=== PATIENT | male | born 1985 | race Caucasian/White ===

== ENCOUNTER 2025-06-28 11:25 | Emergency (ER) | payer MEDICAID, SELFPAY ==
[2025-06-28 11:26] VITALS: BP 119/91; PULSE 124; RESP 18; TEMP 36.1; O2SAT 98; BMI 27.2
--- NOTE | 2025-06-28 11:42 | EDS_ITS ---
HPI HPI - GI History of Present Illness Chief Complaint: Abd Pain Detail of Chief Complaint: Vomiting and abdominal pain Informant: patient and spouse/S.O. Narrative Narrative: Patient presents to the emergency department with complaint of vomiting and abdominal pain. Patient states that he started vomiting around 5:30 AM today. He is thrown up more than 12 times. He then vomited small amount of blood and had a second episode with some dark-colored vomit. He complains of some abdominal discomfort. He has also had 2 bouts of diarrhea. His significant other states that she had a illness a week ago with vomiting. Patient's cousin recently diagnosed with norovirus. Patient denies fever at home. Denies prior abdominal surgeries. Denies urinary symptoms. [facility] Medical History (Updated 06/28/25 @ 13:[address] James Wilburn DO) Schizo affective schizophrenia Home Medications ?Medication ?Instructions ?Recorded ?Last Taken ?Type ondansetron 4 mg disintegrating 4 mg PO Q8H PRN PRN Na usea #10 tabs 06/28/25 Unknown Rx tablet Allergy/AdvReac Type Severity Reaction Status Date / Time Penicillins (PCN) Allergy Anaphylaxis Verified 06/28/25 11:27 Social History Smoking Status: Current every day smoker tobacco type: cigarettes ROS ROS ED Review of Systems ROS Unobtainable: other Constitutional Constitutional ED: Reports lethargy; Denies chills, fever(s), sweats or weight loss Eyes Eyes: Denies blurry vision, change in vision or diplopia ENT ENT ED: Denies rhinorrhea or sore throat Cardiovascular Cardiovascular: Denies chest pain, orthopnea or racing heartbeat Respiratory/Chest Respiratory/Chest: Denies cough, dyspnea, dyspnea on exertion, orthopnea or sputum Gastrointestinal Gastrointestinal: Reports abdominal pain, diarrhea, nausea, vomiting and other Details: Hematemesis Genitourinary Genitourinary ED: Denies dysuria, hematuria or urinary frequency Musculoskeletal Musculoskeletal: Denies arthralgias, back pain, myalgias or neck pain Integumentary Denies abscess, Abrasions or rash Neurologic Neurologic: Denies headache(s) or weakness Psychiatric Psychiatric: Denies anxiety, depression or suicidal thoughts Endocrine Endocrinology: Denies polydipsia, polyphagia or polyuria Hematologic/Lymphatic Hematologic/Lymphatic: Denies easy bleeding, easy bruising or lymphadenopathy Allergic/Immunologic Allergic/Immunologic ED: Denies mouth swelling, tongue swelling or urticaria EXAM Physical Exam Const Vital Signs: 06/28/25 11:26 Temperature 97 F L Temperature Source Temporal Pulse Rate 124 H Respiratory Rate 18 Blood Pressure 119/91 H Blood Pressure Mean 100 Pulse Ox 98 Oxygen Delivery Method Room Air Positive well nourished and well developed General Appearance ED: well developed and NAD HEENT Reports TM's clear and moist mucous membranes normocephalic and atraumatic; Negative for trauma or tenderness Tympanic Membrane ED: Yes TM's clear Eyes PERRL and EOMs intact bilaterally General Eye ED: Negative for pale conjunctiva or scleral icterus Neck no lymphadenopathy, supple and no JVD General: Negative for tenderness Chest Wall inspection of chest normal and palpation of chest normal Chest: Negative for tenderness Resp normal respiratory effort and clear to auscultation bilaterally Effort and Inspection: Negative for respiratory distress or pain with movement Auscultation: Negative for rhonchi, wheezes or diminished lung sounds Cardio regular rate, regular rhythm, S1 normal heart sound, S2 normal heart sound and no murmurs Peripheral Pulses: pulses 2+ throughout GI normal to inspection, nondistended, normoactive bowel sounds, soft to palpation, non-distended and no masses GI Narrative: Minimal diffuse tenderness. There is no rebound, rigidity, or peritoneal signs. No significant guarding. Back/Spine no CVA tenderness and no thoracic nor lumbar tenderness Extremity normal to inspection General Extremety ED: Negative for edema General Extremity: Negative for edema Neuro oriented x3, CN's II-XII intact bilaterally, no sensory deficits noted and gait normal Sensorium / Orientation: awake, alert, oriented to person, oriented to place and oriented to time Motor Exam: strength 5/5 throughout and strength abnormal Psych mental status grossly normal Skin no rashes or lesions noted and no wounds MDM MDM MDM Narrative Medical decision making narrative: Patient presents with vomiting and diarrhea with recent sick contacts diagnosed with norovirus. Did have episode of hematemesis. Clinically he looks well. Suspect likely a viral gastroenteritis with possibly a Brianna-Agee tear. Patient states that he has had history of stomach ulcer in the past. He said no black tarry stool. Will start an IV and give patient liter fluid bolus as well as Protonix and Zofran. Will obtain basic labs. CBC with differential obtained showed an elevated white count of 18.1 with hemoglobin of 17.4 and platelet count of 257. Chemistries unremarkable. LFTs unremarkable. Patient was given a liter normal saline fluid bolus. He was given Zofran. He felt markedly improved after treatment. He also did receive pantoprazole IV bolus. He was ab le to tolerate a p.o. challenge. This point I do not think he needs any imaging as his abdominal exam is benign. I suspect likely a viral gastroenteritis such as possibly norovirus. Recommended symptomatic care and will write him a prescription for Zofran. Advised on pushing fluids and BRAT diet. Advised to return if persistent vomiting, worsening abdominal pain, persistent hematemesis, or condition worsening way. Regarding the hematemesis I suspect likely Brianna- Agee tear. Lab Data Attestation: I reviewed the patient's lab results. Labs: Laboratory Results - last 24 hr 06/28/25 12:00 WBC 18.1 H RBC 5.37 Hgb 17.4 H Hct 48.9 MCV 91.1 MCH 32.4 H MCHC 35.6 RDW Std Deviation 40.9 RDW Coeff of Saman 12.2 Plt Count 257 MPV 8.8 Immature Gran % (Auto) 0.500 Neut % (Auto) 93.8 H Lymph % (Auto) 2.8 L [place] % (Auto) 2.4 Eos % (Auto) 0.3 Baso % (Auto) 0.2 Absolute Neuts (auto) 16.9 H Absolute Lymphs (auto) 0.50 L Nucleated RBC % 0 Sodium 137 Potassium 4.5 Chloride 102 Carbon Dioxide 23.9 Anion Gap 11 BUN 15 Creatinine 0.93 Estim Creat Clear Calc 97.01 Est GFR (MDRD) Non-Af 108 BUN/Creatinine Ratio 16.4 Glucose 168 H Calcium 9.7 Total Bilirubin 0.58 AST 16 ALT 26 Alkaline Phosphatase 135 H Total Protein 7.6 Albumin 4.7 Globulin 2.9 Albumin/Globulin Ratio 1.6 Discharge Plan Triage Chief Complaint: Abd Pain ED Provider: James Wilburn Dx/Rx/DC Orders Clinical Impression: Viral gastroenteritis, Brianna-Agee tear Instructions: Brianna-Agee Tear, ED Gastroenteritis, Viral (Adult) Prescriptions: New ondansetron 4 mg tablet,disintegrating 4 mg PO Q8H PRN PRN (Reason: Nausea) Qty: 10 0RF Primary Care Provider: Care Physician,No Primary Referrals: Vikas Mederos MD [Med Staff - Active Staff, Family Practice] - 3-5 Days Care Physician,No Primary [Primary Care Provider, Medical] Print Language: [place] African Disposition Disposition: Home, Self Care
[2025-06-28] MEDS: 0.9% Normal Saline (1000mL) 1,000 ML 999 ML IV (11:58)
[2025-06-28] MEDS: Pantoprazole Sodium 80 MG in 0.9% Normal Saline (50mL Bag) 15 ML 420 MG IV BOLUS (11:58)
[2025-06-28 12:12] LABS: Hematocrit 48.9 % (40-54); Hemoglobin 17.4 g/dL (13.0-16.5); Immature Granulocytes Count 0.090 X10^3/uL (0.0-0.0); Mean Corp Hgb Conc 35.6 g/dL (32-36); Mean Corpuscular Volume 91.1 fL (80-94); Mean Platelet Vol. 8.8 fl (6.2-12.0); NRBC Flagged by Analyzer 0 % (0-5); POSITIVE DIFFERENTIAL YES; Platelet Count 257 K/mm3 (150-450); RBC Distribution Width CV 12.2 % (11.6-14.6); RBC Distribution Width SD 40.9 fl (35.1-43.9); Red Blood Count 5.37 M/mm3 (4.6-6.2); White Blood Count 18.1 K/mm3 (4.4-11.0)
[2025-06-28 12:30] LABS: AST(SGOT) 16 U/L (<=37); Alanine Aminotransfer ALT/SGPT 26 U/L (<=46); Albumin, Serum 4.7 g/dL (3.5-5.0); Alkaline Phosphatase 135 U/L (40-129); Anion Gap 11 (5-15); BUN 15 mg/dL (4-19); BUN/Creat Ratio 16.4 RATIO (10-20); Calcium,Total 9.7 mg/dL (7.6-11.0); Carbon Dioxide 23.9 mmol/L (21.0-32.0); Chloride 102 mmol/L (98-108); Estimated Creatinine Clearance 97.01 ml/min (50-250); Globulin 2.9 g/dL (2.2-4.2); Glucose 168 mg/dL (70-99); Potassium 4.5 mmol/L (3.3-5.1)
--- NOTE | 2025-06-28 12:37 | CM.ED ---
Social work Reason for referral: no PCP Referral source: case find SW identified patient's lack of PCP and need for resources. SW entered patient's room, introducing self and role at [facility]. Patient's significant other, [place], at bedside; permission given to speak in front of [place]. Patient confirmed lacking a PCP and was grateful for resources of [facility] Provider Directory and [place] information. Patient asked for blanket; blanket provided with RN approval. Kylah Quinn, [employer], [employer]
[2025-06-28 13:27] VITALS: BP 124/81; PULSE 107; RESP 18; TEMP 37.2; O2SAT 97
== END 2025-06-28 13:30 | disposition home or self-care (01) ==
PROVIDERS: Emergency Provider Emergency Medicine; Visit Provider Emergency Medicine
DX: A08.4 Viral intestinal infection, unspecified (principal); K22.6 Gastro-esophageal laceration-hemorrhage syndrome; F17.210 Nicotine dependence, cigarettes, uncomplicated
CPT/HCPCS: 80053; 85025; 96365; 96375; 99283; J2405

== ENCOUNTER 2025-09-05 05:07 | Emergency (ER) | payer MEDICAID, SELFPAY ==
[2025-09-05 05:07] VITALS: PULSE 60; RESP 18; TEMP 36.6; O2SAT 97; BMI 27.3
--- NOTE | 2025-09-05 05:13 | CT_ITS ---
PROCEDURE: ABDOMEN/PELVIS W IV CONT ONLY 09/05/2025 REASON FOR EXAM: ABDOMINAL PAIN TECHNIQUE: Procedure Code: [id number] Modality: CT Procedure: ABDOMEN/PELVIS W IV CONT ONLY Coronal and Sagittal reconstruction series were provided. CONTRAST: 100 cc of Isovue 370 One or more dose reduction techniques were used (e.g., Automated exposure control, adjustment of the mA and/or kV according to patient size, use of iterative reconstruction technique. FINDINGS: Lung bases: Mild dependent atelectasis Liver: Normal size. No mass. Gallbladder: Unremarkable. No biliary ductal dilatation. Spleen: Normal size. Pancreas: Normal size without evidence of mass surrounding inflammation or ductal dilation. Adrenals: No adrenal masses. Kidneys: Normal renal sizes. No hydronephrosis. Bladder: Unremarkable. Reproductive Organs: Prostate not enlarged. No pelvic masses. Bowel: No bowel obstruction. No inflammatory changes. Appendix: Normal. Lymph nodes: Unremarkable. Vasculature: Mild diffuse atherosclerotic calcifications are noted. No aneurysm. Peritoneum / Retroperitoneum: No free fluid or air. Bones: No acute fractures. CT/Abdomen/Pelvis W IV Cont ONLY IMPRESSION: NO ACUTE FINDINGS AT THE ABDOMEN OR PELVIS ON CONTRAST-ENHANCED CT. [facility]
--- NOTE | 2025-09-05 05:14 | EDS_ITS ---
HPI HPI - GI History of Present Illness Chief Complaint: Abd Pain Informant: patient Abdominal Pain/Flank Pain Onset: Today Context: Gradual Onset Timing: Continuous Quality: Aching Location: Epigastric Current Severity: Mild Maximum Severity: Mild Nausea/Vomiting/Emesis GI Symptom: Negative for Nausea or Vomiting Diarrhea/Melena/Hematochezia GI Symptom: Negative for Diarrhea, Melena or Hematochezia Associated Symptoms Associated Symptoms: Negative for Dysuria, Frequency, Hematuria or Urgency Narrative Narrative: 40-year-old male history of schizophrenia and history of gastroesophageal reflux. States he developed abdominal pain about 7 PM last night. All over but more in the upper abdomen. Denies any nausea, vomiting or diarrhea. No constipation. No fever. No dysuria. No prior history of pain like this. States he has not recently been ill. He denies any weight change. States he is urinating fine and moving his bowels. No melena. He has never had any abdominal surgery denies any trauma. Lying supine makes the pain worse. Prior similar symptoms: No Recent Illness/Hospitalization: No PFSH PFSH Medical History Schizo affective schizophrenia Home Medications ?Medication ?Instructions ?Recorded ?Last Taken ?Type carbamazepine 400 mg PO 09/05/25 Unknown History tablet,extended release,12 hr clonidine HCl 0.1 mg tablet 0.1 mg PO BID 09/05/25 Unk nown History fluoxetine 60 mg tablet 60 mg PO DAILY 09/05/25 Unkn own History lithium carbonate 300 mg capsule 300 mg PO TID 5 Unknown History melatonin 5 mg capsule 5 mg PO QHS 09/05/25 Unknown History mirtazapine 15 mg tablet 15 mg PO QHS 09/05/25 Unknow n History olanzapine 20 mg tablet 20 mg PO QHS 09/05/25 Unknow n History olanzapine 5 mg tablet 5 mg PO QHS 09/05/25 Unknown History Allergy/AdvReac Type Severity Reaction Status Date / Time Penicillins (PCN) Allergy Anaphylaxis Verified 09/05/25 05:08 Social History Smoking Status: Current every day smoker tobacco type: cigarettes ROS ROS ED ROS Narrative Abdominal pain. Denies nausea, vomiting, diarrhea or fever. Denies constipation or weight change. Denies dysuria or melena. Constitutional Constitutional ED: Denies chills or fever(s) ENT ENT ED: Denies ear pain Cardiovascular Cardiovascular: Denies chest pain Respiratory/Chest Respiratory/Chest: Denies cough or dyspnea Gastrointestinal Gastrointestinal: Reports abdominal pain; Denies constipation, diarrhea, melena, nausea or vomiting Genitourinary Genitourinary ED: Denies dysuria or hematuria Musculoskeletal Musculoskeletal: Denies arthralgias Integumentary Denies abscess Neurologic Neurologic: Denies headache(s) Psychiatric Psychiatric: Denies anxiety Endocrine Endocrinology: Denies polydipsia Hematologic/Lymphatic Hematologic/Lymphatic: Denies easy bleeding, easy bruising or lymphadenopathy Allergic/Immunologic Allergic/Immunologic ED: Denies mouth swelling, tongue swelling or urticaria EXAM Physical Exam Narrative Exam Narrative: 40-year-old male sitting upright in bed vital signs are stable afebrile. No acute distress. Patient appears comfortable complaining abdominal pain. H EENT exam pupils round react light. Moist mucous membranes. Neck nontender no JVD. No lymphadenopathy. Lungs clear to auscultation bilaterally. Heart regular rhythm no murmur rate about 60. Chest wall ribs nontender. Abdomen soft nondistended normal bowel sounds without peritoneal signs. Mild epigastric tenderness. No rebound guarding rigidity. No hernia or mass. No obstruction. Right upper and right lower quadrants are unremarkable. No pulsatile mass. No obvious obstruction. No signs of trauma. Back nontender. Moving all 4 extremities. Normal strength. No edema nontender. He is awake and alert. He is answering questions following commands. Const Vital Signs: 09/05/25 05:07 Temperature 97.9 F Temperature Source Oral Pulse Rate 60 Respiratory Rate 18 Pulse Ox 97 Oxygen Delivery Method Room Air MDM MDM MDM Narrative Medical decision making narrative: 40-year-old male complaining of abdominal pain but has pretty benign exam. Differential would include gastritis, reflux, ulcer, gallbladder disease, pancreatitis, appendicitis or bowel obstruction. CAT scan and labs to be ob tained. He did request something for pain and will be be given IV morphine and 4 Zofran. Repeat exam around 6:25 AM patient doing well. Abdomen benign. Went over his test results. He is comfortable being discharged home with outpatient follow-up as needed. Abdominal pain uncertain etiology. History & Record Review Discussion w/independent historian: Patient Additional record(s) reviewed:: Prior labs Lab Data Attestation: I reviewed the patient's lab results. Lab results narrative: CBC shows white count of 15.5. H&H 15 and 43. Platelets 245. Chemistry is unremarkable gap 9. Normal BUN of 11 creatinine 0.9. Glucose 149. Liver enzymes unremarkable. Alk phos 133. Lipase normal at 13. Labs: Laboratory Results - last 24 hr 09/05/25 05:11 WBC 15.5 H RBC 4.68 Hgb 15.0 Hct 43.9 MCV 93.8 MCH 32.1 H MCHC 34.2 RDW Std Deviation 41.1 RDW Coeff of Saman 11.9 Plt Count 245 MPV 9.2 Immature Gran % (Auto) 0.400 Neut % (Auto) 81.6 H Lymph % (Auto) 11.6 L [place] % (Auto) 5.7 Eos % (Auto) 0.4 Baso % (Auto) 0.3 Absolute Neuts (auto) 12.7 H Absolute Lymphs (auto) 1.80 Nucleated RBC % 0 Sodium 138 Potassium 4.5 Chloride 103 Carbon Dioxide 26.1 Anion Gap 9 BUN 11 Creatinine 0.95 Estim Creat Clear Calc 100.82 Est GFR (MDRD) Non-Af 104 BUN/Creatinine Ratio 12.0 Glucose 149 H Calcium 9.5 Total Bilirubin 0.16 AST 18 ALT 27 Alkaline Phosphatase 133 H Total Protein 6.7 Albumin 4.2 Globulin 2.5 Albumin/Globulin Ratio 1.7 Lipase 13 Discharge Plan Triage Chief Complaint: Abd Pain ED Provider: Rian Garcia Dx/Rx/DC Orders Clinical Impression: Abdominal pain Instructions: Abdominal Pain Prescriptions: No Action clonidine HCl 0.1 mg tablet 0.1 mg PO BID olanzapine 5 mg tablet 5 mg PO QHS carbamazepine 400 mg tablet extended release 12 hr PO lithium carbonate 300 mg capsule 300 mg PO TID mirtazapine 15 mg tablet 15 mg PO QHS olanzapine 20 mg tablet 20 mg PO QHS melatonin 5 mg capsule 5 mg PO QHS fluoxetine 60 mg tablet 60 mg PO DAILY Primary Care Provider: Care Physician,No Primary Referrals: Roshan Lewis MD [Non-Staff, Medical] - 3-5 Days if not improving Care Physician,No Primary [Primary Care Provider, Medical] Activity Restrictions/Additional Instructions: Plenty of fluids and rest. [id number] Protonix or Pepcid for possible reflux. Your blood work looked good today. Your CAT scan did not show any significant cause your pain. Follow-up with local primary care physician not improving. Return if severe pain, intractable vomiting or fever. Or overall feeling worse. Print Language: Persian Disposition Disposition: Home, Self Care
--- OUTSIDE RECORDS SUMMARY | 2025-09-05 05:19 | XMS RPT_ITS | CCD ---
Author Organization [facility] Care Team Providers Care Manager Intensive Care Unit Name Role Phone CATA ELLIS Attending Unavailable MONTY SAUCEDO Attending Unavaila ble MUKUND FAROOQ Admitting Unavailable MUKUND FAROOQ Attending Unavailable AA UNKNOWN PCP, UNKNOWN Primary Care Unavaila ERA Gonsalez Admitting Unavailable ERA GARCIA Attending Unavailable AA NO PCP, NO PCP Primary Care Unavailable Unavailable Primary Care Provider Unavailabl e Unavailable Primary Care Provider Unavailabl e Unavailable Primary Care Provider Unavailabl e Unavailable Primary Care Provider Unavailabl e Unavailable Primary Care Provider Unavailabl e Unavailable Primary Care Provider Unavailabl e RAJIV DINH Attending Unavailabl e VAMSHI POWERS Attending Unavailable Unavailable Primary Care Provider Unavailabl e PJ SMITH Attending Unavailable SELMA FISHER Attending Unavailable PHYLLIS BELTRE Attending Unavailable Dr. James Wilburn DO Attending Physician [phone] Dr. James Wilburn DO Emergency Department Physici an Care Physician, No Primary Primary Care Physicia n Unavailable James Wilburn Attending Unavailable Care Physician, No Primary Primary Care Unava ilable Allergies Allergy Classification Reported Allergen(s) Allergy Type Date of Onset Reaction(s) Facility (20 sources) Penicillins; Translations: [PENICILLINS] Propensity to adverse reactions (disorder) 6 Rash, Unknown, Swelling [facility] Repository (1 source) Penicillin Drug Allergy [facility] Repository Medications Current Medications Medication Drug Class(es) Dates Sig (Normalized) Sig (Original) ARIPiprazole 5 mg oral tablet (4 sources) Atypical Antipsychotic Start: 05-08-2019 End: 05-22-2019 take 1 tablet by mouth once daily ARIPiprazole (ABILIFY) 5 MG tablet Take 1 tablet by mouth daily for 14 days 14 tablet 0 05/08/2019 Active cephalexin 500 mg oral capsule (1 source) Cephalosporin Antibacterial Start: 05-15-2019 End: 05-20-2019 take 1 capsule by mouth four times daily cephALEXin (KEFLEX) 500 MG capsule Take 1 capsule by mouth 4 times daily for 5 days 20 capsule 0 05/15/2019 05/20/2019 Active cyclobenzaprine hydrochloride 10 mg oral tablet (6 sources) Muscle Relaxant Start: 08-17-2024 End: 08-27-2024 take 1 tablet by mouth twice daily as needed for muscle spasms cyclobenzaprine (Flexeril) 10 MG tablet Take 1 tablet (10 mg) by mouth 2 times daily as needed for muscle spasms for up to 10 days. 20 tablet 08/17/2024 Active hydrOXYzine pamoate 25 mg oral capsule (1 source) Antihistamine Start: 05-08-2019 End: 05-15-2019 take 1 capsule by mouth three times daily as needed hydrOXYzine (VISTARIL) 25 MG capsule Take 1 capsule by mouth 3 times daily as needed for Itching 21 capsule 0 05/08/2019 05/15/2019 Active meloxicam 7.5 mg oral tablet (4 sources) Nonsteroidal Anti-inflammatory Drug Start: 12-24-2018 End: 03-25-2022 meloxicam (MOBIC) 7.5 MG tablet Take 1 tablet by mouth daily One pill QD with full meals for 10-14 days, then PRN pain 30 tablet 0 12/24/2018 03/25/2022 Discontinued (Stop Taking at Discharge) methocarbamol 500 mg oral tablet (1 source) Muscle Relaxant Start: 03-05-2020 End: 03-15-2020 take 1 tablet by mouth four times daily methocarbamol (ROBAXIN) 500 MG tablet Take 1 tablet by mouth 4 times daily for 10 days 40 tablet 0 03/05/2020 03/15/2020 Active naproxen 500 mg oral tablet (8 sources) Nonsteroidal Anti-inflammatory Drug Start: 02-01-2024 End: 02-16-2024 take 1 tablet by mouth in the morning naproxen (Naprosyn) 500 MG tablet Take 1 tablet (500 mg) by mouth in the morning and 1 tablet (500 mg) in the evening. Take with meals. Do all this for 15 days. 30 tablet 0 02/01/2024 02/16/2024 Active Start: 12-14-2018 End: 06-20-2022 take 1 tablet by mouth twice daily naproxen (NAPROSYN) 500 MG tablet Take 1 tablet by mouth 2 times daily 20 tablet 0 12/14/2018 03/25/2022 Discontinued (Stop Taking at Discharge) nystatin [id number] unt/ml oral suspension (3 sources) Polyene Antifungal Start: 03-25-2022 End: 03-30-2022 take 5 mL by mouth four times daily nystatin (MYCOSTATIN) 113245 UNIT/ML suspension Take 5 mLs by mouth 4 times daily 60 mL 0 03/25/2022 03/25/2022 Discontinued Start: 03-25-2022 nystatin (MYCO STATIN) 199470 UNIT/ML suspension 500,000 Units omeprazole 20 mg delayed release oral capsule (3 sources) Proton Pump Inhibitor Start: 10-01-2019 End: 03-25-2022 take 1 capsule by mouth once daily omeprazole (PRILOSEC) 20 MG delayed release capsule Take 1 capsule by mouth daily 20 capsule 0 10/01/2019 03/25/2022 Discontinued (Stop Taking at Discharge) ondansetron 4 mg disintegrating oral tablet (8 sources) Serotonin-3 Receptor Antagonist Start: 06-28-2025 take 1 tablet by mouth every eight hours as needed for nausea Start: 03-25-2022 End: 03-25-2022 ondansetron (ZOFRAN) injecti on 4 mg Start: 10-01-2019 End: 10-01-2019 ondansetron (ZOFRAN) injecti on 4 mg Start: 10-07-2018 End: 03-25-2022 take 1 tablet by mouth three times daily as needed for nausea ondansetron (ZOFRAN-ODT) 4 MG disintegrating tablet Take 1 tablet by mouth 3 times daily as needed for Nausea or Vomiting 21 tablet 0 10/07/2018 03/25/2022 Discontinued (Stop Taking at Discharge) pantoprazole 20 mg delayed release oral tablet (12 sources) Proton Pump Inhibitor Start: 12-29-2023 End: 01-28-2024 take 1 tablet by mouth once daily pantoprazole (ProtoNix) 20 MG EC tablet Take 1 tablet (20 mg) by mouth daily. Do not crush, chew, or split. 30 tablet 12/29/2023 Active Start: 03-26-2022 take 1 tablet by [place] th once daily before breakfast pantoprazole (PROTONIX) 40 MG tablet Take 1 tablet by mouth every morning (before breakfast) 30 tablet 3 03/26/2022 Active Start: 03-25-2022 pantoprazole ( PROTONIX) tablet 40 mg potassium chloride 20 meq powder for oral solution (4 sources) Start: 03-25-2022 End: 03-30-2022 take 40 mEq by mouth once daily potassium chloride (KLOR-CON) 20 MEQ packet Take 40 mEq by mouth daily for 5 days 10 packet 0 03/25/2022 03/30/2022 Active Start: 03-25-2022 End: 03-25-2022 potassium chloride 10 mEq/10 0 mL IVPB (Peripheral Line) Start: 03-25-2022 potassium chlo ride (KLOR-CON) packet 40 mEq sodium chloride flush 0.9 % injection 3 mL (1 source) Start: 03-25-2022 sodium chlorid e flush 0.9 % injection 3 mL Completed/Discontinued Medications Medication Drug Class(es) Dates Sig (Normalized) Sig (Original) acetaminophen 500 mg oral tablet (4 sources) Start: 11-09-2024 End: 11-09-2024 1,000 mg, Oral, Once, On Fri11/09/24 at 1655, For 1 dose, Maximum dose of acetaminophen is 4000 mg from all sources in 24 hours. Start: 10-04-2022 take 2 tablets by [facility] every eight hours acetaminophen (TYLENOL EXTRA STRENGTH) 500 mg tablet Take 2 tablets by mouth every 8 hours. 50 tablet 0 10/04/2022 Active Comment on above: Take 2 tablets by [facility] every 8 hours. acetaminophen 325 mg / oxyCODONE hydrochloride 5 mg oral tablet (1 source) Opioid Agonist Start: 0 End: 0 oxyCODONE-acetamin ophen (PERCOCET) 5-325 MG per tablet 1 tablet [id number] 200 actuat albuterol 0.09 mg/actuat metered dose inhaler (6 sources) beta2-Adrenergic Agonist Start: 8 take 2 puff(s) by inhalation four times daily as needed for wheezing albuterol sulfate HFA 108 (90 Base) MCG/ACT inhaler Inhale 2 puffs into the lungs 4 times daily as needed for Wheezing 1 Inhaler 0 08/26/2018 Active Start: 08-26-2018 take 2 puff(s) by in halation every four hours as needed for wheezing albuterol HFA (PROVENTIL HFA, VENTOLIN HFA) 90 mcg/actuation inhaler Inhale 2 Puffs as instructed every 4 hours as needed for Wheezing/Shortness of Breath. 0 08/26/2018 Active Start: 08-26-2018 End: 03-25-2022 take 2 puff(s) by inhalation four times daily as needed for wheezing albuterol sulfate HFA 108 (90 Base) MCG/ACT inhaler Inhale 2 puffs into the lungs 4 times daily as needed for Wheezing 1 Inhaler 0 08/26/2018 03/25/2022 Discontinued (Stop Taking at Discharge) Comment on above: Inhale 2 Puffs as in structed every 4 hours as needed for Wheezing/Shortness of Breath. aluminum hydroxide 40 mg/ml / magnesium hydroxide 40 mg/ml / simethicone 4 mg/ml oral suspension (2 sources) Start: 12-29-2023 End: 12-29-2023 aluminum & magnesium hydroxide-simethicone (Mylanta) 200-200-20 MG/5ML oral suspension 20 mL bacitracin zinc 0.5 unt/mg topical ointment (1 source) Start: 05-15-2019 End: 05-15-2019 bacitracin ointment Start: 05-15-2019 End: 05-15-2019 bacitracin ointment calcium chloride 0.0014 meq/ml / potassium chloride 0.004 meq/ml / sodium chloride 0.103 meq/ml / sodium lactate 0.028 meq/ml injectable solution (1 source) Start: 10-01-2019 End: 10-01-2019 lactated ringers bolus 1 ml dexamethasone phosphate 4 mg/ml injection (2 sources) Corticosteroid Start: 11-04-2022 End: 11-04-2022 dexAMETHasone (Decadron) injection 8 mg glucagon (rdna) 1 mg injection (1 source) Antihypoglycemic Agent Start: 03-25-2022 End: 03-25-2022 glucagon (rDNA) injection 1 mg ibuprofen 800 mg oral tablet (16 sources) Nonsteroidal Anti-inflammatory Drug Start: 02-14-2023 take 1 tablet by mouth every eight hours ibuprofen (MOTRIN) 800 mg tablet Take 1 tablet by mouth every 8 hours. 20 tablet 0 02/14/2023 Active Start: 11-04-2022 End: 11-04-2022 ibuprofen tablet 600 mg Start: 03-05-2020 End: 03-25-2022 take 1 tablet by mouth twice daily as needed for pain ibuprofen (ADVIL;MOTRIN) 800 MG tablet Take 1 tablet by mouth 2 times daily as needed for Pain 60 tablet 0 03/05/2020 03/25/2022 Discontinued (Stop Taking at Discharge) Start: 09-02-2018 End: 03-25-2022 take 1 tablet by mouth every six hours as needed for pain ibuprofen (ADVIL;MOTRIN) 600 MG tablet Take 1 tablet by mouth every 6 hours as needed for Pain 28 tablet 0 02/21/2019 03/25/2022 Discontinued (Stop Taking at Discharge) take 3 tablets by mo [facility] every six hours as needed ibuprofen (MOTRIN) 200 mg tablet Take 600 mg by mouth every 6 hours as needed for Pain. 0 Active Comment on above: Take 600 mg by mouth every 6 hours as needed for Pain. Take 1 tablet by [facility] every 8 hours. 1 ml ketorolac tromethamine 30 mg/ml cartridge (6 sources) Nonsteroidal Anti-inflammatory Drug, Cyclooxygenase Inhibitor Start: 09-14-2024 End: 09-14-2024 9.9 mg (rounded from 10 mg), IntraVENous, Once, On Fri09/14/24 at 1625, For 1 dose Start: 08-17-2024 End: 08-17-2024 inject 30 mg by intramuscular injection once 30 mg, IntraMUSCular, Once, On Fri08/17/24 at 2030, For 1 dose Start: 02-01-2024 End: 02-01-2024 ketorolac (Toradol) injectio n 15 mg lidocaine 0.04 mg/mg medicated patch (9 sources) Antiarrhythmic, Amide Local Anesthetic Start: 08-17-2024 End: 08-17-2024 1 patch, TransDERmal, Administer over 12 Hours, Once, On Fri08/17/24 at 2030, For 1 dose, Apply patch to back. Patch may remain in place for up to 12 hours in any 24 hour period. Start: 08-17-2024 apply 1 dose transde rmal route once daily, then apply 1 dose transdermal route every twelve hours lidocaine (Lidoderm) 5 % patch Apply 1 patch topically daily. Remove & discard patch within 12 hours or as directed by . 15 patch 08/17/2024 Active Start: 05-15-2019 End: 05-15-2019 lidocaine PF 1 % injection 5 mL 2 ml metoclopramide 5 mg/ml prefilled syringe (2 sources) Dopamine-2 Receptor Antagonist Start: 11-09-2024 End: 11-09-2024 10 mg, IntraVENous, Once, On Fri11/09/24 at 1655, For 1 dose 2 ml orphenadrine citrate 30 mg/ml injection (2 sources) Muscle Relaxant Start: 08-17-2024 End: 08-17-2024 inject 60 mg by intramuscular injection once 60 mg, IntraMUSCular, Once, On Fri08/17/24 at 2030, For 1 dose predniSONE 20 mg oral tablet (5 sources) Start: 08-17-2024 End: 08-17-2024 take 50 mg by mouth once 50 mg, Oral, Once, On Fri08/17/24 at 2030, For 1 dose Start: 08-17-2024 End: 08-29-2024 take 4 tablets by mouth once daily, then take 3 tablets by mouth once daily, then take 2 tablets by mouth once daily, then take 1 tablet by mouth once daily predniSONE (Deltasone) 10 MG tablet Take 4 tablets (40 mg) by mouth daily for 3 days, THEN 3 tablets (30 mg) daily for 3 days, THEN 2 tablets (20 mg) daily for 3 days, THEN 1 tablet (10 mg) daily for 3 days. 30 tablet 08/17/2024 08/29/2024 Active Start: 03-05-2020 End: 03-10-2020 take 2 tablets by mouth once daily predniSONE (DELTASONE) 20 MG tablet Take 2 tablets by mouth daily for 5 days 10 tablet 0 03/05/2020 03/10/2020 Active prochlorperazine 5 mg/ml injectable solution (2 sources) Phenothiazine Start: 09-14-2024 End: 09-14-2024 10 mg, IntraVENous, Once, On Fri09/14/24 at 1625, For 1 dose 50 ml sodium chloride 9 mg/ml injection (13 sources) Start: 11-09-2024 End: 11-09-2024 1,000 mL, IntraVENous, at 1,000 mL/hr, Administer over 1 Hours, Once, On Fri11/09/24 at 1655, For 1 dose Start: 09-14-2024 End: 09-14-2024 250 mL, IntraVENous, at 250 mL/hr, Administer over 1 Hours, Once, On Fri09/14/24 at 1335, For 1 dose Start: 09-14-2024 End: 09-14-2024 take 50 mL intravenously every hour 50 mL/hr, IntraVENous, Continuous, Starting on Fri09/14/24 at 1335 Start: 09-14-2024 End: 09-14-2024 take 5-40 mL intravenously every twelve hours 5-40 mL, IntraVENous, Every 12 hours, First dose on Fri09/14/24 at 1335, For Line Patency: Peripheral IV = 5 mL; Midline or Central Line = 10 mL/lumen. If following IV push medication, administer flush at same rate as the IV push. Flush volume is determined by type of infusion therapy being given. For non-viscous solutions use: Peripheral IV = 5 mL Midline or Central Line = 10 mL/lumen For viscous solutions (i.e. blood components, parenteral nutrition, contrast media, or after obtaining blood sample) use: Peripheral IV = 10 mL Midline or Central Line = 20 mL/lumen Start: 09-14-2024 End: 09-14-2024 take 100 mL intravenously every hour as needed, then take 20 mL intravenously every hour as needed 5-250 mL/hr, IntraVENous, PRN, if patient receiving piggyback infusions and maintenance fluids are not ordered OR KVO fluids to protect IV site / prevent frequent line interruptions / long duration, Starting on Fri09/14/24 at 1331, For piggyback infusion, administer at same rate as piggyback for a total of 25 mL. Enter 25 mL into dose field and piggyback rate into rate field of order. If piggyback is infusing at a rate less than 100 mL/hr, enter 25 mL into dose field and 100 mL/hr into rate field of order. For KVO fluids, enter rate of 20 mL/hr or less into rate field of order. Start: 09-14-2024 End: 09-14-2024 5-40 mL, IntraVENous, PRN, l ine care, After every IV line use, Starting on Fri09/14/24 at 1331, For Line Patency: Peripheral IV = 5 mL; Midline or Central Line = 10 mL/lumen. If following IV push medication, administer flush at same rate as the IV push. Flush volume is determined by type of infusion therapy being given. For non-viscous solutions use: Peripheral IV = 5 mL Midline or Central Line = 10 mL/lumen For viscous solutions (i.e. 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, in remission] Onset: 2 03-25-2022 Chronic Allergic reactions (1 source) Allergy status to penicillin; Translations: [ALLERGY STATUS TO PENICILLIN] Onset: 9 Episodic Anxiety disorders (20 sources) Generalized anxiety disorder; Translations: [Generalized anxiety disorder] Onset: 8 02-14-2018 Chronic Diseases of white blood cells (1 source) Leukocytosis; Translations: [Elevated white blood cell count, unspecified] Onset: 3 05-31-2023 Chronic Disorders of teeth and jaw (1 source) Chronic gingivitis, plaque induced; Translations: [CHRONIC GINGIVITIS PLAQUE INDUCED] Onset: 9 Chronic Disorders of teeth and jaw (2 sources) Partial loss of teeth, unspecified cause, unspecified class; Translations: [Dental caries, unspecified] Onset: 9 Episodic Disorders of teeth and jaw (1 source) Other specified disorders of teeth and supporting structures; Translations: [OTH SPEC DISORDERS TEETH SUPP STRCT] Onset: 9 Esophageal disorders (18 sources) Gastroesophageal reflux disease; Translations: [Gastro-esophageal reflux disease without esophagitis] Onset: 8 02-14-2018 Chronic Esophageal disorders (1 source) Brianna-Agee tear; Translations: [Gastro-esophageal laceration-hemorrhage syndrome] 07-06-2025 Episodic Headache; including migraine (20 sources) Headache; Translations: [Headache] Onset: 8 12-01-2017 Episodic Headache; including migraine (2 sources) Headache; including migraine; Translations: [Headache, unspecified] Onset: 2 Intestinal infection (1 source) Viral gastroenteritis; Translations: [Viral intestinal infection, unspecified] 07-06-2025 Episodic Mood disorders (18 sources) Recurrent major depressive episodes, moderate ; Translations: [Major depressive disorder, recurrent, moderate] Onset: 8 02-14-2018 Chronic Nausea and vomiting (19 sources) Nausea and vomiting; Translations: [Nausea with vomiting, unspecified] Onset: 9 10-07-2018 Episodic Other gastrointestinal disorders (2 sources) Dysphagia; Translations: [Dysphagia, unspecified] 12-29-2023 Episodic Other injuries and conditions due to external causes (1 source) Food lodged in esophagus; Translations: [Food in esophagus causing other injury, initial encounter] Episodic Other nervous system disorders (2 sources) Other chronic pain; Translations: [Other chronic pain] Onset: 4 Chronic Other nervous system disorders (1 source) Other acute postprocedural pain; Translations: [OTHER ACUTE POSTPROCEDURAL PAIN] Onset: 9 Episodic Other skin disorders (1 source) Localized swelling, mass and lump, head; Translations: [LOCALIZED SWELLING MASS AND LUMP HEAD] Onset: 9 Episodic Residual codes; unclassified (2 sources) Tobacco user; Translations: [Tobacco abuse] Onset: 8 02-14-2018 Chronic Schizophrenia and other psychotic disorders (17 sources) Paranoid schizophrenia; Translations: [Paranoid schizophrenia] Onset: 2 03-25-2022 Chronic Screening and history of mental health and substance abuse codes (3 sources) Tobacco smoking behavior - finding; Translations: [Smoking addiction] Onset: 9 10-07-2018 Chronic Spondylosis; intervertebral disc disorders; other back problems (6 sources) Chronic low back pain; Translations: [Acute exacerbation of chronic low back pain] Onset: 4 08-17-2024 Episodic Sprains and strains (1 source) Low back strain; Translations: [Strain of lumbar region, initial encounter] Episodic Substance-related disorders (20 sources) History of drug abuse; Translations: [Tobacco smoking behavior - finding] Onset: 8 02-14-2018 Chronic Unclassified (1 source) NEW ONSET SEIZURES Onset: 3 Unclassified (1 source) Low back pain, unspecified; Translations: [Low back pain, unspecified] Onset: 4 Past or Other Problems Problem Classification Problem Date Documented Da te Episodic/Chronic Abdominal pain (1 source) Epigastric pain Episodic Anxiety disorders (1 source) Irritability and anger; Translations: [Outbursts of anger] Onset: 10-05-2022 Episodic Conditions associated with dizziness or vertigo (16 sources) Dizziness and giddiness; Translations: [Dizziness and giddiness] Onset: 03-17-2019 03-25-2022 Episodic Diabetes mellitus without complication (1 source) Hyperglycemia; Translations: [Hyperglycemia, unspecified] Onset: 05-31-2023 05-31-2023 Episodic Epilepsy; convulsions (1 source) Seizure; Translations: [Unspecified convulsions] Onset: 05-31-2023 05-31-2023 Episodic Fluid and electrolyte disorders (1 source) Metabolic acidosis, increased anion gap (IAG); Translations: [High anion gap metabolic acidosis] Onset: 05-31-2023 05-31-2023 Episodic Fracture of upper limb (3 sources) Closed fracture of base of fifth metacarpal; Translations: [Displaced fracture of base of fifth metacarpal bone, right hand, sequela] Onset: 03-19-2023 Episodic Immunizations and screening for infectious disease (1 source) Encounter for immunization; Translations: [Need for Tdap vaccination] Onset: 10-05-2022 Episodic Nonspecific chest pain (20 sources) Other chest pain; Translations: [Chest pain] Onset: 02-14-2018 02-14-2018 Episodic Open wounds of extremities (1 source) Laceration of finger; Translations: [Laceration of left little finger without foreign body with damage to nail, initial encounter] Episodic Open wounds of head; neck; and trunk (1 source) Laceration without foreign body of scalp, initial encounter; Translations: [Laceration of scalp without foreign body, initial encounter] Onset: 10-05-2022 Episodic Other connective tissue disease (1 source) Hand pain Onset: 02-14-2023 Episodic Other gastrointestinal disorders (2 sources) Dysphagia, unspecified; Translations: [Dysphagia, unspecified] Onset: 12-29-2023 Episodic Other injuries and conditions due to external causes (1 source) Unspecified injury of head, initial encounter; Translations: [Head injury without fracture of skull, initial encounter] Onset: 10-05-2022 Episodic Other non-traumatic joint disorders (4 sources) Pain in right knee; Translations: [Pain in joint, lower leg] Onset: 02-01-2024 02-01-2024 Episodic Other screening for suspected conditions (not mental disorders or infectious disease) (1 source) Lactic acidemia; Translations: [Other specified abnormal findings of blood chemistry] Onset: 05-31-2023 05-31-2023 Episodic Other upper respiratory infections (2 sources) Pharyngitis; Translations: [Acute pharyngitis, unspecified] Episodic Residual codes; unclassified (16 sources) Tobacco user; Translations: [Tobacco use] Onset: 02-14-2018 02-14-2018 Episodic Residual codes; unclassified (1 source) History of drug abuse; Translations: [Personal history of other specified conditions] Onset: 02-14-2018 02-14-2018 Episodic Unclassified (1 source) Low back pain, unspecified; Translations: [Low back pain, unspecified] Onset: 08-17-2024 Results Test Name Value Interpretation Reference Range Facility Absolute lymphocyte countOrd ered By: James Wilburn on 06-28-2025 Lymphocytes Auto (Unsp spec) [#/Vol] 0.50 10*3/uL Low 0.83-4.51 [facility] Absolute neutrophil countOrd ered By: James Wilburn on 06-28-2025 Neutrophils (Bld) [#/Vol] 16.9 10*3/uL High 2.0-7.7 [facility] Anion gap in Serum or Plasma Ordered By: James Wilburn on 06-28-2025 Anion gap [Moles/Vol] 11 mmol/L 5-15 [facility] Automated blood erythrocyte countOrdered By: James Wilburn on 06-28-2025 RBC (Bld) [#/Vol] 5.37 10*6/uL Normal 4.6-6.2 [facility] Comment on above: Performed By: #### L 100.0100, L500.4050 #### [facility] [address] [place], [address] Automated blood hematocrit ( percentage)Ordered By: James Burtizzy on 06-28-2025 Hematocrit (Bld) [Volume fraction] 48.9 % Normal 40-54 [facility] Comment on above: Performed By: #### L 100.0100, L500.4050 #### [facility] [address] [place], [address] Automated lymphocyte count a s percentage of total leukocytesOrdered By: James Burtizzy on 06-28-2025 Lymphocytes/100 WBC Auto (Unsp spec) 2.8 % Low 19-41 [facility] BUN/creatinine ratioOrdered By: James Burtizzy on 06-28-2025 Urea nitrogen/Creatinine [Mass ratio] 16.4 mg/mg 10-20 [facility] Basophil percentageOrdered B y: James Burtizzy on 06-28-2025 Basophils/100 WBC (Bld) 0.2 % Normal 0-1 [facility] Comment on above: Performed By: #### L 100.0100, L500.4050 #### [facility] [address] [place], [address] Bilirubin, totalOrdered By: James Burtizzy on 06-28-2025 Bilirubin [Mass/Vol] 0.58 mg/dL Normal 0.00-1.30 [facility] Comment on above: Performed By: #### L 100.0100, [id number] #### [facility] [address] [place], [address] CBC W/Diff, Automatedon 06-07 Absolute Lymph 0.50 X10 3/uL Low 0.83-4.51 [facility] Comment on above: Performed By: #### L 100.0100, [id number] #### [facility] [facility] [address] [place], [address] Absolute Neut 16.9 X10 3/uL High 2.0-7.7 [facility] Comment on above: Performed By: #### L 100.0100, L500.4050 #### [facility] [address] [place], [address] IG% 0.500 Normal 0.0-0.9 [facility] Comment on above: Result Comment: IG% - Immature Granulocytes (promyelocytes, myelocytes and metamyelocytes) > 1% indicates that a LEFT SHIFT is Present. Performed By: #### L 100.0100, L500.4050 #### [facility] [address] [place], [address] Lymphocytes/100 WBC (Bld) 2.8 % Low 19-41 [facility] Comment on above: Performed By: #### L 100.0100, L500.4050 #### [facility] [address] [place], [address] Nucleated RBC (Bld) [#/Vol] 0 10*3/uL Normal 0-5 [facility] Comment on above: Performed By: #### L 100.0100, L500.4050 #### [facility] [address] [place], [address] RDW SD 40.9 fl Normal 35.1-43.9 [facility] Comment on above: Performed By: #### L 100.0100, L500.4050 #### [facility] [address] [place], [address] Carbon dioxide, total [Moles /volume] in Central venous bloodOrdered By: James Wilburn on 06-28-2025 CO2 [Moles/Vol] 23.9 mmol/L Normal 21.0-32.0 [facility] Comment on above: Performed By: #### L 100.0100, L500.4050 #### [facility] [address] [place], [address] Chloride assayOrdered By: Heydi fontanez Javedizzy on 06-28-2025 Chloride [Moles/Vol] 102 mmol/L Normal 98-108 [facility] Comment on above: Performed By: #### L 100.0100, L500.4050 #### [facility] [address] [place], [address] Comprehensive Metabolic Prof ilon 06-28-2025 ALK PHOS 135 U/L High 40-129 [facility] Comment on above: Performed By: #### L 100.0100, L500.4050 #### [facility] [address] [place], [address] BUN/CRE 16.4 RATIO Normal 10-20 [facility] Comment on above: Performed By: #### L 100.0100, L500.4050 #### [facility] [address] [place], [address] ECRCL 97.01 ml/min Normal 50-250 [facility] Comment on above: Performed By: #### L 100.0100, L500.4050 #### [facility] [address] [place], [address] GAP 11 Normal 5-15 [facility] Comment on above: Performed By: #### L 100.0100, L500.4050 #### [facility] [address] [place], [address] Potassium [Moles/Vol] 4.5 mmol/L Normal 3.3-5.1 [facility] Comment on above: Performed By: #### L 100.0100, L500.4050 #### [facility] [address] [place], [address] T PROT 7.6 g/dL Normal 5.9-8.4 [facility] Comment on above: Performed By: #### L 100.0100, L500.4050 #### [facility] [address] [place], [address] Comprehensive Metabolic Prof ilOrdered By: James Wilburn on 06-28-2025 AST [Catalytic activity/Vol] 16 U/L Normal <=37 [facility] Comment on above: Performed By: #### L 100.0100, L500.4050 #### [facility] [address] [place], [address] Emergency Department Summary on 06-28-2025 Emergency Department Summary [facility] Medical Records Department [address] [place] [address] Emergency Department Summary 06/28/25 MR#: [id number] Acct: [id number] Name: ABDIEL ALSTON Rep #: [id number] : 1985 39 From: James Wilburn DO PCP: Care Physician,No Primary Status:DEP ER Location: ED HPI HPI - GI History of Present Illness Chief Complaint: Abd Pain Detail of Chief Complaint: Vomiting and abdominal pain Informant: patient and spouse/S.O. Narrative Narrative: Patient presents to the emergency department with complaint of vomiting and abdominal pain. Patient states that he started vomiting around 5:30 AM today. He is thrown up more than 12 times. He then vomited small amount of blood and had a second episode with some dark-colored vomit. He complains of some abdominal discomfort. He has also had 2 bouts of diarrhea. His significant other states that she had a illness a week ago with vomiting. Patient's cousin recently diagnosed with norovirus. Patient denies fever at home. Denies prior abdominal surgeries. Denies urinary symptoms. [facility] Medical History (Updated 06/28/25 @ 13:[address] James Wilburn, DO) Schizo affective schizophrenia Home Medications ???Medication ???Instructions ???Recorded ???Last Taken ???Type ondansetron 4 mg disintegrating 4 mg PO Q8H PRN PRN Nausea #10 tab s 06/28/25 Unknown Rx tablet Allergy/AdvReac Type Severity Reaction Status Date / Time Penicillins (PCN) Allergy Anaphylaxis Verified 06/28/25 11:27 Social History Smoking Status: Current every day smoker tobacco type: cigarettes ROS ROS ED Review of Systems ROS Unobtainable: other Constitutional Constitutional ED: Reports lethargy; Denies chills, fever(s), sweats or weight loss Eyes Eyes: Denies blurry vision, change in vision or diplopia ENT ENT ED: Denies rhinorrhea or sore throat Cardiovascular Cardiovascular: Denies chest pain, orthopnea or racing heartbeat Respiratory/Chest Respiratory/Chest: Denies cough, dyspnea, dyspnea on exertion, orthopnea or sputum Gastrointestinal Gastrointestinal: Reports abdominal pain, diarrhea, nausea, vomiting and other Details: Hematemesis Genitourinary Genitourinary ED: Denies dysuria, hematuria or urinary frequency Musculoskeletal Musculoskeletal: Denies arthralgias, back pain, myalgias or neck pain Integumentary Denies abscess, Abrasions or rash Neurologic Neurologic: Denies headache(s) or weakness Psychiatric Psychiatric: Denies anxiety, depression or suicidal thoughts Endocrine Endocrinology: Denies polydipsia, polyphagia or polyuria Hematologic/Lymphatic Hematologic/Lymphatic : Denies easy bleeding, easy bruising or lymphadenopathy Allergic/Immunologic Allergic/Immunologic ED: Denies mouth swelling, tongue swelling or urticaria EXAM Physical Exam Const Vital Signs: 06/28/25 11:26 Temperature 97 F L Temperature Source Temporal Pulse Rate 124 H Respiratory Rate 18 Blood Pressure 119/91 H Blood Pressure Mean 100 Pulse Ox 98 Oxygen Delivery Method Room Air Positive well nourished and well developed General Appearance ED: well developed and NAD HEENT Reports TM's clear and moist mucous membranes normocephalic and atraumatic; Negative for trauma or tenderness Tympanic Membrane ED: Yes TM's clear Eyes PERRL and EOMs intact bilaterally General Eye ED: Negative for pale conjunctiva or scleral icterus Neck no lymphadenopathy, supple and no JVD General: Negative for tenderness Chest Wall inspection of chest normal and palpation of chest normal Chest: Negative for tenderness Resp normal respiratory effort and clear to auscultation bilaterally Effort and Inspection: Negative for respiratory distress or pain with movement Auscultation: Negative for rhonchi, wheezes or diminished lung sounds Cardio regular rate, regular rhythm, S1 normal heart sound, S2 normal heart sound and no murmurs Peripheral Pulses: pulses 2+ throughout GI normal to inspection, nondistended, normoactive bowel sounds, soft to palpation, non-distended and no masses GI Narrative: Minimal diffuse tenderness. There is no rebound, rigidity, or peritoneal signs. No significant guarding. Back/Spine no CVA tenderness and no thoracic nor lumbar tenderness Extremity normal to inspection General Extremety ED: Negative for edema General Extremity: Negative for edema Neuro oriented x3, CN's II-XII intact bilaterally, no sensory deficits noted and gait normal Sensorium / Orientation: awake, alert, oriented to person, oriented to place and oriented to time Motor Exam: strength 5/5 throughout and strength abnormal Psych mental status grossly normal Skin no rashes or lesions noted and no wounds MDM MDM MDM Narrative Medical decision making narrative: Patient presents with (more content not included)... Normal [facility] Eosinophil percentageOrdered By: James Wilburn on 06-28-2025 Eosinophils/100 WBC (Bld) 0.3 % Normal 0-5 [facility] Comment on above: Performed By: #### L 100.0100, L500.4050 #### [facility] [address] [place], [address] Erythrocyte distribution wid th ratioOrdered By: James Wilburn on 06-28-2025 Erythrocyte distribution width (RBC) [Ratio] 12.2 % Normal 11.6-14.6 [facility] Comment on above: Performed By: #### L 100.0100, L500.4050 #### [facility] [address] [place], [address] Erythrocyte distribution wid th standard deviationOrdered By: James Wilburn on 06-28-2025 Erythrocyte distribution width (RBC) [Ratio] 40.9 fl 35.1-43.9 [facility] Glomerular filtration rate ( GFR) estimation/1.73 sq m using serum, plasma, or whole bOrdered By: James Wilburn on 06-28-2025 GFR/1.73 sq M.predicted among non-blacks MDRD (S/P/Bld) [Vol rate/Area] 108 mL/min/{1.73_m2} Normal >60 [facility] Comment on above: mL/min/1.73m2 CKD-EP I Creatinine Equation (2020) Result Comment: mL/m in/1.73m2 CKD-EPI Creatinine Equation (2021) Performed By: #### L 100.0100, L500.4050 #### [facility] [address] [place], [address] Hemoglobin measurementOrdere d By: James Wilburn on 06-28-2025 Hemoglobin (Bld) [Mass/Vol] 17.4 g/dL High 13.0-16.5 [facility] Comment on above: Performed By: #### L 100.0100, L500.4050 #### [facility] [address] [place], [address] Immature granulocytes/100 WB C Auto (Bld)Ordered By: James Wilburn on 06-28-2025 Immature granulocytes/100 WBC (Bld) 0.500 % 0.0-0.9 [facility] Comment on above: IG% - Immature Granu locytes (promyelocytes, myelocytes and metamyelocytes) > 1% indicates that a LEFT SHIFT is Present. MCV (mean corpuscular volume ) determinationOrdered By: James Wilburn on 06-28-2025 MCV (RBC) [Entitic vol] 91.1 fL Normal 80-94 [facility] Comment on above: Performed By: #### L 100.0100, L500.4050 #### [facility] [address] [place], [address] Mean corpuscular hemoglobin (MCH) determinationOrdered By: James Wilburn on 06-28-2025 MCH (RBC) [Entitic mass] 32.4 pg High 27.0-32.0 [facility] Comment on above: Performed By: #### L 100.0100, L500.4050 #### [facility] [address] [place], [address] Mean corpuscular hemoglobin concentration (MCHC) determinationOrdered By: James Wilburn on 06-28-2025 MCHC (RBC) [Mass/Vol] 35.6 g/dL Normal 32-36 [facility] Comment on above: Performed By: #### L 100.0100, L500.4050 #### [facility] [address] [place], [address] Mean platelet volume determi nationOrdered By: James Wilburn on 06-28-2025 Platelet mean volume (Bld) [Entitic vol] 8.8 fL Normal 6.2-12.0 [facility] Comment on above: Performed By: #### L 100.0100, L500.4050 #### [facility] [address] [place], [address] Monocyte percentageOrdered B y: Remus Wilburn on 06-28-2025 Monocytes/100 WBC (Bld) 2.4 % Normal 0-10 [facility] Comment on above: Performed By: #### L 100.0100, L500.4050 #### [facility] [address] [place], [address] Neutrophil percentageOrdered By: Remus Wilburn on 06-28-2025 Neutrophils/100 WBC (Bld) 93.8 % High 47-70 [facility] Comment on above: Performed By: #### L 100.0100, L500.4050 #### [facility] [address] [place], [address] Nucleated red blood cell per centageOrdered By: Remus Wilburn on 06-28-2025 Nucleated RBC/100 WBC (Bld) [Ratio] 0 % 0-5 [facility] Platelet countOrdered By: Re mus Cosmo on 06-28-2025 Platelets (Bld) [#/Vol] 257 10*3/uL Normal 150-450 [facility] Comment on above: Performed By: #### L 100.0100, L500.4050 #### [facility] [address] [place], [address] Potassium measurement (mass/ volume)Ordered By: James Wilburn on 06-28-2025 Potassium (Unsp spec) [Mass/Vol] 4.5 mmol/L 3.3-5.1 [facility] Serum creatinine measurement (mass/volume)Ordered By: James Wilburn on 06-28-2025 Creatinine [Mass/Vol] 0.93 mg/dL Normal 0.70-1.20 [facility] Comment on above: Performed By: #### L 100.0100, L500.4050 #### [facility] [address] [place], [address] Serum globulin measurementOr dered By: James Wilburn on 06-28-2025 Globulin (S) [Mass/Vol] 2.9 g/dL Normal 2.2-4.2 [facility] Comment on above: Performed By: #### L 100.0100, L500.4050 #### [facility] [address] [place], [address] Serum glucose measurement (m ass/volume)Ordered By: James Wilburn on 06-28-2025 Glucose [Mass/Vol] 168 mg/dL High 70-99 [facility] Comment on above: Performed By: #### L 100.0100, L500.4050 #### [facility] [address] [place], [address] Serum or plasma alanine guzmán otransferase (ALT) measurementOrdered By: James Wilburn on 06-28-2025 ALT [Catalytic activity/Vol] 26 U/L Normal <=46 [facility] Comment on above: Performed By: #### L 100.0100, L500.4050 #### [facility] [address] [place], [address] Serum or plasma albumin johnny urement (mass/volume)Ordered By: James Wilburn on 06-28-2025 Albumin [Mass/Vol] 4.7 g/dL Normal 3.5-5.0 [facility] Comment on above: Performed By: #### L 100.0100, L500.4050 #### [facility] [address] [place], [address] Serum or plasma albumin/glob ulin mass ratioOrdered By: Remus Ungur on 06-28-2025 Albumin/Globulin [Mass ratio] 1.6 {ratio} Normal 0.9-2.4 [facility] Comment on above: Performed By: #### L 100.0100, L500.4050 #### [facility] [address] [place], [address] Serum or plasma alkaline doroteo sphatase measurementOrdered By: Remus Ungur on 06-28-2025 ALP [Catalytic activity/Vol] 135 U/L High 40-129 [facility] Serum or plasma calcium johnny urement (mass/volume)Ordered By: Remus Ungur on 06-28-2025 Calcium [Mass/Vol] 9.7 mg/dL Normal 7.6-11.0 [facility] Comment on above: Performed By: #### L 100.0100, L500.4050 #### [facility] [address] [place], [address] Serum or plasma urea nitroge n measurement (mass/volume)Ordered By: Remus Ungur on 06-28-2025 Urea nitrogen [Mass/Vol] 15 mg/dL Normal 4-19 [facility] Comment on above: Performed By: #### L 100.0100, L500.4050 #### [facility] [address] [place], [address] Sodium levelOrdered By: Remu s Ungur on 06-28-2025 Sodium [Moles/Vol] 137 mmol/L Normal 133-145 [facility] Comment on above: Performed By: #### L 100.0100, L500.4050 #### [facility] [address] [place], [address] Total proteinOrdered By: Rem us Ungur on 06-28-2025 Protein [Mass/Vol] 7.6 g/dL 5.9-8.4 [facility] White blood cell (WBC) count Ordered By: Remus Ungur on 06-28-2025 WBC (Bld) [#/Vol] 18.1 10*3/uL High 4.4-11.0 [facility] Comment on above: Performed By: #### L 100.0100, L500.4050 #### [facility] [address] [place], [address] CBC W Auto Differential pane l (Bld)on 11-09-2024 Basophils (Bld) [#/Vol] 0.1 10*3/uL 0.0 - 0.2 10*3/uL [facility] Basophils/100 WBC (Bld) 0.6 % 0.0 - 2.0 % [facility] Eosinophils (Bld) [#/Vol] 0.3 10*3/uL 0.0 - 0.5 10*3/uL [facility] Eosinophils/100 WBC (Bld) 2.4 % 0.0 - 6.0 % [facility] Erythrocyte distribution width (RBC) [Ratio] 12.4 % 11.5 - 15.0 % [facility] Hematocrit (Bld) [Volume fraction] 47.4 % 40.0 - 52.0 % [facility] Hemoglobin (Bld) [Mass/Vol] 16.3 g/dL 13.0 - 18.0 g/dL [facility] Immature granulocytes (Bld) [#/Vol] 0.1 10*3/uL High NINF - 0.1 10*3/uL [facility] Immature granulocytes/100 WBC (Bld) 0.5 % 0.0 - 2.0 % [facility] Interpretation and review of laboratory results Abnormal [facility] Lymphocytes (Bld) [#/Vol] 2.9 10*3/uL 1.0 - 4.3 10*3/uL [facility] Lymphocytes/100 WBC (Bld) 28.2 % 15.0 - 45.0 % [facility] MCH (RBC) [Entitic mass] 31.4 pg 26. 0 - 34.0 pg [facility] MCHC (RBC) [Mass/Vol] 34.4 % 30.5 - 36.0 % [facility] MCV (RBC) [Entitic vol] 91.3 fL 77.0 - 99.0 fL [facility] Monocytes (Bld) [#/Vol] 0.7 10*3/uL 0.0 - 0.9 10*3/uL [facility] Monocytes/100 WBC (Bld) 7.1 % 5.0 - 13.0 % [facility] Neutrophils (Bld) [#/Vol] 6.4 10*3/uL 1.8 - 7.5 10*3/uL [facility] Neutrophils/100 WBC (Bld) 61.2 % 38.0 - 82.0 % [facility] Nucleated RBC/100 WBC (Bld) [Ratio] 0 % [facility] Platelet mean volume (Bld) [Entitic vol] 8.8 fL Low 9.0 - 12.7 fL [facility] Platelets (Bld) [#/Vol] 341 10*3/uL 140 - 440 10*3/uL [facility] RBC (Bld) [#/Vol] 5.19 10*6/uL 4.40 - 5.9 0 10*6/uL [facility] WBC (Bld) [#/Vol] 10.4 10*3/uL 3.6 - 10.7 10*3/uL [facility] CBC WITH AUTO DIFFERENTIALon 11-09-2024 Basophils (Bld) [#/Vol] 0.1 10*3/uL Normal 0.0-0.2 [facility] Comment on above: Performed By: #### L [id number] ####Choir Singer: LOKI VAZQUEZ ([phone])[facility])[address] [place] [address] Basophils/100 WBC (Bld) 0.6 % Normal 0.0-2.0 [facility] Comment on above: Performed By: #### L [id number] ####Choir Singer: LOKI VAZQUEZ ([phone])[facility])[address] [place] [address] Eosinophils (Bld) [#/Vol] 0.3 10*3/uL Normal 0.0-0.5 [facility] Comment on above: Performed By: #### L [id number] ####Choir Singer: LOKI [phone])[facility] ([facility] Eosinophils/100 WBC (Bld) 2.4 % Normal 0.0-6.0 [facility] Comment on above: Performed By: #### L [id number] ####Choir Singer: LOKI VAZQUEZ ([phone])[facility])[address] [place] [address] Erythrocyte distribution width (RBC) [Ratio] 12.4 % Normal 11.5-15.0 [facility] Comment on above: Performed By: #### L [id number] ####Choir Singer: LOKI VAZQUEZ ([phone])[address] Hematocrit (Bld) [Volume fraction] 47.4 % Normal 40.0-52.0 [facility] Comment on above: Performed By: #### L [id number] ####Choir Singer: LOKI VAZQUEZ ([phone])[facility])[address] [place] [address] Hemoglobin (Bld) [Mass/Vol] 16.3 g/dL Normal 13.0-18.0 [facility] Comment on above: Performed By: #### L [id number] ####Choir Singer: LOKI VAZQUEZ ([phone])[facility])[address] [place] [address] IMMATURE GRANS % 0.5 % Normal 0.0-2.0 [facility] Comment on above: Performed By: #### L [id number] ####Choir Singer: LOKI VAZQUEZ ([phone])[facility])[address] [place] [address] IMMATURE GRANS ABSOLUTE 0.1 10*3/uL High <0.1 [facility] Comment on above: Performed By: #### L [id number] ####Choir Singer: LOKI VAZQUEZ ([phone])[facility])[address] [place] [address] Lymphocytes (Bld) [#/Vol] 2.9 10*3/uL Normal 1.0-4.3 [facility] Comment on above: Performed By: #### L [id number] ####Choir Singer: LOKI VAZQUEZ ([phone])[facility])[address] [place] [address] Lymphocytes/100 WBC (Bld) 28.2 % Normal 15.0-45.0 [facility] Comment on above: Performed By: #### L [id number] ####Choir Singer: LOKI VAZQUEZ ([phone])[facility])[address] [place] [address] MCH (RBC) [Entitic mass] 31.4 pg Normal 26.0-34.0 [facility] Comment on above: Performed By: #### L [id number] ####Choir Singer: LOKI VAZQUEZ ([phone])[facility])[address] [place] [address] MCHC 34.4 % Normal 30.5-36.0 [facility] Comment on above: Performed By: #### L [id number] ####Choir Singer: LOKI VAZQUEZ ([phone])[facility])[address] [place] [address] MCV (RBC) [Entitic vol] 91.3 fL Normal 77.0-99.0 [facility] Comment on above: Performed By: #### L [id number] ####Choir Singer: LOKI VAZQUEZ ([phone])[facility])[address] [place] [address] Monocytes (Bld) [#/Vol] 0.7 10*3/uL Normal 0.0-0.9 [facility] Comment on above: Performed By: #### L [id number] ####Choir Singer: LOKI VAZQUEZ ([phone])[facility])[address] [place] [address] Monocytes/100 WBC (Bld) 7.1 % Normal 5.0-13.0 [facility] Comment on above: Performed By: #### L [id number] ####Choir Singer: LOKI [phone])[facility] ([facility])[address] [place] [address] NEUTROPHILS ABSOLUTE 6.4 10*3/uL Normal 1.8-7.5 [facility] Comment on above: Performed By: #### L [id number] ####Choir Singer: LOKI VAZQUEZ ([phone])[facility] ([facility])[address] [place] [address] Neutrophils/100 WBC (Bld) 61.2 % Normal 38.0-82.0 [facility] Comment on above: Performed By: #### L [id number] ####Choir Singer: LOKI VAZQUEZ ([phone])[facility])[address] [place] [address] NRBC 0.0 /100 WBCs Normal 0.0-2.0 [facility] Comment on above: Performed By: #### L [id number] ####Choir Singer: LOKI VAZQUEZ ([phone])[facility] ([facility])[address] [place] [address] Platelet mean volume (Bld) [Entitic vol] 8.8 fL Low 9.0-12.7 [facility] Comment on above: Performed By: #### L [id number] ####Choir Singer: LOKI VAZQUEZ ([phone])[facility] ([facility])[address] [place] [address] [place] Platelets (Bld) [#/Vol] 341 10*3/uL Normal 140-440 [facility] Comment on above: Performed By: #### L [id number] ####Choir Singer: LOKI VAZQUEZ ([phone])[facility] ([facility])[address] [place] [address] RBC (Bld) [#/Vol] 5.19 10*6/uL Normal 4.40-5.90 [facility] Comment on above: Performed By: #### L [id number] ####Choir Singer: LOKI VAZQUEZ ([phone])[facility] ([facility])[address] [place] [address] WBC (Bld) [#/Vol] 10.4 10*3/uL Normal 3.6-10.7 [facility] Comment on above: Performed By: #### L [id number] ####Choir Singer: LOKI VAZQUEZ ([phone])[facility] ([facility])[address] [place] [address] COMPLETE URINALYSISon 2024 BACTERIA (#/HPF) IN URINE Negative Normal Negative [facility] Comment on above: Performed By: #### L [id number] ####Choir Singer: LOKI VAZQUEZ ([phone])[facility])[address] [place] [address] BILIRUBIN, TOTAL PRESENCE IN URINE Negative Normal Negative [facility] Comment on above: Performed By: #### L [id number] ####Choir Singer: LOKI VAZQUEZ ([phone])[facility])[address] [place] [address] Clarity (U) Clear Normal Clear [facility] Comment on above: Performed By: #### L [id number] ####Choir Singer: LOKI VAZQUEZ ([phone])[facility])[address] [place] [address] Color (U) Colorless Normal Lt. Yellow [facility] Comment on above: Performed By: #### L [id number] ####Choir Singer: LOKI VAZQUEZ ([phone])[facility] ([facility])[address] [place] [address] GLUCOSE (MG/DL) IN URINE Normal Normal Normal (<70 ) [facility] Comment on above: Performed By: #### L AB347 ####Choir Singer: LOKI VAZQUEZ ([phone])[facility])[address] [place] [address] HEMOGLOBIN PRESENCE IN URINE Negative Normal Negative [facility] Comment on above: Performed By: #### L AB347 ####Choir Singer: LOKI VAZQUEZ ([phone])[facility])[address] [place] [address] HYALINE CASTS (#/LPF) IN URINE SEDIMENT BY MICROSCOPY Negative Normal Negative [facility] Comment on above: Performed By: #### L AB347 ####Choir Singer: LOKI VAZQUEZ ([phone])[facility] ([facility])[address] [place] [address] Ketones Ql (U) Negative Normal Negative [facility] Comment on above: Performed By: #### L AB347 ####Choir Singer: LOKI VAZQUEZ ([phone])[facility] ([facility])[address] [place] [address] LEUKOCYTE ESTERASE PRESENCE IN URINE BY TEST STRIP 25 Enrico/uL Abnormal Negative [facility] Comment on above: Performed By: #### L AB347 ####Choir Singer: LOKI VAZQUEZ ([phone])[facility] ([facility])[address] [place] [address] NITRITE PRESENCE IN URINE Negative Normal Negative [facility] Comment on above: Performed By: #### L AB347 ####Choir Singer: LOKI VAZQUEZ ([phone])[facility] ([facility])[address] [place] [address] pH (U) 7.0 [pH] Normal 5.0-8.0 [facility] Comment on above: Performed By: #### L AB347 ####Choir Singer: LOKI VAZQUEZ ([phone])[facility] ([facility])[address] [place] [address] Protein (U) [Mass/Vol] Negative Normal Negative [facility] Comment on above: Performed By: #### L AB347 ####Choir Singer: LOKI VAZQUEZ ([phone])[facility] ([facility])[address] [place] [address] [place] RBC (#/HPF) IN URINE SEDIMENT 0-2 Normal 0-2 [facility] Comment on above: Performed By: #### L AB347 ####Choir Singer: LOKI VAZQUEZ ([phone])[facility] Specific gravity (U) [Rel density] 1.003 Low 1.005-1.030 [facility] Comment on above: Performed By: #### L AB347 ####Choir Singer: LOKI VAZQUEZ ([phone])[facility])[address] [place] [address] SQUAMOUS EPITHELIAL CELLS (#/HPF) IN URINE SEDIMENT 0-2 Normal 3-5 [facility] Comment on above: Performed By: #### L AB347 ####Choir Singer: LOKI VAZQUEZ ([phone])[facility] ([facility])[address] [place] [address] UROBILINOGEN (MG/DL) IN URINE Normal Normal Normal (0-1) [facility] Comment on above: Performed By: #### L AB347 ####Choir Singer: LOKI VAZQUEZ ([phone])[facility] ([facility])[address] [place] [address] WBC (LEUKOCYTE) (#/HPF) IN URINE SEDIMENT 0-2 Normal 0-5 [facility] Comment on above: Performed By: #### L AB347 ####Choir Singer: LOKI VAZQUEZ ([phone])[facility])[address] [place] [address] COMPREHENSIVE METABOLIC PANE David 11-09-2024 Albumin [Mass/Vol] 4.0 g/dL Normal 3.5-5.0 [facility] Comment on above: Performed By: #### L AB17, LAB99 ####Choir Singer: LOKI VAZQUEZ ([phone])[facility] ([facility])[address] [place] [address] ALP [Catalytic activity/Vol] 107 U/L Normal 40-150 [facility] Comment on above: Performed By: #### L AB17, LAB99 ####Choir Singer: LOKI VAZQUEZ ([phone])[facility])[address] [place] [address] ALT [Catalytic activity/Vol] 62 U/L High <40 [facility] Comment on above: Performed By: #### L AB17, LAB99 ####Choir Singer: LOKI VAZQUEZ ([phone])[facility] ([facility])[address] [place] [address] Anion gap [Moles/Vol] 8 mmol/L Normal 3-13 [facility] Comment on above: Performed By: #### L AB17, LAB99 ####Choir Singer: LOKI VAZQUEZ ([phone])[facility] ([facility])[address] [place] [address] AST [Catalytic activity/Vol] 43 U/L High <34 [facility] Comment on above: Performed By: #### L AB17, LAB99 ####Choir Singer: LOKI VAZQUEZ ([phone])[facility] ([facility])[address] [place] [address] Bilirubin [Mass/Vol] 0.3 mg/dL Normal <1.2 [facility] Comment on above: Performed By: #### L AB17, LAB99 ####Choir Singer: LOKI VAZQUEZ ([phone])[facility] ([facility])[address] [place] [address] Calcium [Mass/Vol] 9.7 mg/dL Normal 8.4-10.2 [facility] Comment on above: Performed By: #### L AB17, LAB99 ####Choir Singer: LOKI VAZQUEZ ([phone])[facility] ([facility])[address] [place] [address] [place] Chloride [Moles/Vol] 104 mmol/L Normal 98-107 [facility] Comment on above: Performed By: #### L AB17, LAB99 ####Choir Singer: LOKI VAZQUEZ ([phone])[facility] ([facility])[address] [place] [address] [place] CO2 [Moles/Vol] 26 mmol/L Normal 22-29 [facility] Comment on above: Performed By: #### L AB17, LAB99 ####Choir Singer: LOKI VAZQUEZ ([phone])[facility] ([facility])[address] [place] [id number] [place] [address] Creatinine [Mass/Vol] 0.80 mg/dL Normal 0.72-1.25 [facility] Comment on above: Performed By: #### My AB17, LAB99 ####Choir Singer: LOKI VAZQUEZ ([phone])[facility] ([facility])[address] [place] [address] [place] GLOMERULAR FILTRATION RATE ML/MIN/1.73 SQ M.PREDICTED >90.0 Normal >60.0 [facility] Comment on above: Result Comment: Calc ulation based on the Chronic Kidney Disease Epidemiology Collaboration (CKD-EPI) equation refit without adjustment for race Performed By: #### My HALL, LAB99 ####Choir Singer: LOKI VAZQUEZ ([phone])[facility] ([facility])[address] [place] [address] Glucose [Mass/Vol] 97 mg/dL Normal 74-100 [facility] Comment on above: Performed By: #### My MOSQUERA17, LAB99 ####Choir Singer: LOKI VAZQUEZ ([phone])[facility])[address] [place] [address] [place] Potassium [Moles/Vol] 3.7 mmol/L Normal 3.5-5.1 [facility] Comment on above: Result Comment: [facility] potassium values may be up to 0.5 mmol/L lower than serum values. Performed By: #### My MOSQUERA17, LAB99 ####Choir Singer: LOKI VAZQUEZ ([phone])[facility] ([facility])[address] [place] [address] [place] Protein [Mass/Vol] 7.1 g/dL Normal 6.4-8.3 [facility] Comment on above: Performed By: #### L AB17, LAB99 ####Choir Singer: LOKI VAZQUEZ ([phone])[facility])[address] [place] [address] [place] Sodium [Moles/Vol] 138 mmol/L Normal 136-145 [facility] Comment on above: Performed By: #### L AB17, LAB99 ####Choir Singer: LOKI VAZQUEZ ([phone])[facility] ([facility])[address] [place] [address] Urea nitrogen [Mass/Vol] 4 mg/dL Low 8- [facility] Comment on above: Performed By: #### L AB17, LAB99 ####Choir Singer: LOKI KATHERINEDWIGHT ([phone])[facility] ([facility])[address] [place] [address] CT HEAD WO IV CONTRASTon CT HEAD WO IV CONTRAST Patient Name: ABDIEL SQUIRES : 1985 Exam Date/Time: 11/09/2024 17:03 Procedure: CT HEAD WO IV CONTRAST Ordering Provider: FISHER JONATHAN Reason For Exam: Head trauma, moderate-severe CT BRAIN WITHOUT CONTRAST CLINICAL INDICATION: Head trauma, moderate-severe TECHNIQUE: Noncontrast CT scan of the brain. Multiplanar reformations. Dose reduction was employed with automated exposure control. COMPARISON: 09/14/2024 FINDINGS: Brain volume is normal for age. No hemorrhage, mass effect, or midline shift. No hydrocephalus. No pathologic extra-axial fluid collection. Normal basal cisterns. No evidence of acute cortical infarct. IMPRESSION: 1. No acute intracranial finding. Report Dictated on Electronically Signed By: Eugene Parsons MD Electronically Signed Date/Time: 11/09/2024 5:08 PM EST Normal [facility] CT Head WO contraston 2024 1. No acute intracranial finding. Report Dictated on Electronically Signed By: Eugene Parsons MD Electronically Signed Date/Time: 11/09/2024 5:08 PM [facility] Patient Name: ABDIEL ALSTON : 1985 Exam Date/Time: 11/09/2024 17:03 Procedure: CT HEAD WO IV CONTRAST Ordering Provider: FISHER JONATHAN Reason For Exam: Head trauma, moderate-severe CT BRAIN WITHOUT CONTRAST CLINICAL INDICATION: Head trauma, moderate-severe TECHNIQUE: Noncontrast CT scan of the brain. Multiplanar reformations. Dose reduction was employed with automated exposure control. COMPARISON: 09/14/2024 FINDINGS: Brain volume is normal for age. No hemorrhage, mass effect, or midline shift. No hydrocephalus. No pathologic extra-axial fluid collection. Normal basal cisterns. No evidence of acute cortical infarct. [facility] Eugene Parsons MD - 11/09/2024 [facility] Name[facility]ST[facility] 1985 [id number] Exam Date/Time: 11/09/2024 17:03 Procedure: CT HEAD WO IV CONTRAST Ordering Provider: FISHER JONATHAN Reason For Exam: Head trauma, moderate-severe CT BRAIN WITHOUT CONTRAST CLINICAL INDICATION: Head trauma, moderate-severe TECHNIQUE: Noncontrast CT scan of the brain. Multiplanar reformations. Dose reduction was employed with automated exposure control. COMPARISON: 09/14/2024 FINDINGS: Brain volume is normal for age. No hemorrhage, mass effect, or midline shift. No hydrocephalus. No pathologic extra-axial fluid collection. Normal basal cisterns. No evidence of acute cortical infarct. IMPRESSION: 1. No acute intracranial finding. Report Dictated on Electronically Signed By: Eugene Parsons MD Electronically Signed Date/Time: 11/09/2024 5:08 PM EST [facility] Radiology Study observation (narrative) [facility] alth CT Head WO contrastOrdered B y: Eugene Parsons on 11-09-2024 [facility] [employer] Work Phone: Comprehensive metabolic 1998 panelon 11-09-2024 Albumin [Mass/Vol] 4 g/dL 3.5 - 5.0 g/dL [facility] ALP [Catalytic activity/Vol] 107 U/L 40 - 150 U/L [facility] ALT [Catalytic activity/Vol] 62 U/L High NINF - 40 U/L [facility] Anion gap [Moles/Vol] 8 mmol/L 3 - 13 mmol/L [facility] AST [Catalytic activity/Vol] 43 U/L High NINF - 34 U/L [facility] Bilirubin [Mass/Vol] 0.3 mg/dL NINF - 1.2 mg/dL [facility] Calcium [Mass/Vol] 9.7 mg/dL 8.4 - 10. 2 mg/dL [facility] Chloride [Moles/Vol] 104 mmol/L 98 - 10 7 mmol/L [facility] CO2 [Moles/Vol] 26 mmol/L 22 - 29 mmol/L [facility] Creatinine [Mass/Vol] 0.8 mg/dL 0.72 - 1.25 mg/dL [facility] GFR/1.73 sq M.predicted (S/P/Bld) [Vol rate/Area] - PINF [facility] Comment on above: Calculation based on the Chronic Kidney Disease Epidemiology Collaboration (CKD-EPI) equation refit without adjustment for race Glucose [Mass/Vol] 97 mg/dL 74 - 100 mg/dL [facility] Interpretation and review of laboratory results Abnormal [facility] Potassium [Moles/Vol] 3.7 mmol/L 3.5 - 5.1 mmol/L [facility] Comment on above: Plasma potassium ishaan ues may be up to 0.5 mmol/L lower than serum values. Protein [Mass/Vol] 7.1 g/dL 6.4 - 8.3 g/dL [facility] Sodium [Moles/Vol] 138 mmol/L 136 - 145 mmol/L [facility] Urea nitrogen [Mass/Vol] 4 mg/dL Low 8 - 21 mg/d L [facility] ED Nursing Noteon 11-09-2024 ED Nursing Note IV discontinued at this time due to discharge orders. IV was removed with no complications noted and cath fully intact. Normal [facility] ED Provider Noteon ED Provider Note [facility]ERGENCY DE[facility] EMERGENCY DEPARTMENT ENCOUNTER Pt Name: Abdiel Alston Birthdate 1985 Date of evaluation: 11/09/2024 Provider: Selma Fisher MD CHIEF COMPLAINT Chief Complaint Patient presents with Headache Pt in with c/o headache, vomiting, weakness, and diarrhea for that started today. Vomiting HISTORY OF PRESENT ILLNESS I wore proper PPE for the entirety of this encounter. Abdiel Alston is a 39 y.o. male who presents to the emergency department with posterior headache, nausea, vomiting, cough and cold symptoms for 2 days. Patient says that he slipped yesterday and fell backwards and possibly hit his head without losing consciousness. Not on AC. Now having headache. Also notes photophobia. Cough is dry. Also with fatigue. Mild abdominal pain. Nursing Notes were reviewed. REVIEW OF SYSTEMS As above PAST MEDICAL HISTORY Past Medical History: Diagnosis Date Amblyopia Right eye Anxiety Depression GERD (gastroesophageal reflux disease) Nonintractable headache 12/01/2017 Schizo affective schizophrenia (HCC) Tobacco abuse SURGICAL HISTORY Past Surgical History: Procedure Laterality Date COSMETIC SURGERY due to dog attack, left side of face CURRENT MEDICATIONS Previous Medications CYCLOBENZAPRINE (FLEXERIL) 10 MG TABLET Take 1 tablet (10 mg) by mouth 2 times daily as needed for muscle spasms for up to 10 days. LIDOCAINE (LIDODERM) 5 % PATCH Apply 1 patch topically daily. Remove & discard patch within 12 hours or as directed by MD. PANTOPRAZOLE (PROTONIX) 20 MG EC TABLET Take 1 tablet (20 mg) by mouth daily. Do not crush, chew, or split. ALLERGIES Penicillins FAMILY HISTORY Family History Problem Relation Name Age of Onset Hypertension Mother Coronary artery disease Father Glaucoma Neg Hx Macular degeneration Neg Hx Blindness Maternal Grandfather Hypertension Father Diabetes Paternal Grandmother SOCIAL HISTORY Social History Socioeconomic History Marital status: Single Tobacco Use Smoking status: Every Day Current packs/day: 2.00 Types: Cigarettes Smokeless tobacco: Never Substance and Sexual Activity Alcohol use: Yes Drug use: Yes Frequency: 7.0 times per week Types: Marijuana SCREENINGS PHYSICAL EXAM ED Triage Vitals [11/09/24 1647] Temp Heart Rate Resp BP 36.8 ?C (98.2 ?F) 89 18 124/79 SpO2 Temp Source Heart Rate Source Patient Position 98 % Temporal Monitor -- BP Location FiO2 (%) -- -- Constitutional: No acute distress HEENT:Head: Atraumatic Eyes: Conjunctivae normal. PERRLA, EOMI ENT: Mucous membranes moist. Normal oropharynx Neck: No C-spine tenderness, normal ROM, supple CV: RRR RESP: CTAB, good respiratory effort, no increased wob GI: Abdomen soft, non-tender, non-distended, +BS, no guarding or rebound tenderness MSK: Normal bulk and tone, no gross deformity EXTR: Warm and well perfused, no edema SKIN: No rash/bruising/erythem a PSYCH: Appropriate affect, cooperative behavior NEURO: Alert and oriented x 3, face symmetric, no slurred speech, CN2-12 intact, motor and sensory intact and equal bilaterally. No pronator drift. Cerebellar (finger-nose) normal. DIAGNOSTIC RESULTS Interpretation per the Radiologist below, if available at the time of this note: CT head wo IV contrast Final Result 1. No acute intracranial finding. Report Dictated on Electronically Signed By: Eugene Parsons MD Electronically Signed Date/Time: 11/09/2024 5:08 PM EST XR chest 1 view Final Result No acute cardiopulmonary process identified. Report Dictated on Electronically Signed By: Sid Picktet MD Electronically Signed Date/Time: 11/09/2024 5:01 PM EST LABS: Labs Reviewed CBC WITH AUTO DIFFERENTIAL - Abnormal Result Value Auto WBC 10.4 RBC 5.19 Hemoglobin 16.3 Hematocrit 47.4 MCV 91.3 MCH 31.4 MCHC 34.4 RDW 12.4 Platelets 341 MPV 8.8 (*) nRBC 0.0 Neutrophils Relative 61.2 Lymphocytes Relative 28.2 Monocytes Relative 7.1 Eosinophils Relative 2.4 Basophils Relative 0.6 Immature Grans % 0.5 Neutrophils Absolute 6.4 Lymphocytes Absolute 2.9 Monocytes Absolute 0.7 Eosinophils Absolute 0.3 Basophils Absolute 0.1 Immature Grans Absolute 0.1 (*) COMPREHENSIVE METABOLIC PANEL - Abnormal SODIUM 138 POTASSIUM 3.7 CHLORIDE 104 CARBON DIOXIDE 26 ANION GAP 8 UREA NITROGEN 4 (*) CREATININE 0.80 GLUCOSE 97 CALCIUM 9.7 AST (SGOT) 43 (*) ALT 62 (*) ALKALINE PHOSPHATASE 107 ALBUMIN 4.0 BILIRUBIN, TOTAL 0.3 TOTAL PROTEIN 7.1 eGFR >90.0 COMPLETE URINALYSIS - Abnormal Color, Urine Colorless Clarity, Urine Clear pH, Urine 7.0 Leukocytes, Urine 25 (*) Nitrite, Urine Negative Protein, Urine Negative Glucose, Urine Normal Bilirubin, Urine Negative Ketones, Urine Negative Urobilinogen, Urine Normal Blood, Urine Negative RBC, Urine 0-2 WBC, Urine 0-2 (more content not included)... Normal [facility] LIPASEon 11-09-2024 Lipase [Catalytic activity/Vol] 10 U/L Normal <55 [facility] Comment on above: Performed By: #### L AB17, LAB99 ####Choir Singer: LOKI VAZQUEZ ([phone])[facility] ([facility])[address] [place] [address] Laboratory - Chemistry and C hemistry - challengeon 11-09-2024 Lipase [Catalytic activity/Vol] 10 U/L NINF - 55 U/L [facility] Laboratory - Microbiology an d Antimicrobial susceptibilityon 11-09-2024 FLUAV RNA HORTENSIA+probe Ql (Resp) Not detected Not Detected [facility] FLUBV RNA HORTENSIA+probe Ql (Resp) Not detected Not Detected [facility] RSV RNA HORTENSIA+probe Ql (Resp) Not detected Not Detected [facility] SARS-CoV-2 (COVID-19) RNA HORTENSIA+probe Ql (Resp) Not detected Not Detected [facility]th Lipase [Catalytic activity/V ol]on 11-09-2024 Interpretation and review of laboratory results Normal [facility] SARS-COV-2, FLU A/B, AND RSV COMBOon 11-09-2024 SARS-CoV-2 (COVID-19) RNA HORTENSIA+probe Ql (Unsp spec) SARS-COV-2 Reference Not Detected Not Detected RESPIRATORY SYNCYTIAL VIRUS Reference Not Detected Not Detected INFLUENZA A (CEPHEID) Reference Not Detected Not Detected INFLUENZA B (CEPHEID) Reference Not Detected Not Detected ORDER COMMENTS: Methodology: real-time, RT-PCR Normal [facility] Comment on above: Performed By: #### L [id number] #### Choir Singer: LOKI VAZQUEZ ([phone]) [facility] ([facility]) [address] [place] [address] SARS-CoV-2, Flu A/B, and RSV Comboon 11-09-2024 Interpretation and review of laboratory results Normal [facility] Methodology: real-time, RT-PCR [facility] Urinalysis complete panel (U )Ordered By: Jessica Pichardo on 11-09-2024 Bacteria LM.HPF (Urine sed) [#/Area] Negative Negative /HPF [facility] Bilirubin Ql (U) Negative Negative mg/dL [facility] Clarity (U) Clear Clear [facility] Color (U) Colorless Lt. Yellow [facility] Epithelial cells.squamous LM.HPF (Urine sed) [#/Area[facility]) Normal Normal (<70) mg/dL [facility] Hemoglobin Ql (U) Negative Negative mg/dL [facility] Hyaline casts Auto (Urine sed) [#/Area] Negative Negative /LPF [facility] Interpretation and review of laboratory results Abnormal [facility] Ketones (U) [Mass/Vol] Negative Negat sixto mg/dL [facility] Leukocyte esterase Test strip Ql (U) 25 Abnormal Negative Enrico/uL [facility] Nitrite Ql (U) Negative Negative [facility] th pH (U) 7.0 [pH] 5.0 - 8.0 pH [facility] Protein (U) [Mass/Vol] Negative Negat sixto mg/dL [facility] RBC LM.HPF (Urine sed) [#/Area] 0-2 [facility] Specific gravity (U) [Rel density] 1.003 Low 1.005 - 1.030 [facility] Urobilinogen (U) [Mass/Vol] Normal Normal (0-1) mg/dL [facility] WBC LM.HPF (Urine sed) [#/Area] 0-2 [facility] XR Chest Single viewon 11-09 No acute cardiopulmonary process identified. Report Dictated on Electronically Signed By: Sid Pickett MD Electronically Signed Date/Time: 11/09/2024 5:01 PM EST [facility] [employer] Patient Name: ABD[facility]EL ALSTON [facility] 1985 [id number] Exam Date/Time: 11/09/2024 16:56 Procedure: XR CHEST 1 VIEW Ordering Provider: FISHER JONATHAN Reason For Exam: Cough CHEST X-RAY CLINICAL INDICATION: Cough TECHNIQUE: AP COMPARISON: 11/04/2022 FINDINGS: Quality: Unremarkable. Lines: None Cardiomediastinal Silhouette: The cardiac and mediastinal silhouettes are normal. Lungs: The lungs are clear.. No evidence of pleural effusion or pneumothorax. Soft tissue: The soft tissue structures appear unremarkable. Bones: No acute osseous process identified. [facility] [employer] [facility] Sid Pickett MD - 11/09/2024 Patient Name: ABDIEL ALSTON [facility] 1985 [id number] Exam Date/Time: 11/09/2024 16:56 Procedure: XR CHEST 1 VIEW Ordering Provider: FISHER JONATHAN Reason For Exam: Cough CHEST X-RAY CLINICAL INDICATION: Cough TECHNIQUE: AP COMPARISON: 11/04/2022 FINDINGS: Quality: Unremarkable. Lines: None Cardiomediastinal Silhouette: The cardiac and mediastinal silhouettes are normal. Lungs: The lungs are clear.. No evidence of pleural effusion or pneumothorax. Soft tissue: The soft tissue structures appear unremarkable. Bones: No acute osseous process identified. IMPRESSION: No acute cardiopulmonary process identified. Report Dictated on Electronically Signed By: Sid Pickett MD Electronically Signed Date/Time: 11/09/2024 5:01 PM EST [facility] [employer] Radiology Study observation (narrative) [facility] XR Chest Single viewOrdered By: Sid Pickett on 11-09-2024 [employer] Phone: ECG 12-LEADon 09-15-2024 ECG 12-LEAD IMPRESSION: Sinus tachycardia Left axis deviation Compared to ECG 05/08/19 No significant change Electronically Signed On 09-15-2024 01:36:25 EST by Casey Salgado Normal [facility] [employer] [facility] No Panel InformationOrdered By: Casey Salgado on 09-15-2024 Heart Rate 104 bpm [employer] Phone: P [place] 52 degrees [employer] Phone: VA Interval 167 ms [employer] Phone: QRS [place] -42 degrees [employer] Phone: QRSD Interval 93 ms [employer] Work Phone: QT Interval 350 ms [employer] Phone: QTC Interval 461 ms [employer] Work Phone: T Wave [place] 54 degrees [employer] Phone: [employer] Phone: No Panel Informationon 09-15 Sinus tachycardia Left axis deviation Compared to ECG 05/08/19 No significant change Electronically Signed On 09-15-2024 01:36:25 EST by Casey Salgado CV Casey Downs D O - 09/15/2024 IMPRESSION: Sinus tachycardia Left axis deviation Compared to ECG 05/08/19 No significant change Electronically Signed On 09-15-2024 01:36:25 EST by Casey Salgado [facility] [employer] CBC W Auto Differential pane l (Bld)Ordered By: Margoth Pichardo on 09-14-2024 Basophils (Bld) [#/Vol] 0.1 10*3/uL 0.0 - 0.2 10*3/uL [employer] Basophils/100 WBC (Bld) 0.3 % 0.0 - 2.0 % [facility] [employer] Eosinophils (Bld) [#/Vol] 0.1 10*3/uL 0.0 - 0.5 10*3/uL [facility] Eosinophils/100 WBC (Bld) 0.2 % 0.0 - 6.0 % [facility] [employer] Erythrocyte distribution width (RBC) [Ratio] 12.1 % 11.5 - 15.0 % [employer] Hematocrit (Bld) [Volume fraction] 48.7 % 40.0 - 52.0 % [facility] [employer] Hemoglobin (Bld) [Mass/Vol] 17.1 g/dL 13.0 - 18.0 g/dL [facility] [employer] Immature granulocytes (Bld) [#/Vol] 0.1 10*3/uL High NINF - 0.1 10*3/uL [employer] Immature granulocytes/100 WBC (Bld) 0.5 % 0.0 - 2.0 % [facility] [employer] Interpretation and review of laboratory results Abnormal [facility] [employer] Lymphocytes (Bld) [#/Vol] 2.2 10*3/uL 1.0 - 4.3 10*3/uL [facility] Lymphocytes/100 WBC (Bld) 10.9 % Low 15.0 - 45.0 % [employer] MCH (RBC) [Entitic mass] 31.5 pg 26. 0 - 34.0 pg [facility] [employer] MCHC (RBC) [Mass/Vol] 35.1 % 30.5 - 36.0 % [facility] MCV (RBC) [Entitic vol] 89.7 fL 77.0 - 99.0 fL [facility] Monocytes (Bld) [#/Vol] 1.2 10*3/uL High 0.0 - 0.9 10*3/uL [facility] Monocytes/100 WBC (Bld) 5.8 % 5.0 - 13.0 % [facility] Neutrophils (Bld) [#/Vol] 16.8 10*3/uL High 1.8 - 7.5 10*3/uL [facility] Neutrophils/100 WBC (Bld) 82.3 % High 38.0 - 82.0 % [facility] Nucleated RBC/100 WBC (Bld) [Ratio] 0 % [facility] Platelet mean volume (Bld) [Entitic vol] 9 fL 9.0 - 12.7 fL [facility] Platelets (Bld) [#/Vol] 343 10*3/uL 140 - 440 10*3/uL [facility] RBC (Bld) [#/Vol] 5.43 10*6/uL 4.40 - 5.9 0 10*6/uL [facility] WBC (Bld) [#/Vol] 20.5 10*3/uL High 3.6 - 10.7 10*3/uL [facility] CBC WITH AUTO DIFFERENTIALon 09-14-2024 Basophils (Bld) [#/Vol] 0.1 10*3/uL Normal 0.0-0.2 [facility] Comment on above: Performed By: #### L [id number] ####Choir Singer: LOKI VAZQUEZ ([phone])[facility])[address] [place] [address] Basophils/100 WBC (Bld) 0.3 % Normal 0.0-2.0 [facility] Comment on above: Performed By: #### L [id number] ####Choir Singer: LOKI VAZQUEZ ([phone])[facility])[address] [place] [address] Eosinophils (Bld) [#/Vol] 0.1 10*3/uL Normal 0.0-0.5 [facility] Comment on above: Performed By: #### L [id number] ####Choir Singer: LOKI VAZQUEZ ([phone])[facility])[address] [place] [address] Eosinophils/100 WBC (Bld) 0.2 % Normal 0.0-6.0 [facility] Comment on above: Performed By: #### L [id number] ####Choir Singer: LOKI VAZQUEZ ([phone])[facility])[address] [place] [address] Erythrocyte distribution width (RBC) [Ratio] 12.1 % Normal 11.5-15.0 [facility] Comment on above: Performed By: #### L [id number] ####Choir Singer: LOKI VAZQUEZ ([phone])[address] Hematocrit (Bld) [Volume fraction] 48.7 % Normal 40.0-52.0 [facility] Comment on above: Performed By: #### L [id number] ####Choir Singer: LOKI VAZQUEZ ([phone])[facility])[address] [place] [address] Hemoglobin (Bld) [Mass/Vol] 17.1 g/dL Normal 13.0-18.0 [facility] Comment on above: Performed By: #### L [id number] ####Choir Singer: LOKI VAZQUEZ ([phone])[facility])[address] [place] [address] IMMATURE GRANS % 0.5 % Normal 0.0-2.0 [facility] Comment on above: Performed By: #### L [id number] ####Choir Singer: LOKI VAZQUEZ ([phone])[address] IMMATURE GRANS ABSOLUTE 0.1 10*3/uL High <0.1 [facility] Comment on above: Performed By: #### L [id number] ####Choir Singer: LOKI VAZQUEZ ([phone])[facility])[address] [place] [address] Lymphocytes (Bld) [#/Vol] 2.2 10*3/uL Normal 1.0-4.3 [facility] Comment on above: Performed By: #### L [id number] ####Choir Singer: LOKI VAZQUEZ ([phone])[facility])[address] [place] [address] Lymphocytes/100 WBC (Bld) 10.9 % Low 15.0-45.0 [facility] Comment on above: Performed By: #### L [id number] ####Choir Singer: LOKI VAZQUEZ ([phone])[facility])[address] [place] [address] MCH (RBC) [Entitic mass] 31.5 pg Normal 26.0-34.0 [facility] Comment on above: Performed By: #### L [id number] ####Choir Singer: LOKI VAZQUEZ ([phone])[facility])[address] [place] [address] MCHC 35.1 % Normal 30.5-36.0 [facility] Comment on above: Performed By: #### L [id number] ####Choir Singer: LOKI VAZQUEZ ([phone])[facility])[address] [place] [address] MCV (RBC) [Entitic vol] 89.7 fL Normal 77.0-99.0 [facility] Comment on above: Performed By: #### L [id number] ####Choir Singer: LOKI VAZQUEZ ([phone])[facility])[address] [place] [address] Monocytes (Bld) [#/Vol] 1.2 10*3/uL High 0.0-0.9 [facility] Comment on above: Performed By: #### L [id number] ####Choir Singer: LOKI VAZQUEZ ([phone])[facility])[address] [place] [address] Monocytes/100 WBC (Bld) 5.8 % Normal 5.0-13.0 [facility] Comment on above: Performed By: #### L [id number] ####Choir Singer: LOKI VAZQUEZ ([phone])[facility] ([facility])[address] [place] [address] NEUTROPHILS ABSOLUTE 16.8 10*3/uL High 1.8-7.5 [facility] Comment on above: Performed By: #### L [id number] ####Choir Singer: LOKI VAZQUEZ ([phone])[facility] ([facility])[address] [place] [address] Neutrophils/100 WBC (Bld) 82.3 % High 38.0-82.0 [facility] Comment on above: Performed By: #### L [id number] ####Choir Singer: LOKI VAZQUEZ ([phone])[facility] ([facility])[address] [place] [address] NRBC 0.0 /100 WBCs Normal 0.0-2.0 [facility] Comment on above: Performed By: #### L [id number] ####Choir Singer: LOKI VAZQUEZ ([phone])[facility] ([facility])[address] [place] [address] Platelet mean volume (Bld) [Entitic vol] 9.0 fL Normal 9.0-12.7 [facility] Comment on above: Performed By: #### L [id number] ####Choir Singer: LOKI VAZQUEZ ([phone])[facility] ([facility])[address] [place] [address] Platelets (Bld) [#/Vol] 343 10*3/uL Normal 140-440 [facility] Comment on above: Performed By: #### L [id number] ####Choir Singer: LOKI VAZQUEZ ([phone])[facility] ([facility])[address] [place] [address] RBC (Bld) [#/Vol] 5.43 10*6/uL Normal 4.40-5.90 [facility] Comment on above: Performed By: #### L [id number] ####Choir Singer: LOKI VAZQUEZ ([phone])[facility] ([facility])[address] [place] [address] WBC (Bld) [#/Vol] 20.5 10*3/uL High 3.6-10.7 [facility] Comment on above: Performed By: #### L [id number] ####Choir Singer: LOKI VAZQUEZ ([phone])[facility] ([facility])[address] [place] [address] COMPLETE URINALYSISon 2023 BILIRUBIN, TOTAL PRESENCE IN URINE Negative Normal Negative [facility] Comment on above: Performed By: #### L [id number] ####Choir Singer: LOKI VAZQUEZ ([phone])[facility] ([facility])[address] [place] [address] Clarity (U) Clear Normal Clear [facility] Comment on above: Performed By: #### L [id number] ####Choir Singer: LOKI VAZQUEZ ([phone])[facility] ([facility])[address] [place] [address] Color (U) Yellow Normal Lt. Yellow [facility] Comment on above: Performed By: #### L [id number] ####Choir Singer: LOKI VAZQUEZ ([phone])[facility] ([facility])[address] [place] [address] GLUCOSE (MG/DL) IN URINE Normal Normal Normal (<70 ) [facility] Comment on above: Performed By: #### L [id number] ####Choir Singer: LOKI VAZQUEZ ([phone])[facility] ([facility])[address] [place] [address] HEMOGLOBIN PRESENCE IN URINE Negative Normal Negative [facility] Comment on above: Performed By: #### L [id number] ####Choir Singer: LOKI VAZQUEZ ([phone])[facility] ([facility])[address] [place] [address] Ketones Ql (U) Negative Normal Negative [facility] Comment on above: Performed By: #### L [id number] ####Choir Singer: LOKI VAZQUEZ ([phone])[facility] ([facility])[address] [place] [address] LEUKOCYTE ESTERASE PRESENCE IN URINE BY TEST STRIP Negative Normal Negative [facility] Comment on above: Performed By: #### L [id number] ####Choir Singer: LOKI VAZQUEZ ([phone])[facility] ([facility])[address] [place] [address] NITRITE PRESENCE IN URINE Negative Normal Negative [facility] Comment on above: Performed By: #### L [id number] ####Choir Singer: LOKI VAZQUEZ ([phone])[facility] ([facility])[address] [place] [address] pH (U) 7.0 [pH] Normal 5.0-8.0 [facility] Comment on above: Performed By: #### L [id number] ####Choir Singer: LOKI VAZQUEZ ([phone])[facility] ([facility])[address] [place] [address] Protein (U) [Mass/Vol] Negative Normal Negative [facility] Comment on above: Performed By: #### L [id number] ####Choir Singer: LOKI VAZQUEZ ([phone])[facility] ([facility])[address] [place] [address] Specific gravity (U) [Rel density] 1.005 Normal 1.005-1.030 [facility] Comment on above: Performed By: #### L [id number] ####Choir Singer: LOKI VAZQUEZ ([phone])[facility] ([facility])[address] [place] [address] UROBILINOGEN (MG/DL) IN URINE Normal Normal Normal (0-1) [facility] Comment on above: Performed By: #### L [id number] ####Choir Singer: LOKI VAZQUEZ ([phone])[facility] ([facility])[address] [place] [address] COMPREHENSIVE METABOLIC PANE David 09-14-2024 Albumin [Mass/Vol] 4.0 g/dL Normal 3.5-5.0 [facility] Comment on above: Performed By: #### My [id number], LAB46, LAB17 ####Choir Singer: LOKI VAZQUEZ ([phone])[facility] ([facility])[address] [place] [address] ALP [Catalytic activity/Vol] 110 U/L Normal 40-150 [facility] Comment on above: Performed By: #### My [id number], LAB46, LAB17 ####Choir Singer: LOKI VAZQUEZ ([phone])[facility] ([facility])[address] [place] [address] ALT [Catalytic activity/Vol] 45 U/L High <40 [facility] Comment on above: Performed By: #### My [id number], LAB46, LAB17 ####Choir Singer: LOKI VAZQUEZ ([phone])[facility] ([facility])[address] [place] [address] Anion gap [Moles/Vol] 8 mmol/L Normal 3-13 [facility] Comment on above: Performed By: #### My [id number], LAB46, LAB17 ####Choir Singer: LOKI VAZQUEZ ([phone])[facility] ([facility])[address] [place] [address] AST [Catalytic activity/Vol] 32 U/L Normal <34 [facility] Comment on above: Performed By: #### My [id number], LAB46, LAB17 ####Choir Singer: LOKI VAZQUEZ ([phone])[facility] ([facility])[address] [place] [address] Bilirubin [Mass/Vol] 0.5 mg/dL Normal <1.2 [facility] Comment on above: Performed By: #### My [id number], LAB46, LAB17 ####Choir Singer: LOKI VAZQUEZ ([phone])[facility])[address] [place] [address] Calcium [Mass/Vol] 10.1 mg/dL Normal 8.4-10.2 [facility] Comment on above: Performed By: #### My [id number], LAB46, LAB17 ####Choir Singer: LOKI VAZQUEZ ([phone])[facility] ([facility])[address] [place] [address] [place] Chloride [Moles/Vol] 106 mmol/L Normal 98-107 [facility] Comment on above: Performed By: #### My [id number], LAB46, LAB17 ####Choir Singer: LOKI VAZQUEZ ([phone])[facility] ([facility])[address] [place] [address] CO2 [Moles/Vol] 22 mmol/L Normal 22-29 [facility] Comment on above: Performed By: #### My [id number], LAB46, LAB17 ####Choir Singer: LOKI VAZQUEZ ([phone])[facility] ([facility])[address] [place] [address] Creatinine [Mass/Vol] 0.82 mg/dL Normal 0.72-1.25 [facility] Comment on above: Performed By: #### My [id number], LAB46, LAB17 ####Choir Singer: LOKI VAZQUEZ ([phone])[facility] ([facility])[address] [place] [address] GLOMERULAR FILTRATION RATE ML/MIN/1.73 SQ M.PREDICTED >90.0 Normal >60.0 [facility] Comment on above: Result Comment: Calc ulation based on the Chronic Kidney Disease Epidemiology Collaboration (CKD-EPI) equation refit without adjustment for race Performed By: #### L [id number], LAB46, LAB17 ####Choir Singer: LOKI VAZQUEZ ([phone])[facility] ([facility])[address] [place] [address] [place] Glucose [Mass/Vol] 111 mg/dL High 74-100 [facility] Comment on above: Performed By: #### L [id number], LAB46, LAB17 ####Choir Singer: LOKI VAZQUEZ ([phone])[facility] ([facility])[address] [place] [address] [place] Potassium [Moles/Vol] 3.6 mmol/L Normal 3.5-5.1 [facility] Comment on above: Result Comment: [facility] potassium values may be up to 0.5 mmol/L lower than serum values. Performed By: #### L [id number], LAB46, LAB17 ####Choir Singer: LOKI VAZQUEZ ([phone])[facility])[address] [place] [address] Protein [Mass/Vol] 7.6 g/dL Normal 6.4-8.3 [facility] Comment on above: Performed By: #### L [id number], LAB46, LAB17 ####Choir Singer: LOKI VAZQUEZ ([phone])[address] Sodium [Moles/Vol] 136 mmol/L Normal 136-145 [facility] Comment on above: Performed By: #### L [id number], LAB46, LAB17 ####Choir Singer: LOKI VAZQUEZ ([phone])[address] Urea nitrogen [Mass/Vol] 4 mg/dL Low 8-21 [facility] Comment on above: Performed By: #### L [id number], LAB46, LAB17 ####Choir Singer: LOKI VAZQUEZ ([phone])[address] HEAD WO IV CONTRASTon CT HEAD WO IV CONTRAST Patient Name: ABDIEL SQUIRES : 1985 Exam Date/Time: 09/14/2024 13:49 Procedure: CT HEAD WO IV CONTRAST Ordering Provider: SYLVESTER JESSE Reason For Exam: Neuro deficit, acute, stroke suspected CT HEAD WITHOUT CONTRAST CLINICAL INDICATION: Neuro deficit, acute, stroke suspected TECHNIQUE: Axial CT images of the brain were obtained without intravenous contrast. Coronal and sagittal reformatted images were also made available for interpretation. Dose reduction was employed with automated exposure control. COMPARISON: 07/21/2018. FINDINGS: Limitations: No significant limitations. Ventricles and Extra-axial spaces: Within normal limits for patient's age. Small arachnoid cyst versus Megna cisterna magna, similar to prior. No new acute extra-axial fluid collection. No localized mass effect or midline shift. Cerebral and Cerebellar parenchyma: Appears within normal limits with preservation of the gregory white differentiation. No acute intracranial hemorrhage. No CT evidence of acute territorial infarct. Pineal cyst similar to prior. Paranasal sinuses: Appear fairly well aerated. Mastoid air cells: Appear fairly well aerated. Orbital contents: Within normal limits Calvarium and Skull base: Within normal limits IMPRESSION: No CT evidence of acute intracranial abnormality. Report Dictated on Electronically Signed By: Gadiel Zavala MD Electronically Signed Date/Time: 09/14/2024 2:18 PM EST Patient presents to ED with complaint of headache, dizziness and facial numbness that started today, per family patient recently restarted medications one is lithium. Reports patient began experiencing nausea and vomiting over the weekend. Family reports patient patient had fall today also. Normal [facility] CT Head WO contraston [address] evidence of acute intracranial abnormality. Report Dictated on Electronically Signed By: Gadiel Zavala MD Electronically Signed Date/Time: 09/14/2024 2:18 PM [facility] Patient Name: ABDIEL ALSTON : 1985 Exam Date/Time: 09/14/2024 13:49 Procedure: CT HEAD WO IV CONTRAST Ordering Provider: SYLVESTER JESSE Reason For Exam: Neuro deficit, acute, stroke suspected CT HEAD WITHOUT CONTRAST CLINICAL INDICATION: Neuro deficit, acute, stroke suspected TECHNIQUE: Axial CT images of the brain were obtained without intravenous contrast. Coronal and sagittal reformatted images were also made available for interpretation. Dose reduction was employed with automated exposure control. COMPARISON: 07/21/2018. FINDINGS: Limitations: No significant limitations. Ventricles and Extra-axial spaces: Within normal limits for patient's age. Small arachnoid cyst versus Megna cisterna magna, similar to prior. No new acute extra-axial fluid collection. No localized mass effect or midline shift. Cerebral and Cerebellar parenchyma: Appears within normal limits with preservation of the gregory white differentiation. No acute intracranial hemorrhage. No CT evidence of acute territorial infarct. Pineal cyst similar to prior. Paranasal sinuses: Appear fairly well aerated. Mastoid air cells: Appear fairly well aerated. Orbital contents: Within normal limits Calvarium and Skull base: Within normal limits [facility] Chata Zavala MD - 09/14/2024 Patient Name: ABDIEL ALSTON : 1985 Exam Date/Time: 09/14/2024 13:49 Procedure: CT HEAD WO IV CONTRAST Ordering Provider: SYLVESTER JESSE Reason For Exam: Neuro deficit, acute, stroke suspected CT HEAD WITHOUT CONTRAST CLINICAL INDICATION: Neuro deficit, acute, stroke suspected TECHNIQUE: Axial CT images of the brain were obtained without intravenous contrast. Coronal and sagittal reformatted images were also made available for interpretation. Dose reduction was employed with automated exposure control. COMPARISON: 07/21/2018. FINDINGS: Limitations: No significant limitations. Ventricles and Extra-axial spaces: Within normal limits for patient's age. Small arachnoid cyst versus Megna cisterna magna, similar to prior. No new acute extra-axial fluid collection. No localized mass effect or midline shift. Cerebral and Cerebellar parenchyma: Appears within normal limits with preservation of the gregory white differentiation. No acute intracranial hemorrhage. No CT evidence of acute territorial infarct. Pineal cyst similar to prior. Paranasal sinuses: Appear fairly well aerated. Mastoid air cells: Appear fairly well aerated. Orbital contents: Within normal limits Calvarium and Skull base: Within normal limits IMPRESSION: No CT evidence of acute intracranial abnormality. Report Dictated on Electronically Signed By: Gadiel Zavala MD Electronically Signed Date/Time: 09/14/2024 2:18 PM EST [facility] Radiology Study observation (narrative) [facility] Head WO contrastOrdered B y: Chata Zavala on 09-14-2024 [facility] [employer] Work Phone: Comprehensive metabolic 1998 panelon 09-14-2024 Albumin [Mass/Vol] 4 g/dL 3.5 - 5.0 g/dL [facility] ALP [Catalytic activity/Vol] 110 U/L 40 - 150 U/L [facility] ALT [Catalytic activity/Vol] 45 U/L High NINF - 40 U/L [facility] Anion gap [Moles/Vol] 8 mmol/L 3 - 13 mmol/L [facility] AST [Catalytic activity/Vol] 32 U/L NINF - 34 U/L [facility] Bilirubin [Mass/Vol] 0.5 mg/dL NINF - 1.2 mg/dL [facility] Calcium [Mass/Vol] 10.1 mg/dL 8.4 - 10. 2 mg/dL [facility] Chloride [Moles/Vol] 106 mmol/L 98 - 10 7 mmol/L [facility] CO2 [Moles/Vol] 22 mmol/L 22 - 29 mmol/L [facility] Creatinine [Mass/Vol] 0.82 mg/dL 0.72 - 1.25 mg/dL [facility] GFR/1.73 sq M.predicted (S/P/Bld) [Vol rate/Area] - PINF [facility] Comment on above: Calculation based on the Chronic Kidney Disease Epidemiology Collaboration (CKD-EPI) equation refit without adjustment for race Glucose [Mass/Vol] 111 mg/dL High 74 - 100 mg/dL [facility] Interpretation and review of laboratory results Abnormal [facility] Potassium [Moles/Vol] 3.6 mmol/L 3.5 - 5.1 mmol/L [facility] Comment on above: Plasma potassium ishaan ues may be up to 0.5 mmol/L lower than serum values. Protein [Mass/Vol] 7.6 g/dL 6.4 - 8.3 g/dL [facility] Sodium [Moles/Vol] 136 mmol/L 136 - 145 mmol/L [facility] Urea nitrogen [Mass/Vol] 4 mg/dL Low 8 - 21 mg/d L [facility] DRUGS OF ABUSEon 09-14-2024 AMPHETAMINE SCREEN Negative Normal [facility] Comment on above: Performed By: #### L [id number] ####Choir Singer: LOKI VAZQUEZ ([phone])[facility] ([facility] BARBITURATES SCREEN Negative Normal [facility] Comment on above: Performed By: #### L [id number] ####Choir Singer: LOKI VAZQUEZ ([phone])[facility] ([facility])[address] [place] [address] BENZODIAZEPINE SCREEN Negative Normal [facility] Comment on above: Performed By: #### L [id number] ####Choir Singer: LOKI VAZQUEZ ([phone])[facility] ([facility])[address] [place] [address] COCAINE METAB. SCREEN Negative Normal [facility] Comment on above: Performed By: #### L [id number] ####Choir Singer: LOKI VAZQUEZ ([phone])[facility] ([facility])[address] [place] [address] FENTANYL SCREEN, UR QUAL Negative Normal [facility] Comment on above: Result Comment: OLIVIA Cook COMMENTS: The expected value for all of the drugs listed above is Negative. The following drugs or drug groups have been screened for by Immunoassay at the following thresholds: Amphetamine class (1000 ng/mL) Barbiturates (200 ng/mL) Benzodiazepines (200 ng/mL) Cocaine (300 ng/mL) Methadone (300 ng/mL) Opiates (300 ng/mL) Oxycodone (100 ng/mL) PCP (25 ng/mL) Fentanyl (1.0 ng/ml) NOTE: These results are for medical treatment only. Analysis performed using non-forensic procedures. POSITIVE results are NOT confirmed by a more specific alternative method unless requested. If confirmation is needed, request confirmation under separate order. Performed By: #### L [id number] ####Choir Singer: LOKI VAZQUEZ ([phone])[facility] ([facility])[address] [place] [address] [place] METHADONE SCREEN Negative Normal [facility] Comment on above: Performed By: #### L [id number] ####Choir Singer: LOKI VAZQUEZ ([phone])[facility] ([facility])[address] [place] [address] OPIATES SCREEN Negative Normal [facility] Comment on above: Performed By: #### L [id number] ####Choir Singer: LOKI VAZQUEZ ([phone])[facility] ([facility])[address] [place] [address] OXYCODONE SCREEN Negative Normal [facility] Comment on above: Performed By: #### L [id number] ####Choir Singer: LOKI MAXIMDeepak ([phone])[facility] ([facility])[address] [place] [address] PHENCYCLIDINE SCREEN Negative Normal [facility] Comment on above: Performed By: #### L [id number] ####Choir Singer: LOKI VAZQUEZ ([phone])[facility] ([facility])[address] [place] [address] ED Nursing Noteon 09-14-2024 ED Nursing Note Shift report given makeda mackey rn Normal [facility] ED Nursing Note Patient is calm and responsive to staff, breathing even and unlabored on RA. Bilateral side rails elevated, bed in low and locked position. Call light within reach and educated on use. No further need stated at this time. Normal [facility] ED Provider Noteon ED Provider Note EMERGENCY DEPARTMENT ENCOUNTER Pt Name: Abdiel Alston Birthdate 1985 Date of evaluation: 09/14/2024 ED Provider: Phyllis Beltre DO CHIEF COMPLAINT Chief Complaint Patient presents with Headache Patient presents to ED with complaint of headache, dizziness and facial numbness that started today, per family patient recently restarted medications one is lithium. Reports patient began experiencing nausea and vomiting over the weekend. Family reports patient patient had fall today also. HISTORY OF PRESENT ILLNESS (Location/Symptom, Timing/Onset, Context/Setting, Quality, Duration, Modifying Factors, Severity) Note limiting factors. HPI Abdiel Alston is a 39 y.o. male who presents to the emergency department with headache. Said that he got a headache, felt dizzy and then fell, hitting his head on the ground. Does not think that he lost consciousness. Says the headache is mild now, has always been varying degrees of mild, has never been worse than mild. This is are some differences compared to his usual migraine headaches. Has had some nausea without vomiting. He says the dizziness is gradually improving. Has had some paresthesias associated with this as well, thinks that this may be related to his lithium, as he has just restarted this. Denies any substance abuse. Nursing Notes were reviewed. REVIEW OF SYSTEMS All systems reviewed and negative except as noted above. PAST MEDICAL HISTORY Past Medical History: Diagnosis Date Amblyopia Right eye Anxiety Depression GERD (gastroesophageal reflux disease) Nonintractable headache 12/01/2017 Schizo affective schizophrenia (HCC) Tobacco abuse SURGICAL HISTORY Past Surgical History: Procedure Laterality Date COSMETIC SURGERY due to dog attack, left side of face CURRENT MEDICATIONS Previous Medications CYCLOBENZAPRINE (FLEXERIL) 10 MG TABLET Take 1 tablet (10 mg) by mouth 2 times daily as needed for muscle spasms for up to 10 days. LIDOCAINE (LIDODERM) 5 % PATCH Apply 1 patch topically daily. Remove & discard patch within 12 hours or as directed by MD. PANTOPRAZOLE (PROTONIX) 20 MG EC TABLET Take 1 tablet (20 mg) by mouth daily. Do not crush, chew, or split. ALLERGIES Penicillins FAMILY HISTORY Family History Problem Relation Name Age of Onset Hypertension Mother Coronary artery disease Father Glaucoma Neg Hx Macular degeneration Neg Hx Blindness Maternal Grandfather Hypertension Father Diabetes Paternal Grandmother SOCIAL HISTORY Social History Socioeconomic History Marital status: Single Tobacco Use Smoking status: Every Day Current packs/day: 2.00 Types: Cigarettes Smokeless tobacco: Never Substance and Sexual Activity Alcohol use: Yes Drug use: Yes Frequency: 7.0 times per week Types: Marijuana PHYSICAL EXAM ED Triage Vitals [09/14/24 1319] Temp Heart Rate Resp BP 37 ?C (98.6 ?F) 108 17 (!) 146/85 SpO2 Temp Source Heart Rate Source Patient Position 93 % Temporal Monitor -- BP Location FiO2 (%) -- -- General: Well-developed, well-nourished patient lying in bed who appears non-toxic. Head: Atraumatic, normocephalic. Eyes: Sclera anicteric. ENT: Mucous membranes moist. Neck: No midline tenderness. Heart: Regular rate and rhythm. Lungs: Clear to auscultation bilaterally. Normal respiratory pattern without conversational dyspnea or respiratory distress. Abdomen: Soft, non-tender, non-distended, no guarding or peritoneal signs. Neurologic: Awake and alert, normal speech and mental status. GCS 15. PERRL. CN intact. Moves all extremities with 5/5 strength, no downward drift. Sensation intact and symmetrical x 4. Subtle fatigable horizontal nystagmus with horizontal gaze. Normal test of skew. Cerebellar function intact. No focal deficits or lateralizing signs. Complete NIH exam completed, score is 0. Psychiatric: Mood and affect appropriate. Skin: Warm and dry, no appreciable rash. Musculoskeletal: No peripheral edema. No signs of DVT. DIAGNOSTIC RESULTS/EMERGENCY DEPARTMENT COURSE and DIFFERENTIAL DIAGNOSIS/MDM: Vitals: Vitals: 09/14/24 1319 09/14/24 1324 09/14/24 1622 09/14/24 1625 BP: (!) 146/85 (!) 127/91 Pulse: 108 91 Resp: 17 18 Temp: 37 ?C (98.6 ?F) 36.9 ?C (98.5 ?F) TempSrc: Temporal Oral SpO2: 93% 96% 96% Weight: 90.7 kg (200 lb) Height: 1.727 m (5' 8) EKG: EKG was reviewed by myself. Physician EKG interpretation can be found in [facility] LABS: Labs Reviewed CBC WITH AUTO DIFFERENTIAL - Abnormal Result Value Auto WBC 20.5 (*) RBC 5.43 Hemoglobin 17.1 Hematocrit 48.7 MCV 89.7 MCH 31.5 MCHC 35.1 RDW 12.1 Platelets 343 MPV 9.0 nRBC 0.0 Neutrophils Relative 82.3 (*) Lymphocytes Relative 10.9 (*) Monocytes Relative 5.8 Eosinophils Relative 0.2 Basophils Relative 0.3 Immature Grans % 0.5 Neutrophils Absolute 16.8 (*) Lymphocytes Absolute 2.2 Monocytes Absolute 1.2 (*) (more content not included)... Normal [facility] ED Provider Note Emergency Department Encounter [facility] EMERGENCY DEPT Patient: Abdiel Alston : 1985 Date of Evaluation: 09/14/2024 ED Provider: Raphael Sylvester MD TRIAGE NOTE I independently examined and evaluated Adbiel Alston. I personally saw & evaluated the patient as the Clinician in Triage and performed a brief history and physical exam, established acuity, and ordered appropriate tests to develop basic plan of care. Patient will be seen by an KATE, resident and/or my physician partner who will independently evaluate the patient. Please see subsequent provider notes for further details and disposition Brief HPI: In brief, Abdiel Alston is a 39 y.o. male that presents for evaluation of near syncope headache. The patient is here with his fihéctore who provided some of the history. He has a history of schizoaffective disorder just recently restarted on his lithium. He states he woke up around 8 this morning said he did not feel real well, was not specific to other than feeling a little bit nauseated and a mild headache. The siria states that she had been out of the house visiting family came home around 10 AM said that he appeared to be fine he took the garbage out and on the way back and came into the house said that he was having a headache did not feel good and then appeared to fall forward onto his knees. He did not strike his head or lose consciousness but said that he felt weak and dizzy at that point. He did not want to come by ambulance so they waited for family member to pick him up in a car bring him to the ER here and I saw him at approximately 1:30 PM. Here now he is complaining of a mild diffuse headache nausea overall not feeling good he said his face feels tingling and numb. No change in vision hearing or speech no numbness or weakness of the extremities. He denies chest pain or abdominal pain. He states he has not been abusing any substances and he recently just restarted his lithium.. Focused Physical exam: EYES: Jasmin, EOMI, funduscopic exam normal NECK: Supple no rigidity or meningismus, no cervical adenopathy LUNGS: Breath sounds are equal, clear to auscultation, no wheeze retractions or cyanosis and no crackles present. HEART: Regular rate and rhythm no murmur or thrill or rub, strong heart tones ABDOMEN: Bowel sounds present, soft nontender no guarding or rebound liver and spleen are normal. NEURO: Cranial nerves II through XII are intact, motor and sensory exams are intact and normal, muscle strength is 5/5, deep tendon reflexes are 2/4, sensation to touch and pain is intact and normal, no ataxia, I did not ambulate him in the triage area as he said he was not comfortable at this point. No focal findings noted. NIH 0 Plan/MDM: Given his history will get a stroke B workup but I am going to do a lithium level and tox screens as well. ECG interpreted by me shows sinus tachycardia rate of 104 with no acute STEMI or ventricular arrhythmia. Please see subsequent provider note for further details and disposition Comment: Please note this report has been produced using speech recognition software and may contain errors related to that system including errors in grammar, punctuation, and spelling as well as words and phrases that may be inappropriate. If there are any questions or concerns please feel free to contact the dictating provider for clarification Raphael Sylvester MD [employer] Raphael Sylvester MD 09/14/24 1336 Raphael Sylvester MD 09/14/24 1343 Normal [facility] ETHANOLon 09-14-2024 ETHANOL IN SER/PLAS <10 Normal <10 [facility] Comment on above: Result Comment: OLIVIA Cook COMMENTS: ASSEMBLY LOADER depression is seen >100 mg/dL. NOTE: This result is for medical treatment only. Analysis performed using non-forensic procedures. Performed By: #### L [id number], [id number], [id number] ####Choir Singer: LOKI VAZQUEZ ([phone])[facility] ([facility])[address] [place] [address] Ethanol (Bld) [Mass/Vol]on 1 11-15-2023 Ethanol [Mass/Vol] mg/dL NINF - 10 mg/dL [facility] Interpretation and review of laboratory results Normal [facility] ASSEMBL[employer] LOADER depression is seen >100 mg/dL. NOTE: This result is for medical treatment only. Analysis performed using non-forensic procedures. [facility] HIGH SENSITIVITY TROPONIN, S ERIAL BASELINEon 09-14-2024 TROPONIN HIGH SENSITIVITY BASELINE <3 Normal <=35 [facility] Comment on above: Performed By: #### L [id number], [id number], LAB17 ####Choir Singer: LOKI VAZQUEZ ([phone])[facility] ([facility])[address] [place] [address] [place] HIGH SENSITIVITY TROPONIN, S ERIAL, SECOND TESTon 09-14-2024 TROPONIN HS DELTA, BASELINE TO SECOND Normal [facility] Comment on above: Result Comment: This specimen was collected more than 20 minutes away from the 2 hour target. Use of this delta with the 2 hour troponin algorithm is not recommended, individualized clinical assessment is needed. A troponin delta greater than or equal to 15 ng/L is significant for acute cardiac injury. Values less than 15 but greater than 2 are an intermediate change requiring a 3rd serial troponin to be drawn. Values less than or equal to 2 indicate acute cardiac injury is not likely, see external algorithms for further clinical guidance. Performed By: #### L [id number] ####Choir Singer: LOKI VAZQUEZ ([phone])[address] TROPONIN HS, SERIAL REFLEX, TEST TWO <3 Normal <=35 [facility] Comment on above: Performed By: #### L [id number] ####Choir Singer: LOKI VAZQUEZ ([phone])[address] LITHIUMon 09-14-2024 [place] [Moles/Vol] 0.87 mmol/L Normal 0.40-1.00 [facility] Comment on above: Result Comment: OLIVIA Cook COMMENTS: Values greater than 1.5 mmol/L at 12 hours post dose indicate a significant risk of toxicity. It is recommended that the maximum serum lithium level that should ideally never be exceeded is 1.0 - 1.2 mmol/L. Performed By: #### L [id number] ####Choir Singer: LOKI VAZQUEZ ([phone])[address] Laboratory - Chemistry and C hemistry - challengeon 09-14-2024 Glucose [Mass/Vol] 121 mg/dL High 70 - 100 mg/dL [facility] Laboratory - Coagulationon 1 11-15-2023 aPTT Coag (PPP) [Time] 28.6 s 20.0 - 30.5 s [facility] INR Coag (PPP) [Relative time] 1 {INR} 0.9 - 1.1 [facility] Comment on above: Recommended Anticoag ulant Therapy: SEE BELOW ----- INR of 2.0 - 3.0 : - Prophylaxis of Venous Thrombosis (high-risk surgery) - Treatment of Venous Thrombosis - Treatment of Pulmonary Embolism (Includes tissue heart valves, Acute Myocardial Infarction to prevent systemic embolism, Valvular Heart Disease, and Atrial Fibrillation) ----- INR of 2.5 - 3.5 : - Mechanical Prosthetic Valves (high risk) - If oral anticoagulant therapy is used to prevent Myocardial Infarction PT Coag (Bld) [Time] 10.8 s 9.0 - 12.0 s [facility] Laboratory - Drug toxicology on 09-14-2024 Amphetamines Screen method >1000 ng/mL Ql (U) Negative [facility] Barbiturates Screen method >200 ng/mL Ql (U) Negative [facility] Benzodiazepines Ql (U) Negative [facility] Methadone Screen Ql (U) Negative [facility] Opiates Screen Ql (U) Negative [facility] oxyCODONE Ql (U) Negative [facility] Phencyclidine Ql (U) Negative [facility] [place] [Moles/Vol] 0.87 mmol/L 0.40 - 1 .00 mmol/L [facility] No Panel Informationon 09-14 Troponin HS Delta, Baseline to Second [facility] Comment on above: This specimen was co llected more than 20 minutes away from the 2 hour target. Use of this delta with the 2 hour troponin algorithm is not recommended, individualized clinical assessment is needed. A troponin delta greater than or equal to 15 ng/L is significant for acute cardiac injury. Values less than 15 but greater than 2 are an intermediate change requiring a 3rd serial troponin to be drawn. Values less than or equal to 2 indicate acute cardiac injury is not likely, see external algorithms for further clinical guidance. Troponin HS, Serial Second ng/L NINF - 35 ng/L [facility] Interpretation and review of laboratory results Normal [facility] Troponin HS, Serial Baseline ng/L NINF - 35 ng/L [facility] COCAINE METAB. SCREEN Negative [facility] FENTANYL SCREEN, UR QUAL Negative [facility] The expected value for all of the drugs listed above is Negative. The following drugs or drug groups have been screened for by Immunoassay at the following thresholds: Amphetamine class (1000 ng/mL) Barbiturates (200 ng/mL) Benzodiazepines (200 ng/mL) Cocaine (300 ng/mL) Methadone (300 ng/mL) Opiates (300 ng/mL) Oxycodone (100 ng/mL) PCP (25 ng/mL) Fentanyl (1.0 ng/ml) NOTE: These results are for medical treatment only. Analysis performed using non-forensic procedures. POSITIVE results are NOT confirmed by a more specific alternative method unless requested. If confirmation is needed, request confirmation under separate order. [facility] Interpretation and review of laboratory results Normal [facility] Values greater than 1.5 mmol/L at 12 hours post dose indicate a significant risk of toxicity. It is recommended that the maximum serum lithium level that should ideally never be exceeded is 1.0 - 1.2 mmol/L. [facility] Interpretation and review of laboratory results Normal [facility] Interpretation and review of laboratory results Abnormal [facility] Performed by: [facility], [address] [place] [address] CLIA ID: [id number] [facility] PROTIME AND APTTon aPTT Coag (Bld) [Time] 28.6 s Normal 20.0-30.5 [facility] Comment on above: Performed By: #### L [id number] ####Choir Singer: LOKI VAZQUEZ ([phone])[facility] ([facility])[address] [place] [address] INR Coag (PPP) [Relative time] 1.0 {INR} Normal 0.9-1.1 [facility] Comment on above: Result Comment: Tru mmended Anticoagulant Therapy: SEE BELOW ----- INR of 2.0 - 3.0 : - Prophylaxis of Venous Thrombosis (high-risk surgery) - Treatment of Venous Thrombosis - Treatment of Pulmonary Embolism (Includes tissue heart valves, Acute Myocardial Infarction to prevent systemic embolism, Valvular Heart Disease, and Atrial Fibrillation) ----- INR of 2.5 - 3.5 : - Mechanical Prosthetic Valves (high risk) - If oral anticoagulant therapy is used to prevent Myocardial Infarction Performed By: #### L [id number] ####Choir Singer: LOKI VAZQUEZ ([phone])[facility] ([facility])[address] [place] [address] PT Coag (PPP) [Time] 10.8 s Normal 9.0-12.0 [facility] Comment on above: Performed By: #### L [id number] ####Choir Singer: LOKI [id number])[facility] ([facility])[address] [place] [address] Urinalysis complete panel (U )on 09-14-2024 Bilirubin Ql (U) Negative Negative mg/dL [facility] Clarity (U) Clear Clear [facility] Color (U) Yellow Lt. Yellow [facility] Glucose Ql (U) Normal Normal (<70) mg/dL [facility] Hemoglobin Ql (U) Negative Negative mg/dL [facility] Interpretation and review of laboratory results Normal [facility] Ketones (U) [Mass/Vol] Negative Negat sixto mg/dL [facility] Leukocyte esterase Test strip Ql (U) Negative Negative [place]/uL [facility] Nitrite Ql (U) Negative Negative [facility] th pH (U) 7.0 [pH] 5.0 - 8.0 pH [facility] Protein (U) [Mass/Vol] Negative Negat sixto mg/dL [facility] Specific gravity (U) [Rel density] 1.005 1.005 - 1.030 [facility] Urobilinogen (U) [Mass/Vol] Normal Normal (0-1) mg/dL [facility] ED Provider Noteon ED Provider Note EMERGENCY DEPARTMENT ENCOUNTER Pt Name: Abdiel Alston Birthdate 1985 Date of evaluation: 08/17/2024 ED Provider: Pj Smith DO CHIEF COMPLAINT Chief Complaint Patient presents with Back Pain Pt reports severe back pain that started this am, pt has hx of chronic lower back pain but it worsened today. Denies injury, denies urinary concerns, pt ambulatory. HISTORY OF PRESENT ILLNESS (Location/Symptom, Timing/Onset, Context/Setting, Quality, Duration, Modifying Factors, Severity) Note limiting factors. I wore appropriate PPE for the entirety of this encounter. HPI Abdiel Alston is a 39 y.o. male who presents to the emergency department acute exacerbation of his chronic back pain. States he twisted getting out of bed today which seem to exacerbate the symptoms. Has pain shooting down his right leg. Has had sciatica down his right leg in the past. No loss of bowel or bladder continence, saddle anesthesias, weakness or numbness. No direct trauma to the back. No IV drug abuse history. No fevers. Nursing Notes were reviewed. REVIEW OF SYSTEMS 14 systems reviewed and otherwise acutely negative except as in the [place]. PAST MEDICAL HISTORY Past Medical History: Diagnosis Date Amblyopia Right eye Anxiety Depression GERD (gastroesophageal reflux disease) Nonintractable headache 12/01/2017 Schizo affective schizophrenia (HCC) Tobacco abuse SURGICAL HISTORY Past Surgical History: Procedure Laterality Date COSMETIC SURGERY due to dog attack, left side of face CURRENT MEDICATIONS Discharge Medication List as of 08/17/2024 8:26 PM CONTINUE these medications which have NOT CHANGED Details pantoprazole (ProtoNix) 20 MG EC tablet Take 1 tablet (20 mg) by mouth daily. Do not crush, chew, or split., Starting Fri12/29/2023, Until Fri01/28/2024, Print ALLERGIES Penicillins FAMILY HISTORY Family History Problem Relation Name Age of Onset Hypertension Mother Coronary artery disease Father Glaucoma Neg Hx Macular degeneration Neg Hx Blindness Maternal Grandfather Hypertension Father Diabetes Paternal Grandmother SOCIAL HISTORY Social History Socioeconomic History Marital status: Single Tobacco Use Smoking status: Every Day Current packs/day: 2.00 Types: Cigarettes Smokeless tobacco: Never Substance and Sexual Activity Alcohol use: Yes Drug use: Yes Frequency: 7.0 times per week Types: Marijuana SCREENINGS PHYSICAL EXAM ED Triage Vitals [08/17/24 2017] Temp Heart Rate Resp BP 36.6 ?C (97.8 ?F) 98 17 130/86 SpO2 Temp Source Heart Rate Source Patient Position 98 % Temporal Monitor Sitting BP Location FiO2 (%) Right arm -- CONSTITUTIONAL: AOx4, no apparent distress, appears stated age HEAD: normocephalic, atraumatic EYES: PERRL, EOMI ENT: moist mucous membranes, uvula midline NECK: supple, symmetric BACK: symmetric, mild midline right paraspinal tenderness to palpation LUNGS: clear to auscultation bilaterally CARDIOVASCULAR: regular rate and rhythm ABDOMEN: soft, non-tender, non-distended with normal active bowel sounds : deferred NEUROLOGIC: MAEx4, no focal sensory or motor deficits MUSCULOSKELETAL: no clubbing, cyanosis or edema, positive straight leg raise on the right, strength sensation intact throughout the right lower extremity SKIN: no exposed rash DIAGNOSTIC RESULTS Procedures/EKG: EKG was reviewed by myself. Physician EKG interpretation can be found in [facility] RADIOLOGY (Per Emergency Physician): Interpretation per the Radiologist below, if available at the time of this note: No orders to display ED BEDSIDE ULTRASOUND: Performed by ED Physician - none LABS: Labs Reviewed - No data to display All other labs were within normal range or not returned as of this dictation. EMERGENCY DEPARTMENT COURSE and DIFFERENTIAL DIAGNOSIS/MDM: Vitals: Vitals: 08/17/242016 BP: 130/86 BP Location: Right arm Patient Position: Sitting Pulse: 98 Resp: 17 Temp: 36.6 ?C (97.8 ?F) TempSrc: Temporal SpO2: 98% Weight: 90.7 kg (200 lb) Height: 1.727 m (5' 8) EMERGENCY DEPARTMENT COURSE and DIFFERENTIAL DIAGNOSIS/MDM: Vitals: Vitals: 08/17/242016 BP: 130/86 BP Location: Right arm Patient Position: Sitting Pulse: 98 Resp: 17 Temp: 36.6 ?C (97.8 ?F) TempSrc: Temporal SpO2: 98% Weight: 90.7 kg (200 lb) Height: 1.727 m (5' 8) The patient presented with a chief complaint of right-sided low back pain with sciatica. The differential diagnosis associated with this patient's presentation includes right-sided low back pain with sciatica no alarm symptoms low suspicion for cauda equina or abscess. Our workup consisted of ordering/reviewing physical exam which was consistent with sciatica. Given Toradol muscle relaxer lidocaine patches steroid taper.. Diagnoses as of 08/17/242229 Acute exacerbation of chronic low back pain Right sided sciatica Diagn (more content not included)... [facility] ED Provider Noteon ED Provider Note EMERGENCY DEPARTMENT ENCOUNTER Pt Name: Abdiel Alston Birthdate 1985 Date of evaluation: 02/01/2024 ED Provider: Carine Jaramillo PA-C Patient seen independently within my scope of practice with an Emergency Medicine attending available for supervision. CHIEF COMPLAINT Chief Complaint Patient presents with Knee Pain Started hurting 3 days ago. No noted injuries. Hurts when lying down. Unable to sleep due to the pain HISTORY OF PRESENT ILLNESS (Location/Symptom, Timing/Onset, Context/Setting, Quality, Duration, Modifying Factors, Severity) Note limiting factors. I wore appropriate PPE for the entirety of this encounter. HPI Abdiel Alston is a 38 y.o. who presents to the emergency department with complaint of right knee pain. Patient said that his knee has hurt his entire life. Over the last couple of days the pain has been getting worse. Patient says that he previously saw a sports medicine doctor who told him that he had arthritis in this leg, however he never followed up with the specialist. He has not had any new recent injuries or traumas. No numbness or weakness of the extremity. No redness, with, or skin changes. Nursing Notes were reviewed. Limitations to history: None Outside historians: None REVIEW OF SYSTEMS Review of Systems Constitutional: Negative for chills and fever. HENT: Negative for congestion. Respiratory: Negative for cough and shortness of breath. Cardiovascular: Negative for chest pain. Gastrointestinal: Negative for abdominal pain, nausea and vomiting. Genitourinary: Negative for dysuria and hematuria. Musculoskeletal: Negative for arthralgias and myalgias. Right knee pain Skin: Negative for color change and rash. Neurological: Negative for dizziness and syncope. Hematological: Negative. All other systems reviewed and are negative. Pertinent positives and negatives as per HPI. PAST MEDICAL HISTORY Past Medical History: Diagnosis Date Amblyopia Right eye Anxiety Depression GERD (gastroesophageal reflux disease) Nonintractable headache 12/01/2017 Schizo affective schizophrenia (HCC) Tobacco abuse SURGICAL HISTORY Past Surgical History: Procedure Laterality Date COSMETIC SURGERY due to dog attack, left side of face CURRENT MEDICATIONS Previous Medications PANTOPRAZOLE (PROTONIX) 20 MG EC TABLET Take 1 tablet (20 mg) by mouth daily. Do not crush, chew, or split. ALLERGIES Penicillins FAMILY HISTORY Family History Problem Relation Name Age of Onset Hypertension Mother Coronary artery disease Father Glaucoma Neg Hx Macular degeneration Neg Hx Blindness Maternal Grandfather Hypertension Father Diabetes Paternal Grandmother SOCIAL HISTORY Social History Socioeconomic History Marital status: Single Tobacco Use Smoking status: Every Day Packs/day: 2 Types: Cigarettes Smokeless tobacco: Never Substance and Sexual Activity Alcohol use: Yes Drug use: Yes Frequency: 7.0 times per week Types: Marijuana SCREENINGS PHYSICAL EXAM ED Triage Vitals [02/01/24 1556] Temp Heart Rate Resp BP 36.9 ?C (98.4 ?F) 81 16 127/78 SpO2 Temp Source Heart Rate Source Patient Position 98 % Temporal Monitor -- BP Location FiO2 (%) -- -- Physical Exam Vitals and nursing note reviewed. Constitutional: General: He is not in acute distress. Appearance: He is well-developed. Cardiovascular: Rate and Rhythm: Normal rate and regular rhythm. Pulses: Normal pulses. Heart sounds: Normal heart sounds. Pulmonary: Effort: Pulmonary effort is normal. No respiratory distress. Breath sounds: Normal breath sounds. Abdominal: General: There is no distension. Palpations: Abdomen is soft. Tenderness: There is no abdominal tenderness. There is no guarding or rebound. Musculoskeletal: Comments: No evidence of edema, erythema, or skin changes noted to the right knee. No evidence of gross deformity or trauma. No wounds. Normal range of motion however he does have some associated pain with flexion and extension of the knee. Strength is 5-5 in hip flexion extension, knee flexion extension, and plantar dorsiflexion. He has palpable distal pulse brisk capillary fill. Sensation is intact to light touch. No calf pain or tenderness. Skin: General: Skin is warm and dry. Capillary Refill: Capillary refill takes less than 2 seconds. Neurological: Mental Status: He is alert and oriented to person, place, and time. Psychiatric: Mood and Affect: Mood normal. Behavior: Behavior normal. DIAGNOSTIC RESULTS RADIOLOGY (Per Emergency Physician): Interpretation per the Radiologist below, if available at the time of this note: XR knee 3 views right (Results Pending) LABS: Labs Reviewed - No data to display All other labs were within normal range or not returned as of this dictation. EMERGENCY DEPARTMENT COURSE and DIFFERENTIAL DIAGNOSIS/MDM: Vitals: Vitals: 02/01/24 1555 01/05 (more content not included)... Normal [facility] XR Knee - right 3 Viewson 1. No acute osseous abnormality. Report Dictated on Electronically Signed By: Elbert Adamson MD Electronically Signed Date/Time: 02/01/2024 5:17 PM T [facility] 1985 [id number] Exam Date/Time: 02/01/2024 16:43 Procedure: XR KNEE 3 VIEWS RIGHT Ordering Provider: JARAMILLO RACHEL Reason For Exam: right knee pain RIGHT KNEE 3 VIEWS CLINICAL INDICATION: right knee pain TECHNIQUE: 3 views of the right knee. COMPARISON: July,. FINDINGS: No acute fracture or dislocation. Joint spaces maintained. Soft tissues grossly unremarkable. [facility] Elbert Adamson MD - 02/01/2024 Patient Name: ABDIEL ALSTON [facility] 1985 [id number] Exam Date/Time: 02/01/2024 16:43 Procedure: XR KNEE 3 VIEWS RIGHT Ordering Provider: JARAMILLO RACHEL Reason For Exam: right knee pain RIGHT KNEE 3 VIEWS CLINICAL INDICATION: right knee pain TECHNIQUE: 3 views of the right knee. COMPARISON: July,. FINDINGS: No acute fracture or dislocation. Joint spaces maintained. Soft tissues grossly unremarkable. IMPRESSION: 1. No acute osseous abnormality. Report Dictated on Electronically Signed By: Elbert Adamson MD Electronically Signed Date/Time: 02/01/2024 5:17 PM EDT [facility] [employer] Radiology Study observation (narrative) [facility] XR Knee - right 3 ViewsOrder ed By: Elbert Adamson on 02-01-2024 [employer] Work Phone: ED Provider Noteon ED Provider Note Emergency Department Encounter [facility] EMERGENCY DEPT Patient: Abdiel Alston : 1985 Date of Evaluation: 12/29/2023 ED Provider: Braden Dominguez MD I saw the patient as the Clinician in Triage and performed a brief history and physical exam, established acuity, and ordered appropriate tests to develop basic plan of care. Patient will be seen by KATE, resident and/or my physician partner who will evaluate the patient. I wore appropriate PPE for the entirety of this encounter. Brief HPI: In brief, Abdiel Alston is a 38 y.o. that presents with chief complaint of chief complaint of trouble swallowing solids. States that he an tolerate liquids. Denies any chest pain or shortness of breath. States he misses worse over the last couple weeks. Per chart review patient had a similar presentation in March 2022 was evaluated by gastroenterology at that time. Endoscopy was performed with grade a esophagitis and mild bulbar erythema and erosions. Focused Physical exam: 38-year-old male. Symmetric posterior pharynx. Uvula midline. Normal phonation. No trismus. No mandibular fullness. Normal range of motion neck. No palpable lymphadenopathy. Tolerating secretions without difficulty. Able to tolerate liquids. Exam is negative for obstruction. Negative for acute infection. Abdomen soft nontender. Lungs clear to auscultation Plan/MDM: Treat with Maalox with referral to gastroenterology for outpatient evaluation. Please see subsequent provider note for further details and disposition (Comment: Please note this report has been produced using speech recognition software and may contain errors related to that system including errors in grammar, punctuation, and spelling as well as words and phrases that may be inappropriate. If there are any questions or concerns please feel free to contact the dictating provider for clarification) Braden Dominguez MD Acute Care [facility] Braden Dominguez MD 12/29/23 1604 [facility] ED Provider Note EMERGENCY DEPARTMENT ENCOUNTER Pt Name: Abdiel Alston Birthdate 1985 Date of evaluation: 12/29/2023 ED Provider: TESFAYE Dean CHIEF COMPLAINT Chief Complaint Patient presents with Sore Throat Started 2 weeks ago, pt states that when coughing it feels like something comes up into throat but then goes back down after coughing. Feels like foreign object. Pt does smoke HISTORY OF PRESENT ILLNESS (Location/Symptom, Timing/Onset, Context/Setting, Quality, Duration, Modifying Factors, Severity) Note limiting factors. I wore appropriate PPE for the entirety of this encounter. HPI Abdiel Alston is a 38 y.o. male who presents to the emergency department for evaluation of difficulty swallowing solids. Patient reports that he is able to tolerate liquids appropriately and without difficulty. States that he is still able to swallow solids although he is having some difficulty. Denies any chest pain or shortness of breath. Denies any nausea or vomiting. Reports that the symptoms have been worsening over the past several weeks. Patient reports that he has been dealing with this for the past 3 years. Per chart review patient had similar presentation in March 2022 and was evaluated by gastroenterology. EGD done at that time showed grade a esophagitis with mild bulbar erythema and erosions with no other acute abnormalities noted. Patient states that he has not been on any GERD medication at this time. Denies any fever or chills. Patient tolerating oral secretions appropriately. Nursing Notes were reviewed. Limitations to history: None Outside historians: None REVIEW OF SYSTEMS Review of Systems 6 systems reviewed, positives and pertinent negatives as per HPI. All other systems were reviewed and are negative. PAST MEDICAL HISTORY Past Medical History: Diagnosis Date Amblyopia Right eye Anxiety Depression GERD (gastroesophageal reflux disease) Nonintractable headache 12/01/2017 Schizo affective schizophrenia (HCC) Tobacco abuse SURGICAL HISTORY Past Surgical History: Procedure Laterality Date COSMETIC SURGERY due to dog attack, left side of face CURRENT MEDICATIONS Discharge Medication List as of 12/29/2023 6:35 PM ALLERGIES Penicillins FAMILY HISTORY Family History Problem Relation Name Age of Onset Hypertension Mother Coronary artery disease Father Glaucoma Neg Hx Macular degeneration Neg Hx Blindness Maternal Grandfather Hypertension Father Diabetes Paternal Grandmother SOCIAL HISTORY Social History Socioeconomic History Marital status: Single Tobacco Use Smoking status: Every Day Packs/day: 2 Types: Cigarettes Smokeless tobacco: Never Substance and Sexual Activity Alcohol use: Yes Drug use: Yes Frequency: 7.0 times per week Types: Marijuana SCREENINGS PHYSICAL EXAM ED Triage Vitals [12/29/23 1433] Temp Heart Rate Resp BP 37.2 ?C (98.9 ?F) (!) 111 15 116/86 SpO2 Temp Source Heart Rate Source Patient Position 97 % Temporal Monitor -- BP Location FiO2 (%) -- -- Physical Exam Vitals and nursing note reviewed. Constitutional: General: He is not in acute distress. Appearance: He is not toxic-appearing. Comments: 38-year-old male who does not appear to be in acute distress or discomfort. HENT: Head: Normocephalic and atraumatic. Mouth/Throat: Comments: Posterior oropharynx is moist, clear, patent. Floor the mouth is soft. Patient is tolerating oral secretions appropriately Cardiovascular: Rate and Rhythm: Normal rate and regular rhythm. Heart sounds: Normal heart sounds. Pulmonary: Effort: Pulmonary effort is normal. Breath sounds: Normal breath sounds. Abdominal: Comments: Abdomen is soft and nonrigid. No tenderness palpation of abdomen diffusely. No guarding or rebound tenderness is noted. Musculoskeletal: Cervical back: Normal range of motion and neck supple. Skin: General: Skin is warm and dry. Capillary Refill: Capillary refill takes less than 2 seconds. Neurological: General: No focal deficit present. Mental Status: He is alert and oriented to person, place, and time. Psychiatric: Mood and Affect: Mood normal. DIAGNOSTIC RESULTS RADIOLOGY (Per Emergency Physician): Interpretation per the Radiologist below, if available at the time of this note: No orders to display LABS: Labs Reviewed - No data to display All other labs were within normal range or not returned as of this dictation. EMERGENCY DEPARTMENT COURSE and DIFFERENTIAL DIAGNOSIS/MDM: Vitals: Vitals: 12/29/23 1433 12/29/23 1828 BP: 116/86 139/87 Pulse: (!) 111 76 Resp: 15 20 Temp: 37.2 ?C (98.9 ?F) TempSrc: Temporal SpO2: 97% 99% Medications aluminum & magnesium hydroxide-simethicone (Mylanta) 200-200-20 MG/5ML oral suspension 20 mL (20 mL Oral Given 12/29/23 1607) ED care was supervised by Dr. Dominguez who independently examined and evaluated the patient. Please see their (more content not included)... [facility] 06-01-2023 [facility] HNO ID: [id number] Author: Lawrence Garcia MRI Tech Service: Radiology Author Type: Sanitation Associate Type: Allied Health Filed: 06/01/2023 11:20 AM Note Text: Radiology Service Progress Note DATE OF SERVICE: June 01, 2023 TIME: 11:07 AM PATIENT IDENTITY VERIFICATION COMPLETED USING TWO (2) STANDARD IDENTIFIERS: Name and Date of confirmed by patient verbally and Name and Date of confirmed by identification band. FALL SCREENING: Has the patient had 2 falls in the last year or 1 fall with injury or currently using an Ambulatory Assistive Device (Walker, Cane, Wheelchair, Crutches, etc.)? Inpatient: Screened on floor PATIENT GENDER DATA: Male PATIENT RELEVANT IMPLANT DATA REVIEWED: Yes ALLERGIES: Reviewed and unchanged CONTRAST ALLERGY: NO. EXAM: MRI - CONTRAST TYPE: GROUP II PERIPHERAL IV DATA: Inpatient - refer to LDA documentation RADIOLOGY DEPARTMENT: MR; Exam(s) Completed: Head: Seizure SIGNATURE: VIC Salamanca PATIENT NAME: Abdiel Alston DATE: June 01, 2023 TIME: 11:07 AM [facility] CBC W Auto Differential pane l (Bld)on 06-01-2023 Basophils (Bld) [#/Vol] 0.05 10*3/uL Normal <0.11 [facility] Comment on above: Order Comment: Speci men Type: BLOOD SPECIMENOrdering Facility: [facility] Address: [address] [address] Performed By: #### 5 7021-8 ####[facility]UTE LABORATORYCLIA [id number] [address] [place] Basophils/100 WBC (Bld) 0.3 % Normal [facility] Comment on above: Order Comment: Speci men Type: BLOOD SPECIMENOrdering Facility: [facility] Address: [address] [place] [address] Performed By: #### 5 7021-8 ####MATUTE LABORATORYCLIA [id number] [place] [address] [place] Differential cell count method Nom (Bld) Auto Normal [facility] Comment on above: Order Comment: Speci men Type: BLOOD SPECIMENOrdering Facility: [facility] Address: [address] [place] [address] Performed By: #### 5 7021-8 ####MATUTE LABORATORYCLIA [id number] [place] [address] [place] Eosinophils (Bld) [#/Vol] 10*3/uL Normal <0.46 [facility] Comment on above: Order Comment: Speci men Type: BLOOD SPECIMENOrdering Facility: [facility] Address: [address] [place] [address] Performed By: #### 5 7021-8 ####MATUTE LABORATORYCLIA [id number] [address] [place] Eosinophils/100 WBC (Bld) 0.1 % Normal [facility] Comment on above: Order Comment: Speci men Type: BLOOD SPECIMENOrdering Facility: [facility] Address: [address] [place] [address] Performed By: #### 5 7021-8 ####MATUTE LABORATORYCLIA [id number] [place] [address] [place] Erythrocyte distribution width (RBC) [Ratio] 12.7 % Normal 11.5-15.0 [facility] Comment on above: Order Comment: Speci men Type: BLOOD SPECIMENOrdering Facility: [facility] Address: [address] [address] Performed By: #### 5 7021-8 ####MATUTE LABORATORYCLIA [id number] [address] [place] Hematocrit (Bld) [Volume fraction] 45.2 % Normal 39.0-51.0 [facility] Comment on above: Order Comment: Speci men Type: BLOOD SPECIMENOrdering Facility: [facility] Address: [address] [place] [address] Performed By: #### 5 7021-8 ####MATUTE LABORATORYCLIA [id number] [place] [address] [place] Hemoglobin (Bld) [Mass/Vol] 16.4 g/dL Normal 13.0-17.0 [facility] Comment on above: Order Comment: Speci men Type: BLOOD SPECIMENOrdering Facility: [facility] Address: [address] [place] [address] Performed By: #### 5 7021-8 ####MATUTE LABORATORYCLIA [id number] [place] [address] [place] Immature granulocytes (Bld) [#/Vol] 0.11 10*3/uL High <0.10 [facility] Comment on above: Order Comment: Speci men Type: BLOOD SPECIMENOrdering Facility: [facility] Address: [address] [place] [address] Performed By: #### 5 7021-8 ####MATUTE LABORATORYCLIA [id number] [address] [place] Immature granulocytes/100 WBC (Bld) 0.6 % Normal [facility] Comment on above: Order Comment: Speci men Type: BLOOD SPECIMENOrdering Facility: [facility] Address: [address] [place] [address] Performed By: #### 5 7021-8 ####MATUTE LABORATORYCLIA [id number] [place] [address] [place] Lymphocytes (Bld) [#/Vol] 3.13 10*3/uL Normal 1.00-4.00 [facility] Comment on above: Order Comment: Speci men Type: BLOOD SPECIMENOrdering Facility: [facility] Address: [address] [place] [address] Performed By: #### 5 7021-8 ####MATUTE LABORATORYCLIA [id number] [address] Lymphocytes/100 WBC (Bld) 15.7 % Normal [facility] Comment on above: Order Comment: Speci men Type: BLOOD SPECIMENOrdering Facility: [facility] Address: [address] [place] [address] Performed By: #### 5 7021-8 ####MATUTE LABORATORYCLIA [id number] [address] MCH (RBC) [Entitic mass] 32.9 pg Normal 26.0-34.0 [facility] Comment on above: Order Comment: Speci men Type: BLOOD SPECIMENOrdering Facility: [facility] Address: [address] [place] [address] Performed By: #### 5 7021-8 ####MATUTE LABORATORYCLIA [id number] [address] [place] MCHC (RBC) [Mass/Vol] 36.3 g/dL High 30.5-36.0 [facility] Comment on above: Order Comment: Speci men Type: BLOOD SPECIMENOrdering Facility: [facility] Address: [address] [place] [address] Performed By: #### 5 7021-8 ####MATUTE LABORATORYCLIA [id number] [address] MCV (RBC) [Entitic vol] 90.8 fL Normal 80.0-100.0 [facility] Comment on above: Order Comment: Speci men Type: BLOOD SPECIMENOrdering Facility: [facility] Address: [address] [place] [address] Performed By: #### 5 7021-8 ####MATUTE LABORATORYCLIA [id number] [address] Monocytes (Bld) [#/Vol] 1.52 10*3/uL High <0.87 [facility] Comment on above: Order Comment: Speci men Type: BLOOD SPECIMENOrdering Facility: [facility] Address: [address] [place] [address] Performed By: #### 5 7021-8 ####MATUTE LABORATORYCLIA [id number] [address] [place] Monocytes/100 WBC (Bld) 7.6 % Normal [facility] Comment on above: Order Comment: Speci men Type: BLOOD SPECIMENOrdering Facility: [facility] Address: [address] [address] Performed By: #### 5 7021-8 ####MATUTE LABORATORYCLIA [id number] [address] [place] Neutrophils (Bld) [#/Vol] 15.07 10*3/uL High 1.45-7.50 [facility] Comment on above: Order Comment: Speci men Type: BLOOD SPECIMENOrdering Facility: [facility] Address: [address] [place] [address] Performed By: #### 5 7021-8 ####MATUTE LABORATORYCLIA [id number] [address] Neutrophils/100 WBC (Bld) 75.7 % Normal [facility] Comment on above: Order Comment: Speci men Type: BLOOD SPECIMENOrdering Facility: [facility] Address: [address] [place] [address] Performed By: #### 5 7021-8 ####MATUTE LABORATORYCLIA [id number] [address] [place] Nucleated RBC (Bld) [#/Vol] 10*3/uL Normal <0.01 [facility] Comment on above: Order Comment: Speci men Type: BLOOD SPECIMENOrdering Facility: [facility] Address: [address] [place] [address] Performed By: #### 5 7021-8 ####MATUTE LABORATORYCLIA [id number] [address] [place] Nucleated RBC/100 WBC (Bld) [Ratio] 0.0 /100 WBC Normal [facility] Comment on above: Order Comment: Speci men Type: BLOOD SPECIMENOrdering Facility: [facility] Address: [address] [address] Performed By: #### 5 7021-8 ####MATUTE LABORATORYCLIA [id number] [place] [address] [place] Platelet mean volume (Bld) [Entitic vol] 8.7 fL Low 9.0-12.7 [facility] Comment on above: Order Comment: Speci men Type: BLOOD SPECIMENOrdering Facility: [facility] Address: [address] [address] Performed By: #### 5 7021-8 ####MATUTE LABORATORYCLIA [id number] [place] [address] [place] Platelets (Bld) [#/Vol] 327 10*3/uL Normal 150-400 [facility] Comment on above: Order Comment: Speci men Type: BLOOD SPECIMENOrdering Facility: [facility] Address: [address] Performed By: #### 5 7021-8 ####MATUTE LABORATORYCLIA [id number] [place] [address] [place] RBC (Bld) [#/Vol] 4.98 10*6/uL Normal 4.20-6.00 [facility] Comment on above: Order Comment: Speci men Type: BLOOD SPECIMENOrdering Facility: [facility] Address: [address] Performed By: #### 5 7021-8 ####MATUTE LABORATORYCLIA [id number] [place] [address] [place] WBC (Bld) [#/Vol] 19.90 10*3/uL High 3.70-11.00 [facility] Comment on above: Order Comment: Speci men Type: BLOOD SPECIMENOrdering Facility: [facility] Address: [address] [place], [place] [address] Performed By: #### 5 7021-8 ####MATUTE LABORATORYCLIA [id number] [address] CK TOTAL AND CK-MBon 023 CK [Catalytic activity/Vol] 281 U/L Normal 51-298 [facility] Comment on above: Order Comment: Russell choudhury Type: BLOOD SPECIMENOrdering Facility: [facility] Address: [address] [place] [address] Performed By: #### C KCKMB, 16933-1, 12831-2, 6-3 ####[facility] LABORATORYCLIA [id number] [address] CK.MB [Mass/Vol] 1.7 ng/mL Normal <7.8 [facility] Comment on above: Order Comment: Russell choudhury Type: BLOOD SPECIMENOrdering Facility: [facility] Address: [address] [place] [address] Performed By: #### C KCKMB, 20306-8, 39121-2, 3015-3 ####[facility] LABORATORYCLIA [id number] [address] CK.MB [Ratio] 60 {ratio} Normal <=4.0 [facility] Comment on above: Order Comment: Russell choudhury Type: BLOOD SPECIMENOrdering Facility: [facility] Address: [address] [place] [address] Performed By: #### C KCKMB, 96432-5, 77400-2, 6-3 ####[facility] LABORATORYCLIA [id number] [address] [facility] CNDSon 06-01-2023 [facility] HNO ID: [id number] Author: Ady Oneill Jr., MD Service: Hospital Medicine Author Type: Physician Type: Discharge Summary Filed: 06/01/2023 1:47 PM Note Text: DISCHARGE SUMMARY PATIENT NAME: Abdiel Alston Code Status: Not on file Highest Readmission Risk Score: 8 The 30 day readmissions risk score is derived from an internally validated risk model which evaluates patient level characteristics, utilization history, medication orders and lab results up until the day of discharge. Patients with a score of 40 or above are considered highest risk for readmission. Specific patient level drivers will be listed at the bottom of the summary. Admission Information Admission Information ADMIT DATE: 05/31/2023 DISCHARGE DATE: 06/01/2023 MY DOCTORS AND MEDICAL TEAM: My Main Hospital Doctor: Ady Oneill Primary Care Provider: No primary care provider on file. My Medical Team Members: Treatment Team: Attending Provider: Ady Oneill Jr., MD MY CONDITION AT DISCHARGE: Stable REASON I WAS IN THE HOSPITAL: New onset seizure SUMMARY OF WHAT HAPPENED WHILE I WAS IN THE HOSPITAL: You were admitted to the hospital on 05/31/23 after an episode that was suspicious for a seizure. You had no recurrent seizures while you were in the hospital. Neurology was consulted and did NOT recommended starting a Seizure medication An EEG (brain wave test) was ordered but could not be obtained on 06/01/23. MRI of Brain showed no acute issues and no focus for seizure onset was noted. TeleNeurology noted that you were ok for discharge with Neurology follow-up and an outpatient EEG. You were discharged to home on 06/01/23. You should not drive until you have been seizure-free for 6 months (he stated that he was already not driving already due to his paranoid schizophrenia). He may resume his home medications. Follow-up with Neurology in about 2 weeks and your can be scheduled for an EEG at that time. Follow-up sooner for any recurrent episodes. You need to establish with a PCP in your area for continued follow-up. OTHER PROBLEMS/DIAGNOSIS: Principal Problem: Seizure (HCC) Active Problems: Paranoid schizophrenia (HCC) Hyperglycemia High anion gap metabolic acidosis Lactate blood increase Leukocytosis Resolved Problems: * No resolved hospital problems. * OPERATIONS PERFORMED WHILE IN THE HOSPITAL: None IMPORTANT TEST/PROCEDURES: No procedures performed TEST RESULTS NOT AVAILABLE AT THIS TIME: No pending results Discharge Disposition Discharge Disposition: Home With Self Care Activity When You Leave the Hospital Resume pre-hospital activity No driving, no climbing ladders, avoid open flames if alone Diet Instructions Resume your pre-hospital diet Follow Up Appointments Follow-Up Appointment Appointment requested With: Needs to establish with a local PCP When: In: Follow-Up Appointment Appointment requested With: Neurology in the [facility] When: In: Additional Provider to Provider Information: This is a 37 yo M, with a PMH of Paranoid Schizophrenia and a recent Right Fifth Metacarpal Fracture, who presented to the ED on 05/31/23 for a possible seizure. He reported that he was attending a football game with his fiancee and sister when he suddenly had a seizure-like episode. Does not remember any events of the episode. His family noticed that his head was twitching, then he became unresponsive and fell to the ground (no injury). He reported that he bit his lip, convulsed and unknowingly urinated on himself. The next events that the patient actually remembered is when he was in the ambulance. He was confused when waking. He stated that his seizure lasted 2 minutes per family. No past history of seizures. No fever, chills, headache or neck pain. His Abilify was recently changed to Zyprexa. In the ED, he was afebrile. K 3.8, Cr 1.1, LFTs nl, WBC 15.9, Hgb 16.6. Lactate 4.5 - 1.2. HS Troponin <6. EKG showed sinus rhythm with no acute ischemic changes. UA negative. Urine Tox was (+) for cannabinoids. CT Brain showed NAD. CXR showed NAD. ED Neurology consulted and recommended admission, EEG and no seizure medications at that time. TeleNeurology was consulted and also did not recommend starting any medication. MRI Brain was recommended and Neurology noted that the EEG could be obtained as an outpatient since was not available on 06/01/23. The patient had no recurrent episodes during his admission. MRI of Brain with/without contrast showed mild chronic small vessel ischemic changes in the left frontal deep white matter and no pathologic enhancement. He felt ready for discharge. He was discharged to home on 06/01/23. He should not drive until he is seizure-free for 6 months (he stated that he was not driving already due to his paranoid schizophrenia). He may resume his home medications. Follow-up with Neurology in about 2 weeks and ca (more content not included)... [facility] CONSULTon 06-01-2023 CONSULT HNO ID: [id number] Author: Obed Camacho MD Service: Neurology General Author Type: Physician Type: Consults Filed: 06/01/2023 1:42 PM Note Text: TELENEUROLOGY VISIT - NEW CONSULTATION Name and :Abdiel Alston 1985 Patient consented to teleneurology visit on order for consult. The Teleneurologist or KATE is available from 8 am to 5 pm on weekdays. On weekends, at [place] and [place], the Teleneurologist or KATE is available from 8 am to 5 pm, [place] 1 pm to 5 pm, [place] 8 am to 12 pm, and [place] 1 pm to 5 pm. Statutory holidays do not have teleneuro coverage. [place] : During Off hours for Teleneurology please page (not call) [facility] [phone] merchandise presentation associate for concerns. [place]: During Off hours for Teleneurology please page (not call) [facility] [phone] merchandise presentation associate for concerns. Name: Abdiel Alston Age: [age] year old Gender: male Chief Complaint:Seizures (New onset EST 2 min per EMS, BG 119) Admission Date: 05/31/2023 Consult Requested By: , recommendations will be communicated by shared medical record. HPI: Abdiel is a 37 year old male with a past medical history of paranoid schizophrenia presenting with new onset seizure. Abdiel was in his usual state of health yesterday when he went to a football game with friends. At the football game, he noticed that his head kept turning to the right and then abruptly lost consciousness. He was witnessed to be convulsing by his friends. The episode lasted roughly 2 minutes. He was confused upon regaining consciousness having urinated on himself and bit his tongue. He was brought to the ED for further evaluation. He denies any preceding symptoms and specifically denies fevers, headaches, numbness/tingling, or focal weakness. He has no history of prior seizures. He is on multiple medications for his paranoid schizoprenia including Was[place], Prozac, Remeron, Catapres, and Zyprexa. The Zyprexa was added this past week in place on . He denies any large changes to his sleep cycle and reports sleeping 7.5 hours a night on average. In the ED, he was tachycardic to 115 but his vital signs were otherwise within normal limits. His blood work showed a leukocytosis to 16. Utox was positive for marijuana. His blood lithium levels were within a normal range. His head CT showed no acute intracranial abnormalities. He was admitted to the hospital for further evaluation. He underwent a brain MRI that showed nonspecific white matter disease but no clear epileptogenic focus. UA and viral panel were negative. Review of Systems Review of systems as indicated in HPI. All other systems negative. ACTIVE PROBLEM LIST Seizure (Hcc) Paranoid Schizophrenia (Hcc) Hyperglycemia High Anion Gap Metabolic Acidosis Lactate Blood Increase Leukocytosis PAST MEDICAL HISTORY Diagnosis Date Dog bite URI (upper respiratory infection) Medications: Reviewed Current Facility-Administered Medications Medication Dose Route Frequency Provider Last Rate Last Admin cloNIDine HCl 0.1 mg tab(s) (CATAPRES) 0.1 mg ORAL AT BEDTIME Jelani Head MD mirtazapine 15 mg (REMERON) 15 mg ORAL AT BEDTIME Ady Oneill Jr., MD iv contrast (radiology procedure) INTRAVENOUS DIRECTED PRN Ady Oneill Jr., MD NaCl 0.9% iv flush bag 20 mL INTRAVENOUS PRN Jelani Head MD ALLERGIES Allergen Reactions Penicillins Unknown No family history on file. PAST SURGICAL HISTORY Procedure Laterality Date FACIAL RECONSTRUCTION SURGERY HX from dog bite Tobacco Use: High Risk (05/31/2023) Patient History Smoking Tobacco Use: Every Day Smokeless Tobacco Use: Never Passive Exposure: Not on file Alcohol Use: Not on file PHYSICAL EXAM: Physical exam performed with telepresenter and observed and documented by clinician in this note BP 118/76 Pulse 65 Temp 36.9 ?C (98.4 ?F) (Temporal) Resp 18 Ht 167.6 cm (5' 6) Wt 67.1 kg (147 lb 14.9 oz) SpO2 95% BMI 23.88 kg/m? Constitutional: General: Not in acute distress. Vitals: as above, resp rate normal. Psych: Affect: congruent Attention: alert and appropriate. HENT: Head: Normocephalic and atraumatic. Eyes: Extraocular Movements: Horizontal Extraocular movements intact. Lids: Non ptotic. Neck: Midline trachea, no goiter seen. Cardiovascular: Rate and Rhythm: Normal rate/rhythm Edema: No edema noted. Pulmonary: Effort: Pulmonary effort is normal. No respiratory distress. Breath sounds: Normal breath sounds. Chest: Symmetric; unremarkable. Skin: General: Skin is warm and dry. Palpation: normal turgor MSK: Symmetric muscle bulk, no joint swelling Neuro: Neurological: Mental Status: Alert, with normal speech and language. Attention and concentration appeared normal. Oriented x 4. Cranial Nerves: CNII: VFF, PERRL CNIII, IV, : full extraoccular movements, without nystagmus CN (more content not included)... Normal [facility] Comprehensive metabolic 2000 panelon 06-01-2023 Albumin [Mass/Vol] 4.2 g/dL Normal 3.9-4.9 [facility] Comment on above: Order Comment: Speci men Type: BLOOD SPECIMENOrdering Facility: [facility] Address: [address] [address] Performed By: #### Loki VELASQUEZ, 73984-8, 21911-1, 6-3 ####[place] [facility]ORATORYCLIA [id number] [address] STATES OF [facility] ALP [Catalytic activity/Vol] 108 U/L Normal 38-113 [facility] Comment on above: Order Comment: Speci men Type: BLOOD SPECIMENOrdering Facility: [facility] Address: [address] [address] Performed By: #### Loki FLOWERKMEse, 75437-0, 18860-6, 3016-3 ####[place] [facility]ORATORYCLIA [id number] [address] ALT [Catalytic activity/Vol] 25 U/L Normal 10-54 [facility] Comment on above: Order Comment: Speci men Type: BLOOD SPECIMENOrdering Facility: [facility] Address: [address] [address] Performed By: #### Loki VELASQUEZ, 60159-0, 83185-8, 3016-3 ####[place] [facility]ORATORYCLIA [id number] [address] Anion gap [Moles/Vol] 9 mmol/L Normal 9-18 [facility] Comment on above: Order Comment: Speci men Type: BLOOD SPECIMENOrdering Facility: [facility] Address: [address] [address] Performed By: #### Loki VELASQUEZ, , , 3 ####[place] [facility]ORATORYCLIA [id number] [place] [address] [place] AST [Catalytic activity/Vol] 18 U/L Normal 14-40 [facility] Comment on above: Order Comment: Speci men Type: BLOOD SPECIMENOrdering Facility: [facility] Address: [address] [place] [address] Performed By: #### Loki VELASQUEZ, , , 3 ####[facility]ORATORYCLIA [id number] [place] [address] [place] Bilirubin [Mass/Vol] 0.7 mg/dL Normal 0.2-1.3 [facility] Comment on above: Order Comment: Speci men Type: BLOOD SPECIMENOrdering Facility: [facility] Address: [address] [place] [address] Performed By: #### Loki VELASQUEZ, , , 3015-12 ####[place] [facility]ORATORYCLIA [id number] [place] [address] [place] Calcium [Mass/Vol] 9.3 mg/dL Normal 8.5-10.2 [facility] Comment on above: Order Comment: Speci men Type: BLOOD SPECIMENOrdering Facility: [facility] Address: [address] [place] [address] Performed By: #### Loki VELASQUEZ, , , 3 ####[facility]ORATORYCLIA [id number] [place] [address] [place] Chloride [Moles/Vol] 109 mmol/L High 97-105 [facility] Comment on above: Order Comment: Speci men Type: BLOOD SPECIMENOrdering Facility: [facility] Address: [address] [place] [address] Performed By: #### Loki VELASQUEZ, , , 3 ####[facility]ORATORYCLIA [id number] [place] [address] [place] CO2 [Moles/Vol] 22 mmol/L Normal 22-30 [facility] Comment on above: Order Comment: Russell choudhury Type: BLOOD SPECIMENOrdering Facility: [facility] Address: [address] [address] Performed By: #### C KCKMB, 96125-8, 54545-5, 6-3 ####[facility] [facility]ORATORYCLIA [id number] [place] [address] [place] Creatinine [Mass/Vol] 0.86 mg/dL Normal 0.73-1.22 [facility] Comment on above: Order Comment: Russell men Type: BLOOD SPECIMENOrdering Facility: [facility] Address: [address] [address] Performed By: #### C KCKMB, 23922-0, , 63 ####[facility] [facility]ORATORYCLIA [id number] [place] [address] [place] Creatinine and Glomerular filtration rate.predicted panel (S/P/Bld) 114 mL/min/1.73m??? Normal >=60 [facility] Comment on above: Order Comment: [facility] Type: BLOOD SPECIMENOrdering Facility: [facility] Address: [address] [place] [address] Result Comment: Hilaria mated Glomerular Filtration Rate (eGFR) is calculated using the 2020 CKD-EPI creatinine equation. This equation utilizes serum creatinine, sex, and age as parameters. The creatinine assay has traceable calibration to isotope dilution-mass spectrometry. Refer to KDIGO guidelines for clinical interpretation. In patients with unstable renal function, e.g. those with acute kidney injury, the eGFR may not accurately reflect actual GFR. Performed By: #### C KCKMB, 80023-0, 59460-3, 6-3 ####[facility] LABORATORYCLIA [id number] [address] [id number] [place] Glucose [Mass/Vol] 116 mg/dL High 74-99 [facility] Comment on above: Order Comment: Russell kei Type: BLOOD SPECIMENOrdering Facility: [facility] Address: [address] [address] Result Comment: The [place] Diabetes Association (ADA) provides guidance for cutoff values for fasting glucose and random glucose. The ADA defines fasting as no caloric intake for at least 8 hours. Fasting plasma glucose results between 100 to 125 mg/dL indicate increased risk for diabetes (prediabetes). Fasting plasma glucose results greater than or equal to 126 mg/dL meet the criteria for diagnosis of diabetes. In the absence of unequivocal hyperglycemia, results should be confirmed by repeat testing. In a patient with classic symptoms of hyperglycemia or hyperglycemic crisis, random plasma glucose results greater than or equal to 200 mg/dL meet the criteria for diagnosis of diabetes. Reference: Standards of Medical Care in Diabetes 2016, [employer] Diabetes Association. Diabetes Care. 2016.39(Suppl 1). Performed By: #### Loki VELASQUEZ, 18726-9, 84368-9, 3015-3 ####[facility] LABORATORYCLIA [id number] [place] [address] [place] Potassium [Moles/Vol] 4.1 mmol/L Normal 3.7-5.1 [facility] Comment on above: Order Comment: Speci men Type: BLOOD SPECIMENOrdering Facility: [facility] Address: [address] [address] Performed By: #### Loki FLOWERKMEse, 31068-9, , 3015-3 ####[facility] LABORATORYCLIA [id number] [place] [address] [place] Protein [Mass/Vol] 6.9 g/dL Normal 6.3-8.0 [facility] Comment on above: Order Comment: Speci men Type: BLOOD SPECIMENOrdering Facility: [facility] Address: [address] [address] Performed By: #### Loki KCKMEse, 98214-9, , 6-3 ####[facility] LABORATORYCLIA [id number] [place] [address] [place] Sodium [Moles/Vol] 140 mmol/L Normal 136-144 [facility] Comment on above: Order Comment: Hayderi men Type: BLOOD SPECIMENOrdering Facility: [facility] Address: [address] [address] Performed By: #### Loki FLOWERKMB, 72305-8, 53997-3, 6-3 ####[facility] [facility]ORATORYCLIA [id number] [place] [address] [facility] Urea nitrogen [Mass/Vol] 5 mg/dL Low 06-29 [facility] Comment on above: Order Comment: Speci men Type: BLOOD SPECIMENOrdering Facility: [facility] Address: [address] [place] [address] Performed By: #### C KCKMB, 34952-5, 99162-9, 3015-3 ####[facility] LABORATORYCLIA [id number] [place] [address] [facility] ECG COMPLETEon 06-01-2023 ECG COMPLETE Ventricular Rate : 6 1 BPM Atrial Rate : 61 BPM P-R Interval : 168 ms QRS Duration : 116 ms Q-T Interval : 464 ms QTC Calculation(Bazett) : 467 ms Calculated P [place] : 30 degrees Calculated R [place] : 3 degrees Calculated T [place] : 28 degrees SINUS RHYTHM WITH MARKED SINUS ARRHYTHMIA INCOMPLETE RIGHT BUNDLE BRANCH BLOCK BORDERLINE ECG 2113 no stemi Confirmed by ELISSA VIVAS DO ([id number]), news video editor Lizeth Scott ([id number]) on 06/01/2023 12:03:40 PM NAME : ABDIEL ALSTON PID : [id number] : 1985 Gender : Male Race : ORD : [id number] Procedure Date : May 31 2023 22:11:44 Edit Date : Jun 01 2023 12:03:44 Diagnosis: SINUS RHYTHM WITH MARKED SINUS ARRHYTHMIA INCOMPLETE RIGHT BUNDLE BRANCH BLOCK BORDERLINE ECG 2113 no stemi Confirmed by ELISSA VIVAS DO ([id number]), news video editor Lizeth Scott ([id number]) on 06/01/2023 12:03:40 PM Test Reason : Chest Pain Location : 1 : ER ED Overread By : ELISSA VIVAS DO Edited By : Lizeth Scott Referred By : , Acquired by : EBONY [facility] ED NOTEon 06-01-2023 ED NOTE HNO ID: [id number] Author: Zeenat Toussaint, RN Service: Nursing Author Type: Registered Nurse Type: ED Notes Filed: 05/31/2023 11:19 PM Note Text: Hospitalist @ bedside [facility] HISTORY PHYSICALon 08-27-202 3 HISTORY PHYSICAL HNO ID: [id number] Author: Jelani Head MD Service: Hospital Medicine Author Type: Physician Type: HANDP Filed: 06/01/2023 12:15 AM Note Text: DEPARTMENT OF HOSPITAL MEDICINE HISTORY AND PHYSICAL EXAM SERVICE DATE: 05/31/2023 Code Status: Not on file SERVICE TIME: 11:08 PM Primary Care Physician: No primary care provider on file. NIGHT AND WEEKEND COVERAGE: [place] COVERAGE: Days: [phone], please page attending physician. Nights: [phone], please page [place] [facility] Night coverage pager [phone]. Subjective CHIEF COMPLAINT: Seizure episode HPI: A 37-year-old male with past medical history of paranoid schizophrenia, history of recent fifth metacarpal fracture on right hand presented to the emergency department after having a seizure episode. Patient states that around 7-8:00 at night he was attending a football game with his fiancee and sister when he suddenly had a seizure-like episode. Does not remember any events of the episode. Stated that family noticed that his head was twitching. Per ED signout patient fell to the ground with no history of trauma to the head. Patient states that he bit his lip, convulsed and unknowingly urinated on himself. Next events that patient actually remembers is when he was in the ambulance. He states that he was confused when waking up when he was poked for glucose check. Patient states that his seizure episode lasted 2 minutes per family. No history of any seizures in the past. No history of fevers or chills, shortness of breath, chest pain, abdominal pain, nausea or vomiting. Patient has recently been changing his medication stopping Abilify and starting Zyprexa. Due to the above symptoms patient was brought into the ED for further evaluation. In the emergency department patient's vitals are stable. Lab investigations showed hyperglycemia-149, elevated anion gap-27, elevated lactate-4.5, urine tox screen showed cannabinoid use, CBC shows leukocytosis-15 K, UA nonsignificant,. Respiratory panel negative. CT brain without IV contrast showed no acute intercranial abnormality. Chest x-ray showed no acute cardiopulmonary abnormality. EKG was done in the emergency department which showed sinus rhythm with marked sinus arrhythmia, incomplete right bundle branch block. Showed in the ED patient was given IV fluids. In the ED neurology was consulted and recommended patient would benefit from a 20-minute EEG and to hold off on antiseizure medications at this time. Patient is admitted to the hospital for further treatment evaluation. PAST MEDICAL HISTORY Diagnosis Date Dog bite URI (upper respiratory infection) PAST SURGICAL HISTORY Procedure Laterality Date FACIAL RECONSTRUCTION SURGERY HX from dog bite No family history on file. Social History Tobacco Use Smoking status: Every Day Types: Cigarettes Smokeless tobacco: Never Substance Use Topics Alcohol use: Yes Comment: yearly Drug use: Yes Types: Marijuana Comment: pt sts used in the past 24 hrs PRIOR TO ADMISSION MEDICATIONS: (Not in a hospital admission) ALLERGIES Allergen Reactions Penicillins Unknown REVIEW OF SYSTEM: NEGATIVE EXCEPT FOR THE BOLDED: General: No fevers, chills, sweats, or weight change Eye: Denies recent visual problems, redness, or discharge ENMT: Denies ear pain, nasal congestion, sore throat Cardiovascular: Denies Chest pain, palpitations, fainting, pressure, or swelling Respiratory: Denies shortness of breath, cough Gastrointestinal: Denies nausea, vomiting, diarrhea, constipation, and indigestion Genitourinary: Denies incontinence, frequency, urgency, nocturia, or hematuria Musculoskeletal: No back pain, neck pain, joint pain, muscle pain, decreased range of motion Integumentary: No rash, itching, abrasions Neurologic: No numbness, tingling, or headaches outside of baseline Psychiatric: Denies anxiety, depression Endocrine: Negative for excessive thirst, excessive hunger Hematologic/Lymphatic : Negative for bruising tendency, swollen lymph glands Allergic and Immunologic: No pruritus. No Swelling. Objective PHYSICAL EXAM: BP 112/75 Pulse 71 Temp (Src) 97.6 (Oral) Resp 18 Wt 163 lb 9.3 oz (74.2kg) SpO2 98% O2 Therapy: Room Air Physical Exam Performed: Constitutional: In no apparent distress. Vital signs stable Eye: Pupils are equal. Extraocular motions intact ENMT: No visible external trauma. Hearing grossly intact. Neck: No Jugular Vein Distention Cardiovascular: Regular rate and rhythm. S1 and S2 Respiratory: Chest with clear breath sounds bilaterally Gastrointestinal: Soft, without detectable tenderness. No sign of distention. No rebound or guarding, no masses palpated. Bowel sounds present Genitourinary: Bladder soft Musculoskeletal: Reduced range of motion of all major joints. Extremities without clubbing, without cyanosis, without edema Integumentary: No rash, no bruising (more content not included)... Normal [facility] Lactate (Bld) [Moles/Vol]on 06-01-2023 Lactate [Moles/Vol] 1.2 mmol/L Normal 0.5-2.2 [facility] Comment on above: Order Comment: Speci men Type: BLOOD SPECIMENOrdering Facility: [facility] Address: [address] [place] [id number] Performed By: #### 3 2693-4 ####[place] LABORATORYCLIA [id number] [place] [address] [facility] [place] MRI BRAIN WO/W IVCONon 06-01 MRI BRAIN WO/W IVCON * * *Final Report* * * DATE OF EXAM: Jun 01 2023 11:44AM [facility] 0295 - MRI BRAIN WO/W IVCON / PROCEDURE REASON: Seizure, new-onset, no history of trauma * * * * Physician Interpretation * * * * EXAMINATION: MRI BRAIN WO/W IVCON HISTORY: Seizure, new-onset, no history of trauma TECHNIQUE: Routine brain MRI protocol without and with contrast including diffusion and gradient echo images. MQ: MRBWOW_2 Contrast: 13 mL Dotarem IV COMPARISON: Noncontrast CT brain from 05/31/2023. RESULT: Acute Change: There is no evidence of restricted diffusion to suggest an acute infarct. Hemorrhage: No evidence of prior parenchymal hemorrhage on the gradient echo images. Mass Lesion/ Mass Effect: No evidence of an intracranial mass or extra-axial fluid collection. No abnormal parenchymal or leptomeningeal enhancement is noted following contrast administration. No significant mass effect. Chronic Change: Scattered hyperintensity and T2 and FLAIR in the deep white matter of the left frontal lobe consistent with chronic small vessel ischemic changes. Parenchyma: Sulcation pattern is normal. No evidence of heterotopia. The amygdala and hippocampal formations are symmetric and normal in morphology and signal. No significant volume loss for age. The brain parenchyma is otherwise within normal limits of signal intensity and morphology. Ventricles: Normal caliber and morphology. Skull Base: Hypothalamic and pituitary region are grossly normal. Craniocervical junction is normal. No significant marrow replacement process. Vasculature: Major intracranial arterial structures, and dural venous sinuses show typical flow void, suggesting patency by spin echo criteria. Other: The visualized paranasal sinuses and mastoid air cells are clear. The orbits and extracranial soft tissues are unremarkable. IMPRESSION: Nonlesional MRI brain for epileptogenic focus. Mild chronic small vessel ischemic changes in the left frontal deep white matter. No pathologic enhancement. Human Resources Temp: SUZETTE Transcribe Date/Time: Jun 01 2023 11:56A Dictated by : YESI CUETO MD This examination was interpreted and the report reviewed and electronically signed by: YESI CUETO MD on Jun 01 2023 11:58AM EST [id number] Normal [facility] Magnesium [Mass/Vol] 2.1 mg/dL Normal 1.7-2.3 [facility] Comment on above: Order Comment: Speci men Type: BLOOD SPECIMENOrdering Facility: [facility] Address: [address] [place] [address] Performed By: #### C KCKMB, 66846-5, 40734-0, 3016-3 ####[facility] [facility]ORATORYCLIA [id number] [address] NUTRITIONon 06-01-2023 NUTRITION HNO ID: [id number] Author: Keyonna Arzola RD Service: Nutrition Therapy Author Type: Registered Dietitian Type: Nutrition Filed: 06/01/2023 8:43 AM Note Text: NUTRITION THERAPY SCREEN NOTE SERVICE DATE: 06/01/2023 SERVICE TIME: 8:30 am Care Plan: Continue current diet Monitor intake. Reviewed physician progress notes and labs. Monitor and Evaluation: Meet greater than 75% of estimated needs Intake History: reports decreased appetite Diet Orders (From admission, onward) Start Ordered 05/31/23 2330 Diet Regular START NOW 05/31/23 2327 Anthropometrics: Height: 167.6 cm (5' 6) Weight: 67.1 kg (147 lb 14.9 oz) 02/19/23 : 65.8 kg (145 lb) MNT Billing: $ Initial Assessment: 1-15 minutes SIGNATURE: Keyonna Arzola RD PATIENT NAME: Abdiel Alston DATE: June 01, 2023 TIME: 8:37 AM [facility] Phosphate SerPl-mCncon 06-01 Phosphate [Mass/Vol] 2.4 mg/dL Low 2.7-4.8 [facility] Comment on above: Order Comment: Speci men Type: BLOOD SPECIMENOrdering Facility: [facility] Address: [address] [place] [address] Performed By: #### 2 777-1 ####[facility]ORYCLIA [id number] [address] TSH SerPl-aCncon 06-01-2023 TSH Qn 1.960 m[IU]/L Normal 0.270-4.200 [facility] Comment on above: Order Comment: Spec men Type: BLOOD SPECIMENOrdering Facility: [facility] Address: [address] [place] [address] Performed By: #### C KCKMB, 12813-4, 74455-5, 3016-3 ####[facility]ORATORYCLIA [id number] [address] ALLIED HEALTHon 05-31-2023 ALLIED HEALTH HNO ID: [id number] Author: Johnna Palomo RT(R) Service: Radiology Author Type: Sanitation Associate Type: Allied Health Filed: 05/31/2023 8:36 PM Note Text: Radiology Service Progress Note PATIENT NAME: Abdiel Alston DATE OF SERVICE: May 31, 2023 TIME: 8:35 PM PATIENT IDENTITY VERIFICATION COMPLETED USING TWO (2) IDENTIFIERS: Name and Date of confirmed by patient verbally. FALL SCREENING: Has the patient had 2 falls in the last year or 1 fall with injury or currently using an Ambulatory Assistive Device (Walker, Cane, Wheelchair, Crutches, etc.)? Emergency Room Patient: Screened in ED PATIENT GENDER DATA: Male PATIENT RELEVANT IMPLANT DATA REVIEWED: Not Applicable RADIOLOGY DEPARTMENT: General X-ray: Exam(s) Completed: Chest X-Ray PERIPHERAL IV DATA: Not applicable SIGNED BY: RT Olesya(R) May 31, 2023 8:35 PM Normal [facility] HEALTH HNO ID: [id number] Author: Connie Ambrose, CT Service: ? Author Type: Technologist Type: Allied Health Filed: 05/31/2023 8:11 PM Note Text: Radiology Service Progress Note PATIENT NAME: Abdiel Alston DATE OF SERVICE: May 31, 2023 TIME: 8:10 PM PATIENT IDENTITY VERIFICATION COMPLETED USING TWO (2) IDENTIFIERS: Name and Date of confirmed by patient verbally and Name and Date of confirmed by identification band. FALL SCREENING: Has the patient had 2 falls in the last year or 1 fall with injury or currently using an Ambulatory Assistive Device (Walker, Cane, Wheelchair, Crutches, etc.)? Emergency Room Patient: Screened in ED PATIENT GENDER DATA: Male PATIENT RELEVANT IMPLANT DATA REVIEWED: Not Applicable RADIOLOGY DEPARTMENT: CT; Exam(s) Completed: Brain PERIPHERAL IV DATA: Not applicable SIGNED BY: RYANN Wagner May 31, 2023 8:10 PM Normal [facility] Basic metabolic 2000 panelon 05-31-2023 Anion gap [Moles/Vol] 27 mmol/L High 9-18 [facility] Comment on above: Order Comment: Speci men Type: BLOOD SPECIMENOrdering Facility: [facility] Address: [address] [place] [address] Performed By: #### 2 4321-2, HSTNT ####[facility] [facility]ORATORYCLIA [id number] [place] [address] [place] Calcium [Mass/Vol] 9.7 mg/dL Normal 8.5-10.2 [facility] Comment on above: Order Comment: Speci kei Type: BLOOD SPECIMENOrdering Facility: [facility] Address: [address] [place] [address] Performed By: #### 2 4321-2, HSTNT ####[facility]ORATORYCLIA [id number] [place] [address] [place] Chloride [Moles/Vol] 97 mmol/L Normal 97-105 [facility] Comment on above: Order Comment: Speci men Type: BLOOD SPECIMENOrdering Facility: [facility] Address: [address] [address] Performed By: #### 2 4321-2, HSTNT ####[facility]ORATORYCLIA [id number] [place] [address] [place] CO2 [Moles/Vol] 12 mmol/L Low 22-30 [facility] Comment on above: Order Comment: Russell choudhury Type: BLOOD SPECIMENOrdering Facility: [facility] Address: [address] [address] Performed By: #### 2 4321-2, HSTNT ####[facility] LABORATORYCLIA [id number] [place] [address] [place] Creatinine [Mass/Vol] 1.08 mg/dL Normal 0.73-1.22 [facility] Comment on above: Order Comment: Russell choudhury Type: BLOOD SPECIMENOrdering Facility: [facility] Address: [address] [place] [address] Performed By: #### 2 4321-2, HSTNT ####[facility] LABORATORYCLIA [id number] [address] Creatinine and Glomerular filtration rate.predicted panel (S/P/Bld) 91 mL/min/1.73m??? Normal >=60 [facility] Comment on above: Order Comment: Russell choudhury Type: BLOOD SPECIMENOrdering Facility: [facility] Address: [address] [place] [address] Result Comment: Hilaria mated Glomerular Filtration Rate (eGFR) is calculated using the 2020 CKD-EPI creatinine equation. This equation utilizes serum creatinine, sex, and age as parameters. The creatinine assay has traceable calibration to isotope dilution-mass spectrometry. Refer to KDIGO guidelines for clinical interpretation. In patients with unstable renal function, e.g. those with acute kidney injury, the eGFR may not accurately reflect actual GFR. Performed By: #### 2 4321-2, HSTNT ####[facility] LABORATORYCLIA [id number] [address] [place] Glucose [Mass/Vol] 149 mg/dL High 74-99 [facility] Comment on above: Order Comment: Russell kei Type: BLOOD SPECIMENOrdering Facility: [facility] Address: [address] [place] [address] Result Comment: The [place] Diabetes Association (ADA) provides guidance for cutoff values for fasting glucose and random glucose. The ADA defines fasting as no caloric intake for at least 8 hours. Fasting plasma glucose results between 100 to 125 mg/dL indicate increased risk for diabetes (prediabetes). Fasting plasma glucose results greater than or equal to 126 mg/dL meet the criteria for diagnosis of diabetes. In the absence of unequivocal hyperglycemia, results should be confirmed by repeat testing. In a patient with classic symptoms of hyperglycemia or hyperglycemic crisis, random plasma glucose results greater than or equal to 200 mg/dL meet the criteria for diagnosis of diabetes. Reference: Standards of Medical Care in Diabetes 2016, [employer] Diabetes Association. Diabetes Care. 2016.39(Suppl 1). Performed By: #### 2 4321-2, HSTNT ####[facility] LABORATORYCLIA [id number] [place] [address] [place] Potassium [Moles/Vol] 3.8 mmol/L Normal 3.7-5.1 [facility] Comment on above: Order Comment: Russell choudhury Type: BLOOD SPECIMENOrdering Facility: [facility] Address: [address] [address] Performed By: #### 2 4321-2, HSTNT ####[facility] LABORATORYCLIA [id number] [place] [address] [place] Sodium [Moles/Vol] 136 mmol/L Normal 136-144 [facility] Comment on above: Order Comment: Russell choudhury Type: BLOOD SPECIMENOrdering Facility: [facility] Address: [address] [address] Performed By: #### 2 4321-2, HSTNT ####[facility] LABORATORYCLIA [id number] [place] [address] [place] Urea nitrogen [Mass/Vol] 6 mg/dL Low 9-24 [facility] Comment on above: Order Comment: Russell choudhury Type: BLOOD SPECIMENOrdering Facility: [facility] Address: [address] [address] Performed By: #### 2 4321-2, HSTNT ####[facility] LABORATORYCLIA [id number] [place] [address] [place] CBC W Auto Differential pane l (Bld)on 05-31-2023 Basophils (Bld) [#/Vol] 0.04 10*3/uL Normal <0.11 [facility] Comment on above: Order Comment: Speci men Type: BLOOD SPECIMENOrdering Facility: [facility] Address: [address] [place] [address] Performed By: #### 5 7021-8 ####[facility] LABORATORYCLIA [id number] [address] Basophils/100 WBC (Bld) 0.3 % Normal [facility] Comment on above: Order Comment: Speci men Type: BLOOD SPECIMENOrdering Facility: [facility] Address: [address] [place] [address] Performed By: #### 5 7021-8 ####[facility] LABORATORYCLIA [id number] [address] Differential cell count method Nom (Bld) Auto Normal [facility] Comment on above: Order Comment: Speci men Type: BLOOD SPECIMENOrdering Facility: [facility] Address: [address] [place] [address] Performed By: #### 5 7021-8 ####[facility] LABORATORYCLIA [id number] [place] [address] [place] Eosinophils (Bld) [#/Vol] 0.08 10*3/uL Normal <0.46 [facility] Comment on above: Order Comment: Speci men Type: BLOOD SPECIMENOrdering Facility: [facility] Address: [address] [place] [address] Performed By: #### 5 7021-8 ####[facility] LABORATORYCLIA [id number] [address] Eosinophils/100 WBC (Bld) 0.5 % Normal [facility] Comment on above: Order Comment: Speci men Type: BLOOD SPECIMENOrdering Facility: [facility] Address: [address] [place] [address] Performed By: #### 5 7021-8 ####[facility] LABORATORYCLIA [id number] [address] [place] Erythrocyte distribution width (RBC) [Ratio] 12.6 % Normal 11.5-15.0 [facility] Comment on above: Order Comment: Speci men Type: BLOOD SPECIMENOrdering Facility: [facility] Address: [address] [place] [address] Performed By: #### 5 7021-8 ####[facility] LABORATORYCLIA [id number] [address] [place] Hematocrit (Bld) [Volume fraction] 47.5 % Normal 39.0-51.0 [facility] Comment on above: Order Comment: Speci men Type: BLOOD SPECIMENOrdering Facility: [facility] Address: [address] [place] [address] Performed By: #### 5 7021-8 ####[facility] LABORATORYCLIA [id number] [place] [address] [place] Hemoglobin (Bld) [Mass/Vol] 16.6 g/dL Normal 13.0-17.0 [facility] Comment on above: Order Comment: Speci men Type: BLOOD SPECIMENOrdering Facility: [facility] Address: [address] [place] [address] Performed By: #### 5 7021-8 ####[facility] LABORATORYCLIA [id number] [place] [address] [place] Immature granulocytes (Bld) [#/Vol] 0.11 10*3/uL High <0.10 [facility] Comment on above: Order Comment: Speci men Type: BLOOD SPECIMENOrdering Facility: [facility] Address: [address] [place] [address] Performed By: #### 5 7021-8 ####[facility] LABORATORYCLIA [id number] [address] [place] Immature granulocytes/100 WBC (Bld) 0.7 % Normal [facility] Comment on above: Order Comment: Speci men Type: BLOOD SPECIMENOrdering Facility: [facility] Address: [address] [place] [address] Performed By: #### 5 7021-8 ####[facility] LABORATORYCLIA [id number] [address] [place] Lymphocytes (Bld) [#/Vol] 3.28 10*3/uL Normal 1.00-4.00 [facility] Comment on above: Order Comment: Speci men Type: BLOOD SPECIMENOrdering Facility: [facility] Address: [address] [place] [address] Performed By: #### 5 7021-8 ####[facility] LABORATORYCLIA [id number] [address] Lymphocytes/100 WBC (Bld) 20.6 % Normal [facility] Comment on above: Order Comment: Speci men Type: BLOOD SPECIMENOrdering Facility: [facility] Address: [address] [place] [address] Performed By: #### 5 7021-8 ####[facility] LABORATORYCLIA [id number] [address] [place] [facility] MCH (RBC) [Entitic mass] 32.5 pg Normal 26.0-34.0 [facility] Comment on above: Order Comment: Speci men Type: BLOOD SPECIMENOrdering Facility: [facility] Address: [address] [place] [address] Performed By: #### 5 7021-8 ####[facility] LABORATORYCLIA [id number] [address] MCHC (RBC) [Mass/Vol] 34.9 g/dL Normal 30.5-36.0 [facility] Comment on above: Order Comment: Speci men Type: BLOOD SPECIMENOrdering Facility: [facility] Address: [address] [place] [address] Performed By: #### 5 7021-8 ####[facility] LABORATORYCLIA [id number] [address] MCV (RBC) [Entitic vol] 93.0 fL Normal 80.0-100.0 [facility] Comment on above: Order Comment: Speci men Type: BLOOD SPECIMENOrdering Facility: [facility] Address: [address] [place] [address] Performed By: #### 5 7021-8 ####[facility] LABORATORYCLIA [id number] [place] [address] [place] Monocytes (Bld) [#/Vol] 1.07 10*3/uL High <0.87 [facility] Comment on above: Order Comment: Speci men Type: BLOOD SPECIMENOrdering Facility: [facility] Address: [address] [address] Performed By: #### 5 7021-8 ####[facility] LABORATORYCLIA [id number] [address] Monocytes/100 WBC (Bld) 6.7 % Normal [facility] Comment on above: Order Comment: Speci men Type: BLOOD SPECIMENOrdering Facility: [facility] Address: [address] [place] [address] Performed By: #### 5 7021-8 ####[facility] LABORATORYCLIA [id number] [place] [address] [place] Neutrophils (Bld) [#/Vol] 11.36 10*3/uL High 1.45-7.50 [facility] Comment on above: Order Comment: Speci men Type: BLOOD SPECIMENOrdering Facility: [facility] Address: [address] [place] [address] Performed By: #### 5 7021-8 ####[facility] LABORATORYCLIA [id number] [address] Neutrophils/100 WBC (Bld) 71.2 % Normal [facility] Comment on above: Order Comment: Speci men Type: BLOOD SPECIMENOrdering Facility: [facility] Address: [address] [address] Performed By: #### 5 7021-8 ####[facility] LABORATORYCLIA [id number] [address] [place] Nucleated RBC (Bld) [#/Vol] 10*3/uL Normal <0.01 [facility] Comment on above: Order Comment: Speci men Type: BLOOD SPECIMENOrdering Facility: [facility] Address: [address] [place] [address] Performed By: #### 5 7021-8 ####[facility] LABORATORYCLIA [id number] [place] [address] [place] Nucleated RBC/100 WBC (Bld) [Ratio] 0.0 /100 WBC Normal [facility] Comment on above: Order Comment: Speci men Type: BLOOD SPECIMENOrdering Facility: [facility] Address: [address] [place] [address] Performed By: #### 5 7021-8 ####[facility] LABORATORYCLIA [id number] [place] [address] [place] Platelet mean volume (Bld) [Entitic vol] 9.4 fL Normal 9.0-12.7 [facility] Comment on above: Order Comment: Speci men Type: BLOOD SPECIMENOrdering Facility: [facility] Address: [address] [place] [address] Performed By: #### 5 7021-8 ####[facility] LABORATORYCLIA [id number] [place] [address] [place] Platelets (Bld) [#/Vol] 367 10*3/uL Normal 150-400 [facility] Comment on above: Order Comment: Speci men Type: BLOOD SPECIMENOrdering Facility: [facility] Address: [address] [place] [address] Performed By: #### 5 7021-8 ####[facility] LABORATORYCLIA [id number] [place] [address] [place] RBC (Bld) [#/Vol] 5.11 10*6/uL Normal 4.20-6.00 [facility] Comment on above: Order Comment: Speci men Type: BLOOD SPECIMENOrdering Facility: [facility] Address: [address] [address] Performed By: #### 5 7021-8 ####[facility] LABORATORYCLIA [id number] [address] [place] WBC (Bld) [#/Vol] 15.94 10*3/uL High 3.70-11.00 [facility] Comment on above: Order Comment: Speci men Type: BLOOD SPECIMENOrdering Facility: [facility] Address: [address] [place] [address] Performed By: #### 5 7021-8 ####[facility] [id number] [place] [address] [place] CT BRAIN WO IVCONon 05-31-[address] BRAIN WO IVCON * * *Final Report* * * DATE OF EXAM: May 31 2023 8:20PM [facility] [place] / PROCEDURE REASON: Seizure, new-onset, no history of trauma * * * * Physician Interpretation * * * * EXAMINATION: CT BRAIN WO IVCON CLINICAL HISTORY: Seizure TECHNIQUE: Serial axial images without IV contrast were obtained from the vertex to the foramen magnum. MQ: CTBWO_3 CT Radiation dose: Integrated Dose-Length Product (DLP) for this visit = 728 mGy*cm CT Dose Reduction Employed: Automated exposure control(AEC) and iterative recon COMPARISON: CT head 10/04/2022. RESULT: Post-operative change: None. Acute change: No evidence of an acute infarct or other acute parenchymal process. Hemorrhage: No evidence of acute intracranial hemorrhage. ECASS hemorrhagic transformation score: Not Applicable Mass Lesion / Mass Effect: There is no evidence of an intracranial mass or extraaxial fluid collection. No significant mass effect. Chronic change: None apparent. Parenchyma: There is no significant volume loss. The brain parenchyma is otherwise within normal limits for age. Ventricles: The ventricles are within normal limits of size and configuration for age. Paranasal sinuses and skull base: The visualized paranasal sinuses are grossly clear. The skull base and imaged soft tissues are unremarkable. Vp Product (topogram) images: No additional findings. IMPRESSION: No acute intracranial abnormality. Human Resources Temp: PSCEse Transcribe Date/Time: May 31 2023 8:24P Dictated by : YUDITH RUANO MD This examination was interpreted and the report reviewed and electronically signed by: YUDITH RUANO MD on May 31 2023 8:30PM EST [id number] Normal [facility] ED NOTEon 05-31-2023 ED NOTE HNO ID: [id number] Author: Zeenat Toussaint, RN Service: Nursing Author Type: Registered Nurse Type: ED Notes Filed: 05/31/2023 7:50 PM Note Text: Pt presents to ED via EMS with complaints of seizures. Pt HX schizophrenic. MD @ BEDSIDE. ED COT bilaterally padded with seizure pads. [facility] ED NOTE HNO ID: [id number] Author: Zeenat Toussaint RN Service: ? Author Type: Registered Nurse Type: ED Notes Filed: 05/31/2023 7:42 PM Note Text: Bed: ED-16 Expected date: Expected time: Means of arrival: Comments: [facility] ED PROV NOTEon 05-31-2023 ED PROV NOTE HNO ID: [id number] Author: Elissa Vivas DO Service: Emergency Medicine Author Type: Physician Type: ED Provider Notes Filed: 06/01/2023 1:04 AM Note Text: ED Provider Note Patient Name: Abdiel Alston : 1985 SERVICE DATE: 05/31/23 History Patient presents with: Seizures: New onset EST 2 min per EMS, BG 119 The patient presents emergency department for a brief episode what sounds like altered mental status with possible convulsions. He was at a [employer] with significant other when he states he started having cramp-like tension in his bilateral neck with involuntary movements and twisting and turning of his head. Family witnessed states his arms seem to clench up and he went out. Did not fall or hit his head, seems slightly altered for short period of time, EMS was called. Currently he states he feels lightheaded and weak, complaining that he bit his tongue. Unsure if when he was sat down/laid back he bit his tongue due to that or if he was having convulsions and bit his tongue. Of note he states he did start Zyprexa somewhat recently. Denies vision changes, headaches, numbness or tingling or any recent illness, denies illicit drug use PAST MEDICAL HISTORY Diagnosis Date Dog bite URI (upper respiratory infection) PAST SURGICAL HISTORY Procedure Laterality Date FACIAL RECONSTRUCTION SURGERY HX from dog bite No family history on file. Social History Tobacco Use Smoking status: Every Day Types: Cigarettes Smokeless tobacco: Never Substance and Sexual Activity Alcohol use: Yes Comment: yearly Drug use: Yes Types: Marijuana Comment: pt sts used in the past 24 hrs Sexual activity: Not on file ALLERGIES Allergen Reactions Penicillins Unknown Review of Systems Constitutional: Negative for chills and fever. HENT: Negative for ear pain and sore throat. Eyes: Negative for pain and redness. Respiratory: Negative for chest tightness and shortness of breath. Cardiovascular: Negative for chest pain and palpitations. Gastrointestinal: Negative for abdominal pain, diarrhea, nausea and vomiting. Genitourinary: Negative for difficulty urinating and dysuria. Musculoskeletal: Negative for back pain, neck pain and neck stiffness. Allergic/Immunologic: Negative for environmental allergies and food allergies. Neurological: Positive for seizures. Negative for syncope and headaches. Physical Exam Vitals BP Pulse Temp Temp src Resp SpO2 Weight Height 05/31/23194105/31/23194105/31/23194105/31/23194105/31/23194105/31/23194105/31/23194106/01/23 0020 114/77 (!) 115 36.4 ?C (97.6 ?F) Oral 18 97 % 74.2 kg (163 lb 9.3 oz) 1.676 m (5' 6) Physical Exam Constitutional: General: He is not in acute distress. Appearance: He is well-developed. HENT: Head: Normocephalic and atraumatic. Mouth/Throat: Comments: Superficial tongue laceration mid tongue Eyes: Conjunctiva/sclera: Conjunctivae normal. Pupils: Pupils are equal, round, and reactive to light. Neck: Trachea: No tracheal deviation. Cardiovascular: Rate and Rhythm: Normal rate and regular rhythm. Heart sounds: No murmur heard. Pulmonary: Effort: Pulmonary effort is normal. Breath sounds: No stridor. No wheezing or rales. Abdominal: General: Bowel sounds are normal. There is no distension. Palpations: Abdomen is soft. Tenderness: There is no abdominal tenderness. Musculoskeletal: General: No deformity. Normal range of motion. Cervical back: Normal range of motion and neck supple. Skin: General: Skin is warm and dry. Capillary Refill: Capillary refill takes less than 2 seconds. Findings: No rash. Neurological: General: No focal deficit present. Mental Status: He is alert and oriented to person, place, and time. GCS: GCS eye subscore is 3. GCS verbal subscore is 5. GCS motor subscore is 6. Cranial Nerves: No cranial nerve deficit. Sensory: No sensory deficit. Motor: No weakness or abnormal muscle tone. Diagnostic Testing ED Labs Ordered and Reviewed VENOUS BLOOD GASES - Abnormal; Notable for the following components: Result Value Ref Range pCO2, Venous 37 (*) 42 - 55 mmHg Base Deficit, Venous -4 (*) -2 - 0 mmol/L Bicarbonate, Venous 20 (*) 24 - 28 mmol/L Carboxyhemoglobin, Venous 3.9 (*) 0.0 - 2.0 % Lactate 4.5 (*) 0.5 - 2.2 mmol/L All other components within normal limits URINALYSIS WITH MICROSCOPIC, REFLEX CULTURE - Abnormal; Notable for the following components: Hemoglobin/Blood,Ur 1+ (*) Negative, Trace Protein, Urine 1+ (*) Negative Bacteria Few (*) None Seen /HPF All other components within normal limits TOX SCREEN ROUT UR - Abnormal; Notable for the following components: Cannabinoids, Urine Preliminary positive (*) Negative All other components within normal limits Narrative: Immunoassay screen only. Cross reactivity with other substances can occur with immunoassay screening. D (more content not included)... Normal [facility] FLUABV+SARS-CoV-2+RSV Pnl Re sp HORTENSIA+probeon 05-31-2023 FLUABV+SARS-CoV-2+RSV Pnl Resp HORTENSIA+probe COVID 19 RESULT: Not detected The method used is RT-PCR or an equivalent NAAT method. Reference Range(the expected result in uninfected individuals): Not detected INFLUENZA A PCR: Not detected INFLUENZA B PCR: Not detected RSV PCR: Not detected Normal [facility] Comment on above: Performed By: #### 9 5941-1 ####[place] LABORATORYCLIA [id number] [place] [address] [place] Gas and Carbon monoxide pane l (BldV)on 05-31-2023 BASE DEFICIT, VENOUS -4 mmol/L Low -2-0 [facility] Comment on above: Order Comment: Speci men Type: VENOUS BLOOD SPECIMENOrdering Facility: [facility] Address: [address] [place] [place] [address] Performed By: #### 2 4344-4 ####[place] RESPIRATORYCLIA [id number] [facility] [id number] [facility] [address] [place] [address] Carboxyhemoglobin (BldV) [Mass fraction] 3.9 % High 0.0-2.0 [facility] Comment on above: Order Comment: Speci men Type: VENOUS BLOOD SPECIMENOrdering Facility: [facility] Address: [address] [address] Result Comment: Carb oxyhemoglobin Reference Range for Smokers: 2.0-8.0% Performed By: #### 2 4344-4 ####[facility] RESPIRATORYIA [id number] [facility]AT[facility] [id number] [address] [address] CO2 (BldV) [Partial pressure] 37 mm[Hg] Low 42-55 [facility] Comment on above: Order Comment: Speci men Type: VENOUS BLOOD SPECIMENOrdering Facility: [facility] Address: [address] [address] Performed By: #### 2 4344-4 ####[facility] [id number] [facility] RESPIRAT[facility] [id number] [address] [address] CO2 adjusted to patient's actual temperature (BldV) [Partial pressure] Normal [facility] Comment on above: Order Comment: Speci men Type: VENOUS BLOOD SPECIMENOrdering Facility: [facility] Address: [address] [address] Performed By: #### 2 4344-4 ####[facility] [id number] [facility] RES[facility]IRAT[facility] [id number] [address] [address] HCO3 (Bld) [Moles/Vol] 20 mmol/L Low 24-28 [facility] Comment on above: Order Comment: Speci men Type: VENOUS BLOOD SPECIMENOrdering Facility: [facility] Address: [address] [address] Performed By: #### 2 4344-4 ####[facility] [id number] [facility] RESPIRATORY [id number] [address] [address] Hemoglobin (Bld) [Mass/Vol] 16.6 g/dL Normal 13.0-17.0 [facility] Comment on above: Order Comment: Speci men Type: VENOUS BLOOD SPECIMENOrdering Facility: [facility] Address: [address] [id number] Performed By: #### 2 4344-4 ####[facility] RESPIRATORYCLIA [id number] [facility] RESPIRAT[facility] [id number] [address] [address] Lactate [Moles/Vol] 4.5 mmol/L High 0.5-2.2 [facility] Comment on above: Order Comment: Speci men Type: VENOUS BLOOD SPECIMENOrdering Facility: [facility] Address: [address] Performed By: #### 2 4344-4 ####[facility] RESPIRATORYCLIA [id number] [facility] RES[facility]IRAT[facility] [id number] [address] [address] O2 THERAPY RA=Room Air Normal [facility] Comment on above: Order Comment: Speci men Type: VENOUS BLOOD SPECIMENOrdering Facility: [facility] Address: [address] [address] Performed By: #### 2 4344-4 ####[place] RESPIRATORYIA [id number] [facility] RES[facility]IRAT[facility] [id number] [address] [address] Oxygen (BldV) [Partial pressure] 43 mm[Hg] Normal 35-45 [facility] Comment on above: Order Comment: Speci men Type: VENOUS BLOOD SPECIMENOrdering Facility: [facility] Address: [address] Performed By: #### 2 4344-4 ####[facility] RESPIRATORYCLIA [id number] [facility]PIRATORY [id number] [address] [address] Oxygen adjusted to patient's actual temperature (BldV) [Partial pressure] Normal [facility] Comment on above: Order Comment: Speci men Type: VENOUS BLOOD SPECIMENOrdering Facility: [facility] Address: [address] Performed By: #### 2 4344-4 ####[facility] [id number] [facility] RESPIRATORY [id number] [address] Oxyhemoglobin (BldV) [Mass fraction] 75 % Normal 60-85 [facility] Comment on above: Order Comment: Speci men Type: VENOUS BLOOD SPECIMENOrdering Facility: [facility] Address: [address] [address] Performed By: #### 2 4344-4 ####[facility] RESPIRATORYCLIA [id number] [facility] RES[facility]IR[facility] [id number] [address] pH (BldV) 7.36 [pH] Normal 7.32-7.42 [facility] Comment on above: Order Comment: Speci men Type: VENOUS BLOOD SPECIMENOrdering Facility: [facility] Address: [address] [address] Performed By: #### 2 4344-4 ####[place] RESPIRATORYCLIA [id number] [facility] RES[facility]IRAT[facility] [id number] [address] pH adjusted to patient's actual temperature (BldV) Normal [facility] Comment on above: Order Comment: Speci men Type: VENOUS BLOOD SPECIMENOrdering Facility: [facility] Address: [address] [address] Performed By: #### 2 4344-4 ####[place] RESPIRATORYIA [id number] [facility] RESPIRATORY [id number] [address] [address] Potassium [Moles/Vol] 3.8 mmol/L Normal 3.5-5.0 [facility] Comment on above: Order Comment: Speci men Type: VENOUS BLOOD SPECIMENOrdering Facility: [facility] Address: [address] [address] Performed By: #### 2 4344-4 ####[place] RESPIRATORYCLIA [id number] [facility] RESPIRATORY [id number] [address] HIGH SENSITIVITY TROPONIN To n 05-31-2023 Troponin T.cardiac High sensitivity method [Mass/Vol] <6 Normal <12 [facility] Comment on above: Order Comment: Speci men Type: BLOOD SPECIMENOrdering Facility: [facility] Address: [address] [place] [address] Result Comment: When assessing risk for acute coronary syndromes: In patients undergoing blood draw greater than or equal to 2 hours from symptom onset, with history of very low to moderate risk and non-ischemic ECG, an initial hs-Troponin T less than 12 ng/L AND a 1 hour delta hs-Troponin T less than 3 ng/L should be considered very low risk for 30 day MACE. Performed By: #### 2 4321-2, HSTNT ####[facility] LABORATORYCLIA [id number] [place] [address] [place] SerPl-sCncon 023 [place] [Moles/Vol] 0.8 mmol/L Normal 0.6-1.2 [facility] Comment on above: Order Comment: Speci men Type: BLOOD SPECIMENOrdering Facility: [facility] Address: [address] [place] [address] Result Comment: Refe rence ranges and high/low indicator flags are provided as general guidelines only. The treating physician must determine appropriate target levels/dosing based on the specific clinical situation. Performed By: #### 1 4334-7 ####[facility] LABCLIA [id number] [facility] [id number] OF [place] TOX SCREEN ROUT URon 023 Amphetamines Confirm (U) [Mass/Vol] Negative Normal Negative [facility] Comment on above: Order Comment: Speci men Type: URINE SPECIMENOrdering Facility: [facility] Address: [address] [place] [address] Result Comment: Cuto ff threshold at 1000 ng/mL. Performed By: #### U TOX2 ####[facility] LABORATORYCLIA [id number] [place] [address] [place] BARBITURATES, URINE Negative Normal Negative [facility] Comment on above: Order Comment: Speci men Type: URINE SPECIMENOrdering Facility: [facility] Address: [address] [place] [address] Result Comment: Cuto ff threshold at 200 ng/mL. Performed By: #### U TOX2 ####[facility] LABORATORYCLIA [id number] [place] [address] [place] BENZODIAZEPINES, UR Negative Normal Negative [facility] Comment on above: Order Comment: Speci men Type: URINE SPECIMENOrdering Facility: [facility] Address: [address] [place] [address] Result Comment: Cuto ff threshold at 200 ng/mL. Performed By: #### U TOX2 ####[facility] LABORATORYCLIA [id number] [place] [address] [place] Cannabinoids Screen Ql (U) Positive Abnormal Negative [facility] Comment on above: Order Comment: Speci men Type: URINE SPECIMENOrdering Facility: [facility] Address: [address] [place] [address] Result Comment: Cuto ff threshold at 50 ng/mL. Performed By: #### U TOX2 ####[facility] LABORATORYCLIA [id number] [place] [address] [place] Cocaine Ql (U) Negative Normal Negative [facility] Comment on above: Order Comment: Speci men Type: URINE SPECIMENOrdering Facility: [facility] Address: [address] [place] [address] Result Comment: Cuto ff threshold at 300 ng/mL. Performed By: #### U TOX2 ####[facility] LABORATORYCLIA [id number] [place] [address] [place] Ethanol (U) [Mass/Vol] <11 Normal <11 [facility] Comment on above: Order Comment: Speci men Type: URINE SPECIMENOrdering Facility: [facility] Address: [address] [place] [address] Performed By: #### U TOX2 ####[facility] LABORATORYCLIA [id number] [place] [address] [place] Opiates Screen Ql (U) Negative Normal Negative [facility] Comment on above: Order Comment: Speci men Type: URINE SPECIMENOrdering Facility: [facility] Address: [address] [place] [address] Result Comment: Cuto ff threshold at 300 ng/mL. Performed By: #### U TOX2 ####[facility] LABORATORYCLIA [id number] [place] [address] [place] oxyCODONE cutoff Screen (U) [Mass/Vol] Negative Normal Negative [facility] Comment on above: Order Comment: Speci men Type: URINE SPECIMENOrdering Facility: [facility] Address: [address] [address] Result Comment: Cuto ff threshold at 100 ng/mL. Performed By: #### U TOX2 ####[facility] LABORATORYCLIA [id number] [address] Phencyclidine Ql (U) Negative Normal Negative [facility] Comment on above: Order Comment: Speci men Type: URINE SPECIMENOrdering Facility: [facility] Address: [address] [address] Result Comment: Cuto ff threshold at 25 ng/mL. Performed By: #### U TOX2 ####[facility] LABORATORYCLIA [id number] [address] [place] Urinalysis complete panel (U )on 05-31-2023 Bacteria LM.HPF (Urine sed) [#/Area] Few Abnormal None Seen [facility] Comment on above: Order Comment: Speci men Type: URINE SPECIMENOrdering Facility: [facility] Address: [address] [address] Performed By: #### 2 4356-8 ####[facility] LABORATORYCLIA [id number] [address] Bilirubin Ql (U) Negative Normal Negative [facility] Comment on above: Order Comment: Speci men Type: URINE SPECIMENOrdering Facility: [facility] Address: [address] [address] Performed By: #### 2 4356-8 ####[facility] LABORATORYCLIA [id number] [address] Clarity (Unsp spec) Clear Normal Clear [facility] Comment on above: Order Comment: Speci men Type: URINE SPECIMENOrdering Facility: [facility] Address: [address] [address] Performed By: #### 2 4356-8 ####[facility] LABORATORYCLIA [id number] [address] OF [facility] Color (U) Yellow Normal Yellow [facility] Comment on above: Order Comment: Speci men Type: URINE SPECIMENOrdering Facility: [facility] Address: [address] [place] [address] Performed By: #### 2 4356-8 ####[facility] LABORATORYCLIA [id number] [address] [place] Glucose Test strip (U) [Mass/Vol] Negative Normal Negative [facility] Comment on above: Order Comment: Speci men Type: URINE SPECIMENOrdering Facility: [facility] Address: [address] [place] [address] Performed By: #### 2 4356-8 ####[facility] LABORATORYCLIA [id number] [address] [place] Hemoglobin Ql (U) 1+ Abnormal Negative, Trace [facility] Comment on above: Order Comment: Speci men Type: URINE SPECIMENOrdering Facility: [facility] Address: [address] [place] [address] Performed By: #### 2 4356-8 ####[facility] LABORATORYCLIA [id number] [address] [facility] Ketones Ql (U) Negative Normal Negative [facility] Comment on above: Order Comment: Speci men Type: URINE SPECIMENOrdering Facility: [facility] Address: [address] [place] [address] Performed By: #### 2 4356-8 ####[facility] LABORATORYCLIA [id number] [address] Leukocyte esterase Test strip Ql (U) Negative Normal Negative [facility] Comment on above: Order Comment: Speci men Type: URINE SPECIMENOrdering Facility: [facility] Address: [address] [place] [address] Performed By: #### 2 4356-8 ####[facility] LABORATORYCLIA [id number] [place] [address] [place] Nitrite Ql (U) Negative Normal Negative [facility] Comment on above: Order Comment: Speci men Type: URINE SPECIMENOrdering Facility: [facility] Address: [address] [place] [address] Performed By: #### 2 4356-8 ####[facility] LABORATORYCLIA [id number] [address] pH (U) 6.0 [pH] Normal 5.0-8.0 [facility] Comment on above: Order Comment: Speci men Type: URINE SPECIMENOrdering Facility: [facility] Address: [address] [place] [address] Performed By: #### 2 4356-8 ####[facility] LABORATORYCLIA [id number] [place] [address] [place] Protein (U) [Mass/Vol] 1+ Abnormal Negative [facility] Comment on above: Order Comment: Speci men Type: URINE SPECIMENOrdering Facility: [facility] Address: [address] [place] [address] Performed By: #### 2 4356-8 ####[facility] [facility]ORATORYCLIA [id number] [place] [address] [place] RBC LM.HPF (Urine sed) [#/Area] 0-3 /HPF Normal 0-3 /HPF [facility] Comment on above: Order Comment: Speci men Type: URINE SPECIMENOrdering Facility: [facility] Address: [address] [place] [address] Performed By: #### 2 4356-8 ####[facility] LABORATORYCLIA [id number] [address] [place] Specific gravity (U) [Rel density] 1.025 Normal 1.005-1.030 [facility] Comment on above: Order Comment: Speci men Type: URINE SPECIMENOrdering Facility: [facility] Address: [address] [place] [address] Performed By: #### 2 4356-8 ####[facility] LABORATORYCLIA [id number] [address] [place] Urobilinogen Ql (U) 0.2 EU/dL Normal 0.2-1.0 EU/dL [facility] Comment on above: Order Comment: Speci men Type: URINE SPECIMENOrdering Facility: [facility] Address: [address] [address] Performed By: #### 2 4356-8 ####[facility] [facility]ORATORYCLIA [id number] [address] WBC LM.HPF (Urine sed) [#/Area] 0-5 /HPF Normal 0-5 /HPF [facility] Comment on above: Order Comment: Speci men Type: URINE SPECIMENOrdering Facility: [facility] Address: [address] Performed By: #### 2 4356-8 ####[facility] LABORATORYCLIA [id number] [address] XR CHEST 1V FRONTAL PORTon 0 05-31-2023 XR CHEST 1V FRONTAL PORT * * *Final Repo rt* * * DATE OF EXAM: May 31 2023 8:35PM MDX 5376 - XR CHEST 1V FRONTAL PORT / PROCEDURE REASON: Chest trauma, blunt * * * * Physician Interpretation * * * * EXAMINATION: CHEST RADIOGRAPH (PORTABLE SINGLE VIEW AP) Exam Date/Time: 05/31/2023 8:35 PM CLINICAL HISTORY: Chest trauma, blunt MQ: XCPR_5 Comparison: Chest x-ray 09/10/2018 RESULT: Lines, tubes, and devices: None. Lungs and pleura: Lungs are clear. No pleural effusion or pneumothorax. Cardiomediastinal silhouette: Stable cardiomediastinal silhouette. Other: No acute bony abnormality. IMPRESSION: No acute cardiopulmonary abnormality. Human Resources Temp: PSCB Transcribe Date/Time: May 31 2023 8:37P Dictated by : YUDITH RUANO MD This examination was interpreted and the report reviewed and electronically signed by: YUDITH RUANO MD on May 31 2023 8:38PM EST [id number] Normal [facility] CNOVon 03-19-2023 CNOV Office Visit (AGPOB3 ) GAMALIELABDIEL ([id number]) 1985 M Date Time Provider Department 03/19/23 1:45 PM RAJIV DINH During your visit today, we recorded the following information about you: Respiration Weight Height 18/minute 67.6 kg 1.626 m Vamshi Powers APRN.[employer] CASE MANAGER 03/19/2023 2:39 PM Signed Hand Clinic Follow-up Note Prior Hx: Last seen 02/19/23: R 5th MC intra articular base fx sustained on 02/13/23. Last visit he was placed into a cast. Here today for 5 week follow up. Interval Hx: States he has been doing well. Minimal to no pain. Some stiffness. Has been compliant in his cast as well as non weight bearing. Denies any numbness/tingling. Overall improved swelling. Exam: Right hand: No open wounds, resolved ecchymosis Improved swelling to dorsal/ulnar hand Minimal pain with palpation over base 5th MC Able to fully flex/extend all fingers, able to make full composite fist. Decreased wrist extension, near full flexion and supination of wrist Sensation intact to light touch to all distal fingertips; Radial, ulnar, median motor grossly intact. Imaging: XR right hand Intra articular base of 5th MC fracture, no subluxation or dislocation of CMC. No further displacement or angulation. Shortening of 5th MC. Assessment/Plan: (B11.608Q) Closed displaced fracture of base of fifth metacarpal bone of right hand, sequela (primary encounter diagnosis) Imaging reviewed with patient. Signs of healing and no further displacement and angulation. We will place him in a removable cock up wrist brace today. He is ok to work on finger and wrist range of motion as tolerated. We recommend no lifting, pushing, or pulling x 2-3 more weeks. He is then ok to wean out of the splint and begin gentle weight bearing. NSAIDs and tylenol for pain control. Continue elevation. He can then go back to all activities. He will follow up as needed with any concerns or worsening. Patient verbalized understanding and agrees with plan of care. Medical Decision Making: Problems: Moderate: Acute complicated injury Data: Unique test result(s) reviewed: 1 Unique test(s) ordered: 1 Risk: Low: Low risk from testing/treatment Medical Decision Making Level: 3 - Low Vamshi Powers APRN.[facility] Hand Surgery Referring Provider: SELF [200] Allergies As of Date: 03/19/2023 Noted Allergy Reaction PENICILLINS 09/10/2018 16 - Unknown Date Reviewed: 03/19/2023 Reviewed by: Amada Forman - Fully Assessed Reason for Visit: Established Patient [175] Primary Visit Diagnosis:Closed displaced fracture of base of fifth metacarpal bone of right hand, sequela [S62.316S] Order(s):XR HAND GENERAL 3V PA/LAT/OBL RIGHT [[id number]] Order #: [id number] Prescriptions as of 06/06/2023 - cloNIDine HCl (CATAPRES) 0.1 mg tablet Take 0.1 mg by mouth once daily. - FLUoxetine (PROZAC) 60 mg tablet Take 60 mg by mouth once daily. - Melatonin 5 mg cap Take 15 mg by mouth daily at bedtime. - mirtazapine (REMERON) 15 mg tablet Take 15 mg by mouth daily at bedtime. - OLANZapine (ZYPREXA) 10 mg tablet Take 10 mg by mouth once daily. - lithium carbonate (ESKALITH) 300 mg capsule Take 3 capsules by mouth daily at bedtime. Problem List As Of Date: 03/19/2023 (None) Disposition: Return if symptoms worsen or fail to improve. Follow-up and Disposition History for Encounter Date Provider Department Center 03/19/2023 [id number], NICHOL*AGPOB3 [facility] Encounter Status:Closed by VAMSHI POWERS on 03/19/23 [facility] [place] CNNURSE Nurse Visit (AGPOB1) ABDIEL ALSTON ([id number]) 1985 M Date Time Provider Department 02/26/23 1:00 PM [facility] 42cm [facility] 440 AGPOB1 During your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 girlfriend for a head injury. Earlier today the patient had a verbal altercation and got angry and hit his head against a brick wall. There was no loss consciousness. He has had a mild headache since then. He is also noted some swelling with superficial laceration to his forehead. His last tetanus is unknown. He is not on blood thinners. He denies any neck pain. He states that he has a history of paranoid schizophrenia and occasionally has anger outburst. Family at the bedside states that they feel comfortable taking him home and that he is back to his baseline. Pain scale 2/10. Review of systems were reviewed and patient denies fever, chills, headache, visual changes, sore throat or dental complaints, neck pain or stiffness, chest pain, shortness of breath, cough, abdominal pain, nausea, vomiting, or diarrhea. Patient denies genitourinary symptoms, skin rash, musculoskeletal issues or neuro deficits. Patient denies any mental health concerns to include anxiety, depression, SI, HI or hallucinations. Symptoms not improved with home or OTC medications. No other medical complaints or injuries. No other aggravating or alleviating symptoms other than described as above. History provided by: Patient, medical records and significant other asl interpreter used: No PAST MEDICAL HISTORY Diagnosis Date Dog bite URI (upper respiratory infection) PAST SURGICAL HISTORY Procedure Laterality Date FACIAL RECONSTRUCTION SURGERY HX from dog bite No family history on file. Social History Tobacco Use Smoking status: Every Day Smokeless tobacco: Never Substance and Sexual Activity Alcohol use: Yes Comment: yearly Drug use: Yes Types: Marijuana Comment: pt sts used in the past 24 hrs Sexual activity: Not on file ALLERGIES Allergen Reactions Penicillins Unknown Review of Systems Constitutional: Negative. HENT: Negative. Eyes: Negative. Respiratory: Negative. Cardiovascular: Negative. Gastrointestinal: Negative. Genitourinary: Negative. Musculoskeletal: Negative. Negative for neck pain. Skin: Positive for wound. Neurological: Positive for headaches. All other systems reviewed and are negative. Physical Exam Vitals [10/04/22 2212] BP Pulse Temp Temp src Resp SpO2 Weight Height 132/79 (!) 100 36.7 ?C (98 ?F) Temporal 18 97 % 81.6 kg (180 lb) 1.676 m (5' 6) Physical Exam Vitals and nursing note reviewed. Exam conducted with a mate ship present (Family). Constitutional: General: He is awake. He is not in acute distress. Appearance: Normal appearance. He is well-developed, well-groomed and normal weight. He is not ill-appearing, toxic-appearing or diaphoretic. HENT: Head: Normocephalic. Laceration present. Jaw: There is normal jaw occlusion. Right Ear: Hearing, tympanic membrane, ear canal and external ear normal. Left Ear: Hearing, tympanic membrane, ear canal and external ear normal. Nose: Nose normal. Mouth/Throat: Lips: Lozano. Mouth: Mucous membranes are moist. Pharynx: Oropharynx is clear. Uvula midline. Eyes: General: Lids are normal. Vision grossly intact. Extraocular Movements: Extraocular movements intact. Conjunctiva/sclera: Conjunctivae normal. Pupils: Pupils are equal, round, and reactive to light. Neck: Trachea: Trachea and phonation normal. Meningeal: Brudzinski's sign and Kernig's sign absent. Cardiovascular: Rate and Rhythm: Normal rate and regular rhythm. Pulses: Normal pulses. Dorsalis pedis pulses are 2+ on the right side and 2+ on the left side. Posterior tibial pulses are 2+ on the right side and 2+ on the left side. Heart sounds: Normal heart sounds. No murmur heard. Pulmonary: Effort: Pulmonary effort is normal. Breath sounds: Normal breath sounds and air entry. No stridor. Abdominal: General: Abdomen is flat. Bowel sounds are normal. Palpations: Abdomen is soft. Tenderness: There is no abdominal tenderness. Musculoskeletal: General: Normal range of motion. Cervical back: Full passive range of motion without pain, normal range of motion and neck supple. Right lower leg: No edema. Left lower leg: No edema. Lymphadenopathy: Cervical: No cervical adenopathy. Skin: General: Skin is warm and dry. Capillary Refill: Capillary refill takes less than 2 seconds. Findings: Laceration present. No rash. Comments: Superficial, closed laceration midline at hairline. Mild swelling. Neurological: (more content not included)... Normal [facility] Add On Lab Teston 03-25-2022 Add On Accepted [facility] Comment on above: Specimen available & acceptable for analysis. Test Performed by [facility], [address] [place] [id number] [place] [address] LAB [facility] Add on test from HISon 03-25 Add on test from HIS Accepted Normal [facility] Comment on above: Result Comment: Spec imen available & acceptable for analysis. Performed By: #### A DDON #### [address] [id number] CBC with Auto Differentialon 03-25-2022 Absolute Baso # 0.1 10*3/uL 0.0 - 0.2 10*3/uL [facility] Absolute Neut # 14.5 10*3/uL High 1.8 - 7.0 10*3/uL [facility] Basophils/100 WBC (Bld) 0.5 % 0.0 - 2.0 % [facility] Eosinophils (Bld) [#/Vol] 0.2 10*3/uL 0.0 - 0.5 10*3/uL [facility] Eosinophils/100 WBC (Bld) 1.0 % 1.0 - 6.0 % [facility] Granulocytes/100 WBC (Bld) 74.6 % 40.0 - 80.0 % [facility] Hematocrit (Bld) [Volume fraction] 44.3 % 40.0 - 52.0 % [facility] Hemoglobin (Bld) [Mass/Vol] 15.6 g/dL 13.0 - 18.0 g/dL [facility] Interpretation and review of laboratory results Abnormal [facility] Lymphocytes (Bld) [#/Vol] 3.5 10*3/uL 1.0 - 4.3 10*3/uL [facility] Lymphocytes/100 WBC (Bld) 17.7 % Low 20.0 - 40.0 % [facility] MCH (RBC) [Entitic mass] 31.9 pg 26. 0 - 34.0 pg [facility] MCHC (RBC) [Mass/Vol] 35.3 % 32.0 - 36.0 % [facility] MCV (RBC) [Entitic vol] 90.5 fL 80.0 - 98.0 fL [facility] Monocytes (Bld) [#/Vol] 1.2 10*3/uL High 0.0 - 0.8 10*3/uL [facility] Monocytes/100 WBC (Bld) 6.2 % 2.0 - 10.0 % [facility] Platelet distribution width (Bld) [Ratio] 12.8 % 11.5 - 14.5 % [facility] Platelet mean volume (Bld) [Entitic vol] 7.0 fL Low 7.4 - 12.4 fL [facility] Comment on above: MPV is a calculated measurement using platelet volume ratio. Platelets (Bld) [#/Vol] 338 10*3/uL 140 - 440 10*3/uL [facility] RBC (Bld) [#/Vol] 4.90 10*6/uL 4.40 - 5.9 0 10*6/uL [facility] WBC (Bld) [#/Vol] 19.6 10*3/uL High 3.6 - 10.7 10*3/uL [facility] Test Performed by [address] [address] [facility] LAB [facility] CR Chest Portableon 03-25-20 CR Chest Portable Patient Name: ABDIEL ALSTON Diagnostic Radiology ACCESSION EXAM DATE/TIME PROCEDURE ORDERING PROVIDER [id number] 03/24/2022 22:17 EDT CR Chest Portable [facility] M CPT code 94477 Reason For Exam (CR Chest Portable) throat pain after FB sensation in throat. eval for any changes Report Examination: AP portable chest Clinical Indication: throat pain after FB sensation in throat. eval for any changes Comparison: 02/21/2019 Findings: Lungs appear normally inflated. There is no focal consolidation, effusion, or pulmonary edema identified. The cardiomediastinal silhouette is within normal limits. There is no gross evidence of osseous abnormality. Impression: No acute cardiopulmonary process. Report Dictated on Final Dictated: 03/24/2022 10:26 pm Dictating Physician: MD GARCIAS ANTHONY J Signed Date and Time: 03/24/2022 10:28 pm Signed by: MD GARCIAS ANTHONY J Transcribed Date and Time: 03/24/2022 10:26 Normal [facility] Comp Metabolic Panelon 03-25 Calcium [Mass/Vol] 9.4 mg/dL Normal 8.4-10.4 [facility] Comment on above: Performed By: #### H EMDF, HVAAO, HEMOG, CMP3, ETOH4 #### [facility] [address] [place], [place] ALP [Catalytic activity/Vol] 104 U/L Normal 38-126 [facility] Comment on above: Performed By: #### H EMDF, HVAAO, HEMOG, CMP3, ETOH4 #### [place] [address] [address] [place], [place] ALT [Catalytic activity/Vol] 29 U/L Normal 0-49 [facility] Comment on above: Result Comment: The ALT test is performed by an updated assay method. Please note that the reference intervals have been changed and are now sex specific. Performed By: #### H EMDF, HVAAO, HEMOG, CMP3, ETOH4 #### [place] [address] [address] [place], [place] Anion gap [Moles/Vol] 7 mmol/L Normal 3-13 [facility] Comment on above: Performed By: #### H EMDF, HVAAO, HEMOG, CMP3, ETOH4 #### [place] [address] [address] [place], [place] AST [Catalytic activity/Vol] 25 U/L Normal 15-46 [facility] Comment on above: Performed By: #### H EMDF, HVAAO, HEMOG, CMP3, ETOH4 #### [place] [address] [address] [place], [place] Bilirubin [Mass/Vol] 0.5 mg/dL Normal 0.2-1.3 [facility] Comment on above: Performed By: #### H EMDF, HVAAO, HEMOG, CMP3, ETOH4 #### [facility] [address], [place] CO2 [Moles/Vol] 34 mmol/L High 22-30 [facility] Comment on above: Performed By: #### H EMDF, HVAAO, HEMOG, CMP3, ETOH4 #### [facility] [address], [place] Creatinine [Mass/Vol] 0.73 mg/dL Normal 0.52-1.25 [facility] Comment on above: Performed By: #### H EMDF, HVAAO, HEMOG, CMP3, ETOH4 #### [facility] [address] [place], [place] eGFR OTHER > 90.0 Normal >60 [facility] Comment on above: Result Comment: KDIG O guidelines provide the following GFR categories: Stage GFR(ml/min/1.73 m2) Terms G1 >=90 Normal or high G2 60-89 Mildly decreased* G3a 45-59 Mildly to moderately decreased G3b 30-44 Moderately to severely decreased G4 15-29 Severely decreased G5 <15 Kidney failure *Relative to young adult level. In the absence of evidence of kidney damage, neither GFR category G1 nor G2 fulfill the criteria for CKD. The CKD-EPI equation is validated in individuals 18 years of age and older. Currently the best equation for estimating glomerular filtration rate (GFR) from serum creatinine in children is the Bedside Muhammad equation. It is less accurate in patients with extremes of muscle mass, restriction of dietary protein, ingestion of creatine, extra-renal metabolism of creatinine, or treatment with medications that affect renal tubular creatinine secretion. Performed By: #### H EMDF, HVAAO, HEMOG, CMP3, ETOH4 #### [facility] [address], [place] GFR/1.73 sq M.predicted among blacks MDRD (S/P/Bld) [Vol rate/Area] mL/min/{1.73_m2} Normal >60 [facility] Comment on above: Performed By: #### H EMDF, HVAAO, HEMOG, CMP3, ETOH4 #### [place] [address] [address] [place], [place] Glucose [Mass/Vol] 104 mg/dL High 70-100 [facility] Comment on above: Performed By: #### H EMDF, HVAAO, HEMOG, CMP3, ETOH4 #### [place] [address] [address] [place], [place] Protein [Mass/Vol] 7.1 g/dL Normal 6.3-8.2 [facility] Comment on above: Performed By: #### H EMDF, HVAAO, HEMOG, CMP3, ETOH4 #### [place] [address] [address] [place], [place] Urea nitrogen [Mass/Vol] mg/dL Low 7-17 [facility] Comment on above: Performed By: #### H EMDF, HVAAO, HEMOG, CMP3, ETOH4 #### [place] [address] [address] [place], [place] Potassium [Moles/Vol] 2.9 mmol/L Low 3.5-5.1 [facility] Comment on above: Performed By: #### H EMDF, HVAAO, HEMOG, CMP3, ETOH4 #### [place] [address] [address] [place], [place] Albumin [Mass/Vol] 4.1 g/dL Normal 3.5-5.0 [facility] Comment on above: Performed By: #### H EMDF, HVAAO, HEMOG, CMP3, ETOH4 #### [place] [address] [address] [place], [place] Chloride [Moles/Vol] 94 mmol/L Low 98-107 [facility] Comment on above: Performed By: #### H EMDF, HVAAO, HEMOG, CMP3, ETOH4 #### [place] [address] [address] [place], [place] Sodium [Moles/Vol] 134 mmol/L Low 135-145 [facility] Comment on above: Performed By: #### H EMDF, HVAAO, HEMOG, CMP3, ETOH4 #### [address] [id number] Comprehensive Metabolic Pane [facility] 03-25-2022 Albumin [Mass/Vol] 4.1 g/dL 3.5 - 5.0 g/dL [facility] ALP (Bld) [Catalytic activity/Vol] 104 U/L 38 - 126 U/L [facility] ALT [Catalytic activity/Vol] 29 U/L 0 - 49 U/L [facility] Comment on above: The ALT test is perf ormed by an updated assay method. Please note that the reference intervals have been changed and are now sex specific. Anion gap [Moles/Vol] 7 mmol/L 3 - 13 mmol/L [facility] AST [Catalytic activity/Vol] 25 U/L 15 - 46 U/L [facility] Bilirubin [Mass/Vol] 0.5 mg/dL 0.2 - 1 .3 mg/dL [facility] Calcium [Mass/Vol] 9.4 mg/dL 8.4 - 10. 4 mg/dL [facility] Chloride [Moles/Vol] 94 mmol/L Low 98 - 10 7 mmol/L [facility] CO2 [Moles/Vol] 34 mmol/L High 22 - 30 mmol/L [facility] Creatinine [Mass/Vol] 0.73 mg/dL 0.52 - 1.25 mg/dL [facility] EGFR IF NonAfrican Chinese >90.0 >60 mL/min [facility] Comment on above: KDIGO guidelines pro vide the following GFR categories: Stage GFR(ml/min/1.73 m2) Terms G1 >=90 Normal or high G2 60-89 Mildly decreased* G3a 45-59 Mildly to moderately decreased G3b 30-44 Moderately to severely decreased G4 15-29 Severely decreased G5 <15 Kidney failure *Relative to young adult level. In the absence of evidence of kidney damage, neither GFR category G1 nor G2 fulfill the criteria for CKD. The CKD-EPI equation is validated in individuals 18 years of age and older. Currently the best equation for estimating glomerular filtration rate (GFR) from serum creatinine in children is the Bedside Muhammad equation. It is less accurate in patients with extremes of muscle mass, restriction of dietary protein, ingestion of creatine, extra-renal metabolism of creatinine, or treatment with medications that affect renal tubular creatinine secretion. Free PSA/Total PSA [Mass fraction] 7.1 g/dL 6.3 - 8.2 g/dL [facility] GFR/1.73 sq M.predicted among blacks MDRD (S/P/Bld) [Vol rate/Area] mL/min/{1.73_m2} >60 mL/min [facility] Glucose [Mass/Vol] 104 mg/dL High 70 - 100 mg/dL [facility] Interpretation and review of laboratory results Abnormal [facility] Potassium [Moles/Vol] 2.9 mmol/L Low 3.5 - 5.1 mmol/L [facility] Sodium [Moles/Vol] 134 mmol/L Low 135 - 145 mmol/L [facility] Urea nitrogen (BldV) [Mass/Vol] <2 Low 7 - 17 mg/dL [facility] Drugs of Abuseon 03-25-2022 Phencyclidine (PCP), Ur Negative Normal [facility] Comment on above: Result Comment: The expected value for all of the drugs listed above is Negative. The following drugs or drug groups have been screened for by Immunoassay at the following thresholds: Amphetamine class (1000 ng/mL), Barbiturates (200 ng/mL), Benzodiazepines (200 ng/mL), Cocaine (300 ng/mL), Methadone (300 ng/mL), Opiates (300 ng/mL), Oxycodone (100 ng/mL), and PCP (25 ng/mL). NOTE: These results are for medical treatment only. Analysis performed using non-forensic procedures. POSITIVE results are NOT confirmed by a more specific alternative method unless requested. If confirmation is needed, request confirmation under separate order. Performed By: #### D RGA4 #### [facility] [address], [place] Methadone, Ur Negative Normal [facility] Comment on above: Performed By: #### D RGA4 #### [facility] [address], [place] Opiates, Ur Negative Normal [facility] Comment on above: Performed By: #### D RGA4 #### [facility] [address], [place] Cocaine, Ur Negative Normal [facility] Comment on above: Performed By: #### D RGA4 #### [facility] [address], [place] Barbiturates, Ur Negative Normal [facility] Comment on above: Performed By: #### D RGA4 #### [facility] [address] [place] [address] Benzodiazepines, Ur Negative Normal [facility] Comment on above: Performed By: #### D RGA4 #### [facility] [address] [place] [address] Amphetamines, Ur Negative Normal [facility] Comment on above: Performed By: #### D RGA4 #### [facility] [address] [place] [address] Oxycodone/Oxymorphine,Ur Negative Normal [facility] Comment on above: Performed By: #### D RGA4 #### [facility] [address] [place] [address] ED Provider Noteon 2 ED Provider Note [facility]Y DEPT EMERGENCY DEPARTMENT ENCOUNTER Pt Name: Abdiel Alston Birthdate 1985 Date of evaluation: 03/24/2022 Provider: Garry Wolff, DO CHIEF COMPLAINT Chief Complaint Patient presents with ? Aspiration pt believes he had food bolus 2 days ago and that its still in throat. can pass liquid HISTORY OF PRESENT ILLNESS (Location/Symptom, Timing/Onset, Context/Setting, Quality, Duration, Modifying Factors, Severity) Note limiting factors. I wore a kn95 mask for the entirety of this encounter. HPI Abdiel Alston is a 36 y.o. male who presents to the emergency department with a chief complaint of food bolus. Patient was eating a burger, this occurred almost 48 hours ago. He reports that something felt like it got stuck in his throat. He has been unable to tolerate food since. Denies any nausea or vomiting currently but says that anytime he attempts to eat it comes back up. Able to tolerate some small sips of fluid. No drooling. Denies any abnormal breathing. Denies any lower abdominal pain. No chest pain or trouble breathing. Nursing Notes were reviewed. REVIEW OF SYSTEMS (2+ for level 4; 10+ for level 5) Review of Systems Constitutional: Negative for chills and fever. HENT: Positive for trouble swallowing. Respiratory: Negative for cough and shortness of breath. Cardiovascular: Negative for chest pain. Gastrointestinal: Positive for vomiting. Negative for abdominal pain, diarrhea and nausea. Genitourinary: Negative for dysuria. Musculoskeletal: Negative for arthralgias. Skin: Negative for rash. Neurological: Negative for weakness. PAST MEDICAL HISTORY Past Medical History: Diagnosis Date ? Amblyopia Right eye ? Anxiety ? Depression ? GERD (gastroesophageal reflux disease) ? GERD (gastroesophageal reflux disease) ? Nonintractable headache 12/01/2017 ? Schizo affective schizophrenia (HCC) ? Tobacco abuse SURGICAL HISTORY Past Surgical History: Procedure Laterality Date ? COSMETIC SURGERY due to dog attack, left side of face CURRENT MEDICATIONS Previous Medications ALBUTEROL SULFATE HFA 108 (90 BASE) MCG/ACT INHALER Inhale 2 puffs into the lungs 4 times daily as needed for Wheezing ARIPIPRAZOLE (ABILIFY) 5 MG TABLET Take 1 tablet by mouth daily for 14 days IBUPROFEN (ADVIL;MOTRIN) 600 MG TABLET Take 1 tablet by mouth every 6 hours as needed for Pain IBUPROFEN (ADVIL;MOTRIN) 600 MG TABLET Take 1 tablet by mouth every 6 hours as needed for Pain IBUPROFEN (ADVIL;MOTRIN) 800 MG TABLET Take 1 tablet by mouth 2 times daily as needed for Pain MELOXICAM (MOBIC) 7.5 MG TABLET Take 1 tablet by mouth daily One pill QD with full meals for 10-14 days, then PRN pain NAPROXEN (NAPROSYN) 500 MG TABLET Take 1 tablet by mouth 2 times daily OMEPRAZOLE (PRILOSEC) 20 MG DELAYED RELEASE CAPSULE Take 1 capsule by mouth daily ONDANSETRON (ZOFRAN-ODT) 4 MG DISINTEGRATING TABLET Take 1 tablet by mouth 3 times daily as needed for Nausea or Vomiting ALLERGIES Pcn [penicillins] FAMILY HISTORY Family History Problem Relation Age of Onset ? Hypertension Mother ? Hypertension Father ? Coronary Art Dis Father ? Blindness Maternal Grandfather ? Diabetes Paternal Grandmother ? Glaucoma Neg Hx ? Macular Degen Neg Hx SOCIAL HISTORY Social History Socioeconomic History ? Marital status: Single Spouse name: None ? Number of children: None ? Years of education: None ? Highest education level: None Occupational History ? 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 Smoking status: Current Every Day Smoker Packs/day: 2.00 Years: 20.00 Pack years: 40.00 ? Smokeless tobacco: Never Used Vaping Use ? Vaping Use: Never used Substance and Sexual Activity ? Alcohol use: Yes Comment: seldom ? Drug use: Yes Frequency: 7.0 times per week Types: Marijuana ([place]) Comment: anxiety ? Sexual activity: None Other Topics Concern ? None Social History Narrative ? None Social Determinants of Health Financial Resource Strain: ? Difficulty of Paying Living Expenses: Not on file Food Insecurity: ? Worried About Running Out of Food in the Last Year: Not on file ? Ran Out of Food in the Last Year: Not on file Transportation Needs: ? Lack of Transportation (Medical): Not on file ? Lack of Transportation (Non-Medical): Not on file Physical Activity: ? Days of Exercise per Week: Not on file ? Minutes of Exercise per Session: Not on file Stress: ? Feeling of Stress : Not on file Social Connections: ? Frequency of Communication with Friends and Family: Not on file ? Frequency of Social Gatherings with Friends and Family: Not on file ? Attends [employer] Services: Not on file ? Active Member of Clubs or Organizations: Not on file ? Attends Club or Organization Meetings: Not on file ? Marital Status: Not on file Intimate Partner Violence: ? Fear of Current or Ex-Partner: Not on file ? Emotionally A (more content not included)... Normal [facility] Ethanolon 03-25-2022 Ethanol Lvl <0.010 0.000 - 0.010 g/dL [facility] Comment on above: NOTE: This result is for medical treatment only. Analysis performed using non-forensic procedures. Ethanol Serum/Plasmaon 03-25 Ethanol-Serum/Plasma < 0.010 Normal 0.000-0.010 [facility] Comment on above: Result Comment: NOTE : This result is for medical treatment only. Analysis performed using non-forensic procedures. Performed By: #### H EMDF, HVAAO, HEMOG, CMP3, ETOH4 #### [address] [id number] HIV Ag - Abon 03-25-2022 HIV 1,2 Combo Antigen/Antibody Non-Reactive Normal Non-Reactive [facility] Comment on above: Result Comment: The specimen was non-reactive for HIV-1 and HIV-2 antibodies and p24 antigen using an FDA-cleared 4th generation HIV test. Based on this non-reactive screen result, further reflexive testing was not indicated and was, therefore, not performed. Performed By: #### H EMDF, HVAAO, HEMOG, CMP3, ETOH4 #### [address] HIV Screenon 03-25-2022 HIV Ag/Ab Non-Reactive Non-Reactive NA [facility] Comment on above: The specimen was non -reactive for HIV-1 and HIV-2 antibodies and p24 antigen using an FDA-cleared 4th generation HIV test. Based on this non-reactive screen result, further reflexive testing was not indicated and was, therefore, not performed. Test Performed by [id number] [place] [address] LAB [facility] ENDOSCOPY REPORTon 2021 Ordered by an unspecified provider. [facility] Hemogramon 03-25-2022 Erythrocyte distribution width (RBC) [Ratio] 12.8 % Normal 11.5-14.5 [facility] Comment on above: Performed By: #### H EMDF, HVAAO, HEMOG, CMP3, ETOH4 #### [address] Hematocrit (Bld) [Volume fraction] 44.3 % Normal 40.0-52.0 [facility] Comment on above: Performed By: #### H EMDF, HVAAO, HEMOG, CMP3, ETOH4 #### [address] Hemoglobin (Bld) [Mass/Vol] 15.6 g/dL Normal 13.0-18.0 [facility] Comment on above: Performed By: #### H EMDF, HVAAO, HEMOG, CMP3, ETOH4 #### [address] MCH (RBC) [Entitic mass] 31.9 pg Normal 26.0-34.0 [facility] Comment on above: Performed By: #### H EMDF, HVAAO, HEMOG, CMP3, ETOH4 #### [address] MCHC 35.3 % Normal 32.0-36.0 [facility] Comment on above: Performed By: #### H EMDF, HVAAO, HEMOG, CMP3, ETOH4 #### [place] [address] [address] [place], [place] MCV (RBC) [Entitic vol] 90.5 fL Normal 80.0-98.0 [facility] Comment on above: Performed By: #### H EMDF, HVAAO, HEMOG, CMP3, ETOH4 #### [address] Platelet mean volume (Bld) [Entitic vol] 7.0 fL Low 7.4-12.4 [facility] Comment on above: Result Comment: MPV is a calculated measurement using platelet volume ratio. Performed By: #### H EMDF, HVAAO, HEMOG, CMP3, ETOH4 #### [address] Platelets (Bld) [#/Vol] 338 10*3/uL Normal 140-440 [facility] Comment on above: Performed By: #### H EMDF, HVAAO, HEMOG, CMP3, ETOH4 #### [address] RBC (Bld) [#/Vol] 4.90 10*6/uL Normal 4.40-5.90 [facility] Comment on above: Performed By: #### H EMDF, HVAAO, HEMOG, CMP3, ETOH4 #### [address] WBC (Bld) [#/Vol] 19.6 10*3/uL High 3.6-10.7 [facility] Comment on above: Performed By: #### H EMDF, HVAAO, HEMOG, CMP3, ETOH4 #### [address] Hemogram w/ Autodiffon 03-25 Abs Baso Cnt 0.1 10*3/uL Normal 0.0-0.2 [facility] Comment on above: Performed By: #### H EMDF, HVAAO, HEMOG, CMP3, ETOH4 #### [facility] [address] [place] [address] Abs Neutrophile Cnt 14.5 10*3/uL High 1.8-7.0 [facility] Comment on above: Performed By: #### H EMDF, HVAAO, HEMOG, CMP3, ETOH4 #### [facility] [address] [place] [address] Basophils/100 WBC (Bld) 0.5 % Normal 0.0-2.0 [facility] Comment on above: Performed By: #### H EMDF, HVAAO, HEMOG, CMP3, ETOH4 #### [address] [place] [address] Eosinophils (Bld) [#/Vol] 0.2 10*3/uL Normal 0.0-0.5 [facility] Comment on above: Performed By: #### H EMDF, HVAAO, HEMOG, CMP3, ETOH4 #### [address] [place] [address] Eosinophils/100 WBC (Bld) 1.0 % Normal 1.0-6.0 [facility] Comment on above: Performed By: #### H EMDF, HVAAO, HEMOG, CMP3, ETOH4 #### [address] [place] [address] Granulocytes/100 WBC (Bld) 74.6 % Normal 40.0-80.0 [facility] Comment on above: Performed By: #### H EMDF, HVAAO, HEMOG, CMP3, ETOH4 #### [address] [place] [address] Lymphocytes (Bld) [#/Vol] 3.5 10*3/uL Normal 1.0-4.3 [facility] Comment on above: Performed By: #### H EMDF, HVAAO, HEMOG, CMP3, ETOH4 #### [address] [place] [address] Lymphocytes/100 WBC (Bld) 17.7 % Low 20.0-40.0 [facility] Comment on above: Performed By: #### H EMDF, HVAAO, HEMOG, CMP3, ETOH4 #### [address] Monocytes (Bld) [#/Vol] 1.2 10*3/uL High 0.0-0.8 [facility] Comment on above: Performed By: #### H EMDF, HVAAO, HEMOG, CMP3, ETOH4 #### [address] Monocytes/100 WBC (Bld) 6.2 % Normal 2.0-10.0 S [facility] Comment on above: Performed By: #### H EMDF, HVAAO, HEMOG, CMP3, ETOH4 #### [address] No Panel Informationon 03-25 Test Performed by [address] [facility] URINE DRUG SCREENon 03-25-20 22 Amphetamines, urine Negative [facility] Barbiturates, Urine Negative [facility] Benzodiazepine Ur Qual Negative [facility] Cocaine Metabolites, Ur Negative [facility] Methadone, Urine Negative [facility] Opiates, Urine Negative [facility] Oxycodone Screen, Ur Negative [facility] PCP, Urine Negative [facility] Comment on above: The expected value f or all of the drugs listed above is Negative. The following drugs or drug groups have been screened for by Immunoassay at the following thresholds: Amphetamine class (1000 ng/mL), Barbiturates (200 ng/mL), Benzodiazepines (200 ng/mL), Cocaine (300 ng/mL), Methadone (300 ng/mL), Opiates (300 ng/mL), Oxycodone (100 ng/mL), and PCP (25 ng/mL). NOTE: These results are for medical treatment only. Analysis performed using non-forensic procedures. POSITIVE results are NOT confirmed by a more specific alternative method unless requested. If confirmation is needed, request confirmation under separate order. Test Performed by [address] [facility] XR CHEST PORTABLEon 03-24-20 Patient Name: ABDIEL ALSTON Diagnostic Radiology ACCESSION EXAM DATE/TIME PROCEDURE ORDERING PROVIDER [id number] 03/24/2022 22:17 EDT CR Chest Portable [facility] JOHN M CPT code 70073 Reason For Exam (CR Chest Portable) throat pain after FB sensation in throat. eval for any changes Report Examination: AP portable chest Clinical Indication: throat pain after FB sensation in throat. eval for any changes Comparison: 02/21/2019 Findings: Lungs appear normally inflated. There is no focal consolidation, effusion, or pulmonary edema identified. The cardiomediastinal silhouette is within normal limits. There is no gross evidence of osseous abnormality. Impression: No acute cardiopulmonary process. Report Dictated on --- Final --- Dictated: 03/24/2022 10:26 pm Dictating Physician: MD GARCIAS ANTHONY J Signed Date and Time: 03/24/2022 10:28 pm Signed by: MD GARCIAS ANTHONY J Transcribed Date and Time: 03/24/2022 10:26 [facility] Titus Garcias MD - 03/24/2022 Patient Name: ABDIEL ALSTON Diagnostic Radiology ACCESSION EXAM DATE/TIME PROCEDURE ORDERING PROVIDER [id number] 03/24/2022 22:17 EDT CR Chest Portable [facility] M CPT code 26812 Reason For Exam (CR Chest Portable) throat pain after FB sensation in throat. eval for any changes Report Examination: AP portable chest Clinical Indication: throat pain after FB sensation in throat. eval for any changes Comparison: 02/21/2019 Findings: Lungs appear normally inflated. There is no focal consolidation, effusion, or pulmonary edema identified. The cardiomediastinal silhouette is within normal limits. There is no gross evidence of osseous abnormality. Impression: No acute cardiopulmonary process. Report Dictated on --- Final --- Dictated: 03/24/2022 10:26 pm Dictating Physician: MD GARCIAS ANTHONY J Signed Date and Time: 03/24/2022 10:28 pm Signed by: MD GARCIAS ANTHONY J Transcribed Date and Time: 03/24/2022 10:26 [facility] Work Phone: Radiology Study observation (narrative) [employer] [facility] Work Phone: XR CHEST PORTABLEOrdered By: Titus Garcias on 03-24-2022 [facility] Work Phone: Urinalysison 03-05-2020 Appearance (U) Turbid Abnormal Clear NA [place], [place] Comment on above: . Bilirubin Urine Negative Negative mg/dL [place] Comment on above: . Color (U) Light-Yellow Lt. Yellow NA [place] Comment on above: . Glucose, Ur Normal Normal (<70) mg/dL [place] Comment on above: . Interpretation and review of laboratory results Abnormal [place] Ketones Ql (U) Negative Negative mg/dL [place] Comment on above: . LEUKOCYTES, UA Negative Negative Enrico/uL [place] Comment on above: . Nitrite, Urine Negative Negative NA [place], [place] Comment on above: . Occult Blood,Urine Negative Negative mg/dL [place] Comment on above: . pH (U) 8.0 [pH] [place] Comment on above: . Protein (U) [Mass/Vol] Negative Negat sixto mg/dL [place] Comment on above: . Specific [place], Urine 1.015 M [place], [place] Comment on above: . Urobilinogen, Urine Normal Normal ( 0-1) mg/dL [place] Comment on above: . Test Performed by [facility], [address] [place] [id number] [place] XR LUMBAR SPINE (2-3 VIEWS)o n 03-05-2020 Patient Name: ABDIEL ALSTON ---Diagnostic Radiology--- Exam Date/Time 03/05/2020 22:01:14 EDT Exam CR Spine Lumbosacral 2 or 3 Views Ordering Physician MONIKA MONTEJO Accession Number [id number] CPT4 Codes 92424 () Reason For Exam Lumbar back pain Report EXAMINATION: Lumbar spine CLINICAL INDICATION: Low back pain COMPARISON: 12/14/2018 TECHNIQUE: Three views of the lumbar spine FINDINGS: AP, lateral, and cone-down lateral views of the lumbosacral spine demonstrate 5 normal lumbar type vertebra. Vertebral body heights are maintained. 2 mm L4-L5 retrolisthesis. Otherwise the lumbar spine is in normal anatomic alignment. Mild L5-S1 intervertebral disc space narrowing. Mild L4-L5 and L5-S1 facet arthropathy. Otherwise no significant productive or erosive arthropathy is seen. IMPRESSION: Mild degenerative changes similar to the prior exam. Report Dictated on --- Final --- Dictated: 03/05/2020 10:08 pm Dictating Physician: MD RAMIREZ JASON Signed Date and Time: 03/05/2020 10:11 pm Signed by: MD RAMIREZ JASON Transcribed Date and Time: 03/05/2020 10:08 [place], [place], [facility] Incoming Radiology Results From [facility] - 03/05/2020 10:12 PM EDT Patient Name: ABDIEL ALSTON ---Diagnostic Radiology--- Exam Date/Time 03/05/2020 22:01:14 EDT Exam CR Spine Lumbosacral 2 or 3 Views Ordering Physician MONIKA MONTEJO Accession Number [id number] CPT4 Codes 44222 () Reason For Exam Lumbar back pain Report EXAMINATION: Lumbar spine CLINICAL INDICATION: Low back pain COMPARISON: 12/14/2018 TECHNIQUE: Three views of the lumbar spine FINDINGS: AP, lateral, and cone-down lateral views of the lumbosacral spine demonstrate 5 normal lumbar type vertebra. Vertebral body heights are maintained. 2 mm L4-L5 retrolisthesis. Otherwise the lumbar spine is in normal anatomic alignment. Mild L5-S1 intervertebral disc space narrowing. Mild L4-L5 and L5-S1 facet arthropathy. Otherwise no significant productive or erosive arthropathy is seen. IMPRESSION: Mild degenerative changes similar to the prior exam. Report Dictated on --- Final --- Dictated: 03/05/2020 10:08 pm Dictating Physician: MD RAMIREZ JASON Signed Date and Time: 03/05/2020 10:11 pm Signed by: MD RAMIREZ JASON Transcribed Date and Time: 03/05/2020 10:08 [facility] [place] [place] Basic Metabolic PanelOrdered By: Gavin Hoffman on 10-01-2019 Anion gap [Moles/Vol] 9 mmol/L [facility] Work Phone: Calcium [Mass/Vol] 9.8 mg/dL 8.4 - 10. 4 mg/dL [facility] Work Phone: Chloride [Moles/Vol] 104 mmol/L 98 - 10 7 mmol/L [facility] Work Phone: CO2 [Moles/Vol] 27 mmol/L 22 - 30 mmol/L [facility] Work Phone: Creatinine [Mass/Vol] 0.87 mg/dL 0.52 - 1.25 mg/dL [facility] Work Phone: EGFR IF NonAfrican Chinese >60.0 >60 mL/min [facility] Work Phone: Comment on above: Source- MDRD equatio n with creatinine calibration to IDMS(NKDEP) eGFR not recommended for drug dose adjustment GFR/1.73 sq M.predicted among blacks MDRD (S/P/Bld) [Vol rate/Area] mL/min/{1.73_m2} >60 mL/min [facility] Work Phone: Glucose [Mass/Vol] 138 mg/dL High 70 - 100 mg/dL [facility] Work Phone: Potassium [Moles/Vol] 3.7 mmol/L 3.5 - 5.1 mmol/L [facility] Work Phone: Sodium [Moles/Vol] 141 mmol/L 135 - 145 mmol/L [facility] Work Phone: Urea nitrogen [Mass/Vol] 7 mg/dL 7 - 20 mg/d L [facility] Work Phone: CBC Auto DifferentialOrdered By: Gavin Hoffman on 10-01-2019 Absolute Baso # 0.0 10*3/uL 0 - 0.2 10*3/uL [facility] Work Phone: Absolute Neut # 5.4 10*3/uL 1.8 - 7 10*3/uL [facility] Work Phone: Basophils/100 WBC (Bld) 0.6 % 0 - 2 % [facility] Work Phone: Eosinophils (Bld) [#/Vol] 0.1 10*3/uL 0 - 0.5 10*3/uL [facility] Work Phone: Eosinophils/100 WBC (Bld) 0.8 % Low 1 - 6 % [facility] Work Phone: Erythrocyte distribution width (RBC) [Ratio] 13.1 % 11.5 - 14.5 % [facility] Work Phone: Granulocytes/100 WBC (Bld) 72.0 % 40 - 80 % [facility] Work Phone: Hematocrit (Bld) [Volume fraction] 47.0 % 40 - 52 % [facility] Work Phone: Hemoglobin (Bld) [Mass/Vol] 16.5 g/dL 13 - 18 g/dL [facility] Work Phone: Interpretation and review of laboratory results Abnormal [facility] Work Phone: Lymphocytes (Bld) [#/Vol] 1.4 10*3/uL 1 - 4.3 10*3/uL [facility] Work Phone: Lymphocytes/100 WBC (Bld) 18.7 % Low 20 - 40 % [facility] Work Phone: MCH (RBC) [Entitic mass] 32.9 pg 26 - 34 pg [facility] Work Phone: MCHC 35.2 % 32 - 36 % [facility] Work Phone: MCV (RBC) [Entitic vol] 93.6 fL 80 - 98 fL [facility] Work Phone: Monocytes (Bld) [#/Vol] 0.6 10*3/uL 0 - 0.8 10*3/uL [facility] Work Phone: Monocytes/100 WBC (Bld) 7.9 % 2 - 10 % [facility] Work Phone: Platelet mean volume (Bld) [Entitic vol] 8.0 fL 7.4 - 10.4 fL [facility] Work Phone: Platelets (Bld) [#/Vol] 260 10*3/uL 140 - 440 10*3/uL [facility] Work Phone: RBC (Bld) [#/Vol] 5.02 10*6/uL 4.4 - 5.9 10*6/uL [facility] Work Phone: WBC (Bld) [#/Vol] 7.6 10*3/uL 3.6 - 10.7 10*3/uL [facility] Work Phone: Test Performed by [facility], [address] [place] [id number] [facility] Work Phone: Hepatic Function PanelOrdere d By: Gavin Hoffman on 10-01-2019 Albumin [Mass/Vol] 4.3 g/dL 3.5 - 5 g/dL [facility] Work Phone: ALP [Catalytic activity/Vol] 73 U/L 38 - 126 U/L [facility] Work Phone: ALT [Catalytic activity/Vol] 20 U/L 13 - 69 U/L [facility] Work Phone: AST [Catalytic activity/Vol] 23 U/L 15 - 46 U/L [facility] Work Phone: Bilirubin [Mass/Vol] 1.0 mg/dL 0.2 - 1 .3 mg/dL [facility] Work Phone: Bilirubin.indirect [Mass/Vol] 0.0 mg/dL 0 - 0.3 mg/dL [facility] Work Phone: Protein [Mass/Vol] 7.1 g/dL 6.3 - 8.2 g/dL [facility] Work Phone: LipaseOrdered By: Gavin gamboa on 10-01-2019 Lipase [Catalytic activity/Vol] 19 U/L Low 23 - 300 U/L [facility] Work Phone: MagnesiumOrdered By: Gavin Hoffman on 10-01-2019 Magnesium [Mass/Vol] 1.9 mg/dL 1.6 - 2 .3 mg/dL [facility] Work Phone: No Panel InformationOrdered By: Gavin Hoffman on 10-01-2019 Interpretation and review of laboratory results Abnormal [facility] Work Phone: Test Performed by [facility] [address] [employer] Work Phone: UrinalysisOrdered By: Sole Camarena on 10-01-2019 Appearance (U) Clear Clear NA [facility] Work Phone: Bacteria, UA Few Negative /[HPF] [facility] Work Phone: Bilirubin Urine Negative Negative mg/dL [facility] Work Phone: Color (U) Yellow Lt. Yellow NA [facility] Work Phone: Glucose, Ur Normal Normal (<70) mg/dL [facility] Work Phone: Hyaline Casts, UA Negative Negative /[LPF] [facility] Work Phone: Ketones Ql (U) Negative Negative mg/dL [facility] Work Phone: LEUKOCYTES, UA Negative Negative Enrico/uL [facility] Work Phone: Mucous Threads Many Negative /[LPF] [facility] Work Phone: Nitrite, Urine Negative Negative NA [facility] Work Phone: Occult Blood,Urine Negative Negative mg/dL [facility] Work Phone: pH (U) 6.5 [pH] [facility] Work Phone: Protein (U) [Mass/Vol] 20 mg/dL Negative [facility] Work Phone: RBC, UA 0-2 0 - 2 /[HPF] [facility] Work Phone: Specific [place], Urine 1.021 S [facility] Work Phone: Squam Epithel, UA 0-2 3 - 5 /[HPF] [facility] Work Phone: Urobilinogen, Urine 4 mg/dL Normal (0-1) [facility] Work Phone: WBC, UA 3-5 0 - 5 /[HPF] [facility] Work Phone: Test Performed by [id number] [place] [address] Work Phone: XR HAND LEFT (MIN 3 VIEWS)on 05-15-2019 Patient Name: ABDIEL ALSTON ---Diagnostic Radiology--- Exam Date/Time 05/15/2019 12:53:03 EDT Exam CR Hand Complete 3+ Views Left Ordering Physician KING MCALLISTER, LAWRENCE Manjarrez Accession Number [id number] CPT4 Codes 91242 () Reason For Exam left fifth finger laceration, injury Report Examination: Left hand Clinical Indication: Trauma, laceration fifth digit Comparison: None Findings: AP, lateral, and oblique views of the left hand demonstrate no cortical or trabecular irregularity to suggest acute fracture. There is remote incompletely united fracture or accessory ossicle at the ulnar styloid. There is ulnar positive variance. There is also some slight well-corticated deformity along the distal radius likely congenital. Bones are in normal anatomic alignment. There is no gross soft tissue swelling. No significant productive or erosive arthropathy is seen. No radiopaque foreign body is identified. Impression: No evidence of acute fracture, subluxation, or radiopaque foreign body of the left hand. Report Dictated on --- Final --- Dictated: 05/15/2019 1:00 pm Dictating Physician: MD DARREN, TITUS Tsang Signed Date and Time: 05/15/2019 1:02 pm Signed by: MD GARCIAS ANTHONY J Transcribed Date and Time: 05/15/2019 1:00 [place], [place], [place] Incoming Radiology Results From [facility] - 05/15/2019 1:03 PM EDT Patient Name: ABDIEL ALSTON ---Diagnostic Radiology--- Exam Date/Time 05/15/2019 12:53:03 EDT Exam CR Hand Complete 3+ Views Left Ordering Physician KING MCALLISTER DANIELLE C Accession Number [id number] CPT4 Codes 10804 () Reason For Exam left fifth finger laceration, injury Report Examination: Left hand Clinical Indication: Trauma, laceration fifth digit Comparison: None Findings: AP, lateral, and oblique views of the left hand demonstrate no cortical or trabecular irregularity to suggest acute fracture. There is remote incompletely united fracture or accessory ossicle at the ulnar styloid. There is ulnar positive variance. There is also some slight well-corticated deformity along the distal radius likely congenital. Bones are in normal anatomic alignment. There is no gross soft tissue swelling. No significant productive or erosive arthropathy is seen. No radiopaque foreign body is identified. Impression: No evidence of acute fracture, subluxation, or radiopaque foreign body of the left hand. Report Dictated on --- Final --- Dictated: 05/15/2019 1:00 pm Dictating Physician: MD GARCIAS ANTHONY J Signed Date and Time: 05/15/2019 1:02 pm Signed by: MD GARCIAS ANTHONY J Transcribed Date and Time: 05/15/2019 1:00 [facility] Facial Bones 3 viewson XR Facial Bones 3 views EXAMINATION: Facial bones: 4 views. COMPARISON: None. REASON FOR STUDY: Facial pain. FINDINGS: No fracture line or periosteal reaction is detected. Mandibular condyles appear intact. Alignment at the TMJs is anatomic. The visualized paranasal sinuses are clear. The orbits appear symmetrical and within normal limits. CONCLUSIONS: No radiographic evidence of bone injury or sinusitis. Report Dictated on Authenticated by: Evan Piper On: 04/02/2019 18:27 Read by: Ese PIPER MD Date: 04/02/2019 18:27 Normal [facility] CHEST 2 VIEWSon 09-10-2018 CHEST 2 VIEWS Performed at [facility] APPROVED BY: JESUS HOLLINGSWORTH MD EXAMINATION: CHEST RADIOGRAPH (2 VIEW FRONTAL & LATERAL) CLINICAL HISTORY: Chest pain. MQ: [id number] Comparison: None RESULT: Lines, tubes, and devices: None. Lungs and pleura: No airspace consolidation, pulmonary edema, pleural effusion or pneumothorax. Lungs appear clear. Cardiomediastinal silhouette: Normal cardiomediastinal silhouette. Other: No bony abnormalities. IMPRESSION: 1. No acute radiographic abnormality. Normal [facility] Comprehensive Panelon 2017 ALP enzyme act/vol 71 U/L Normal 46-116 [facility] Comment on above: Performed By: #### P 14 #### [facility] [address] [place], [place] [address] Bilirubin mass conc 0.5 mg/dL Normal 0.2-1.0 [facility] Comment on above: Performed By: #### P 14 #### [facility] [address] [place], [place] [address] Protein mass conc 7.0 g/dL Normal 6.4-8.2 [facility] Comment on above: Performed By: #### P 14 #### [facility] [address] [place], [place] [address] AST enzyme act/vol 13 U/L Normal 9-37 [facility] Comment on above: Performed By: #### P 14 #### [facility] [address] [place], [place] [address] Creatinine mass conc 0.88 mg/dL Normal 0.67-1.17 [facility] Comment on above: Performed By: #### P 14 #### [facility] [address] [place], [place] [address] ALT enzyme act/vol 25 U/L Normal 12-78 [facility] Comment on above: Performed By: #### P 14 #### [facility] [address] [place], [place] [address] Albumin mass conc 3.5 g/dL Normal 3.4-5.0 [facility] Comment on above: Performed By: #### P 14 #### [facility] [address] [place] [address] Anion gap molar conc 14 mmol/L Normal 8-16 [facility] Comment on above: Performed By: #### P 14 #### [facility] [address] [place], [place] [address] Calcium mass conc 9.0 mg/dL Normal 8.5-10.1 [facility] Comment on above: Performed By: #### P 14 #### [facility] [address] [place] [address] CO2 molar conc 24 mmol/L Normal 21-32 [facility] Comment on above: Performed By: #### P 14 #### [facility] [address] [place] [address] Glucose mass conc 92 mg/dL Normal 70-99 [facility] Comment on above: Performed By: #### P 14 #### [facility] [address] [place] [address] Urea nitrogen mass conc 12 mg/dL Normal 7-18 [facility] Comment on above: Performed By: #### P 14 #### [facility] [address] [place] [address] Chloride molar conc 106 mmol/L Normal 98-107 [facility] Comment on above: Performed By: #### P 14 #### [facility] [address] [place] [address] Potassium molar conc 4.4 mmol/L Normal 3.5-5.1 [facility] Comment on above: Performed By: #### P 14 #### [facility] [address] [place] [address] Sodium molar conc 140 mmol/L Normal 136-145 [facility] Comment on above: Performed By: #### P 14 #### [facility] [address] [place] [address] [facility] Troponin Ion 09-10-2018 Troponin I.cardiac mass conc ng/mL Normal 0.015-0.045 [facility] Comment on above: Performed By: #### E RTRP #### [facility] [address] [place] [address] Hemogram/Diffon 09-10-2018 Abs Immature Grans 0.03 thou/cmm Normal 0.00-0.05 [facility] Comment on above: Performed By: #### C BCD1 #### [facility] [address] [place] [address] Abs. Baso 0.03 thou/cmm Normal 0.01-0.08 [facility] Comment on above: Performed By: #### C BCD1 #### [facility] [address] [place] [address] Abs. [place] 0.60 thou/cmm Normal 0.30-0.82 [facility] Comment on above: Performed By: #### C BCD1 #### [facility] [address] [place] [address] Abs. Neut (ANC) 5.01 thou/cmm Normal 1.78-5.38 [facility] Comment on above: Performed By: #### C BCD1 #### [facility] [address] [place] [address] Basophils/100 WBC (Bld) 0.4 % Normal [facility] Comment on above: Performed By: #### C BCD1 #### [facility] [address] [place] [address] Eosinophils #/vol (Bld) 0.09 thou/cmm Normal 0.04-0.54 [facility] Comment on above: Performed By: #### C BCD1 #### [facility] [address] [place] [address] Eosinophils/100 WBC (Bld) 1.1 % Normal [facility] Comment on above: Performed By: #### C BCD1 #### [facility] [address] [place] [address] Erythrocyte distribution width Ratio (RBC) 11.6 % Normal 11.6-14.4 [facility] Comment on above: Performed By: #### C BCD1 #### [facility] [address] [place] [address] Hematocrit Volume Fraction (Bld) 44.2 % Normal 40.1-51.0 [facility] Comment on above: Performed By: #### C BCD1 #### [facility] [address] [place], [place] [address] Hemoglobin mass conc (Bld) 15.7 g/dL Normal 13.7-17.5 [facility] Comment on above: Performed By: #### C BCD1 #### [facility] [address] [place] [address] Immature Grans 0.40 % Normal [facility] Comment on above: Performed By: #### C BCD1 #### [facility] [address] [place] [address] Lymphocytes #/vol (Bld) 2.33 thou/cmm Normal 0.84-2.85 [facility] Comment on above: Performed By: #### C BCD1 #### [facility] [address] [place], [place] [address] Lymphocytes/100 WBC (Bld) 28.8 % Normal [facility] Comment on above: Performed By: #### C BCD1 #### [facility] [address] [place], [place] [address] [facility] Entitic mass (RBC) 31.8 pg Normal 25.7-32.2 [facility] Comment on above: Performed By: #### C BCD1 #### [facility] [address] [place], [place] [address] MCHC mass conc (RBC) 35.5 % Normal 32.3-36.5 [facility] Comment on above: Performed By: #### C BCD1 #### [facility] [address] [place], [place] [address] MCV Entitic volume (RBC) 89.7 fL Normal 83.2-95.6 [facility] Comment on above: Performed By: #### C BCD1 #### [facility] [address] [place], [place] [address] Monocytes/100 WBC (Bld) 7.4 % Normal [facility] Comment on above: Performed By: #### C BCD1 #### [facility] [address] [place] [address] Platelet mean volume Entitic volume (Bld) 9.1 fL Normal 8.7-12.0 [facility] Comment on above: Performed By: #### C BCD1 #### [facility] [address] [place] [address] Platelets #/vol (Bld) 222 thou/cmm Normal 141-365 [facility] Comment on above: Performed By: #### C BCD1 #### [facility] [address] [place] [address] RBC #/vol (Bld) 4.93 mil/cmm Normal 4.63-6.08 [facility] Comment on above: Performed By: #### C BCD1 #### [facility] [address] [place] [address] RDW SD 37.3 fl Normal 36.1-45.8 [facility] Comment on above: Performed By: #### C BCD1 #### [facility] [address] [place] [address] Seg Neutrophil 61.9 % Normal [facility] Comment on above: Performed By: #### C BCD1 #### [facility] [address] [place] [address] WBC #/vol (Bld) 8.09 thou/cmm Normal 4.23-9.07 [facility] Comment on above: Performed By: #### C BCD1 #### [facility] [address] [place] [address] MDRD GFRon 09-10-2018 GFR/1.73 sq M predicted among non-blacks MDRD vol rate/area (S/P/Bld) mL/min/{1.73_m2} Normal >60mL/min/1. 73m2 [facility] Comment on above: Result Comment: If t he patient is , multiply the result by 1.210. Performed By: #### G FR #### [facility] [address] [place] [address] Vital Signs Date Time Vital Sign Value Performing Clinician Facility 06-28-2025 13:27-0400 Body temperature 98.9 [degF] Dr. James Wilburn DO Work Phone: [facility] 06-28-2025 13:27-0400 Diastolic blood pressure 81 mm[Hg] Dr. James Wilburn DO Work Phone: [phone] [place] [address] 06-28-2025 13:27-0400 Heart rate 107 /min Dr. James Wilburn DO Work Phone: 8(722)682-580888 [place] [address] 06-28-2025 13:27-0400 Respiratory rate 18 /min Dr. James Wilburn DO Work Phone: 0(080)[phone] [address] 06-28-2025 13:27-0400 SaO2% (BldA) [Mass fraction] 97 % Dr. James Wilburn DO Work Phone: 6(016)627-571988 [place] [address] 06-28-2025 13:27-0400 Systolic blood pressure 124 mm[Hg] Dr. James Wilburn DO Work Phone: 7(009)064-979588 [place] [address] 06-28-2025 11:26-0400 Body height 162.[address] James Wilburn DO Work Phone: 1(137)597-090288 [place] [address] 06-28-2025 11:26-0400 Body mass index (BMI) [Ratio] 27.2 kg/m2 Dr. James Wilburn DO Work Phone: 5(592)[phone] [place] [address] 06-28-2025 11:26-0400 Body weight 71.[address] James Wilburn DO Work Phone: 6(786)[phone] [place] [address] 11-09-2024 20:29-0500 Body temperature 98.4 [degF] Selma Fisher MD Work Phone: [place] [facility] 11-09-2024 20:29-0500 Diastolic blood pressure 74 mm[Hg] Selma Fisher MD Work Phone: [facility] 11-09-2024 20:29-0500 Heart rate 70 /min Selma Fisher MD Work Phone: [place] [facility] 11-09-2024 20:29-0500 Respiratory rate 18 /min Selma Fisher MD Work Phone: [employer] 11-09-2024 20:29-0500 SaO2% (BldA) [Mass fraction] 96 % Selma Fisher MD Work Phone: [employer] 11-09-2024 20:29-0500 Systolic blood pressure 105 mm[Hg] Selma Fisher MD Work Phone: [employer] 09-14-2024 19:33-0500 Diastolic blood pressure 67 mm[Hg] Phyllis Conleyaci DO Work Phone: [employer] 09-14-2024 19:33-0500 Heart rate 79 /min Phyllis Conleyaci DO Work Phone: [employer] 09-14-2024 19:33-0500 Respiratory rate 18 /min Phyllis Conleyaci DO Work Phone: [employer] 09-14-2024 19:33-0500 SaO2% (BldA) [Mass fraction] 98 % Phyllis Conleyaci DO Work Phone: [facility] 09-14-2024 19:33-0500 Systolic blood pressure 108 mm[Hg] Phyllis Conleyaci DO Work Phone: [employer] 09-14-2024 16:22-0500 Body temperature 98.49 [degF] Phyllis Conleyaci DO Work Phone: [facility] 09-14-2024 13:24-0500 Body height 172.7 cm Phyllis Conleyaci DO Work Phone: [employer] 09-14-2024 13:24-0500 Body mass index (BMI) [Ratio] 30.41 kg/m2 Phyllis Conleyaci DO Work Phone: [employer] 09-14-2024 13:24-0500 Body weight 90.72 kg Phyllis Conleyaci DO Work Phone: [employer] 08-17-2024 20:17-0500 Body height 172.7 cm Pj Smith DO Work Phone: [employer] 08-17-2024 20:17-0500 Body mass index (BMI) [Ratio] 30.41 kg/m2 Pj Gombash DO Work Phone: [facility] [employer] 08-17-2024 20:17-0500 Body temperature 97.81 [degF] Pj Gombash DO Work Phone: [facility] [employer] 08-17-2024 20:17-0500 Body weight 90.72 kg Pj Gombash DO Work Phone: [facility] [employer] 08-17-2024 20:17-0500 Diastolic blood pressure 86 mm[Hg] Pj Gombash DO Work Phone: [facility] [employer] 08-17-2024 20:17-0500 Heart rate 98 /min Pj Gombash DO Work Phone: [facility] [employer] 08-17-2024 20:17-0500 Respiratory rate 17 /min Pj Gombash DO Work Phone: [facility] [employer] 08-17-2024 20:17-0500 SaO2% (BldA) [Mass fraction] 98 % Pj Gombash DO Work Phone: [facility] [employer] 08-17-2024 20:17-0500 Systolic blood pressure 130 mm[Hg] Pj Gombash DO Work Phone: [facility] [employer] 02-01-2024 19:03-0400 Body temperature 98.8 [degF] [facility] [employer] 02-01-2024 19:03-0400 Diastolic blood pressure 76 mm[Hg] [facility] [employer] 02-01-2024 19:03-0400 Heart rate 71 /min [facility] [employer] 02-01-2024 19:03-0400 Respiratory rate 18 /min [facility] [employer] 02-01-2024 19:03-0400 SaO2% (BldA) [Mass fraction] 97 % [facility] [employer] 02-01-2024 19:03-0400 Systolic blood pressure 112 mm[Hg] [facility] [employer] 02-01-2024 15:55-0400 Body height 167.6 cm [facility] [employer] 02-01-2024 15:55-0400 Body mass index (BMI) [Ratio] 29.86 kg/m2 [facility] 02-01-2024 15:55-0400 Body weight 83.92 kg [facility] 12-29-2023 18:28-0400 Diastolic blood pressure 87 mm[Hg] [facility] 12-29-2023 18:28-0400 Heart rate 76 /min [facility] 12-29-2023 18:28-0400 Respiratory rate 20 /min [facility] 12-29-2023 18:28-0400 SaO2% (BldA) [Mass fraction] 99 % [facility] 12-29-2023 18:28-0400 Systolic blood pressure 139 mm[Hg] [facility] 12-29-2023 14:33-0400 Body temperature 98.91 [degF] [facility] 03-19-2023 13:07-0400 Body height 162.6 cm Vamshi Powers APRN.LEAD CASE MANAGER Work Phone: [facility] 03-19-2023 13:07-0400 Body weight 67.59 kg Vamshi Powers APRN.LEAD CASE MANAGER Work Phone: [facility] 03-19-2023 13:07-0400 Respiratory rate 18 /min Vamshi Powers APRN.LEAD CASE MANAGER Work Phone: [facility] 11-04-2022 04:45-0500 Diastolic blood pressure 79 mm[Hg] Mojgan Skiffey DO Work Phone: [facility] 11-04-2022 04:45-0500 Heart rate 77 /min Mojgan Skiffey DO Work Phone: [facility] [employer] 11-04-2022 04:45-0500 Respiratory rate 18 /min Mojgan Skiffey DO Work Phone: [facility] [employer] 11-04-2022 04:45-0500 SaO2% (BldA) [Mass fraction] 97 % Mojgan Skiffey DO Work Phone: [facility] 11-04-2022 04:45-0500 Systolic blood pressure 117 mm[Hg] Mojgan Skiffey DO Work Phone: [facility] 11-04-2022 02:04-0500 Body temperature 98.01 [degF] Mojgan Skiffey DO Work Phone: [facility] [employer] 11-04-2022 00:47-0500 Body height 167.6 cm Mojgan Lancaster DO Work Phone: [facility] [employer] 11-04-2022 00:47-0500 Body mass index (BMI) [Ratio] 29.86 kg/m2 Mojgan Lancaster DO Work Phone: [facility] [employer] 11-04-2022 00:47-0500 Body weight 83.92 kg Mojgan Lancaster DO Work Phone: [facility] [employer] 03-25-2022 10:42-0400 Diastolic blood pressure 76 mm[Hg] Garry Wolff DO Work Phone: [facility] 03-25-2022 10:42-0400 Heart rate 69 /min Garry Wolff DO Work Phone: [facility] 03-25-2022 10:42-0400 Respiratory rate 16 /min Garry Wolff DO Work Phone: [facility] 03-25-2022 10:42-0400 SaO2% (BldA) [Mass fraction] 97 % Garry Wolff DO Work Phone: [facility] 03-25-2022 10:42-0400 Systolic blood pressure 124 mm[Hg] Garry Wolff DO Work Phone: [facility] 03-25-2022 07:44-0400 Body temperature 96.69 [degF] Garry Wolff DO Work Phone: [facility] 03-24-2022 22:05-0400 Body height 165.1 cm Garry Wolff DO Work Phone: [facility] 03-24-2022 22:05-0400 Body mass index (BMI) [Ratio] 29.95 kg/m2 Garry Wolff DO Work Phone: [facility] 03-24-2022 22:05-0400 Body weight 81.65 kg Garry Wolff DO Work Phone: [facility] 03-05-2020 22:36-0400 BP Diastolic 63 mm[Hg] [employer] [place] , [place] 03-05-2020 22:36-0400 BP Systolic 111 mm[Hg] [facility] , [place] 03-05-2020 22:36-0400 Pulse (Heart Rate) 60 /min [place], [place] 03-05-2020 22:36-0400 Pulse Oximetry 100 % [place], [place] 03-05-2020 22:36-0400 Respiratory Rate 14 /min [facility] [employer] [place] 03-05-2020 20:31-0400 BMI (Body Mass Index) 24.96 kg/m2 [place], [place] 03-05-2020 20:31-0400 Body Temperature 98.49 [degF] [facility] [employer] [place] 03-05-2020 20:31-0400 Body weight 68.04 kg [place] 03-05-2020 20:31-0400 Height 165.1 cm [place] 10-01-2019 17:15-0500 Diastolic blood pressure 72 mm[Hg] Rajiv Camarena MD [facility] Phone: [facility] Work Phone: 10-01-2019 17:15-0500 Heart rate 87 /min Rajiv Camarena MD Work Phone: [employer] Work Phone: 10-01-2019 17:15-0500 Respiratory rate 16 /min Rajiv Camarena MD Work Phone: [employer] Work Phone: 10-01-2019 17:15-0500 SaO2% (BldA) [Mass fraction] 98 % Rajiv Camarena MD Work Phone: [employer] Work Phone: 10-01-2019 17:15-0500 Systolic blood pressure 121 mm[Hg] Rajiv Camarena MD Work Phone: [employer] Work Phone: 10-01-2019 14:07-0500 Body height 162.6 cm Rajiv Camarena MD Work Phone: [employer] Work Phone: 10-01-2019 14:07-0500 Body mass index (BMI) [Ratio] 22.31 kg/m2 Rajiv Camarena MD Work Phone: [facility] Work Phone: 10-01-2019 14:07-0500 Body temperature 98.6 [degF] Rajiv Camarena MD Work Phone: [facility] Work Phone: 10-01-2019 14:07-0500 Body weight 58.97 kg Rajiv Camarena MD Work Phone: [facility] Work Phone: 05-15-2019 11:15-0400 BMI (Body Mass Index) 23.17 kg/m2 [place] 05-15-2019 11:15-0400 Body Temperature 98.1 [degF] [place], [place] 05-15-2019 11:15-0400 Body weight 61.24 kg [place] 05-15-2019 11:15-0400 BP Diastolic 69 mm[Hg] [place] 05-15-2019 11:15-0400 BP Systolic 127 mm[Hg] [place] 05-15-2019 11:15-0400 Height 162.6 cm [place] 05-15-2019 11:15-0400 Pulse (Heart Rate) 92 /min [place] 05-15-2019 11:15-0400 Pulse Oximetry 99 % [place] 05-15-2019 11:15-0400 Respiratory Rate 16 /min [place] Encounters Encounter Date Encounter Type Care Provider Facility Start: 06-28-2025 End: 06-28-2025 Emergency department patient visit Dr. James Wilburn DO -Emergency Department Work Phone: Start: 11-09-2024 End: 11-09-2024 Emergency department patient visit Selma Fisher MD Work Phone: [facility] Comment on above: Acute nonintractable headache, unspecified headache type (Primary Dx) Start: 09-14-2024 End: 09-14-2024 Emergency department patient visit Phyllis Beltre DO Work Phone: [facility] Comment on above: Acute nonintractable headache, unspecified headache type (Primary Dx); Anxiety Start: 08-17-2024 End: 08-17-2024 Emergency department patient visit Pj Smith DO Work Phone: [facility] Comment on above: Acute exacerbation o f chronic low back pain (Primary Dx); Right sided sciatica Start: 02-01-2024 End: 02-01-2024 Emergency department patient visit [facility] Comment on above: Acute pain of right knee (Primary Dx) Start: 12-29-2023 End: 12-29-2023 Emergency department patient visit [facility] Comment on above: Dysphagia, unspecifi ed type (Primary Dx) Start: 05-31-2023 Emergency department patient visit Facility:[facility] Start: 03-19-2023 End: 03-19-2023 ambulatory VAMSHI POWERS Facility:[facility] Start: 03-19-2023 End: 03-19-2023 Patient encounter procedure Vamshi Powers MEDICAL HOUSEKEEPER.LEAD CASE MANAGER Work Phone: [facility] Comment on above: Closed displaced fra cture of base of fifth metacarpal bone of right hand, sequela (Primary Dx) Start: 02-26-2023 End: 02-26-2023 ambulatory RAJIV DINH Facility:[facility] Start: 02-26-2023 End: 02-26-2023 Nursing evaluation of patient and report Orth Tech Ag [facility] [address] Work Phone: [facility] Comment on above: Closed displaced fra cture of base of fifth metacarpal bone of right hand, sequela (Primary Dx) Start: 02-19-2023 End: 02-19-2023 ambulatory RAJIV DINH Facility:[facility] Start: 02-17-2023 Telephone encounter Ag Orth Work Phone: [facility] Comment on above: ER F/U Start: 02-14-2023 Emergency department patient visit RAJIV DINH Facility:[facility] Start: 11-04-2022 End: 11-04-2022 Subsequent hospital visit by physician [facility] Comment on above: Arrived Start: 11-04-2022 End: 11-04-2022 Emergency department patient visit Mojgan Lancaster DO Work Phone: [facility] Comment on above: Pharyngitis, unspeci fied etiology (Primary Dx) Start: 10-05-2022 End: 10-05-2022 Emergency department patient visit Facility:[facility] Start: 03-24-2022 End: 03-25-2022 Emergency department patient visit Garry Wolff DO Work Phone: [facility] Comment on above: Food impaction of es ophagus, initial encounter (Primary Dx) Start: 03-05-2020 End: 03-05-2020 Emergency department patient visit [facility] Comment on above: Strain of lumbar reg ion, initial encounter (Primary Dx) Start: 10-01-2019 End: 10-01-2019 Emergency department patient visit Rajiv Camarena MD Work Phone: [facility] Comment on above: Epigastric pain (Laura mojgan Dx) Start: 05-15-2019 End: 05-15-2019 Emergency department patient visit [facility] Comment on above: Laceration of left l ittle finger without foreign body with damage to nail, initial encounter (Primary Dx) Start: 04-02-2019 End: 04-02-2019 Evaluation and management of inpatient [facility] Start: 03-08-2019 End: 03-08-2019 Evaluation and management of inpatient [facility] Start: 01-26-2019 End: 01-26-2019 Emergency department patient visit MONTY SAUCEDO Facility:[facility] Start: 09-10-2018 End: 09-10-2018 Emergency department patient visit CATA ELLIS Facility:[facility] Procedures Date Procedure Procedure Detail Performing Clinician Start: 06-28-[address] James Wilburn DO Work Phone: Start: 11-09-2024 Urinalysis complete panel - Urine Selma Fisher MD Work Phone: Start: 11-09-2024 Urnls dip stick/tabl et reagent auto microscopy Selma Fisher MD Work Phone: Start: 11-09-2024 SARS-COV-2, FLU A/B, AND RSV COMBO Selma Fisher MD Work Phone: Start: 11-09-2024 Comprehensive metabo lic panel Selma Fisher MD Work Phone: Start: 11-09-2024 Ct head/brain w/o co ntrast material Selma Fisher MD Work Phone: Start: 11-09-2024 Radiologic exam ches t single view Selma Fisher MD Work Phone: Start: 09-14-2024 Assay of troponin quantitative Raphael Sylvester MD Work Phone: Start: 09-14-2024 Urinalysis complete panel - Urine Raphael Sylvester MD Work Phone: Start: 09-14-2024 Urnls dip stick/tabl et rgnt auto w/o microscopy Raphael Sylvester MD Work Phone: Start: 09-14-2024 End: 09-14-2024 Comprehensive metabolic panel Raphael Sylvester MD Work Phone: Start: 09-14-2024 End: 09-14-2024 Drug screen quantitative lithium Raphael Sylvester MD Work Phone: Start: 09-14-2024 Ct head/brain w/o co ntrast material Raphael Sylvester MD Work Phone: Start: 09-14-2024 Ecg routine ecg w/le ast 12 lds trcg only w/o i&r Raphael Sylvester MD Work Phone: Start: 02-01-2024 Radiologic examinati on knee 3 views Carine Jaramillo PA-C Work Phone: Start: 11-04-2022 Radiologic exam ches t single view Chrissie Ortega DO Work Phone: Start: 11-04-2022 Iadna streptococcus group a amplified probe tq Chrissie Ortega DO Work Phone: Start: 11-04-2022 SARS-COV-2, FLU A/B, AND RSV COMBO Chrissie Ortega DO Work Phone: Start: 03-25-2022 [facility] ENDOSCOPY REPORT Phy sician Generic Start: 03-25-2022 ADD ON LAB TEST Parminder Garcia MD Work Phone: Start: 03-25-2022 Drug tst prsmv instr mnt chem analyzers pr date Javed Bell MD Work Phone: Start: 03-25-2022 Antibody hiv-1&hiv-2 single result Javed Bell MD Work Phone: Start: 03-25-2022 Assay of ethanol Je Bell MD Work Phone: Start: 03-25-2022 Comprehensive metabo lic panel Javed Bell MD Work Phone: Start: 03-24-2022 Radiologic exam ches t single view Eugene CARLIN Work Phone: Start: 03-05-2020 Radex spine lumbosac ral 2/3 views Monika Lopez Work Phone: Start: 03-05-2020 Urnls dip stick/tabl et rgnt auto w/o microscopy Monika Lopez Work Phone: Start: 10-01-2019 Urnls dip stick/tabl et rgnt auto w/o microscopy Rajiv Camarena MD Work Phone: Start: 10-01-2019 Basic metabolic pane l calcium total Gavin Hoffman MD Work Phone: Start: 10-01-2019 Hepatic function panel Gavin Hoffman MD Work Phone: Start: 05-15-2019 Radex hand minimum 3 views Lawrence Mcallister Work Phone: Plan of Treatment Date Care Activity Detail Author Start: 2060 RSV Immunization for Adults (1 - 1-dose 75+ series) RSV Immunization for Adults (1 - 1-dose 75+ series) [facility] Start: 2045 RSV Immunization age d 60 or older (1 - 1-dose 60+ series) RSV Immunization aged 60 or older (1 - 1-dose 60+ series) [facility] Start: 2035 Zoster Vaccines (1 o f 2) Zoster Vaccines (1 of 2) [facility] Start: 10-04-2032 DTaP/Tdap/Td Vaccine s (3 - Td or Tdap) DTaP/Tdap/Td Vaccines (3 - Td or Tdap) [facility] Start: 10-04-2032 Urine microalbumin profile [facility] Start: 07-01-2027 DTaP/Tdap/Td vaccine (2 - Td or Tdap) DTaP/Tdap/Td vaccine (2 - Td or Tdap) [facility] Start: 07-01-2027 DTaP/Tdap/Td vaccine (2 - Td) DTaP/Tdap/Td vaccine (2 - Td) [place] Start: 06-28-2025 [facility] Start: 06-06-2024 COVID-19 Vaccine ( season) COVID-19 Vaccine ( season) [facility] Start: 06-06-2024 Influenza vaccination S [facility] Start: 10-06-2023 Behavioral Health Screening Behavioral Health Screening [facility] Start: 06-06-2023 COVID-19 Vaccine ( season) COVID-19 Vaccine ( season) [facility] Start: 06-06-2023 Covid-19 Vaccine ( season) Covid-19 Vaccine ( season) [facility] Start: 06-06-2023 Influenza vaccination C [facility] Start: 10-06-2022 DEPRESSION ASSESSMENT DEPRESSION ASS ESSMENT [facility] Start: 06-06-2022 Influenza vaccination S [facility] Start: 04-04-2022 End: 04-04-2022 Patient encounter procedure 04/04/2022 Office Visit Internal Medicine Javed Bell MD [address] [id number] [facility] Start: 10-09-2021 COVID-19 VACCINE (3 - Booster for Moderna series) COVID-19 VACCINE (3 - Booster for Moderna series) [facility] Start: 2020 Diabetes screen Diabetes screen [facility] Start: 2020 Lipid panel Lipid Screening [facility] Start: 2020 LIPID SCREEN LIPID SCREEN [facility] Start: 06-06-2020 Influenza vaccination Flu vacc ine (Season Ended) [place] Start: 06-06-2019 Influenza vaccination Flu vaccine (# 1) [place] Start: 2004 Hepatitis B Vaccines (1 of 3 - 19+ 3-dose series) Hepatitis B Vaccines (1 of 3 - 19+ 3-dose series) [facility] Start: 2004 Pneumococcal Vaccine : Pediatrics (0 to 5 Years) and At-Risk Patients (6 to 49 Years) (1 of 2 - PCV) Pneumococcal Vaccine: Pediatrics (0 to 5 Years) and At-Risk Patients (6 to 49 Years) (1 of 2 - PCV) [facility] Start: 2003 Hepatitis C screening S [facility] Start: 2003 HEPATITIS C SCREENING HEPATITIS C SC REENING [facility] Start: 2003 HIV SCREENING HIV SCREENING [facility] Start: 2003 HIV screening HIV Screening [facility] Start: 2000 HIV screen HIV screen [facility] [place], [place] Start: 2000 [facility] [place] Start: 06-18-2000 Hepatitis B Vaccine (2 of 3 - 3-dose series) Hepatitis B Vaccine (2 of 3 - 3-dose series) [facility] Start: 1998 Varicella vaccination Varicell a Vaccines (1 of 2 - 13+ 2-dose series) [facility] Start: 1998 Varicella Vaccine (1 of 2 - 13+ 2-dose series) Varicella Vaccine (1 of 2 - 13+ 2-dose series) [place] Start: 1997 Depression Monitoring Depression Mon itoring [facility] Start: 1997 Depresssion Monitoring Depresssion M onitoring [facility] Start: 1991 PNEUMOCOCCAL (1 - PCV) PNEUMOCOCCAL (1 - PCV) [facility] Start: 1991 Pneumococcal 0-64 ye ars Vaccine (1 - PCV) Pneumococcal 0-64 years Vaccine (1 - PCV) [facility] Start: 1991 Pneumococcal 0-64 ye ars Vaccine (1 of 1 - PPSV23) Pneumococcal 0-64 years Vaccine (1 of 1 - PPSV23) [place] Start: 1991 Pneumococcal vaccination Pneumococcal Vaccine (1 of 2 - PCV) [facility] Start: 1991 Pneumococcal Vaccine : Pediatrics (0 to 5 Years) and At-Risk Patients (6 to 64 Years) (1 - PCV) Pneumococcal Vaccine: Pediatrics (0 to 5 Years) and At-Risk Patients (6 to 64 Years) (1 - PCV) [facility] Start: 1991 Pneumococcal Vaccine : Pediatrics (0 to 5 Years) and At-Risk Patients (6 to 64 Years) (1 of 2 - PCV) Pneumococcal Vaccine: Pediatrics (0 to 5 Years) and At-Risk Patients (6 to 64 Years) (1 of 2 - PCV) [facility] Start: 1990 COVID-19 Vaccine (1) COVID-19 Vaccin e (1) [facility] Start: 1986 MMR Vaccines (1 of 1 - Standard series) MMR Vaccines (1 of 1 - Standard series) [facility] Start: 1986 Varicella vaccination Varicell a Vaccines (1 of 2 - 2-dose childhood series) [facility] Start: 1986 Varicella vaccine (1 of 2 - 2-dose childhood series) Varicella vaccine (1 of 2 - 2-dose childhood series) [facility] Start: 01-24-1986 COVID-19 Vaccine (#1) COVID-19 Vacci ne (#1) [facility] Start: 1985 HEPATITIS B (1 of 3 - 3-dose series) HEPATITIS B (1 of 3 - 3-dose series) [facility] Start: 1985 Hepatitis B Vaccines (1 of 3 - 3-dose series) Hepatitis B Vaccines (1 of 3 - 3-dose series) [facility] Start: 1985 Lipid panel Lipid Panel [facility] End: 03-25-2022 Basic metabolic 2000 panel - Serum or Plasma Basic Metabolic Panel Lab Timed One Time for 1 Occurrences starting 03/25/2022 until 03/25/2022 [facility] Work Phone: Comment on above: One Time for 1 Occur rences starting 03/25/2022 until 03/25/2022 End: 03-25-2022 HIV Screen HIV Screen Lab Add-On One Time for 1 Occurrences starting 03/25/2022 until 03/25/2022 [facility] Work Phone: Comment on above: One Time for 1 Occur rences starting 03/25/2022 until 03/25/2022 Patient Education [facility] Gastroenteritis, Viral (Adult) [facility] Work Phone: XR HAND GENERAL 3V PA/LAT/OBL RIGHT XR HAND GENERAL 3V PA/LAT/OBL RIGHT Radiology Routine Closed displaced fracture of base of fifth metacarpal bone of right hand, sequela Ordered: 03/19/2023 [facility] Work Phone: Comment on above: [facility]: [facility] Immunization Date Immunization Notes Care Provider Tariq coombs 10-04-2022 tetanus toxoid, redu vimal diphtheria toxoid, and acellular pertussis vaccine, adsorbed [facility] Work Phone: [facility] 07-01-2017 tetanus toxoid, redu vimal diphtheria toxoid, and acellular pertussis vaccine, adsorbed [facility] Payers Date Payer Category Payer Self-pay 2022 Medicaid HMO [id number] 2022 Medicaid [id number] 2022 Medicaid [id number] 1985 Unknown [id number] 1985 Unknown [id number] 1985 Unknown [id number] 1985 Unknown [id number] 1959 Medicaid [id number] Unknown [id number] Social History Date Type Detail Facility Start: 03-05-2020 End: 06-28-2025 Tobacco smoking status NHIS Current every day smoker [place] Start: 03-05-2020 End: 09-24-2022 Cigarettes smoked current (pack per day) - Reported [facility] Start: 03-05-2020 End: 09-24-2022 Alcohol intake Current drinker of alcohol (finding) [facility] Work Phone: Start: 11-02-2015 Alcohol Comment seldom Aissatou Smith [place], [place] Start: 1985 Sex Assigned At Not on file M [place], [place] Exposure to SARS-CoV -2 (event) Unable to assess [place] Start: 02-21-2019 End: 09-24-2022 Alcohol intake Yes [facility] Start: 11-02-2015 End: 02-19-2023 Tobacco use and exposure Smokeless tobacco non-user [facility] Work Phone: Start: 03-14-2022 End: 11-04-2022 Exposure to SARS-CoV-2 (event) Not sure [facility] Start: 09-10-2018 Alcohol Comment yearly [facility] History of tobacco use Cigarette Smoker C [facility] How often to you hav e a drink containing alcohol? Never [facility] How many standard drinks containing alcohol do you have on a typical day? Patient does not drink [facility] Start: 1985 Sex assigned at Male S [facility] Start: 05-06-2022 Sex Male (finding) [facility] Start: 08-17-2024 Gender identity Identifies as male gender (finding) [facility] Start: 11-04-2022 History SDOH Alcohol Frequency 1 [facility] Start: 11-04-2022 History SDOH Alcohol Std Drinks 0 [facility] Clinical Notes 03-25-2022 to 06-28-2025 Dagoberto Kiser RN - 11/09/2024 8:33 PM Luz Marina Kiser RN - 11/09/2024 8:33 PM Fam Fisher MD - 11/09/2024 4:44 PM ESTDischarge InstructionsAttachmentsDischarge InstructionsAttachments Note Date & Type Note Facility 06-28-2025 Discharge summary [facility] 11-09-2024 Emergency department Note IV discontinued at this time due to discharge orders. IV was removed with no complications noted and cath fully intact. [facility] 11-09-2024 Emergency department Note IV discontinued at this time due to discharge orders. IV was removed with no complications noted and cath fully intact. [facility] EMERGENCY DEPT EMERGENCY DEPARTMENT ENCOUNTER Pt Name: Abdiel Alston Birthdate 1985 Date of evaluation: 11/09/2024 Provider: Selma Fisher MD CHIEF COMPLAINT Chief Complaint Patient presents with Headache Pt in with c/o headache, vomiting, weakness, and diarrhea for that started today. Vomiting HISTORY OF PRESENT ILLNESS I wore proper PPE for the entirety of this encounter. Abdiel Alston is a 39 y.o. male who presents to the emergency department with posterior headache, nausea, vomiting, cough and cold symptoms for 2 days. Patient says that he slipped yesterday and fell backwards and possibly hit his head without losing consciousness. Not on AC. Now having headache. Also notes photophobia. Cough is dry. Also with fatigue. Mild abdominal pain. Nursing Notes were reviewed. REVIEW OF SYSTEMS As above PAST MEDICAL HISTORY Past Medical History: Diagnosis Date Amblyopia Right eye Anxiety Depression GERD (gastroesophageal reflux disease) Nonintractable headache 12/01/2017 Schizo affective schizophrenia (HCC) Tobacco abuse SURGICAL HISTORY Past Surgical History: Procedure Laterality Date COSMETIC SURGERY due to dog attack, left side of face CURRENT MEDICATIONS Previous Medications CYCLOBENZAPRINE (FLEXERIL) 10 MG TABLET Take 1 tablet (10 mg) by mouth 2 times daily as needed for muscle spasms for up to 10 days. LIDOCAINE (LIDODERM) 5 % PATCH Apply 1 patch topically daily. Remove & discard patch within 12 hours or as directed by MD. PANTOPRAZOLE (PROTONIX) 20 MG EC TABLET Take 1 tablet (20 mg) by mouth daily. Do not crush, chew, or split. ALLERGIES Penicillins FAMILY HISTORY Family History Problem Relation Name Age of Onset Hypertension Mother Coronary artery disease Father Glaucoma Neg Hx Macular degeneration Neg Hx Blindness Maternal Grandfather Hypertension Father Diabetes Paternal Grandmother SOCIAL HISTORY Social History Socioeconomic History Marital status: Single Tobacco Use Smoking status: Every Day Current packs/day: 2.00 Types: Cigarettes Smokeless tobacco: Never Substance and Sexual Activity Alcohol use: Yes Drug use: Yes Frequency: 7.0 times per week Types: Marijuana SCREENINGS PHYSICAL EXAM ED Triage Vitals [11/09/24 1647] Temp Heart Rate Resp BP 36.8 C (98.2 F) 89 18 124/79 SpO2 Temp Source Heart Rate Source Patient Position 98 % Temporal Monitor -- BP Location FiO2 (%) -- -- Constitutional: No acute distress HEENT:Head: Atraumatic Eyes: Conjunctivae normal. PERRLA, EOMI ENT: Mucous membranes moist. Normal oropharynx Neck: No C-spine tenderness, normal ROM, supple CV: RRR RESP: CTAB, good respiratory effort, no increased wob GI: Abdomen soft, non-tender, non-distended, +BS, no guarding or rebound tenderness MSK: Normal bulk and tone, no gross deformity EXTR: Warm and well perfused, no edema SKIN: No rash/bruising/erythema PSYCH: Appropriate affect, cooperative behavior NEURO: Alert and oriented x 3, face symmetric, no slurred speech, CN2-12 intact, motor and sensory intact and equal bilaterally. No pronator drift. Cerebellar (finger-nose) normal. DIAGNOSTIC RESULTS Interpretation per the Radiologist below, if available at the time of this note: CT head wo IV contrast Final Result 1. No acute intracranial finding. Report Dictated on Electronically Signed By: Eugene Parsons MD Electronically Signed Date/Time: 11/09/2024 5:08 PM EST XR chest 1 view Final Result No acute cardiopulmonary process identified. Report Dictated on Electronically Signed By: Sid Pickett MD Electronically Signed Date/Time: 11/09/2024 5:01 PM EST LABS: Labs Reviewed CBC WITH AUTO DIFFERENTIAL - Abnormal Result Value Auto WBC 10.4 RBC 5.19 Hemoglobin 16.3 Hematocrit 47.4 MCV 91.3 MCH 31.4 MCHC 34.4 RDW 12.4 Platelets 341 MPV 8.8 (*) nRBC 0.0 Neutrophils Relative 61.2 Lymphocytes Relative 28.2 Monocytes Relative 7.1 Eosinophils Relative 2.4 Basophils Relative 0.6 Immature Grans % 0.5 Neutrophils Absolute 6.4 Lymphocytes Absolute 2.9 Monocytes Absolute 0.7 Eosinophils Absolute 0.3 Basophils Absolute 0.1 Immature Grans Absolute 0.1 (*) COMPREHENSIVE METABOLIC PANEL - Abnormal SODIUM 138 POTASSIUM 3.7 CHLORIDE 104 CARBON DIOXIDE 26 ANION GAP 8 UREA NITROGEN 4 (*) CREATININE 0.80 GLUCOSE 97 CALCIUM 9.7 AST (SGOT) 43 (*) ALT 62 (*) ALKALINE PHOSPHATASE 107 ALBUMIN 4.0 BILIRUBIN, TOTAL 0.3 TOTAL PROTEIN 7.1 eGFR >90.0 COMPLETE URINALYSIS - Abnormal Color, Urine Colorless Clarity, Urine Clear pH, Urine 7.0 Leukocytes, Urine 25 (*) Nitrite, Urine Negative Protein, Urine Negative Glucose, Urine Normal Bilirubin, Urine Negative Ketones, Urine Negative Urobilinogen, Urine Normal Blood, Urine Negative RBC, Urine 0-2 WBC, Urine 0-2 Squamous Epithelial, Urine 0-2 Bacteria, Urine Negative Hyaline Casts, Urine Negative SPECIFIC GRAVITY OF URINE (NUMERIC) 1.003 (*) SARS-COV-2, FLU A/B, AND RSV COMBO - Normal SARS-CoV-2 Not Detected Respiratory Syncytial Virus Not Detected Influenza A Not Detected Influenza B Not Detected Narrative: Methodology: real-time, RT-PCR LIPASE - Normal LIPASE 10 COMPLETE URINALYSIS WITH REFLEX TO CULTURE Narrative: The following orders were created for panel order Urinalysis Complete with reflex to Culture. Procedure Abnormality Status --------- ------ Complete Urinalysis[[id number]] Abnormal Final result Please view results for these tests on the individual orders. EMERGENCY DEPARTMENT COURSE and DIFFERENTIAL DIAGNOSIS/MDM: Vitals: Vitals: 11/09/24 1647 BP: 124/79 Pulse: 89 Resp: 18 Temp: 36.8 C (98.2 F) TempSrc: Temporal SpO2: 98% Medications diphenhydrAMINE (BENADryl) injection 25 mg (25 mg IntraVENous Not Given 11/09/241654) metoclopramide (Reglan) injection 10 mg (10 mg IntraVENous Given 11/09/241753) sodium chloride 0.9 % bolus 1,000 mL (1,000 mL IntraVENous New Bag 11/09/241753) acetaminophen (Tylenol) tablet 1,000 mg (1,000 mg Oral Given 11/09/241753) I personally saw the patient and performed a substantive portion of the visit including all aspects of the medical decision making. Patient appears nontoxic. Vital signs are normal. For headache and nausea, I ordered Reglan 10 mg IV. Also her headache, ordered Tylenol 1 g p.o., Benadryl IV, 1 L of IV fluids. CT head ordered to evaluate for acute bleed, cranial fracture, space occupying lesions is negative for acute bleed, cranial fracture, space occupying lesions on my interpretation. No acute abnormalities on the radiologist's final read. CMP overall unremarkable except for minimally elevated AST and ALT. CBC shows no leukocytosis. Lipase is normal. Urinalysis is overall unremarkable. Negative for COVID-19, influenza, RSV. CXR with no effusions, opacities, pneumothorax, pneumonia, heart failure with volume overload/pulmonary edema, displaced rib fracture, or large masses on my interpretation. No acute abnormalities on radiologist's final interpretation. This patient presents with symptoms suspicious for likely viral upper respiratory infection. Based on history and physical doubt sinusitis. COVID/Flu/RSV test is negative. Do not suspect underlying cardiopulmonary process. I considered, but think unlikely, dangerous causes of this patient s symptoms to include ACS, CHF or COPD exacerbations, pneumonia, pneumothorax. Patient is nontoxic appearing and not in need of emergent medical intervention. Discharged home in good condition. I discussed test results and plan with the patient. Diagnoses as of 11/09/242020 Acute nonintractable headache, unspecified headache type PROCEDURES: Unless otherwise noted below, none Procedures Patients symptoms are consistent with sepsis, severe sepsis, or septic shock (If yes use .sepsiscoremeasure): no FINAL IMPRESSION 1. Acute nonintractable headache, unspecified headache type DISPOSITION/PLAN Discharge 11/09/2024 07:21:33 PM PATIENT REFERRED TO: [facility] - [address] [facility] [address] DISCHARGE MEDICATIONS: New Prescriptions No medications on file (Please note: Portions of this note were completed with a voice recognition program. Efforts were made to edit the dictations but occasionally words and phrases are mis-transcribed.) Selma Fisher MD [facility] Emergency Medicine Physician Acute Care [facility] Selma Fisher MD 11/09/242020 documented in this encounter [facility] 11-09-2024 Hospital Discharg e instructions Selma Fisher MD - 11/09/2024 7:21 PM EST You were seen in the Emergency Department today for headache. The workup here, which included labs and a scan of your head, showed that your headaches are not caused by a dangerous condition. You can take Tylenol (1000 mg every 8 hours) as needed for pain and Motrin (400 mg every 6-8 hours) as needed for pain. You should also follow up soon with your primary care doctor for further evaluation. You should return to the ED if: -Your headache gets worse or changes in character -You begin to have vomiting with the headache -You pass out -You have changes in your vision -You have any other symptom that concerns you Please sign up for [facility] and review all results from your visit today. Please follow up with your primary care provider with any questions or concerns about your results today. Thank you for choosing [facility] for your care. Sincerely, Selma Fisher MD The following attachments cannot be sent through Care Everywhere.Headache, Adult ED ([place])documented in this encounter [facility] 11-09-2024 Physician Emergency department Note [facility] EMERGENCY DEPT EMERGENCY DEPARTMENT ENCOUNTER Pt Name: Abdiel Alston Birthdate 1985 Date of evaluation: 11/09/2024 Provider: Selma Fisher MD CHIEF COMPLAINT Chief Complaint Patient presents with Headache Pt in with c/o headache, vomiting, weakness, and diarrhea for that started today. Vomiting HISTORY OF PRESENT ILLNESS I wore proper PPE for the entirety of this encounter. Abdiel Alston is a 39 y.o. male who presents to the emergency department with posterior headache, nausea, vomiting, cough and cold symptoms for 2 days. Patient says that he slipped yesterday and fell backwards and possibly hit his head without losing consciousness. Not on AC. Now having headache. Also notes photophobia. Cough is dry. Also with fatigue. Mild abdominal pain. Nursing Notes were reviewed. REVIEW OF SYSTEMS As above PAST MEDICAL HISTORY Past Medical History: Diagnosis Date Amblyopia Right eye Anxiety Depression GERD (gastroesophageal reflux disease) Nonintractable headache 12/01/2017 Schizo affective schizophrenia (HCC) Tobacco abuse SURGICAL HISTORY Past Surgical History: Procedure Laterality Date COSMETIC SURGERY due to dog attack, left side of face CURRENT MEDICATIONS Previous Medications CYCLOBENZAPRINE (FLEXERIL) 10 MG TABLET Take 1 tablet (10 mg) by mouth 2 times daily as needed for muscle spasms for up to 10 days. LIDOCAINE (LIDODERM) 5 % PATCH Apply 1 patch topically daily. Remove & discard patch within 12 hours or as directed by MD. PANTOPRAZOLE (PROTONIX) 20 MG EC TABLET Take 1 tablet (20 mg) by mouth daily. Do not crush, chew, or split. ALLERGIES Penicillins FAMILY HISTORY Family History Problem Relation Name Age of Onset Hypertension Mother Coronary artery disease Father Glaucoma Neg Hx Macular degeneration Neg Hx Blindness Maternal Grandfather Hypertension Father Diabetes Paternal Grandmother SOCIAL HISTORY Social History Socioeconomic History Marital status: Single Tobacco Use Smoking status: Every Day Current packs/day: 2.00 Types: Cigarettes Smokeless tobacco: Never Substance and Sexual Activity Alcohol use: Yes Drug use: Yes Frequency: 7.0 times per week Types: Marijuana SCREENINGS PHYSICAL EXAM ED Triage Vitals [11/09/24 1647] Temp Heart Rate Resp BP 36.8 C (98.2 F) 89 18 124/79 SpO2 Temp Source Heart Rate Source Patient Position 98 % Temporal Monitor -- BP Location FiO2 (%) -- -- Constitutional: No acute distress HEENT:Head: Atraumatic Eyes: Conjunctivae normal. PERRLA, EOMI ENT: Mucous membranes moist. Normal oropharynx Neck: No C-spine tenderness, normal ROM, supple CV: RRR RESP: CTAB, good respiratory effort, no increased wob GI: Abdomen soft, non-tender, non-distended, +BS, no guarding or rebound tenderness MSK: Normal bulk and tone, no gross deformity EXTR: Warm and well perfused, no edema SKIN: No rash/bruising/erythema PSYCH: Appropriate affect, cooperative behavior NEURO: Alert and oriented x 3, face symmetric, no slurred speech, CN2-12 intact, motor and sensory intact and equal bilaterally. No pronator drift. Cerebellar (finger-nose) normal. DIAGNOSTIC RESULTS Interpretation per the Radiologist below, if available at the time of this note: CT head wo IV contrast Final Result 1. No acute intracranial finding. Report Dictated on Electronically Signed By: Eugene Parsons MD Electronically Signed Date/Time: 11/09/2024 5:08 PM EST XR chest 1 view Final Result No acute cardiopulmonary process identified. Report Dictated on Electronically Signed By: Sid Pickett MD Electronically Signed Date/Time: 11/09/2024 5:01 PM EST LABS: Labs Reviewed CBC WITH AUTO DIFFERENTIAL - Abnormal Result Value Auto WBC 10.4 RBC 5.19 Hemoglobin 16.3 Hematocrit 47.4 MCV 91.3 MCH 31.4 MCHC 34.4 RDW 12.4 Platelets 341 MPV 8.8 (*) nRBC 0.0 Neutrophils Relative 61.2 Lymphocytes Relative 28.2 Monocytes Relative 7.1 Eosinophils Relative 2.4 Basophils Relative 0.6 Immature Grans % 0.5 Neutrophils Absolute 6.4 Lymphocytes Absolute 2.9 Monocytes Absolute 0.7 Eosinophils Absolute 0.3 Basophils Absolute 0.1 Immature Grans Absolute 0.1 (*) COMPREHENSIVE METABOLIC PANEL - Abnormal SODIUM 138 POTASSIUM 3.7 CHLORIDE 104 CARBON DIOXIDE 26 ANION GAP 8 UREA NITROGEN 4 (*) CREATININE 0.80 GLUCOSE 97 CALCIUM 9.7 AST (SGOT) 43 (*) ALT 62 (*) ALKALINE PHOSPHATASE 107 ALBUMIN 4.0 BILIRUBIN, TOTAL 0.3 TOTAL PROTEIN 7.1 eGFR >90.0 COMPLETE URINALYSIS - Abnormal Color, Urine Colorless Clarity, Urine Clear pH, Urine 7.0 Leukocytes, Urine 25 (*) Nitrite, Urine Negative Protein, Urine Negative Glucose, Urine Normal Bilirubin, Urine Negative Ketones, Urine Negative Urobilinogen, Urine Normal Blood, Urine Negative RBC, Urine 0-2 WBC, Urine 0-2 Squamous Epithelial, Urine 0-2 Bacteria, Urine Negative Hyaline Casts, Urine Negative SPECIFIC GRAVITY OF URINE (NUMERIC) 1.003 (*) SARS-COV-2, FLU A/B, AND RSV COMBO - Normal SARS-CoV-2 Not Detected Respiratory Syncytial Virus Not Detected Influenza A Not Detected Influenza B Not Detected Narrative: Methodology: real-time, RT-PCR LIPASE - Normal LIPASE 10 COMPLETE URINALYSIS WITH REFLEX TO CULTURE Narrative: The following orders were created for panel order Urinalysis Complete with reflex to Culture. Procedure Abnormality Status --------- ------ Complete Urinalysis[[id number]] Abnormal Final result Please view results for these tests on the individual orders. EMERGENCY DEPARTMENT COURSE and DIFFERENTIAL DIAGNOSIS/MDM: Vitals: Vitals: 11/09/24 1647 BP: 124/79 Pulse: 89 Resp: 18 Temp: 36.8 C (98.2 F) TempSrc: Temporal SpO2: 98% Medications diphenhydrAMINE (BENADryl) injection 25 mg (25 mg IntraVENous Not Given 11/09/24 1655) metoclopramide (Reglan) injection 10 mg (10 mg IntraVENous Given 11/09/24 1754) sodium chloride 0.9 % bolus 1,000 mL (1,000 mL IntraVENous New Bag 11/09/24 1754) acetaminophen (Tylenol) tablet 1,000 mg (1,000 mg Oral Given 11/09/24 175) I personally saw the patient and performed a substantive portion of the visit including all aspects of the medical decision making. Patient appears nontoxic. Vital signs are normal. For headache and nausea, I ordered Reglan 10 mg IV. Also her headache, ordered Tylenol 1 g p.o., Benadryl IV, 1 L of IV fluids. CT head ordered to evaluate for acute bleed, cranial fracture, space occupying lesions is negative for acute bleed, cranial fracture, space occupying lesions on my interpretation. No acute abnormalities on the radiologist's final read. CMP overall unremarkable except for minimally elevated AST and ALT. CBC shows no leukocytosis. Lipase is normal. Urinalysis is overall unremarkable. Negative for COVID-19, influenza, RSV. CXR with no effusions, opacities, pneumothorax, pneumonia, heart failure with volume overload/pulmonary edema, displaced rib fracture, or large masses on my interpretation. No acute abnormalities on radiologist's final interpretation. This patient presents with symptoms suspicious for likely viral upper respiratory infection. Based on history and physical doubt sinusitis. COVID/Flu/RSV test is negative. Do not suspect underlying cardiopulmonary process. I considered, but think unlikely, dangerous causes of this patient s symptoms to include ACS, CHF or COPD exacerbations, pneumonia, pneumothorax. Patient is nontoxic appearing and not in need of emergent medical intervention. Discharged home in good condition. I discussed test results and plan with the patient. Diagnoses as of 11/09/242020 Acute nonintractable headache, unspecified headache type PROCEDURES: Unless otherwise noted below, none Procedures Patients symptoms are consistent with sepsis, severe sepsis, or septic shock (If yes use .sepsiscoremeasure): no FINAL IMPRESSION 1. Acute nonintractable headache, unspecified headache type DISPOSITION/PLAN Discharge 11/09/2024 07:21:33 PM PATIENT REFERRED TO: [facility] - [address] [address] DISCHARGE MEDICATIONS: New Prescriptions No medications on file (Please note: Portions of this note were completed with a voice recognition program. Efforts were made to edit the dictations but occasionally words and phrases are mis-transcribed.) Selma Fisher MD [facility] Emergency Medicine Physician Acute [facility] Selma Fisher MD 11/09/242020 [facility] 09-14-2024 Emergency department Note Shift report given to ronald mackey [facility] 09-14-2024 Emergency department Note Shift report given to ronald mackey Patient is calm and responsive to staff, breathing even and unlabored on RA. Bilateral side rails elevated, bed in low and locked position. Call light within reach and educated on use. No further need stated at this time. Emergency Department Encounter [facility] EMERGENCY DEPT Patient: Abdiel Alston : 1985 Date of Evaluation: 09/14/2024 ED Provider: Raphael Sylvester MD TRIAGE NOTE I independently examined and evaluated Abdiel Alston. I personally saw & evaluated the patient as the Clinician in Triage and performed a brief history and physical exam, established acuity, and ordered appropriate tests to develop basic plan of care. Patient will be seen by an [facility], resident and/or my physician partner who will independently evaluate the patient. Please see subsequent provider notes for further details and disposition Brief HPI: In brief, Abdiel Alston is a 39 y.o. male that presents for evaluation of near syncope headache. The patient is here with his fibin e who provided some of the history. He has a history of schizoaffective disorder just recently restarted on his lithium. He states he woke up around 8 this morning said he did not feel real well, was not specific to other than feeling a little bit nauseated and a mild headache. The fianc states that she had been out of the house visiting family came home around 10 AM said that he appeared to be fine he took the garbage out and on the way back and came into the house said that he was having a headache did not feel good and then appeared to fall forward onto his knees. He did not strike his head or lose consciousness but said that he felt weak and dizzy at that point. He did not want to come by ambulance so they waited for family member to pick him up in a car bring him to the ER here and I saw him at approximately 1:30 PM. Here now he is complaining of a mild diffuse headache nausea overall not feeling good he said his face feels tingling and numb. No change in vision hearing or speech no numbness or weakness of the extremities. He denies chest pain or abdominal pain. He states he has not been abusing any substances and he recently just restarted his lithium.. Focused Physical exam: EYES: Jasmin, EOMI, funduscopic exam normal NECK: Supple no rigidity or meningismus, no cervical adenopathy LUNGS: Breath sounds are equal, clear to auscultation, no wheeze retractions or cyanosis and no crackles present. HEART: Regular rate and rhythm no murmur or thrill or rub, strong heart tones ABDOMEN: Bowel sounds present, soft nontender no guarding or rebound liver and spleen are normal. NEURO: Cranial nerves II through XII are intact, motor and sensory exams are intact and normal, muscle strength is 5/5, deep tendon reflexes are 2/4, sensation to touch and pain is intact and normal, no ataxia, I did not ambulate him in the triage area as he said he was not comfortable at this point. No focal findings noted. NIH 0 Plan/MDM: Given his history will get a stroke B workup but I am going to do a lithium level and tox screens as well. ECG interpreted by me shows sinus tachycardia rate of 104 with no acute STEMI or ventricular arrhythmia. Please see subsequent provider note for further details and disposition Comment: Please note this report has been produced using speech recognition software and may contain errors related to that system including errors in grammar, punctuation, and spelling as well as words and phrases that may be inappropriate. If there are any questions or concerns please feel free to contact the dictating provider for clarification Raphael Sylvester MD [employer] Raphael Sylvester MD 09/14/24 1336 Raphael Sylvester MD 09/14/24 1343 EMERGENCY DEPARTMENT ENCOUNTER Pt Name: Abdiel Alston Birthdate 1985 Date of evaluation: 09/14/2024 ED Provider: Phyllis Beltre DO CHIEF COMPLAINT Chief Complaint Patient presents with Headache Patient presents to ED with complaint of headache, dizziness and facial numbness that started today, per family patient recently restarted medications one is lithium. Reports patient began experiencing nausea and vomiting over the weekend. Family reports patient patient had fall today also. HISTORY OF PRESENT ILLNESS (Location/Symptom, Timing/Onset, Context/Setting, Quality, Duration, Modifying Factors, Severity) Note limiting factors. ELIF Alston is a 39 y.o. male who presents to the emergency department with headache. Said that he got a headache, felt dizzy and then fell, hitting his head on the ground. Does not think that he lost consciousness. Says the headache is mild now, has always been varying degrees of mild, has never been worse than mild. This is are some differences compared to his usual migraine headaches. Has had some nausea without vomiting. He says the dizziness is gradually improving. Has had some paresthesias associated with this as well, thinks that this may be related to his lithium, as he has just restarted this. Denies any substance abuse. Nursing Notes were reviewed. REVIEW OF SYSTEMS All systems reviewed and negative except as noted above. PAST MEDICAL HISTORY Past Medical History: Diagnosis Date Amblyopia Right eye Anxiety Depression GERD (gastroesophageal reflux disease) Nonintractable headache 12/01/2017 Schizo affective schizophrenia (HCC) Tobacco abuse SURGICAL HISTORY Past Surgical History: Procedure Laterality Date COSMETIC SURGERY due to dog attack, left side of face CURRENT MEDICATIONS Previous Medications CYCLOBENZAPRINE (FLEXERIL) 10 MG TABLET Take 1 tablet (10 mg) by mouth 2 times daily as needed for muscle spasms for up to 10 days. LIDOCAINE (LIDODERM) 5 % PATCH Apply 1 patch topically daily. Remove & discard patch within 12 hours or as directed by MD. PANTOPRAZOLE (PROTONIX) 20 MG EC TABLET Take 1 tablet (20 mg) by mouth daily. Do not crush, chew, or split. ALLERGIES Penicillins FAMILY HISTORY Family History Problem Relation Name Age of Onset Hypertension Mother Coronary artery disease Father Glaucoma Neg Hx Macular degeneration Neg Hx Blindness Maternal Grandfather Hypertension Father Diabetes Paternal Grandmother SOCIAL HISTORY Social History Socioeconomic History Marital status: Single Tobacco Use Smoking status: Every Day Current packs/day: 2.00 Types: Cigarettes Smokeless tobacco: Never Substance and Sexual Activity Alcohol use: Yes Drug use: Yes Frequency: 7.0 times per week Types: Marijuana PHYSICAL EXAM ED Triage Vitals [09/14/24 1319] Temp Heart Rate Resp BP 37 C (98.6 F) 108 17 (!) 146/85 SpO2 Temp Source Heart Rate Source Patient Position 93 % Temporal Monitor -- BP Location FiO2 (%) -- -- General: Well-developed, well-nourished patient lying in bed who appears non-toxic. Head: Atraumatic, normocephalic. Eyes: Sclera anicteric. ENT: Mucous membranes moist. Neck: No midline tenderness. Heart: Regular rate and rhythm. Lungs: Clear to auscultation bilaterally. Normal respiratory pattern without conversational dyspnea or respiratory distress. Abdomen: Soft, non-tender, non-distended, no guarding or peritoneal signs. Neurologic: Awake and alert, normal speech and mental status. GCS 15. PERRL. CN intact. Moves all extremities with 5/5 strength, no downward drift. Sensation intact and symmetrical x 4. Subtle fatigable horizontal nystagmus with horizontal gaze. Normal test of skew. Cerebellar function intact. No focal deficits or lateralizing signs. Complete NIH exam completed, score is 0. Psychiatric: Mood and affect appropriate. Skin: Warm and dry, no appreciable rash. Musculoskeletal: No peripheral edema. No signs of DVT. DIAGNOSTIC RESULTS/EMERGENCY DEPARTMENT COURSE and DIFFERENTIAL DIAGNOSIS/MDM: Vitals: Vitals: 09/14/24 1319 09/14/24 1324 09/14/24 1622 09/14/24 1625 BP: (!) 146/85 (!) 127/91 Pulse: 108 91 Resp: 17 18 Temp: 37 C (98.6 F) 36.9 C (98.5 F) TempSrc: Temporal Oral SpO2: 93% 96% 96% Weight: 90.7 kg (200 lb) Height: 1.727 m (5' 8) EKG: EKG was reviewed by myself. Physician EKG interpretation can be found in [facility] LABS: Labs Reviewed CBC WITH AUTO DIFFERENTIAL - Abnormal Result Value Auto WBC 20.5 (*) RBC 5.43 Hemoglobin 17.1 Hematocrit 48.7 MCV 89.7 MCH 31.5 MCHC 35.1 RDW 12.1 Platelets 343 MPV 9.0 nRBC 0.0 Neutrophils Relative 82.3 (*) Lymphocytes Relative 10.9 (*) Monocytes Relative 5.8 Eosinophils Relative 0.2 Basophils Relative 0.3 Immature Grans % 0.5 Neutrophils Absolute 16.8 (*) Lymphocytes Absolute 2.2 Monocytes Absolute 1.2 (*) Eosinophils Absolute 0.1 Basophils Absolute 0.1 Immature Grans Absolute 0.1 (*) COMPREHENSIVE METABOLIC PANEL - Abnormal SODIUM 136 POTASSIUM 3.6 CHLORIDE 106 CARBON DIOXIDE 22 ANION GAP 8 UREA NITROGEN 4 (*) CREATININE 0.82 GLUCOSE 111 (*) CALCIUM 10.1 AST (SGOT) 32 ALT 45 (*) ALKALINE PHOSPHATASE 110 ALBUMIN 4.0 BILIRUBIN, TOTAL 0.5 TOTAL PROTEIN 7.6 eGFR >90.0 POCT GLUCOSE METER UNSOLICITED RESULTS - Abnormal Glucose 121 (*) Narrative: Performed by: [facility], [address] [place] [address] CLIA ID: [id number] HIGH SENSITIVITY TROPONIN, SERIAL BASELINE - Normal Troponin HS, Serial Baseline <3 PROTIME & APTT - Normal PROTHROMBIN TIME 10.8 INR 1.0 APTT 28.6 LITHIUM - Normal LITHIUM 0.87 Narrative: Values greater than 1.5 mmol/L at 12 hours post dose indicate a significant risk of toxicity. It is recommended that the maximum serum lithium level that should ideally never be exceeded is 1.0 - 1.2 mmol/L. ETHANOL - Normal ETHANOL IN SER/PLAS <10 Narrative: [employer]SEM[employer] depression is seen >100 mg/dL. NOTE: This result is for medical treatment only. Analysis performed using non-forensic procedures. COMPLETE URINALYSIS - Normal Color, Urine Yellow Clarity, Urine Clear pH, Urine 7.0 Leukocytes, Urine Negative Nitrite, Urine Negative Protein, Urine Negative Glucose, Urine Normal Bilirubin, Urine Negative Ketones, Urine Negative Urobilinogen, Urine Normal Blood, Urine Negative SPECIFIC GRAVITY OF URINE (NUMERIC) 1.005 COMPREHENSIVE METABOLIC PANEL WITH MG REFLEX Narrative: The following orders were created for panel order Comprehensive Metabolic Panel with Mg Reflex. Procedure Abnormality Status --------- ------ Comprehensive metabolic p...[[id number]] Abnormal Final result Please view results for these tests on the individual orders. DRUGS OF ABUSE AMPHETAMINE SCREEN Negative BARBITURATES SCREEN Negative BENZODIAZEPINE SCREEN Negative COCAINE METAB. SCREEN Negative METHADONE SCREEN Negative OPIATES SCREEN Negative OXYCODONE SCREEN Negative PHENCYCLIDINE SCREEN Negative FENTANYL SCREEN, UR QUAL Negative Narrative: The expected value for all of the drugs listed above is Negative. The following drugs or drug groups have been screened for by Immunoassay at the following thresholds: Amphetamine class (1000 ng/mL) Barbiturates (200 ng/mL) Benzodiazepines (200 ng/mL) Cocaine (300 ng/mL) Methadone (300 ng/mL) Opiates (300 ng/mL) Oxycodone (100 ng/mL) PCP (25 ng/mL) Fentanyl (1.0 ng/ml) NOTE: These results are for medical treatment only. Analysis performed using non-forensic procedures. POSITIVE results are NOT confirmed by a more specific alternative method unless requested. If confirmation is needed, request confirmation under separate order. COMPLETE URINALYSIS WITH REFLEX TO CULTURE Narrative: The following orders were created for panel order Urinalysis Complete with reflex to Culture. Procedure Abnormality Status --------- ------ Complete Urinalysis[[id number]] Normal Final result Please view results for these tests on the individual orders. HIGH SENSITIVITY TROPONIN, SERIAL, SECOND TEST Troponin HS, Serial Second <3 Troponin HS Delta, Baseline to Second POCT GLUCOSE METER All other labs were within normal range or not returned as of this dictation. Medical Decision Making History obtained from patient. Workup ordered from triage is negative other than a leukocytosis, a nonspecific finding, likely reactive. [place] level of 0.87. Social determinants of health affecting the patient's diagnosis and disposition include his marital situation with his . They are getting along well tonight, but apparently had a fairly intense argument when the symptoms started. CT was ordered from triage. There is no reason to suspect subarachnoid hemorrhage or meningitis. There is no fever, no confusion, no seizure activity, no nuchal rigidity. Headache is described as mild, was never severe, was not sudden in onset, did not start during exertion. Because these conditions were ruled out clinically, no LP is indicated in this patient. Medications administered in the ED include those listed below. Clinical impression: Headache; paresthesias and dizziness likely secondary to hyperventilation/anxiety Interpretation per the Radiologist below, if available at the time of this note: CT head wo IV contrast Final Result No CT evidence of acute intracranial abnormality. Report Dictated on Electronically Signed By: Gadiel Zavala MD Electronically Signed Date/Time: 09/14/2024 2:18 PM EST Medications sodium chloride 0.9% (NS) flush 5-40 mL (10 mL IntraVENous Given 09/14/24 1335) sodium chloride 0.9% (NS) flush 5-40 mL (has no administration in time range) sodium chloride 0.9 % infusion (has no administration in time range) sodium chloride 0.9 % infusion (50 mL/hr IntraVENous New Bag 09/14/24 1635) sodium chloride 0.9 % bolus 250 mL (0 mL IntraVENous Stopped 09/14/24 1727) prochlorperazine (Compazine) injection 10 mg (10 mg IntraVENous Given 09/14/24 1629) ketorolac (Toradol) injection 9.9 mg (9.9 mg IntraVENous Given 09/14/24 1629) PROCEDURES: Unless otherwise noted below, none Procedures FINAL IMPRESSION 1. Acute nonintractable headache, unspecified headache type 2. Anxiety PATIENT REFERRED TO: No follow-up provider specified. DISCHARGE MEDICATIONS: New Prescriptions No medications on file (Comment: Please note this report has been produced using speech recognition software and may contain errors related to that system including errors in grammar, punctuation, and spelling, as well as words and phrases that may be inappropriate. If there are any questions or concerns please feel free to contact the dictating provider for clarification.) Phyllis Beltre DO (electronically signed) Emergency Medicine Provider Phyllis Beltre DO 09/14/[id number] documented in this encounter [facility] 09-14-2024 Hospital Discharg e instructions Phyllis Beltre DO - 09/14/2024 7:12 PM EST Call your doctor in the morning to schedule follow up. Return to the ED for symptoms that persist, change or worsen, or if any other problems arise. The following attachments cannot be sent through [facility].Anxiety Discharge Instructions, Adult ([place])Headache Discharge Instructions, Adult ([place])documented in this encounter [facility] 09-14-2024 Emergency department Note Patient is calm and responsive to staff, breathing even and unlabored on RA. Bilateral side rails elevated, bed in low and locked position. Call light within reach and educated on use. No further need stated at this time. [facility] 09-14-2024 Physician Emergency department Note Emergency Department Encounter [facility] EMERGENCY DEPT Patient: Abdiel Alston : 1985 Date of Evaluation: 09/14/2024 ED Provider: Raphael Sylvester MD TRIAGE NOTE I independently examined and evaluated Abdiel Alston. I personally saw & evaluated the patient as the Clinician in Triage and performed a brief history and physical exam, established acuity, and ordered appropriate tests to develop basic plan of care. Patient will be seen by an [facility], resident and/or my physician partner who will independently evaluate the patient. Please see subsequent provider notes for further details and disposition Brief HPI: In brief, Abdiel Alston is a 39 y.o. male that presents for evaluation of near syncope headache. The patient is here with his fibin e who provided some of the history. He has a history of schizoaffective disorder just recently restarted on his lithium. He states he woke up around 8 this morning said he did not feel real well, was not specific to other than feeling a little bit nauseated and a mild headache. The fianc states that she had been out of the house visiting family came home around 10 AM said that he appeared to be fine he took the garbage out and on the way back and came into the house said that he was having a headache did not feel good and then appeared to fall forward onto his knees. He did not strike his head or lose consciousness but said that he felt weak and dizzy at that point. He did not want to come by ambulance so they waited for family member to pick him up in a car bring him to the ER here and I saw him at approximately 1:30 PM. Here now he is complaining of a mild diffuse headache nausea overall not feeling good he said his face feels tingling and numb. No change in vision hearing or speech no numbness or weakness of the extremities. He denies chest pain or abdominal pain. He states he has not been abusing any substances and he recently just restarted his lithium.. Focused Physical exam: EYES: Jasmin, EOMI, funduscopic exam normal NECK: Supple no rigidity or meningismus, no cervical adenopathy LUNGS: Breath sounds are equal, clear to auscultation, no wheeze retractions or cyanosis and no crackles present. HEART: Regular rate and rhythm no murmur or thrill or rub, strong heart tones ABDOMEN: Bowel sounds present, soft nontender no guarding or rebound liver and spleen are normal. NEURO: Cranial nerves II through XII are intact, motor and sensory exams are intact and normal, muscle strength is 5/5, deep tendon reflexes are 2/4, sensation to touch and pain is intact and normal, no ataxia, I did not ambulate him in the triage area as he said he was not comfortable at this point. No focal findings noted. NIH 0 Plan/MDM: Given his history will get a stroke B workup but I am going to do a lithium level and tox screens as well. ECG interpreted by me shows sinus tachycardia rate of 104 with no acute STEMI or ventricular arrhythmia. Please see subsequent provider note for further details and disposition Comment: Please note this report has been produced using speech recognition software and may contain errors related to that system including errors in grammar, punctuation, and spelling as well as words and phrases that may be inappropriate. If there are any questions or concerns please feel free to contact the dictating provider for clarification Raphael Sylvester MD [employer] Raphael Sylvester MD 09/14/24 1336 Raphael Sylvester MD 09/14/24 1343 [employer] Phone: 09-14-2024 Physician Emergency department Note EMERGENCY DEPARTMENT ENCOUNTER Pt Name: Abdiel Alston Birthdate 1985 Date of evaluation: 09/14/2024 ED Provider: Phyllis Beltre DO CHIEF COMPLAINT Chief Complaint Patient presents with Headache Patient presents to ED with complaint of headache, dizziness and facial numbness that started today, per family patient recently restarted medications one is lithium. Reports patient began experiencing nausea and vomiting over the weekend. Family reports patient patient had fall today also. HISTORY OF PRESENT ILLNESS (Location/Symptom, Timing/Onset, Context/Setting, Quality, Duration, Modifying Factors, Severity) Note limiting factors. HPI Abdiel Alston is a 39 y.o. male who presents to the emergency department with headache. Said that he got a headache, felt dizzy and then fell, hitting his head on the ground. Does not think that he lost consciousness. Says the headache is mild now, has always been varying degrees of mild, has never been worse than mild. This is are some differences compared to his usual migraine headaches. Has had some nausea without vomiting. He says the dizziness is gradually improving. Has had some paresthesias associated with this as well, thinks that this may be related to his lithium, as he has just restarted this. Denies any substance abuse. Nursing Notes were reviewed. REVIEW OF SYSTEMS All systems reviewed and negative except as noted above. PAST MEDICAL HISTORY Past Medical History: Diagnosis Date Amblyopia Right eye Anxiety Depression GERD (gastroesophageal reflux disease) Nonintractable headache 12/01/2017 Schizo affective schizophrenia (HCC) Tobacco abuse SURGICAL HISTORY Past Surgical History: Procedure Laterality Date COSMETIC SURGERY due to dog attack, left side of face CURRENT MEDICATIONS Previous Medications CYCLOBENZAPRINE (FLEXERIL) 10 MG TABLET Take 1 tablet (10 mg) by mouth 2 times daily as needed for muscle spasms for up to 10 days. LIDOCAINE (LIDODERM) 5 % PATCH Apply 1 patch topically daily. Remove & discard patch within 12 hours or as directed by MD. PANTOPRAZOLE (PROTONIX) 20 MG EC TABLET Take 1 tablet (20 mg) by mouth daily. Do not crush, chew, or split. ALLERGIES Penicillins FAMILY HISTORY Family History Problem Relation Name Age of Onset Hypertension Mother Coronary artery disease Father Glaucoma Neg Hx Macular degeneration Neg Hx Blindness Maternal Grandfather Hypertension Father Diabetes Paternal Grandmother SOCIAL HISTORY Social History Socioeconomic History Marital status: Single Tobacco Use Smoking status: Every Day Current packs/day: 2.00 Types: Cigarettes Smokeless tobacco: Never Substance and Sexual Activity Alcohol use: Yes Drug use: Yes Frequency: 7.0 times per week Types: Marijuana PHYSICAL EXAM ED Triage Vitals [09/14/24 1319] Temp Heart Rate Resp BP 37 C (98.6 F) 108 17 (!) 146/85 SpO2 Temp Source Heart Rate Source Patient Position 93 % Temporal Monitor -- BP Location FiO2 (%) -- -- General: Well-developed, well-nourished patient lying in bed who appears non-toxic. Head: Atraumatic, normocephalic. Eyes: Sclera anicteric. ENT: Mucous membranes moist. Neck: No midline tenderness. Heart: Regular rate and rhythm. Lungs: Clear to auscultation bilaterally. Normal respiratory pattern without conversational dyspnea or respiratory distress. Abdomen: Soft, non-tender, non-distended, no guarding or peritoneal signs. Neurologic: Awake and alert, normal speech and mental status. GCS 15. PERRL. CN intact. Moves all extremities with 5/5 strength, no downward drift. Sensation intact and symmetrical x 4. Subtle fatigable horizontal nystagmus with horizontal gaze. Normal test of skew. Cerebellar function intact. No focal deficits or lateralizing signs. Complete NIH exam completed, score is 0. Psychiatric: Mood and affect appropriate. Skin: Warm and dry, no appreciable rash. Musculoskeletal: No peripheral edema. No signs of DVT. DIAGNOSTIC RESULTS/EMERGENCY DEPARTMENT COURSE and DIFFERENTIAL DIAGNOSIS/MDM: Vitals: Vitals: 09/14/24 1319 09/14/24 1324 09/14/24 1622 09/14/24 1625 BP: (!) 146/85 (!) 127/91 Pulse: 108 91 Resp: 17 18 Temp: 37 C (98.6 F) 36.9 C (98.5 F) TempSrc: Temporal Oral SpO2: 93% 96% 96% Weight: 90.7 kg (200 lb) Height: 1.727 m (5' 8) EKG: EKG was reviewed by myself. Physician EKG interpretation can be found in [facility] LABS: Labs Reviewed CBC WITH AUTO DIFFERENTIAL - Abnormal Result Value Auto WBC 20.5 (*) RBC 5.43 Hemoglobin 17.1 Hematocrit 48.7 MCV 89.7 MCH 31.5 MCHC 35.1 RDW 12.1 Platelets 343 MPV 9.0 nRBC 0.0 Neutrophils Relative 82.3 (*) Lymphocytes Relative 10.9 (*) Monocytes Relative 5.8 Eosinophils Relative 0.2 Basophils Relative 0.3 Immature Grans % 0.5 Neutrophils Absolute 16.8 (*) Lymphocytes Absolute 2.2 Monocytes Absolute 1.2 (*) Eosinophils Absolute 0.1 Basophils Absolute 0.1 Immature Grans Absolute 0.1 (*) COMPREHENSIVE METABOLIC PANEL - Abnormal SODIUM 136 POTASSIUM 3.6 CHLORIDE 106 CARBON DIOXIDE 22 ANION GAP 8 UREA NITROGEN 4 (*) CREATININE 0.82 GLUCOSE 111 (*) CALCIUM 10.1 AST (SGOT) 32 ALT 45 (*) ALKALINE PHOSPHATASE 110 ALBUMIN 4.0 BILIRUBIN, TOTAL 0.5 TOTAL PROTEIN 7.6 eGFR >90.0 POCT GLUCOSE METER UNSOLICITED RESULTS - Abnormal Glucose 121 (*) Narrative: Performed by: [facility], [address] [place] [address] CLIA ID: [id number] HIGH SENSITIVITY TROPONIN, SERIAL BASELINE - Normal Troponin HS, Serial Baseline <3 PROTIME & APTT - Normal PROTHROMBIN TIME 10.8 INR 1.0 APTT 28.6 LITHIUM - Normal LITHIUM 0.87 Narrative: Values greater than 1.5 mmol/L at 12 hours post dose indicate a significant risk of toxicity. It is recommended that the maximum serum lithium level that should ideally never be exceeded is 1.0 - 1.2 mmol/L. ETHANOL - Normal ETHANOL IN SER/PLAS <10 Narrative: [employer]SEM[employer]ER depression is seen >100 mg/dL. NOTE: This result is for medical treatment only. Analysis performed using non-forensic procedures. COMPLETE URINALYSIS - Normal Color, Urine Yellow Clarity, Urine Clear pH, Urine 7.0 Leukocytes, Urine Negative Nitrite, Urine Negative Protein, Urine Negative Glucose, Urine Normal Bilirubin, Urine Negative Ketones, Urine Negative Urobilinogen, Urine Normal Blood, Urine Negative SPECIFIC GRAVITY OF URINE (NUMERIC) 1.005 COMPREHENSIVE METABOLIC PANEL WITH MG REFLEX Narrative: The following orders were created for panel order Comprehensive Metabolic Panel with Mg Reflex. Procedure Abnormality Status --------- ------ Comprehensive metabolic p...[[id number]] Abnormal Final result Please view results for these tests on the individual orders. DRUGS OF ABUSE AMPHETAMINE SCREEN Negative BARBITURATES SCREEN Negative BENZODIAZEPINE SCREEN Negative COCAINE METAB. SCREEN Negative METHADONE SCREEN Negative OPIATES SCREEN Negative OXYCODONE SCREEN Negative PHENCYCLIDINE SCREEN Negative FENTANYL SCREEN, UR QUAL Negative Narrative: The expected value for all of the drugs listed above is Negative. The following drugs or drug groups have been screened for by Immunoassay at the following thresholds: Amphetamine class (1000 ng/mL) Barbiturates (200 ng/mL) Benzodiazepines (200 ng/mL) Cocaine (300 ng/mL) Methadone (300 ng/mL) Opiates (300 ng/mL) Oxycodone (100 ng/mL) PCP (25 ng/mL) Fentanyl (1.0 ng/ml) NOTE: These results are for medical treatment only. Analysis performed using non-forensic procedures. POSITIVE results are NOT confirmed by a more specific alternative method unless requested. If confirmation is needed, request confirmation under separate order. COMPLETE URINALYSIS WITH REFLEX TO CULTURE Narrative: The following orders were created for panel order Urinalysis Complete with reflex to Culture. Procedure Abnormality Status --------- ------ Complete Urinalysis[[id number]] Normal Final result Please view results for these tests on the individual orders. HIGH SENSITIVITY TROPONIN, SERIAL, SECOND TEST Troponin HS, Serial Second <3 Troponin HS Delta, Baseline to Second POCT GLUCOSE METER All other labs were within normal range or not returned as of this dictation. Medical Decision Making History obtained from patient. Workup ordered from triage is negative other than a leukocytosis, a nonspecific finding, likely reactive. [place] level of 0.87. Social determinants of health affecting the patient's diagnosis and disposition include his marital situation with his . They are getting along well tonight, but apparently had a fairly intense argument when the symptoms started. CT was ordered from triage. There is no reason to suspect subarachnoid hemorrhage or meningitis. There is no fever, no confusion, no seizure activity, no nuchal rigidity. Headache is described as mild, was never severe, was not sudden in onset, did not start during exertion. Because these conditions were ruled out clinically, no LP is indicated in this patient. Medications administered in the ED include those listed below. Clinical impression: Headache; paresthesias and dizziness likely secondary to hyperventilation/anxiety Interpretation per the Radiologist below, if available at the time of this note: CT head wo IV contrast Final Result No CT evidence of acute intracranial abnormality. Report Dictated on Electronically Signed By: Gadiel Zavala MD Electronically Signed Date/Time: 09/14/2024 2:18 PM EST Medications sodium chloride 0.9% (NS) flush 5-40 mL (10 mL IntraVENous Given 09/14/24 0225) sodium chloride 0.9% (NS) flush 5-40 mL (has no administration in time range) sodium chloride 0.9 % infusion (has no administration in time range) sodium chloride 0.9 % infusion (50 mL/hr IntraVENous New Bag 09/14/24 1635) sodium chloride 0.9 % bolus 250 mL (0 mL IntraVENous Stopped 09/14/24 1727) prochlorperazine (Compazine) injection 10 mg (10 mg IntraVENous Given 09/14/24 1629) ketorolac (Toradol) injection 9.9 mg (9.9 mg IntraVENous Given 09/14/24 1629) PROCEDURES: Unless otherwise noted below, none Procedures FINAL IMPRESSION 1. Acute nonintractable headache, unspecified headache type 2. Anxiety PATIENT REFERRED TO: No follow-up provider specified. DISCHARGE MEDICATIONS: New Prescriptions No medications on file (Comment: Please note this report has been produced using speech recognition software and may contain errors related to that system including errors in grammar, punctuation, and spelling, as well as words and phrases that may be inappropriate. If there are any questions or concerns please feel free to contact the dictating provider for clarification.) Phyllis Beltre DO (electronically signed) Emergency Medicine Provider Phyllis Beltre DO 09/14/241913 [facility] 08-17-2024 Emergency department Note EMERGENCY DEPARTMENT ENCOUNTER Pt Name: Abdiel Alston Birthdate 1985 Date of evaluation: 08/17/2024 ED Provider: Pj Smith DO CHIEF COMPLAINT Chief Complaint Patient presents with Back Pain Pt reports severe back pain that started this am, pt has hx of chronic lower back pain but it worsened today. Denies injury, denies urinary concerns, pt ambulatory. HISTORY OF PRESENT ILLNESS (Location/Symptom, Timing/Onset, Context/Setting, Quality, Duration, Modifying Factors, Severity) Note limiting factors. I wore appropriate PPE for the entirety of this encounter. HPI Abdiel Alston is a 39 y.o. male who presents to the emergency department acute exacerbation of his chronic back pain. States he twisted getting out of bed today which seem to exacerbate the symptoms. Has pain shooting down his right leg. Has had sciatica down his right leg in the past. No loss of bowel or bladder continence, saddle anesthesias, weakness or numbness. No direct trauma to the back. No IV drug abuse history. No fevers. Nursing Notes were reviewed. REVIEW OF SYSTEMS 14 systems reviewed and otherwise acutely negative except as in the [place]. PAST MEDICAL HISTORY Past Medical History: Diagnosis Date Amblyopia Right eye Anxiety Depression GERD (gastroesophageal reflux disease) Nonintractable headache 12/01/2017 Schizo affective schizophrenia (HCC) Tobacco abuse SURGICAL HISTORY Past Surgical History: Procedure Laterality Date COSMETIC SURGERY due to dog attack, left side of face CURRENT MEDICATIONS Discharge Medication List as of 08/17/2024 8:26 PM CONTINUE these medications which have NOT CHANGED Details pantoprazole (ProtoNix) 20 MG EC tablet Take 1 tablet (20 mg) by mouth daily. Do not crush, chew, or split., Starting Fri12/29/2023, Until Fri01/28/2024, Print ALLERGIES Penicillins FAMILY HISTORY Family History Problem Relation Name Age of Onset Hypertension Mother Coronary artery disease Father Glaucoma Neg Hx Macular degeneration Neg Hx Blindness Maternal Grandfather Hypertension Father Diabetes Paternal Grandmother SOCIAL HISTORY Social History Socioeconomic History Marital status: Single Tobacco Use Smoking status: Every Day Current packs/day: 2.00 Types: Cigarettes Smokeless tobacco: Never Substance and Sexual Activity Alcohol use: Yes Drug use: Yes Frequency: 7.0 times per week Types: Marijuana SCREENINGS PHYSICAL EXAM ED Triage Vitals [08/17/24 2017] Temp Heart Rate Resp BP 36.6 C (97.8 F) 98 17 130/86 SpO2 Temp Source Heart Rate Source Patient Position 98 % Temporal Monitor Sitting BP Location FiO2 (%) Right arm -- CONSTITUTIONAL: AOx4, no apparent distress, appears stated age HEAD: normocephalic, atraumatic EYES: PERRL, EOMI ENT: moist mucous membranes, uvula midline NECK: supple, symmetric BACK: symmetric, mild midline right paraspinal tenderness to palpation LUNGS: clear to auscultation bilaterally CARDIOVASCULAR: regular rate and rhythm ABDOMEN: soft, non-tender, non-distended with normal active bowel sounds : deferred NEUROLOGIC: MAEx4, no focal sensory or motor deficits MUSCULOSKELETAL: no clubbing, cyanosis or edema, positive straight leg raise on the right, strength sensation intact throughout the right lower extremity SKIN: no exposed rash DIAGNOSTIC RESULTS Procedures/EKG: EKG was reviewed by myself. Physician EKG interpretation can be found in [facility] RADIOLOGY (Per Emergency Physician): Interpretation per the Radiologist below, if available at the time of this note: No orders to display ED BEDSIDE ULTRASOUND: Performed by ED Physician - none LABS: Labs Reviewed - No data to display All other labs were within normal range or not returned as of this dictation. EMERGENCY DEPARTMENT COURSE and DIFFERENTIAL DIAGNOSIS/MDM: Vitals: Vitals: 08/17/242016 BP: 130/86 BP Location: Right arm Patient Position: Sitting Pulse: 98 Resp: 17 Temp: 36.6 C (97.8 F) TempSrc: Temporal SpO2: 98% Weight: 90.7 kg (200 lb) Height: 1.727 m (5' 8) EMERGENCY DEPARTMENT COURSE and DIFFERENTIAL DIAGNOSIS/MDM: Vitals: Vitals: 08/17/242016 BP: 130/86 BP Location: Right arm Patient Position: Sitting Pulse: 98 Resp: 17 Temp: 36.6 C (97.8 F) TempSrc: Temporal SpO2: 98% Weight: 90.7 kg (200 lb) Height: 1.727 m (5' 8) The patient presented with a chief complaint of right-sided low back pain with sciatica. The differential diagnosis associated with this patient's presentation includes right-sided low back pain with sciatica no alarm symptoms low suspicion for cauda equina or abscess. Our workup consisted of ordering/reviewing physical exam which was consistent with sciatica. Given Toradol muscle relaxer lidocaine patches steroid taper.. Diagnoses as of 08/17/242229 Acute exacerbation of chronic low back pain Right sided sciatica Diagnostic tests considered but not performed: External records reviewed: Diagnostics interpreted by me: Discussions with other clinicians: Chronic conditions impacting care: Social determinants of health affecting care: ED Medications managed: Medications Lidocaine 4 % patch 1 patch (1 patch TransDERmal Medication Applied 08/17/242030) ketorolac (Toradol) injection 30 mg (30 mg IntraMUSCular Given 08/17/242029) orphenadrine (Norflex) injection 60 mg (60 mg IntraMUSCular Given 08/17/242029) predniSONE (Deltasone) tablet 50 mg (50 mg Oral Given 08/17/242030) CONSULTS: None PROCEDURES: Unless otherwise noted below, none Procedures Patients symptoms are consistent with sepsis, severe sepsis, or septic shock (If yes use .sepsiscoremeasure): FINAL IMPRESSION 1. Acute exacerbation of chronic low back pain 2. Right sided sciatica DISPOSITION/PLAN dc PATIENT REFERRED TO: [facility] [address] [facility] [phone] Schedule an appointment as soon as possible for a visit DISCHARGE MEDICATIONS: Discharge Medication List as of 08/17/2024 8:26 PM START taking these medications Details cyclobenzaprine (Flexeril) 10 MG tablet Take 1 tablet (10 mg) by mouth 2 times daily as needed for muscle spasms for up to 10 days., Starting Fri08/17/2024, Until Fri08/27/2024 at 2359, Normal lidocaine (Lidoderm) 5 % patch Apply 1 patch topically daily. Remove & discard patch within 12 hours or as directed by MD., Starting Fri08/17/2024, Normal predniSONE (Deltasone) 10 MG tablet Multiple Dosages:Starting Fri08/17/2024, Until Dorota 08/19/2024 at 2359, THEN Starting 08/20/2024, Until 08/22/2024 at 2359, THEN Starting 08/23/2024, Until 08/25/2024 at 2359, THEN Starting Dorota 08/26/2024, Until 08/28/2024 at 2359 Take 4 tablets (40 mg) by mouth daily for 3 days, THEN 3 tablets (30 mg) daily for 3 days, THEN 2 tablets (20 mg) daily for 3 days, THEN 1 tablet (10 mg) daily for 3 days., Normal (Comment: Please note this report has been produced using speech recognition software and may contain errors related to that system including errors in grammar, punctuation, and spelling, as well as words and phrases that may be inappropriate. If there are any questions or concerns please feel free to contact the dictating provider for clarification.) Pj Smith DO (electronically signed) Emergency Medicine Provider Pj Smith DO 08/17/242230 documented in this encounter [facility] 08-17-2024 Physician Emergency department Note EMERGENCY DEPARTMENT ENCOUNTER Pt Name: Abdiel Alston Birthdate 1985 Date of evaluation: 08/17/2024 ED Provider: Pj Smith DO CHIEF COMPLAINT Chief Complaint Patient presents with Back Pain Pt reports severe back pain that started this am, pt has hx of chronic lower back pain but it worsened today. Denies injury, denies urinary concerns, pt ambulatory. HISTORY OF PRESENT ILLNESS (Location/Symptom, Timing/Onset, Context/Setting, Quality, Duration, Modifying Factors, Severity) Note limiting factors. I wore appropriate PPE for the entirety of this encounter. HPI Abdiel Alston is a 39 y.o. male who presents to the emergency department acute exacerbation of his chronic back pain. States he twisted getting out of bed today which seem to exacerbate the symptoms. Has pain shooting down his right leg. Has had sciatica down his right leg in the past. No loss of bowel or bladder continence, saddle anesthesias, weakness or numbness. No direct trauma to the back. No IV drug abuse history. No fevers. Nursing Notes were reviewed. REVIEW OF SYSTEMS 14 systems reviewed and otherwise acutely negative except as in the [place]. PAST MEDICAL HISTORY Past Medical History: Diagnosis Date Amblyopia Right eye Anxiety Depression GERD (gastroesophageal reflux disease) Nonintractable headache 12/01/2017 Schizo affective schizophrenia (HCC) Tobacco abuse SURGICAL HISTORY Past Surgical History: Procedure Laterality Date COSMETIC SURGERY due to dog attack, left side of face CURRENT MEDICATIONS Discharge Medication List as of 08/17/2024 8:26 PM CONTINUE these medications which have NOT CHANGED Details pantoprazole (ProtoNix) 20 MG EC tablet Take 1 tablet (20 mg) by mouth daily. Do not crush, chew, or split., Starting Fri12/29/2023, Until Fri01/28/2024, Print ALLERGIES Penicillins FAMILY HISTORY Family History Problem Relation Name Age of Onset Hypertension Mother Coronary artery disease Father Glaucoma Neg Hx Macular degeneration Neg Hx Blindness Maternal Grandfather Hypertension Father Diabetes Paternal Grandmother SOCIAL HISTORY Social History Socioeconomic History Marital status: Single Tobacco Use Smoking status: Every Day Current packs/day: 2.00 Types: Cigarettes Smokeless tobacco: Never Substance and Sexual Activity Alcohol use: Yes Drug use: Yes Frequency: 7.0 times per week Types: Marijuana SCREENINGS PHYSICAL EXAM ED Triage Vitals [08/17/24 2017] Temp Heart Rate Resp BP 36.6 C (97.8 F) 98 17 130/86 SpO2 Temp Source Heart Rate Source Patient Position 98 % Temporal Monitor Sitting BP Location FiO2 (%) Right arm -- CONSTITUTIONAL: AOx4, no apparent distress, appears stated age HEAD: normocephalic, atraumatic EYES: PERRL, EOMI ENT: moist mucous membranes, uvula midline NECK: supple, symmetric BACK: symmetric, mild midline right paraspinal tenderness to palpation LUNGS: clear to auscultation bilaterally CARDIOVASCULAR: regular rate and rhythm ABDOMEN: soft, non-tender, non-distended with normal active bowel sounds : deferred NEUROLOGIC: MAEx4, no focal sensory or motor deficits MUSCULOSKELETAL: no clubbing, cyanosis or edema, positive straight leg raise on the right, strength sensation intact throughout the right lower extremity SKIN: no exposed rash DIAGNOSTIC RESULTS Procedures/EKG: EKG was reviewed by myself. Physician EKG interpretation can be found in [facility] RADIOLOGY (Per Emergency Physician): Interpretation per the Radiologist below, if available at the time of this note: No orders to display ED BEDSIDE ULTRASOUND: Performed by ED Physician - none LABS: Labs Reviewed - No data to display All other labs were within normal range or not returned as of this dictation. EMERGENCY DEPARTMENT COURSE and DIFFERENTIAL DIAGNOSIS/MDM: Vitals: Vitals: 08/17/242016 BP: 130/86 BP Location: Right arm Patient Position: Sitting Pulse: 98 Resp: 17 Temp: 36.6 C (97.8 F) TempSrc: Temporal SpO2: 98% Weight: 90.7 kg (200 lb) Height: 1.727 m (5' 8) EMERGENCY DEPARTMENT COURSE and DIFFERENTIAL DIAGNOSIS/MDM: Vitals: Vitals: 08/17/242016 BP: 130/86 BP Location: Right arm Patient Position: Sitting Pulse: 98 Resp: 17 Temp: 36.6 C (97.8 F) TempSrc: Temporal SpO2: 98% Weight: 90.7 kg (200 lb) Height: 1.727 m (5' 8) The patient presented with a chief complaint of right-sided low back pain with sciatica. The differential diagnosis associated with this patient's presentation includes right-sided low back pain with sciatica no alarm symptoms low suspicion for cauda equina or abscess. Our workup consisted of ordering/reviewing physical exam which was consistent with sciatica. Given Toradol muscle relaxer lidocaine patches steroid taper.. Diagnoses as of 08/17/242229 Acute exacerbation of chronic low back pain Right sided sciatica Diagnostic tests considered but not performed: External records reviewed: Diagnostics interpreted by me: Discussions with other clinicians: Chronic conditions impacting care: Social determinants of health affecting care: ED Medications managed: Medications Lidocaine 4 % patch 1 patch (1 patch TransDERmal Medication Applied 08/17/242030) ketorolac (Toradol) injection 30 mg (30 mg IntraMUSCular Given 08/17/242029) orphenadrine (Norflex) injection 60 mg (60 mg IntraMUSCular Given 08/17/242029) predniSONE (Deltasone) tablet 50 mg (50 mg Oral Given 08/17/242030) CONSULTS: None PROCEDURES: Unless otherwise noted below, none Procedures Patients symptoms are consistent with sepsis, severe sepsis, or septic shock (If yes use .sepsiscoremeasure): FINAL IMPRESSION 1. Acute exacerbation of chronic low back pain 2. Right sided sciatica DISPOSITION/PLAN dc PATIENT REFERRED TO: [facility] [address] [place] [phone] Schedule an appointment as soon as possible for a visit DISCHARGE MEDICATIONS: Discharge Medication List as of 08/17/2024 8:26 PM START taking these medications Details cyclobenzaprine (Flexeril) 10 MG tablet Take 1 tablet (10 mg) by mouth 2 times daily as needed for muscle spasms for up to 10 days., Starting Fri08/17/2024, Until Fri08/27/2024 at 2359, Normal lidocaine (Lidoderm) 5 % patch Apply 1 patch topically daily. Remove & discard patch within 12 hours or as directed by MD., Starting Fri08/17/2024, Normal predniSONE (Deltasone) 10 MG tablet Multiple Dosages:Starting Fri08/17/2024, Until Dorota 08/19/2024 at 2359, THEN Starting Fri08/20/2024, Until 08/22/2024 at 2359, THEN Starting 08/23/2024, Until 08/25/2024 at 2359, THEN Starting Dorota 08/26/2024, Until 08/28/2024 at 2359 Take 4 tablets (40 mg) by mouth daily for 3 days, THEN 3 tablets (30 mg) daily for 3 days, THEN 2 tablets (20 mg) daily for 3 days, THEN 1 tablet (10 mg) daily for 3 days., Normal (Comment: Please note this report has been produced using speech recognition software and may contain errors related to that system including errors in grammar, punctuation, and spelling, as well as words and phrases that may be inappropriate. If there are any questions or concerns please feel free to contact the dictating provider for clarification.) Pj Smith DO (electronically signed) Emergency Medicine Provider Pj Smith DO 08/17/242230 [facility] 02-01-2024 Hospital Discharg e instructions Carine Jaramillo PA-C - 02/01/2024 6:50 PM EDT Return to the ER with new or worsening symptoms including uncontrolled pain, numbness or weakness of your foot or leg, or inability to walk. Follow-up with orthopedics for continued evaluation and treatment of your knee pain. Take naproxen as prescribed for pain control. The following attachments cannot be sent through Care Everywhere.Chronic Knee Pain ([place])documented in this encounter [facility] 02-01-2024 Emergency department Note EMERGENCY DEPARTMENT ENCOUNTER Pt Name: Abdiel Alston Birthdate 1985 Date of evaluation: 02/01/2024 ED Provider: Carine Jaramillo PA-C Patient seen independently within my scope of practice with an Emergency Medicine attending available for supervision. CHIEF COMPLAINT Chief Complaint Patient presents with Knee Pain Started hurting 3 days ago. No noted injuries. Hurts when lying down. Unable to sleep due to the pain HISTORY OF PRESENT ILLNESS (Location/Symptom, Timing/Onset, Context/Setting, Quality, Duration, Modifying Factors, Severity) Note limiting factors. I wore appropriate PPE for the entirety of this encounter. HPI Abdiel Alston is a 38 y.o. who presents to the emergency department with complaint of right knee pain. Patient said that his knee has hurt his entire life. Over the last couple of days the pain has been getting worse. Patient says that he previously saw a sports medicine doctor who told him that he had arthritis in this leg, however he never followed up with the specialist. He has not had any new recent injuries or traumas. No numbness or weakness of the extremity. No redness, with, or skin changes. Nursing Notes were reviewed. Limitations to history: None Outside historians: None REVIEW OF SYSTEMS Review of Systems Constitutional: Negative for chills and fever. HENT: Negative for congestion. Respiratory: Negative for cough and shortness of breath. Cardiovascular: Negative for chest pain. Gastrointestinal: Negative for abdominal pain, nausea and vomiting. Genitourinary: Negative for dysuria and hematuria. Musculoskeletal: Negative for arthralgias and myalgias. Right knee pain Skin: Negative for color change and rash. Neurological: Negative for dizziness and syncope. Hematological: Negative. All other systems reviewed and are negative. Pertinent positives and negatives as per HPI. PAST MEDICAL HISTORY Past Medical History: Diagnosis Date Amblyopia Right eye Anxiety Depression GERD (gastroesophageal reflux disease) Nonintractable headache 12/01/2017 Schizo affective schizophrenia (HCC) Tobacco abuse SURGICAL HISTORY Past Surgical History: Procedure Laterality Date COSMETIC SURGERY due to dog attack, left side of face CURRENT MEDICATIONS Previous Medications PANTOPRAZOLE (PROTONIX) 20 MG EC TABLET Take 1 tablet (20 mg) by mouth daily. Do not crush, chew, or split. ALLERGIES Penicillins FAMILY HISTORY Family History Problem Relation Name Age of Onset Hypertension Mother Coronary artery disease Father Glaucoma Neg Hx Macular degeneration Neg Hx Blindness Maternal Grandfather Hypertension Father Diabetes Paternal Grandmother SOCIAL HISTORY Social History Socioeconomic History Marital status: Single Tobacco Use Smoking status: Every Day Packs/day: 2 Types: Cigarettes Smokeless tobacco: Never Substance and Sexual Activity Alcohol use: Yes Drug use: Yes Frequency: 7.0 times per week Types: Marijuana SCREENINGS PHYSICAL EXAM ED Triage Vitals [02/01/24 1556] Temp Heart Rate Resp BP 36.9 C (98.4 F) 81 16 127/78 SpO2 Temp Source Heart Rate Source Patient Position 98 % Temporal Monitor -- BP Location FiO2 (%) -- -- Physical Exam Vitals and nursing note reviewed. Constitutional: General: He is not in acute distress. Appearance: He is well-developed. Cardiovascular: Rate and Rhythm: Normal rate and regular rhythm. Pulses: Normal pulses. Heart sounds: Normal heart sounds. Pulmonary: Effort: Pulmonary effort is normal. No respiratory distress. Breath sounds: Normal breath sounds. Abdominal: General: There is no distension. Palpations: Abdomen is soft. Tenderness: There is no abdominal tenderness. There is no guarding or rebound. Musculoskeletal: Comments: No evidence of edema, erythema, or skin changes noted to the right knee. No evidence of gross deformity or trauma. No wounds. Normal range of motion however he does have some associated pain with flexion and extension of the knee. Strength is 5-5 in hip flexion extension, knee flexion extension, and plantar dorsiflexion. He has palpable distal pulse brisk capillary fill. Sensation is intact to light touch. No calf pain or tenderness. Skin: General: Skin is warm and dry. Capillary Refill: Capillary refill takes less than 2 seconds. Neurological: Mental Status: He is alert and oriented to person, place, and time. Psychiatric: Mood and Affect: Mood normal. Behavior: Behavior normal. DIAGNOSTIC RESULTS RADIOLOGY (Per Emergency Physician): Interpretation per the Radiologist below, if available at the time of this note: XR knee 3 views right (Results Pending) LABS: Labs Reviewed - No data to display All other labs were within normal range or not returned as of this dictation. EMERGENCY DEPARTMENT COURSE and DIFFERENTIAL DIAGNOSIS/MDM: Vitals: Vitals: 02/01/24 1555 02/01/24 1556 BP: 127/78 Pulse: 81 Resp: 16 Temp: 36.9 C (98.4 F) TempSrc: Temporal SpO2: 98% Weight: 83.9 kg (185 lb) Height: 1.676 m (5' 6) Medications ketorolac (Toradol) injection 15 mg (has no administration in time range) MDM elements: The patient presented with chief complaint of chronic right knee pain. On examination patient is alert, oriented, no acute distress but vital signs are stable markable. No erythema or edema of the knee joint. Patient ambulatory. No calf pain or swelling. No sign of injury or trauma. Neurovascular intact.. The differential diagnosis associated with this patient's presentation includes chronic knee pain, arthritis. Low suspicion for fracture, dislocation, or infection. Our workup consisted of ordering/reviewing: X-ray evaluation without sign of acute fracture or dislocation. Patient provided with Toradol and on reevaluation reports that his pain is improved. Suspicion for infection, effusion, or DVT or trauma. Patient will be advised return precautions and discharged in stable condition with orthopedic follow-up.. The patient will be Discharged. Patient is in agreement with this plan. PROCEDURES: Unless otherwise noted below, none Procedures CRITICAL CARE TIME FINAL IMPRESSION No diagnosis found. DISPOSITION PATIENT REFERRED TO: No follow-up provider specified. DISCHARGE MEDICATIONS: New Prescriptions No medications on file (Comment: Please note this report has been produced using speech recognition software and may contain errors related to that system including errors in grammar, punctuation, and spelling, as well as words and phrases that may be inappropriate. If there are any questions or concerns please feel free to contact the dictating provider for clarification.) Carine Jaramillo PA-C (electronically signed) Emergency Medicine Provider Carine Jaramillo PA-C 02/01/241900 documented in this encounter [facility] 02-01-2024 Physician Emergency department Note EMERGENCY DEPARTMENT ENCOUNTER Pt Name: Abdiel Alston Birthdate 1985 Date of evaluation: 02/01/2024 ED Provider: Carine Jaramillo PA-C Patient seen independently within my scope of practice with an Emergency Medicine attending available for supervision. CHIEF COMPLAINT Chief Complaint Patient presents with Knee Pain Started hurting 3 days ago. No noted injuries. Hurts when lying down. Unable to sleep due to the pain HISTORY OF PRESENT ILLNESS (Location/Symptom, Timing/Onset, Context/Setting, Quality, Duration, Modifying Factors, Severity) Note limiting factors. I wore appropriate PPE for the entirety of this encounter. HPI Abdiel Alston is a 38 y.o. who presents to the emergency department with complaint of right knee pain. Patient said that his knee has hurt his entire life. Over the last couple of days the pain has been getting worse. Patient says that he previously saw a sports medicine doctor who told him that he had arthritis in this leg, however he never followed up with the specialist. He has not had any new recent injuries or traumas. No numbness or weakness of the extremity. No redness, with, or skin changes. Nursing Notes were reviewed. Limitations to history: None Outside historians: None REVIEW OF SYSTEMS Review of Systems Constitutional: Negative for chills and fever. HENT: Negative for congestion. Respiratory: Negative for cough and shortness of breath. Cardiovascular: Negative for chest pain. Gastrointestinal: Negative for abdominal pain, nausea and vomiting. Genitourinary: Negative for dysuria and hematuria. Musculoskeletal: Negative for arthralgias and myalgias. Right knee pain Skin: Negative for color change and rash. Neurological: Negative for dizziness and syncope. Hematological: Negative. All other systems reviewed and are negative. Pertinent positives and negatives as per HPI. PAST MEDICAL HISTORY Past Medical History: Diagnosis Date Amblyopia Right eye Anxiety Depression GERD (gastroesophageal reflux disease) Nonintractable headache 12/01/2017 Schizo affective schizophrenia (HCC) Tobacco abuse SURGICAL HISTORY Past Surgical History: Procedure Laterality Date COSMETIC SURGERY due to dog attack, left side of face CURRENT MEDICATIONS Previous Medications PANTOPRAZOLE (PROTONIX) 20 MG EC TABLET Take 1 tablet (20 mg) by mouth daily. Do not crush, chew, or split. ALLERGIES Penicillins FAMILY HISTORY Family History Problem Relation Name Age of Onset Hypertension Mother Coronary artery disease Father Glaucoma Neg Hx Macular degeneration Neg Hx Blindness Maternal Grandfather Hypertension Father Diabetes Paternal Grandmother SOCIAL HISTORY Social History Socioeconomic History Marital status: Single Tobacco Use Smoking status: Every Day Packs/day: 2 Types: Cigarettes Smokeless tobacco: Never Substance and Sexual Activity Alcohol use: Yes Drug use: Yes Frequency: 7.0 times per week Types: Marijuana SCREENINGS PHYSICAL EXAM ED Triage Vitals [02/01/24 1556] Temp Heart Rate Resp BP 36.9 C (98.4 F) 81 16 127/78 SpO2 Temp Source Heart Rate Source Patient Position 98 % Temporal Monitor -- BP Location FiO2 (%) -- -- Physical Exam Vitals and nursing note reviewed. Constitutional: General: He is not in acute distress. Appearance: He is well-developed. Cardiovascular: Rate and Rhythm: Normal rate and regular rhythm. Pulses: Normal pulses. Heart sounds: Normal heart sounds. Pulmonary: Effort: Pulmonary effort is normal. No respiratory distress. Breath sounds: Normal breath sounds. Abdominal: General: There is no distension. Palpations: Abdomen is soft. Tenderness: There is no abdominal tenderness. There is no guarding or rebound. Musculoskeletal: Comments: No evidence of edema, erythema, or skin changes noted to the right knee. No evidence of gross deformity or trauma. No wounds. Normal range of motion however he does have some associated pain with flexion and extension of the knee. Strength is 5-5 in hip flexion extension, knee flexion extension, and plantar dorsiflexion. He has palpable distal pulse brisk capillary fill. Sensation is intact to light touch. No calf pain or tenderness. Skin: General: Skin is warm and dry. Capillary Refill: Capillary refill takes less than 2 seconds. Neurological: Mental Status: He is alert and oriented to person, place, and time. Psychiatric: Mood and Affect: Mood normal. Behavior: Behavior normal. DIAGNOSTIC RESULTS RADIOLOGY (Per Emergency Physician): Interpretation per the Radiologist below, if available at the time of this note: XR knee 3 views right (Results Pending) LABS: Labs Reviewed - No data to display All other labs were within normal range or not returned as of this dictation. EMERGENCY DEPARTMENT COURSE and DIFFERENTIAL DIAGNOSIS/MDM: Vitals: Vitals: 02/01/24 1555 02/01/24 1556 BP: 127/78 Pulse: 81 Resp: 16 Temp: 36.9 C (98.4 F) TempSrc: Temporal SpO2: 98% Weight: 83.9 kg (185 lb) Height: 1.676 m (5' 6) Medications ketorolac (Toradol) injection 15 mg (has no administration in time range) MDM elements: The patient presented with chief complaint of chronic right knee pain. On examination patient is alert, oriented, no acute distress but vital signs are stable markable. No erythema or edema of the knee joint. Patient ambulatory. No calf pain or swelling. No sign of injury or trauma. Neurovascular intact.. The differential diagnosis associated with this patient's presentation includes chronic knee pain, arthritis. Low suspicion for fracture, dislocation, or infection. Our workup consisted of ordering/reviewing: X-ray evaluation without sign of acute fracture or dislocation. Patient provided with Toradol and on reevaluation reports that his pain is improved. Suspicion for infection, effusion, or DVT or trauma. Patient will be advised return precautions and discharged in stable condition with orthopedic follow-up.. The patient will be Discharged. Patient is in agreement with this plan. PROCEDURES: Unless otherwise noted below, none Procedures CRITICAL CARE TIME FINAL IMPRESSION No diagnosis found. DISPOSITION PATIENT REFERRED TO: No follow-up provider specified. DISCHARGE MEDICATIONS: New Prescriptions No medications on file (Comment: Please note this report has been produced using speech recognition software and may contain errors related to that system including errors in grammar, punctuation, and spelling, as well as words and phrases that may be inappropriate. If there are any questions or concerns please feel free to contact the dictating provider for clarification.) Carine Jaramillo PA-C (electronically signed) Emergency Medicine Provider Carine Jaramillo PA-C 02/01/241900 [facility] 12-29-2023 Hospital Discharg e instructions TESFAYE Dean - 12/29/2023 6:33 PM EDT Please start taking Protonix as prescribed. Please follow-up urgently with GI for reevaluation and possible endoscopy. Return to the ED with any new or worsening symptoms. In the medical field, there is always a level of diagnostic uncertainty, even if this uncertainty is low. For this reason, it is important to immediately return to the emergency department if you have any new symptoms, worsening symptoms, change of symptoms, or if you have any other concerns. We would be happy to re-evaluate you. Otherwise, please take your medications as prescribed and follow-up as recommended. The following attachments cannot be sent through Care Everywhere.Dysphagia Discharge Instructions ([place])documented in this encounter [facility] 12-29-2023 Emergency department Note Emergency Department Encounter [facility] EMERGENCY DEPT Patient: Abdiel Alston : 1985 Date of Evaluation: 12/29/2023 ED Provider: Braden Dominguez MD I saw the patient as the Clinician in Triage and performed a brief history and physical exam, established acuity, and ordered appropriate tests to develop basic plan of care. Patient will be seen by KATE, resident and/or my physician partner who will evaluate the patient. I wore appropriate PPE for the entirety of this encounter. Brief HPI: In brief, Abdiel Alston is a 38 y.o. that presents with chief complaint of chief complaint of trouble swallowing solids. States that he an tolerate liquids. Denies any chest pain or shortness of breath. States he misses worse over the last couple weeks. Per chart review patient had a similar presentation in March 2022 was evaluated by gastroenterology at that time. Endoscopy was performed with grade a esophagitis and mild bulbar erythema and erosions. Focused Physical exam: 38-year-old male. Symmetric posterior pharynx. Uvula midline. Normal phonation. No trismus. No mandibular fullness. Normal range of motion neck. No palpable lymphadenopathy. Tolerating secretions without difficulty. Able to tolerate liquids. Exam is negative for obstruction. Negative for acute infection. Abdomen soft nontender. Lungs clear to auscultation Plan/MDM: Treat with Maalox with referral to gastroenterology for outpatient evaluation. Please see subsequent provider note for further details and disposition (Comment: Please note this report has been produced using speech recognition software and may contain errors related to that system including errors in grammar, punctuation, and spelling as well as words and phrases that may be inappropriate. If there are any questions or concerns please feel free to contact the dictating provider for clarification) Braden Dominguez MD Acute Care [facility] Braden Dominguez MD 12/29/23 1604 EMERGENCY DEPARTMENT ENCOUNTER Pt Name: Abdiel Alston Birthdate 1985 Date of evaluation: 12/29/2023 ED Provider: TESFAYE Dean CHIEF COMPLAINT Chief Complaint Patient presents with Sore Throat Started 2 weeks ago, pt states that when coughing it feels like something comes up into throat but then goes back down after coughing. Feels like foreign object. Pt does smoke HISTORY OF PRESENT ILLNESS (Location/Symptom, Timing/Onset, Context/Setting, Quality, Duration, Modifying Factors, Severity) Note limiting factors. I wore appropriate PPE for the entirety of this encounter. HPI Abdiel Alston is a 38 y.o. male who presents to the emergency department for evaluation of difficulty swallowing solids. Patient reports that he is able to tolerate liquids appropriately and without difficulty. States that he is still able to swallow solids although he is having some difficulty. Denies any chest pain or shortness of breath. Denies any nausea or vomiting. Reports that the symptoms have been worsening over the past several weeks. Patient reports that he has been dealing with this for the past 3 years. Per chart review patient had similar presentation in March 2022 and was evaluated by gastroenterology. EGD done at that time showed grade a esophagitis with mild bulbar erythema and erosions with no other acute abnormalities noted. Patient states that he has not been on any GERD medication at this time. Denies any fever or chills. Patient tolerating oral secretions appropriately. Nursing Notes were reviewed. Limitations to history: None Outside historians: None REVIEW OF SYSTEMS Review of Systems 6 systems reviewed, positives and pertinent negatives as per HPI. All other systems were reviewed and are negative. PAST MEDICAL HISTORY Past Medical History: Diagnosis Date Amblyopia Right eye Anxiety Depression GERD (gastroesophageal reflux disease) Nonintractable headache 12/01/2017 Schizo affective schizophrenia (HCC) Tobacco abuse SURGICAL HISTORY Past Surgical History: Procedure Laterality Date COSMETIC SURGERY due to dog attack, left side of face CURRENT MEDICATIONS Discharge Medication List as of 12/29/2023 6:35 PM ALLERGIES Penicillins FAMILY HISTORY Family History Problem Relation Name Age of Onset Hypertension Mother Coronary artery disease Father Glaucoma Neg Hx Macular degeneration Neg Hx Blindness Maternal Grandfather Hypertension Father Diabetes Paternal Grandmother SOCIAL HISTORY Social History Socioeconomic History Marital status: Single Tobacco Use Smoking status: Every Day Packs/day: 2 Types: Cigarettes Smokeless tobacco: Never Substance and Sexual Activity Alcohol use: Yes Drug use: Yes Frequency: 7.0 times per week Types: Marijuana SCREENINGS PHYSICAL EXAM ED Triage Vitals [12/29/23 1433] Temp Heart Rate Resp BP 37.2 C (98.9 F) (!) 111 15 116/86 SpO2 Temp Source Heart Rate Source Patient Position 97 % Temporal Monitor -- BP Location FiO2 (%) -- -- Physical Exam Vitals and nursing note reviewed. Constitutional: General: He is not in acute distress. Appearance: He is not toxic-appearing. Comments: 38-year-old male who does not appear to be in acute distress or discomfort. HENT: Head: Normocephalic and atraumatic. Mouth/Throat: Comments: Posterior oropharynx is moist, clear, patent. Floor the mouth is soft. Patient is tolerating oral secretions appropriately Cardiovascular: Rate and Rhythm: Normal rate and regular rhythm. Heart sounds: Normal heart sounds. Pulmonary: Effort: Pulmonary effort is normal. Breath sounds: Normal breath sounds. Abdominal: Comments: Abdomen is soft and nonrigid. No tenderness palpation of abdomen diffusely. No guarding or rebound tenderness is noted. Musculoskeletal: Cervical back: Normal range of motion and neck supple. Skin: General: Skin is warm and dry. Capillary Refill: Capillary refill takes less than 2 seconds. Neurological: General: No focal deficit present. Mental Status: He is alert and oriented to person, place, and time. Psychiatric: Mood and Affect: Mood normal. DIAGNOSTIC RESULTS RADIOLOGY (Per Emergency Physician): Interpretation per the Radiologist below, if available at the time of this note: No orders to display LABS: Labs Reviewed - No data to display All other labs were within normal range or not returned as of this dictation. EMERGENCY DEPARTMENT COURSE and DIFFERENTIAL DIAGNOSIS/MDM: Vitals: Vitals: 12/29/23 1433 12/29/23 1828 BP: 116/86 139/87 Pulse: (!) 111 76 Resp: 15 20 Temp: 37.2 C (98.9 F) TempSrc: Temporal SpO2: 97% 99% Medications aluminum & magnesium hydroxide-simethicone (Mylanta) 200-200-20 MG/5ML oral suspension 20 mL (20 mL Oral Given 12/29/23 1607) ED care was supervised by Dr. Dominguez who independently examined and evaluated the patient. Please see their attestation note for further details. In brief, Abdiel Alston is a 38 y.o. male who presented to the emergency department for evaluation of difficulty tolerating solid intake. See HPI further details. Nursing notes and medical records reviewed, patient was seen 2021 for the same symptoms. EGD done at that time showed grade 8 esophagitis with no other signs of an abnormality. Differential considerations included esophageal stricture, achalasia, food impaction. Initial medical management includes Maalox given in ED. Patient tolerated Maalox appropriately. Patient is still tolerating oral secretions appropriately on reevaluation. Initial workup includes no initial workup was indicated in the ED at this time. Chronic conditions contributing to patients presentation include history of dysphagia, GERD, tobacco use. Social determinants to care: none noted. Diagnosis dysphagia. Disposition discharge home stable. Patient is tolerating oral secretions appropriately. Patient is conversing with no difficulty. No evidence of shortness of breath noted. Do feel as if patient is experiencing some mild dysphagia and can appropriately follow-up outpatient with gastroenterology. Patient will be started on pantoprazole. Urgent referral to gastroenterology placed. Discussed ED return precautions, recommended consulting their primary doctor or returning to the ED if there are any new or worsening of symptoms, particularly worsening dysphagia, inability tolerate oral secretions. Follow-up with gastroenterology outpatient for further evaluation management of dysphagia. PROCEDURES: Unless otherwise noted below, none Procedures FINAL IMPRESSION 1. Dysphagia, unspecified type DISPOSITION Discharge 12/29/2023 06:32:29 PM PATIENT REFERRED TO: [facility] [address] [facility] [address] [place] [id number] DISCHARGE MEDICATIONS: Discharge Medication List as of 12/29/2023 6:35 PM START taking these medications Details pantoprazole (ProtoNix) 20 MG EC tablet Take 1 tablet (20 mg) by mouth daily. Do not crush, chew, or split., Starting 12/29/2023, Until Fri01/28/2024, Print (Comment: Please note this report has been produced using speech recognition software and may contain errors related to that system including errors in grammar, punctuation, and spelling, as well as words and phrases that may be inappropriate. If there are any questions or concerns please feel free to contact the dictating provider for clarification.) TESFAYE Dean (electronically signed) Emergency Medicine Provider TESFAYE Dean 12/29/23 5307 documented in this encounter [facility] 12-29-2023 Physician Emergency department Note Emergency Department Encounter [facility] EMERGENCY DEPT Patient: Abdiel Alston : 1985 Date of Evaluation: 12/29/2023 ED Provider: Braden Dominguez MD I saw the patient as the Clinician in Triage and performed a brief history and physical exam, established acuity, and ordered appropriate tests to develop basic plan of care. Patient will be seen by KATE, resident and/or my physician partner who will evaluate the patient. I wore appropriate PPE for the entirety of this encounter. Brief HPI: In brief, Abdiel Alston is a 38 y.o. that presents with chief complaint of chief complaint of trouble swallowing solids. States that he an tolerate liquids. Denies any chest pain or shortness of breath. States he misses worse over the last couple weeks. Per chart review patient had a similar presentation in March 2022 was evaluated by gastroenterology at that time. Endoscopy was performed with grade a esophagitis and mild bulbar erythema and erosions. Focused Physical exam: 38-year-old male. Symmetric posterior pharynx. Uvula midline. Normal phonation. No trismus. No mandibular fullness. Normal range of motion neck. No palpable lymphadenopathy. Tolerating secretions without difficulty. Able to tolerate liquids. Exam is negative for obstruction. Negative for acute infection. Abdomen soft nontender. Lungs clear to auscultation Plan/MDM: Treat with Maalox with referral to gastroenterology for outpatient evaluation. Please see subsequent provider note for further details and disposition (Comment: Please note this report has been produced using speech recognition software and may contain errors related to that system including errors in grammar, punctuation, and spelling as well as words and phrases that may be inappropriate. If there are any questions or concerns please feel free to contact the dictating provider for clarification) Braden Dominguez MD Acute Care [facility] Braden Dominguez MD 12/29/23 1604 [employer] Phone: 12-29-2023 Physician Emergency department Note EMERGENCY DEPARTMENT ENCOUNTER Pt Name: Abdiel Alston Birthdate 1985 Date of evaluation: 12/29/2023 ED Provider: TESFAYE Dean CHIEF COMPLAINT Chief Complaint Patient presents with Sore Throat Started 2 weeks ago, pt states that when coughing it feels like something comes up into throat but then goes back down after coughing. Feels like foreign object. Pt does smoke HISTORY OF PRESENT ILLNESS (Location/Symptom, Timing/Onset, Context/Setting, Quality, Duration, Modifying Factors, Severity) Note limiting factors. I wore appropriate PPE for the entirety of this encounter. HPI Abdiel Alston is a 38 y.o. male who presents to the emergency department for evaluation of difficulty swallowing solids. Patient reports that he is able to tolerate liquids appropriately and without difficulty. States that he is still able to swallow solids although he is having some difficulty. Denies any chest pain or shortness of breath. Denies any nausea or vomiting. Reports that the symptoms have been worsening over the past several weeks. Patient reports that he has been dealing with this for the past 3 years. Per chart review patient had similar presentation in March 2022 and was evaluated by gastroenterology. EGD done at that time showed grade a esophagitis with mild bulbar erythema and erosions with no other acute abnormalities noted. Patient states that he has not been on any GERD medication at this time. Denies any fever or chills. Patient tolerating oral secretions appropriately. Nursing Notes were reviewed. Limitations to history: None Outside historians: None REVIEW OF SYSTEMS Review of Systems 6 systems reviewed, positives and pertinent negatives as per HPI. All other systems were reviewed and are negative. PAST MEDICAL HISTORY Past Medical History: Diagnosis Date Amblyopia Right eye Anxiety Depression GERD (gastroesophageal reflux disease) Nonintractable headache 12/01/2017 Schizo affective schizophrenia (HCC) Tobacco abuse SURGICAL HISTORY Past Surgical History: Procedure Laterality Date COSMETIC SURGERY due to dog attack, left side of face CURRENT MEDICATIONS Discharge Medication List as of 12/29/2023 6:35 PM ALLERGIES Penicillins FAMILY HISTORY Family History Problem Relation Name Age of Onset Hypertension Mother Coronary artery disease Father Glaucoma Neg Hx Macular degeneration Neg Hx Blindness Maternal Grandfather Hypertension Father Diabetes Paternal Grandmother SOCIAL HISTORY Social History Socioeconomic History Marital status: Single Tobacco Use Smoking status: Every Day Packs/day: 2 Types: Cigarettes Smokeless tobacco: Never Substance and Sexual Activity Alcohol use: Yes Drug use: Yes Frequency: 7.0 times per week Types: Marijuana SCREENINGS PHYSICAL EXAM ED Triage Vitals [12/29/23 1433] Temp Heart Rate Resp BP 37.2 C (98.9 F) (!) 111 15 116/86 SpO2 Temp Source Heart Rate Source Patient Position 97 % Temporal Monitor -- BP Location FiO2 (%) -- -- Physical Exam Vitals and nursing note reviewed. Constitutional: General: He is not in acute distress. Appearance: He is not toxic-appearing. Comments: 38-year-old male who does not appear to be in acute distress or discomfort. HENT: Head: Normocephalic and atraumatic. Mouth/Throat: Comments: Posterior oropharynx is moist, clear, patent. Floor the mouth is soft. Patient is tolerating oral secretions appropriately Cardiovascular: Rate and Rhythm: Normal rate and regular rhythm. Heart sounds: Normal heart sounds. Pulmonary: Effort: Pulmonary effort is normal. Breath sounds: Normal breath sounds. Abdominal: Comments: Abdomen is soft and nonrigid. No tenderness palpation of abdomen diffusely. No guarding or rebound tenderness is noted. Musculoskeletal: Cervical back: Normal range of motion and neck supple. Skin: General: Skin is warm and dry. Capillary Refill: Capillary refill takes less than 2 seconds. Neurological: General: No focal deficit present. Mental Status: He is alert and oriented to person, place, and time. Psychiatric: Mood and Affect: Mood normal. DIAGNOSTIC RESULTS RADIOLOGY (Per Emergency Physician): Interpretation per the Radiologist below, if available at the time of this note: No orders to display LABS: Labs Reviewed - No data to display All other labs were within normal range or not returned as of this dictation. EMERGENCY DEPARTMENT COURSE and DIFFERENTIAL DIAGNOSIS/MDM: Vitals: Vitals: 12/29/23 1433 12/29/23 1828 BP: 116/86 139/87 Pulse: (!) 111 76 Resp: 15 20 Temp: 37.2 C (98.9 F) TempSrc: Temporal SpO2: 97% 99% Medications aluminum & magnesium hydroxide-simethicone (Mylanta) 200-200-20 MG/5ML oral suspension 20 mL (20 mL Oral Given 12/29/23 1607) ED care was supervised by Dr. Dominguez who independently examined and evaluated the patient. Please see their attestation note for further details. In brief, Abdiel Alston is a 38 y.o. male who presented to the emergency department for evaluation of difficulty tolerating solid intake. See HPI further details. Nursing notes and medical records reviewed, patient was seen 2021 for the same symptoms. EGD done at that time showed grade 8 esophagitis with no other signs of an abnormality. Differential considerations included esophageal stricture, achalasia, food impaction. Initial medical management includes Maalox given in ED. Patient tolerated Maalox appropriately. Patient is still tolerating oral secretions appropriately on reevaluation. Initial workup includes no initial workup was indicated in the ED at this time. Chronic conditions contributing to patients presentation include history of dysphagia, GERD, tobacco use. Social determinants to care: none noted. Diagnosis dysphagia. Disposition discharge home stable. Patient is tolerating oral secretions appropriately. Patient is conversing with no difficulty. No evidence of shortness of breath noted. Do feel as if patient is experiencing some mild dysphagia and can appropriately follow-up outpatient with gastroenterology. Patient will be started on pantoprazole. Urgent referral to gastroenterology placed. Discussed ED return precautions, recommended consulting their primary doctor or returning to the ED if there are any new or worsening of symptoms, particularly worsening dysphagia, inability tolerate oral secretions. Follow-up with gastroenterology outpatient for further evaluation management of dysphagia. PROCEDURES: Unless otherwise noted below, none Procedures FINAL IMPRESSION 1. Dysphagia, unspecified type DISPOSITION Discharge 12/29/2023 06:32:29 PM PATIENT REFERRED TO: [facility] [address] [facility] [address] DISCHARGE MEDICATIONS: Discharge Medication List as of 12/29/2023 6:35 PM START taking these medications Details pantoprazole (ProtoNix) 20 MG EC tablet Take 1 tablet (20 mg) by mouth daily. Do not crush, chew, or split., Starting 12/29/2023, Until Fri01/28/2024, Print (Comment: Please note this report has been produced using speech recognition software and may contain errors related to that system including errors in grammar, punctuation, and spelling, as well as words and phrases that may be inappropriate. If there are any questions or concerns please feel free to contact the dictating provider for clarification.) TESFAYE Dean (electronically signed) Emergency Medicine Provider TESFAYE Dean 12/29/23 1858 [facility] 03-19-2023 Note HNO ID: [id number] Author: Vamshi Powers APRN.LEAD CASE MANAGER Service: ? Author Type: Nurse Practitioner Type: Progress Notes Filed: 03/19/2023 2:39 PM Note Text: Hand Clinic Follow-up Note Prior Hx: Last seen 02/19/23: R 5th intra articular base fx sustained on 02/13/23. Last visit he was placed into a cast. Here today for 5 week follow up. Interval Hx: States he has been doing well. Minimal to no pain. Some stiffness. Has been compliant in his cast as well as non weight bearing. Denies any numbness/tingling. Overall improved swelling. Exam: Right hand: No open wounds, resolved ecchymosis Improved swelling to dorsal/ulnar hand Minimal pain with palpation over base 5th MC Able to fully flex/extend all fingers, able to make full composite fist. Decreased wrist extension, near full flexion and supination of wrist Sensation intact to light touch to all distal fingertips; Radial, ulnar, median motor grossly intact. Imaging: XR right hand Intra articular base of 5th MC fracture, no subluxation or dislocation of CMC. No further displacement or angulation. Shortening of 5th MC. Assessment/Plan: (L98.310S) Closed displaced fracture of base of fifth metacarpal bone of right hand, sequela (primary encounter diagnosis) Imaging reviewed with patient. Signs of healing and no further displacement and angulation. We will place him in a removable cock up wrist brace today. He is ok to work on finger and wrist range of motion as tolerated. We recommend no lifting, pushing, or pulling x 2-3 more weeks. He is then ok to wean out of the splint and begin gentle weight bearing. NSAIDs and tylenol for pain control. Continue elevation. He can then go back to all activities. He will follow up as needed with any concerns or worsening. Patient verbalized understanding and agrees with plan of care. Medical Decision Making: Problems: Moderate: Acute complicated injury Data: Unique test result(s) reviewed: 1 Unique test(s) ordered: 1 Risk: Low: Low risk from testing/treatment Medical Decision Making Level: 3 - Low Vamshi Powers APRN.[facility] Hand Surgery [facility] 03-19-2023 History of Presen t illness Narrative Hand Clinic Follow-up Note Prior Hx: Last seen 02/19/23: R 5th MC intra articular base fx sustained on 02/13/23. Last visit he was placed into a cast. Here today for 5 week follow up. Interval Hx: States he has been doing well. Minimal to no pain. Some stiffness. Has been compliant in his cast as well as non weight bearing. Denies any numbness/tingling. Overall improved swelling. Exam: Right hand: No open wounds, resolved ecchymosis Improved swelling to dorsal/ulnar hand Minimal pain with palpation over base 5th MC Able to fully flex/extend all fingers, able to make full composite fist. Decreased wrist extension, near full flexion and supination of wrist Sensation intact to light touch to all distal fingertips; Radial, ulnar, median motor grossly intact. Imaging: XR right hand Intra articular base of 5th MC fracture, no subluxation or dislocation of CMC. No further displacement or angulation. Shortening of 5th MC. Assessment/Plan: (A63.522Z) Closed displaced fracture of base of fifth metacarpal bone of right hand, sequela (primary encounter diagnosis) Imaging reviewed with patient. Signs of healing and no further displacement and angulation. We will place him in a removable cock up wrist brace today. He is ok to work on finger and wrist range of motion as tolerated. We recommend no lifting, pushing, or pulling x 2-3 more weeks. He is then ok to wean out of the splint and begin gentle weight bearing. NSAIDs and tylenol for pain control. Continue elevation. He can then go back to all activities. He will follow up as needed with any concerns or worsening. Patient verbalized understanding and agrees with plan of care. Medical Decision Making: Problems: Moderate: Acute complicated injury Data: Unique test result(s) reviewed: 1 Unique test(s) ordered: 1 Risk: Low: Low risk from testing/treatment Medical Decision Making Level: 3 - Low Vamshi Powers APRN.[facility] Hand Surgery documented in this encounter [facility] 02-26-2023 Note HNO ID: [id number] Author: SHANTA FLORES Tech Service: ? Author Type: Sanitation Associate Type: Progress Notes Filed: 02/09/2024 08:55 Note Text: PT ASSESSMENT - CASTING ROOM Abdiel presents for Application of cast. Applied/Re-applied Short Arm Cast to Right arm Patient has been instructed in The patient and/or family member have been instructed in the following: Do not get cast wet, or place/stick anything inside the cast. The patient was instructed to be NWB on right arm. Care of cast. Care and proper application of brace.. Patient to keep follow up appointment as scheduled. Abdiel returned to clinic for right arm splint removal and to have a short arm cast placed on the right hand/arm. A short arm cast was applied to the right arm. Patient was given care instructions and will return for the next scheduled appointment. Inez Mccullough [facility] 02-26-2023 History of Presen t illness Narrative PT ASSESSMENT - CASTING ROOM Abdiel presents for Application of cast. Applied/Re-applied Short Arm Cast to Right arm Patient has been instructed in The patient and/or family member have been instructed in the following: Do not get cast wet, or place/stick anything inside the cast. The patient was instructed to be NWB on right arm. Care of cast. Care and proper application of brace.. Patient to keep follow up appointment as scheduled. Abdiel returned to clinic for right arm splint removal and to have a short arm cast placed on the right hand/arm. A short arm cast was applied to the right arm. Patient was given care instructions and will return for the next scheduled appointment. Inez Mccullough documented in this encounter [facility] 02-19-2023 Note HNO ID: [id number] Author: Rajiv Dinh MD Service: ? Author Type: Physician Type: Progress Notes Filed: 02/19/2023 5:05 PM Note Text: Hand Surgery New Pt Note HPI: 5.11.23 hand vs jaw, R base of 5th MC intra-articular frx, splinted in the ED Here with his fiailyne 37-year-old [id number] male He is not currently working, he is on disability for paranoid schizophrenia for which she is on medication and seems to be relatively stable Also has PTSD and anxiety He smokes roughly a pack a day No numbness in the finger He notes significant swelling and decreased range of motion PMH: PAST MEDICAL HISTORY Diagnosis Date Dog bite URI (upper respiratory infection) ALLERGIES Allergen Reactions Penicillins Unknown Social History Tobacco Use Smoking status: Every Day Types: Cigarettes Smokeless tobacco: Never Substance Use Topics Alcohol use: Yes Comment: yearly Drug use: Yes Types: Marijuana Comment: pt sts used in the past 24 hrs Review of Systems: 12 point review of systems was performed and found to be non-contributory Exam: Right hand Splint on Significant swelling and ecchymosis over the ulnar aspect of the hand and into the wrist Within his limited arc of motion there is no malrotation of the small finger Sunken knuckle deformity Tender to palpation directly over the fracture site Full sensation median radial ulnar Imaging: X-ray right hand Right base of fifth metacarpal fracture It is intra-articular, but the joint surface looks like it remains largely intact He does have significant shortening On the lateral there is no dorsal subluxation of the fifth CMC Assessment/Plan: (U35.007S) Closed displaced fracture of base of fifth metacarpal bone of right hand, sequela (primary encounter diagnosis) I reviewed the x-rays with the patient He has a comminuted base of fifth metacarpal fracture that goes intra-articular and has significant shortening, but there is no dorsal subluxation on the x-ray I reviewed operative versus nonoperative management with the patient, nonoperative management would include cast immobilization for at least another 4 to 5 weeks. He would continue to have shortening of the fifth metacarpal and is at risk of developing a painful malunion. Surgery would entail pulling the fifth metacarpal out to length and placing percutaneous K wires and would also involve a similar time of immobilization. The patient would like to avoid surgery and I did tell him with his significant smoking, he would be at increased risk of complications with the wire. He would also have to be compliant with remaining nonweightbearing and protecting the pins while he is healing. While radiographically this does meet operative criteria, I do think it will heal with nonoperative management and my hope is that he will not develop a painful malunion. He is aware of the risk of a malunion, but he would prefer to avoid surgery and treat this with a cast which I do think is reasonable especially with his paranoid schizophrenia and his smoking habit. He will be placed into a splint today because he is too swollen for cast. In 1 week he will come back for tech visit to have the splint changed to a cast. I gave him strict return precautions if he should notice significant more pain or swelling. I did see him back in the clinic in 4 weeks Medical Decision Making: Problems: Moderate: Acute complicated injury Data: Unique test(s) ordered: 1 Risk: Moderate: Moderate risk from testing/treatment Medical Decision Making Level: 4 - Moderate Rajiv Dinh MD Hand Surgery [facility] 02-17-2023 Miscellaneous Notes Spoke to patient and scheduled them 02/19/23 at 3:00pm with Dr. Dinh at [facility]. Patient is agreeable to date, time and location. Shanta Santos Radar Signal Processing Engineer [employer] February 17, 2023 2:08 PM ----- Message from Halle Fermin sent at 02/17/2023 10:01 AM EDT ----- Regarding: Orthopedics / Open Hand: Fracture Broken / Recent ED Visit Subject Line Format: Orthopedics / Open Hand: Fracture Broken / Recent ED Visit Patient has been identified by name and Date of (Y/N): y Patient: Abdiel Alston Date of : 1985 Previous Provider Seen: n/a Body Part(s) Identified: rt hand Diagnosis/Reason For Visit: fracture Reason for the call/escalation: open hand: fracture/ broken/ recent ed visit If reason for call/escalation is discharge from ED/ER or Hospital, which facility was the patient seen at: [facility] on 02-14-23 informed to follow up with Dr. Dinh Was an appointment scheduled (Y/N): n Person calling if other than patient: no Return call to if other than patient: no Best contact number: [phone] Thank you, Halle Fermin February 17, 2023 10:01 AM documented in this encounter [facility] 11-04-2022 Hospital Discharg e instructions Chrissie Ortega DO - 11/04/2022 4:43 AM EST You were seen in the emergency department today. Please follow up with your primary care physician in 1-2 days. Return to the ER with any worsening symptoms as discussed previously. Please take any medication as instructed, if any was prescribed to you today. Thank you for your patience. The following attachments cannot be sent through Care Everywhere.Sore Throat in Adults ([place])documented in this encounter [facility] 11-04-2022 Emergency department Note Pt resting in bed, denies needs, call light within reach, safety measures maintained. Toya Campos RN 11/04/22 0352 [facility] 11-04-2022 Emergency department Note Pt resting in bed, denies needs, call light within reach, safety measures maintained. Toya Campos RN 11/04/22 0352 RN to bedside to check in on pt, pt denies needs at this time, respirations even and unlabored at this time, call light within reach, visitor at bedside, Afshan Crouch RN 11/04/22 0328 Report to Toya Crouch RN 11/04/22 0321 Specimens collected via protocol. Pt tolerated well. Collections sent to lab. Patient lying in bed with eyes open. RR at 18, breathing regular and unlabored. No signs of distress noted. Patient has no needs or concerns or questions at this time. Call light within patient reach. Family at bedside. Paulette Hilliard RN 11/04/22 0316 RN to bedside to introduce herself to pt, pt sitting in bed, pt placed on vs monitor, call light explained and placed within reach, pt denies further needs at this time Afshan Crouch RN 11/04/22 0204 documented in this encounter [facility] 11-04-2022 Emergency department Note RN to bedside to check in on pt, pt denies needs at this time, respirations even and unlabored at this time, call light within reach, visitor at bedside, Afshan Crouch RN 11/04/22 0328 [facility] 11-04-2022 Emergency department Note Report to Toya Crouch RN 11/04/22 0321 [facility] 11-04-2022 Emergency department Note Specimens collected via protocol. Pt tolerated well. Collections sent to lab. Patient lying in bed with eyes open. RR at 18, breathing regular and unlabored. No signs of distress noted. Patient has no needs or concerns or questions at this time. Call light within patient reach. Family at bedside. Paulette Hilliard RN 11/04/22 0316 [facility] 11-04-2022 Emergency department Note RN to bedside to introduce herself to pt, pt sitting in bed, pt placed on vs monitor, call light explained and placed within reach, pt denies further needs at this time Afshan Crouch RN 11/04/22 0204 [facility] 03-25-2022 Note Attestation with edits by Ellen Garcia MD at 03/25/2022 2:04 PM Patient seen & examined on day of discharge. Please refer to note dated on the day of discharge (03/25/2022) for associated attestation, exam, and plan. At follow-up -Repeat BMP/Mg and CBC to ensure normalization of electrolytes and resolution of leukocytosis -Ensure accurate med list with psych meds he gets from [facility] Internal Medicine: Med Team Discharge Summary Abdiel Alston : 1985 ADMIT DATE: 03/24/2022 DISCHARGE DATE: 03/25/22 PCP: No primary care provider on file. Visit Status: Observation Code Status: FULL CODE Primary Discharge Diagnosis: Globus Sensation Secondary Discharge Diagnoses: GERD Paranoid Schizophrenia Anxiety Tob Abuse Oral candidiasis Hypokalemia Metabolic alkalosis 2/2 vomiting Leukocytosis, likely reactive Reason for Admission & Hospital Course: Abdiel Alston is a 36 y.o. male that presented to [facility] on 03/24/2022 and was admitted for inpatient EGD for globus sensation. Patient was paranoid that he had food stuck in his throat for 48 hours, causing him to self-induce vomiting by placing fingers down his throat. Patient stated this feeling started after eating a burger. Each of patient's episodes of emesis consisted of mostly clear/yellow phlegm with minimal food substances. No hematemesis was ever noted. GI was paged by ED for possible EGD, patient was scheduled for EGD at 0830 on 03/25/22. Patient admitted to IM for observation until EGD. Patient labs significant for K 2.9, Na of 134, Cl of 94, bicarb of 34, (electrolyte abnormalities likely 2/2 induced vomiting). CBC significant for WBC 19.6. EGD significant for LA grade A esophagitis and mild bulbar erythema/erosions, no diverticula of esophagus noted. Patient given 1L IVF and KCl replacement ordered. Pt requesting to be discharged prior to completion of electrolyte replacement, stable on re-evaluation. Pt is medically stable for discharge home. Disposition: Home Activity: No restriction. Diet: No diet orders on file Discharge Medications: BELOW IS NOT AN ACCURATE HOME MED LIST PATIENT REPORTS HE'S ON REMERON/CLONIDINE/LITHIUM BY [facility] Current Outpatient Medications Medication Instructions ARIPiprazole (ABILIFY) 5 mg, Oral, DAILY nystatin (MYCOSTATIN) 500,000 Units, Oral, 4 TIMES DAILY [START ON 03/26/2022] pantoprazole (PROTONIX) 40 mg, Oral, DAILY BEFORE BREAKFAST potassium chloride (KLOR-CON) 20 MEQ packet 40 mEq, Oral, DAILY Notable Medication Changes & Reasoning: Added Pantoprazole 20 mg daily for GERD Added KCl for hypokalemia and nystatin for oral thrush [facility]ants Endocrine Procedures Performed EGD Significant Laboratory/Radiographic Data: Na 134 K 2.9 Cl 94 Bicarb 34 HIV screen: nonreactive UDS negative Pending Results at Time of Discharge N/A Follow Up Appointment(s): 04/04/2022 3:00 PM Javed Bell MD [facility] Items to Address at Followup Visit: Repeat BMP to f/u electrolyte derangements F/u resolution of thrush Medication Reconciliation and compliance GERD/Nausea/Stomach Pain Symptoms, ?H. Pylori Stool Ag Tob Abuse KELLEE [facility] Discharge summary Note Date/Time June 28, 2025 1:30pm [facility] Medical Records Department [address] [place] [id number] Emergency Department Summary 06/28/25 MR#: [id number] Acct: [id number] Name: ABDIEL ALSTON Rep #:[id number] 2 : 1985 39 From: James Wilburn DO PCP: Care Physician,No Primary Status :DEP ER Location: ED HPI HPI - GI History of Present Illness Chief Complaint: Abd Pain Detail of Chief Complaint: Vomiting and abdominal pain Informant: patient and spouse/S.O. Narrative Narrative: Patient presents to the emergency department with complaint of vomiting and abdominal pain. Patient states that he started vomiting around 5:30 AM today. He is thrown up more than 12 times. He then vomited small amount of blood and had a second episode with some dark-colored vomit. He complains of some abdominal discomfort. He has also had 2 bouts of diarrhea. His significant other states that she had a illness a week ago with vomiting. Patient's cousin recently diagnosed with norovirus. Patient denies fever at home. Denies prior abdominal surgeries. Denies urinary symptoms. [facility] Medical History (Updated 06/28/25 @ 13:[address] James Wilburn, DO) Schizo affective schizophrenia Home Medications ?Medication ?Instructions ?Recorded ?Last Taken ?Type ondansetron 4 mg disintegrating 4 mg PO Q8H PRN PRN Na usea #10 tabs 06/28/25 Unknown Rx tablet Allergy/AdvReac Type Severity Reaction Status Date / Time Penicillins (PCN) Allergy Anaphylaxis Verified 06/28/25 11:27 Social History Smoking Status: Current every day smoker tobacco type: cigarettes ROS ROS ED Review of Systems ROS Unobtainable: other Constitutional Constitutional ED: Reports lethargy; Denies chills, fever(s), sweats or weight loss Eyes Eyes: Denies blurry vision, change in vision or diplopia ENT ENT ED: Denies rhinorrhea or sore throat Cardiovascular Cardiovascular: Denies chest pain, orthopnea or racing heartbeat Respiratory/Chest Respiratory/Chest: Denies cough, dyspnea, dyspnea on exertion, orthopnea or sputum Gastrointestinal Gastrointestinal: Reports abdominal pain, diarrhea, nausea, vomiting and other Details: Hematemesis Genitourinary Genitourinary ED: Denies dysuria, hematuria or urinary frequency Musculoskeletal Musculoskeletal: Denies arthralgias, back pain, myalgias or neck pain Integumentary Denies abscess, Abrasions or rash Neurologic Neurologic: Denies headache(s) or weakness Psychiatric Psychiatric: Denies anxiety, depression or suicidal thoughts Endocrine Endocrinology: Denies polydipsia, polyphagia or polyuria Hematologic/Lymphatic Hematologic/Lymphatic: Denies easy bleeding, easy bruising or lymphadenopathy Allergic/Immunologic Allergic/Immunologic ED: Denies mouth swelling, tongue swelling or urticaria EXAM Physical Exam Const Vital Signs: 06/28/25 11:26 Temperature 97 F L Temperature Source Temporal Pulse Rate 124 H Respiratory Rate 18 Blood Pressure 119/91 H Blood Pressure Mean 100 Pulse Ox 98 Oxygen Delivery Method Room Air Positive well nourished and well developed General Appearance ED: well developed and NAD HEENT Reports TM's clear and moist mucous membranes normocephalic and atraumatic; Negative for trauma or tenderness Tympanic Membrane ED: Yes TM's clear Eyes PERRL and EOMs intact bilaterally General Eye ED: Negative for pale conjunctiva or scleral icterus Neck no lymphadenopathy, supple and no JVD General: Negative for tenderness Chest Wall inspection of chest normal and palpation of chest normal Chest: Negative for tenderness Resp normal respiratory effort and clear to auscultation bilaterally Effort and Inspection: Negative for respiratory distress or pain with movement Auscultation: Negative for rhonchi, wheezes or diminished lung sounds Cardio regular rate, regular rhythm, S1 normal heart sound, S2 normal heart sound and no murmurs Peripheral Pulses: pulses 2+ throughout GI normal to inspection, nondistended, normoactive bowel sounds, soft to palpation,non-distended and no masses GI Narrative: Minimal diffuse tenderness. There is no rebound, rigidity, or peritoneal signs. No significant guarding. Back/Spine no CVA tenderness and no thoracic nor lumbar tenderness Extremity normal to inspection General Extremety ED: Negative for edema General Extremity: Negative for edema Neuro oriented x3, CN's II-XII intact bilaterally, no sensory deficits noted and gait normal Sensorium / Orientation: awake, alert, oriented to person, oriented to place andoriented to time Motor Exam: strength 5/5 throughout and strength abnormal Psych mental status grossly normal Skin no rashes or lesions noted and no wounds MDM MDM MDM Narrative Medical decision making narrative: Patient presents with vomiting and diarrhea with recent sick contacts diagnosed with norovirus. Did have episode of hematemesis. Clinically he looks well. Suspect likely a viral gastroenteritis with possibly a Brianna-Agee tear. Patient states that he has had history of stomach ulcer in the past. He said noblack tarry stool. Will start an IV and give patient liter fluid bolus as well as Protonix and Zofran. Will obtain basic labs. CBC with differential obtainedshowed an elevated white count of 18.1 with hemoglobin of 17.4 and platelet count of 257. Chemistries unremarkable. LFTs unremarkable. Patient was given a liter normal saline fluid bolus. He was given Zofran. He felt markedly improved after treatment. He also did receive pantoprazole IV bolus. He was able to tolerate a p.o. challenge. This point I do not think he needs any imaging as his abdominal exam is benign. I suspect likely a viral gastroenteritis such as possibly norovirus. Recommended symptomatic care and will write him a prescription for Zofran. Advised on pushing fluids and BRAT diet. Advised to return if persistent vomiting, worsening abdominal pain, persistent hematemesis, or condition worsening way. Regarding the hematemesis Isuspect likely Brianna-Agee tear. Lab Data Attestation: I reviewed the patient's lab results. Labs: Laboratory Results - last 24 hr 06/28/25 12:00 WBC 18.1 H RBC 5.37 Hgb 17.4 H Hct 48.9 MCV 91.1 MCH 32.4 H MCHC 35.6 RDW Std Deviation 40.9 RDW Coeff of Saman 12.2 Plt Count 257 MPV 8.8 Immature Gran % (Auto) 0.500 Neut % (Auto) 93.8 H Lymph % (Auto) 2.8 L [place] % (Auto) 2.4 Eos % (Auto) 0.3 Baso % (Auto) 0.2 Absolute Neuts (auto) 16.9 H Absolute Lymphs (auto) 0.50 L Nucleated RBC % 0 Sodium 137 Potassium 4.5 Chloride 102 Carbon Dioxide 23.9 Anion Gap 11 BUN 15 Creatinine 0.93 Estim Creat Clear Calc 97.01 Est GFR (MDRD) Non-Af 108 BUN/Creatinine Ratio 16.4 Glucose 168 H Calcium 9.7 Total Bilirubin 0.58 AST 16 ALT 26 Alkaline Phosphatase 135 H Total Protein 7.6 Albumin 4.7 Globulin 2.9 Albumin/Globulin Ratio 1.6 Discharge Plan Triage Chief Complaint: Abd Pain ED Provider: James Wilburn Dx/Rx/DC Orders Clinical Impression: Viral gastroenteritis, Brianna-Agee tear Instructions: Brianna-Agee Tear, ED Gastroenteritis, Viral (Adult) Prescriptions: New ondansetron 4 mg tablet,disintegrating 4 mg PO Q8H PRN PRN (Reason: Nausea) Qty: 10 0RF Primary Care Provider: Care Physician,No Primary Referrals: Vikas Mederos MD [Med Staff - Active Staff, Family Practice] - 3-5 Days Care Physician,No Primary [Primary Care Provider, Medical] Print Language: [place] Disposition Disposition: Home, Self Care What to do if you have Problems For any increased pain, shortness of breath, bleeding, nausea or vomiting, chestpain, or any unexpected problems, contact your Primary Care Provider. Call [facility] ([phone]) or report to the closest Emergency Room. Call 911 if necessary. 06/28/25 1608 <Electronically signed by James Wilburn DO> Cosigner Signature (if applicable): CC: No Primary Care Physician ~ Signed [facility] Work Phone: Evaluation note* Diagnosis Epigastric pain- Primary Abdominal pain, epigastric [facility]: [facility]* Diagnosis Food impaction of esophagus, initial encounter- Primary documented in this encounter [facility] Work Phone: Evaluation note* Diagnosis Closed displaced fracture of base of fifth metacarpal bone of right hand, sequela- Primary [facility]* Diagnosis Dysphagia, unspecified type- Primary [facility] Diagnosis Acute pain of right knee- Primary [facility]* Diagnosis Closed displaced fracture of base of fifth metacarpal bone of right hand, sequela- Primary [facility]* Diagnosis Acute exacerbation of chronic low back pain- Primary Right sided sciatica Sciatica [facility] Diagnosis Acute nonintractable headache, unspecified headache type- Primary Anxiety Anxiety state, unspecified [facility]* Diagnosis Pharyngitis, unspecified etiology- Primary [facility]* Diagnosis Acute nonintractable headache, unspecified headache type- Primary [facility] information availableW[facility] Work Phone: Hospital Discharge instructions* Attachments The following attachments cannot be sent through Care Everywhere. * Abdominal Pain ([place]) * Smoking: Stopping ([place]) documented in this [facility] Work Phone: Hospital Discharge instructions* Attachments The following attachments cannot be sent through Care Everywhere. * Sciatica Discharge Instructions ([place]) [facility] Diagnostic Procedure Only (Routine) - Pending Review Specialty Diagnoses / Procedures Referred By Contac t Referred To Contact XR IMAGING Diagnoses Closed displaced fracture of base of fifth metacarpal bone of right hand, sequela Procedures XR HAND GENERAL 3V PA/LAT/OBL RIGHT RADEX HAND MINIMUM 3 VIEWS Vamshi Powers, [employer] CASE MANAGER [address] [place] [address] Xr Imaging Referral ID Status Reason Start Date Expiration Date Visits Requested Visits Authorized [id number] Pending Review Auto-Generat ed Referral 03/19/2023 04/17/2024 1 1 [facility] for referral (narrative)* Consultation (Urgent) - Pending Review Specialty Diagnoses / Procedures Referred By Contac t Referred To Contact Gastroenterology Diagnoses Dysphagia, unspecified type Procedures VA OFFICE/OUTPATIENT [facility] 60 MINUTES Esmer Gomez PA [address] [place] [address] [facility] [address] [place] [address] Referral ID Status Reason Start Date Expiration Date Visits Requested Visits Authorized [id number] Pending Review Specialty Services Required 12/29/2023 12/28/2024 1 1 [facility] for referral (narrative)* Consultation (Routine) - Pending Review Specialty Diagnoses / Procedures Referred By Contac t Referred To Contact Orthopedic Surgery Diagnoses Acute pain of right knee Carine Jaramillo PA-C [address] [place] [address] [facility] [address] [facility] [address] [place] [address] Referral ID Status Reason Start Date Expiration Date Visits Requested Visits Authorized [id number] Pending Review Specialty Services Required 02/01/2024 01/31/2025 1 1 [facility] for referral (narrative)No reason for referral information availableWOhio [facility] Work Phone: Summary Purpose Family History No Family History Records FoundNo Family History Records FoundNo Family History Records FoundNo Family History Records FoundNo Family History Records FoundNo Family History Records FoundNo Family History Records Found Advance Directives No Advanced Directives Records FoundDocuments on File Type Date Recorded Patient Panel Laminator Expl anation Advance Directives and Living Will Power of [place] Latest Code Status on File Code Status Date Activated Date Inactivated Comments Full Code 02/14/2018 7:44 PM 02/15/2018 1:58 PM Documents on File Type Date Recorded Patient Panel Laminator Expl anation ACP-Advance Directive ACP-Power of [place] Advance Directive Response Recorded Date/ Time Do you have a Healthcare Power of [place] Setter? No June 28, 2025 11:42am Discharge Instructions * Instructions* Nanette Muhammad PA-C - 03/05/2020 Return immediatly if any signs or symptoms worsen. * Attachments The following attachments cannot be sent through Care Everywhere. * Back: Strain ([place]) documented in this encounter* Instructions* aLwrence Mcallister PA-C - 05/15/2019 Monitor closely for signs of infection Take antibiotics as directed Return to the emergency department for worsening symptoms as discussed Sutures will need removed in 7-10 days by primary care/urgent care/return to emergency department * Attachments The following attachments cannot be sent through Care Everywhere. * Lacerations: Stitches ([place]) documented in this encounter Assessments Diagnosis Strain of lumbar region, initial encounter Diagnosis Laceration of left little finger without foreign body with damage to nail, initial encounter- Primary Chief Complaint and Reason for Visit Chief Complaint Admit Date N/V June 28, 2025 11:25am Additional Source Comments (unrecognized sect ion and content) No Status Records FoundNo Status Records FoundNo Status Records FoundNo Status Records FoundNo Status Records FoundNo Status Records FoundNo Status Records Found INFORMATION SOURCE (unrecogn ized section and content) DATE CREATED AUTHOR 01/26/2019 [facility] DATE CREATED AUTHOR AUTHOR'S ORGANIZ ATION 05/30/2019 [facility] DATE CREATED AUTHOR AUTHOR'S ORGANIZ ATION 03/30/2022 [facility] DATE CREATED AUTHOR AUTHOR'S ORGANIZ ATION 06/01/2023 [facility] DATE CREATED AUTHOR AUTHOR'S ORGANIZ ATION 02/09/2024 [facility] DATE CREATED AUTHOR AUTHOR'S ORGANIZ ATION 11/12/2024 [facility] DATE CREATED AUTHOR AUTHOR'S ORGANIZ ATION 07/09/2025 [facility] Reason for Visit (unrecogniz ed section and content) Reason Comments Back Pain intermittent lower b ack pain starting yesterday, alternates between right and left sided. pt also having trouble walking with a steady gait. admits that he has pain with urination and trouble voiding Reason Comments Laceration pt states cutting 5t h digit to left hand on boner meat at work yesterday, cleansed wound with alcohol and peroxide applied bandaid, today finger has black spot, swollen and increase in pain wants evaluated tetanus approx 6 mos ago Reason Comments Abdominal Pain x1 week. Reason Comments Aspiration pt believes he had f ood bolus 2 days ago and that its still in throat. can pass liquid Reason Comments ER F/U Reason Comments Established Patient Reason Comments Sore Throat Started 2 weeks ago, pt states that when coughing it feels like something comes up into throat but then goes back down after coughing. Feels like foreign object. Pt does smoke Reason Comments Knee Pain Started hurting 3 da ys ago. No noted injuries. Hurts when lying down. Unable to sleep due to the pain Reason Comments Back Pain Pt reports severe ba ck pain that started this am, pt has hx of chronic lower back pain but it worsened today. Denies injury, denies urinary concerns, pt ambulatory. Reason Comments Headache Patient presents to ED with complaint of headache, dizziness and facial numbness that started today, per family patient recently restarted medications one is lithium. Reports patient began experiencing nausea and vomiting over the weekend. Family reports patient patient had fall today also. Reason Comments Dysphagia Pt sts that he feels like there is something in the back of his throat that is making it hard for him to swallow. Pt sts that he has been having a sore throat for the last week, pt denies any SOB feeling. Pt denies any CP, N/V/D, MCCABE, Blurry Vision, Weakness. Reason Comments Headache Pt in with c/o heada yanni, vomiting, weakness, and diarrhea for that started today. Vomiting Ordered Prescriptions (unrec ognized section and content) Prescription Sig Dispensed Refills Start Date End Da te nystatin (MYCOSTATIN) 474012 UNIT/ML suspension Take 5 mLs by mouth 4 times daily for 5 days 100 mL 0 03/25/2022 03/30/2022 potassium chloride (KLOR-CON) 20 MEQ packet Take 40 mEq by mouth daily for 5 days 10 packet 0 03/25/2022 03/30/2022 pantoprazole (PROTONIX) 40 MG tablet Take 1 tablet by mouth every morning (before breakfast) 30 tablet 3 03/26/2022 nystatin (MYCOSTATIN) 864889 UNIT/ML suspension Take 5 mLs by mouth 4 times daily 60 mL 0 03/25/2022 03/25/2022 Scheduled Active and Recently Administ ered Medications (unrecognized section and content) Medication Order 03/23/2022 03/24/2022 03/25/2022 0.9 % sodium chloride bolus (COMPLETED) 1,000 mL (12.3 mL/kg), IntraVENous, at 495.9 mL/hr, Administer over 121 Minutes, ONCE, On Fri03/25/22 at 0515, For 1 dose 0516 (New Bag - Prov ider: Camila Michelle RN)0943 (Stopped - Provider: Richa Bella RN) glucagon (rDNA) injection 1 mg (COMPLETED) 1 mg, IntraVENous, ONCE, 1 dose, On Fri03/25/22 at 0230 0244 (Given - Provid er: Camila Michelle RN) nystatin (MYCOSTATIN) [id number] UNIT/ML suspension 500,000 Units 500,000 Units (5 mL), Oral, 4 TIMES DAILY, First dose on Fri03/25/22 at 0900, Until Discontinued, Swish about the mouth and retain in the mouth for as long as possible before swallowing. 0953 (Given - Provid er: Richa Bella RN)1300 (Due)1700 (Due)2100 (Due) ondansetron (ZOFRAN) injection 4 mg (COMPLETED) 4 mg, IntraVENous, ONCE, 1 dose, On Fri03/25/22 at 0230 0244 (Given - Provid er: Camila Michelle RN) pantoprazole (PROTONIX) tablet 40 mg 40 mg, Oral, DAILY BEFORE BREAKFAST, First dose on Fri03/25/22 at 0700, Until Discontinued, Do not crush or break. Substituted for Omeprazole (PRILOSEC). 0952 (Given - Provid er: Richa Bella RN) potassium chloride (KLOR-CON) packet 40 mEq (COMPLETED) 40 mEq, Oral, ONCE, 1 dose, On Fri03/25/22 at 1100, Dilute with at least 4 ounces of cold water. May further dilute if GI adverse effects occur. 1059 (Given - Provid er: Richa Bella RN) potassium chloride (KLOR-CON) packet 40 mEq (COMPLETED) 40 mEq, Oral, ONCE, 1 dose, On Fri03/25/22 at 0500, Dilute with at least 4 ounces of cold water. May further dilute if GI adverse effects occur. 0516 (Given - Provid er: Camila Michelle RN) potassium chloride 10 mEq/100 mL IVPB (Peripheral Line) (CANCELED) 10 mEq, IntraVENous, EVERY HOUR, 4 doses, First dose on Fri03/25/22 at 0800, Last dose on Fri03/25/22 at 1100, at 100 mL/hr 0953 (New Bag - Prov ider: Richa Bella RN)1119 (Not Given - Provider: Richa Bella RN - Reason: Other - Comment: Patient discharged)1120 (Not Given - Provider: Richa Bella RN - Reason: Other - Comment: Patient discharged.)1121 (Stopped - Provider: Rihca Bella RN) sodium chloride flush 0.9 % injection 3 mL(Linked Group 1) 3 mL, IntraVENous, EVERY 8 HOURS, First dose on Fri03/25/22 at 0230, Until Discontinued, Flush line with 3-5 mL 0253 (Given - Provid er: Camila Michelle RN)1000 (Not Given - Provider: Richa Bella RN - Reason: IV Fluid Infusing)1830 (Due) Linked Groups Order Group 1: Saline lock IV (COMPLETED) Routine, CONTINUOUS, Starting on Fri03/25/22 at 0230, Until Specified And sodium chloride flush 0.9 % injection 3 mLJump to med 3 mL, IntraVENous, EVERY 8 HOURS, First dose on Fri03/25/22 at 0230, Until Discontinued
Flush line with 3-5 mL
Scheduled Medication Order 12/27/2023 12/28/2023 12/29/2023 aluminum & magnesium hydroxide-simethicone (Mylanta) 200-200-20 MG/5ML oral suspension 20 mL (COMPLETED) 20 mL, Oral, Once, On Fri12/29/23 at 1605, For 1 dose 1607 (Given - Provid er: Marilee Whitaker RN) Scheduled Medication Order 01/30/2024 01/31/2024 02/01/2024 ketorolac (Toradol) injection 15 mg (COMPLETED) 15 mg, IntraMUSCular, Once, On Fri02/01/24 at 1615, For 1 dose 162 (Given - Provid er: Giana Sosa RN) Scheduled Medication Order 08/15/2024 08/16/2024 08/17/2024 ketorolac (Toradol) injection 30 mg (COMPLETED) 30 mg, IntraMUSCular, Once, On Fri08/17/24 at 2030, For 1 dose 2029 (Given - Provid er: Sangita Calvo RN) Lidocaine 4 % patch 1 patch 1 patch, TransDERmal, Administer over 12 Hours, Once, On Fri08/17/24 at 2030, For 1 dose, Apply patch to back. Patch may remain in place for up to 12 hours in any 24 hour period. 2030 (Medication Kate lied - Provider: Sangita Calvo RN)2045 (Due: Medication Removed - Provider: Automatic Discharge Provider - Comment: Time automatically adjusted from order being discontinued) orphenadrine (Norflex) injection 60 mg (COMPLETED) 60 mg, IntraMUSCular, Once, On Fri08/17/24 at 2030, For 1 dose 2029 (Given - Provid er: Sangita Calvo, RONALD) predniSONE (Deltasone) tablet 50 mg (COMPLETED) 50 mg, Oral, Once, On Fri08/17/24 at 2030, For 1 dose 2030 (Given - Provid er: Sangita Calvo RN) Scheduled Medication Order 09/12/2024 09/13/2024 09/14/2024 ketorolac (Toradol) injection 9.9 mg (COMPLETED) 9.9 mg (rounded from 10 mg), IntraVENous, Once, On Fri09/14/24 at 1625, For 1 dose 162 (Given - Provid er: Deneen Voss RN) prochlorperazine (Compazine) injection 10 mg (COMPLETED) 10 mg, IntraVENous, Once, On Fri09/14/24 at 1625, For 1 dose 1629 (Given - Provid er: Deneen Voss RN) sodium chloride 0.9 % bolus 250 mL (COMPLETED) 250 mL, IntraVENous, at 250 mL/hr, Administer over 1 Hours, Once, On Fri09/14/24 at 1335, For 1 dose 1631 (New Bag - Prov ider: Deneen Voss RN)1727 (Stopped - Provider: Deneen Voss RN) sodium chloride 0.9% (NS) flush 5-40 mL 5-40 mL, IntraVENous, Every 12 hours, First dose on Fri09/14/24 at 1335, For Line Patency: Peripheral IV = 5 mL; Midline or Central Line = 10 mL/lumen. If following IV push medication, administer flush at same rate as the IV push. Flush volume is determined by type of infusion therapy being given. For non-viscous solutions use: Peripheral IV = 5 mL Midline or Central Line = 10 mL/lumen For viscous solutions (i.e. blood components, parenteral nutrition, contrast media, or after obtaining blood sample) use: Peripheral IV = 10 mL Midline or Central Line = 20 mL/lumen 1335 (Given - Provid er: Deneen Voss RN) Continuous Medication Order 09/12/2024 09/13/2024 09/14/2024 sodium chloride 0.9 % infusion 50 mL/hr, IntraVENous, Continuous, Starting on Fri09/14/24 at 1335 1635 (New Bag - Prov ider: Deneen Voss RN)1933 (Stopped - Provider: Avani Valentine RN) PRN Medication Order 09/12/2024 09/13/2024 09/14/2024 sodium chloride 0.9 % infusion 5-250 mL/hr, IntraVENous, PRN, if patient receiving piggyback infusions and maintenance fluids are not ordered OR KVO fluids to protect IV site / prevent frequent line interruptions / long duration, Starting on Fri09/14/24 at 1331, For piggyback infusion, administer at same rate as piggyback for a total of 25 mL. Enter 25 mL into dose field and piggyback rate into rate field of order. If piggyback is infusing at a rate less than 100 mL/hr, enter 25 mL into dose field and 100 mL/hr into rate field of order. For KVO fluids, enter rate of 20 mL/hr or less into rate field of order. sodium chloride 0.9% (NS) flush 5-40 mL 5-40 mL, IntraVENous, PRN, line care, After every IV line use, Starting on Fri09/14/24 at 1331, For Line Patency: Peripheral IV = 5 mL; Midline or Central Line = 10 mL/lumen. If following IV push medication, administer flush at same rate as the IV push. Flush volume is determined by type of infusion therapy being given. For non-viscous solutions use: Peripheral IV = 5 mL Midline or Central Line = 10 mL/lumen For viscous solutions (i.e. blood components, parenteral nutrition, contrast media, or after obtaining blood sample) use: Peripheral IV = 10 mL Midline or Central Line = 20 mL/lumen Scheduled Medication Order 11/02/2022 11/03/2022 11/04/2022 dexAMETHasone (Decadron) injection 8 mg (COMPLETED) 8 mg, IntraMUSCular, Once, On Fri11/04/22 at 0235, For 1 dose 0257 (Given - Provid er: Paulette Hilliard RN) ibuprofen tablet 600 mg (COMPLETED) 600 mg, Oral, Once, On Fri11/04/22 at 0235, For 1 dose 0256 (Given - Provid er: Paulette Hilliard RN) Scheduled Medication Order 11/07/2024 11/08/2024 11/09/2024 acetaminophen (Tylenol) tablet 1,000 mg (COMPLETED) 1,000 mg, Oral, Once, On Fri11/09/24 at 1655, For 1 dose, Maximum dose of acetaminophen is 4000 mg from all sources in 24 hours. 1754 (Given - Provid er: Maribel Reis RN) diphenhydrAMINE (BENADryl) injection 25 mg 25 mg, IntraVENous, Once, On Fri11/09/24 at 1655, For 1 dose 1655 (Not Given - Pr ovider: Maribel Reis RN - Reason: Other - Comment: hx of seizures) metoclopramide (Reglan) injection 10 mg (COMPLETED) 10 mg, IntraVENous, Once, On Fri11/09/24 at 1655, For 1 dose 1754 (Given - Provid er: Maribel Reis RN) sodium chloride 0.9 % bolus 1,000 mL (COMPLETED) 1,000 mL, IntraVENous, at 1,000 mL/hr, Administer over 1 Hours, Once, On Fri11/09/24 at 1655, For 1 dose 175 (New Bag - Prov ider: Maribel Reis RN)2032 (Stopped - Provider: Dagoberto Kiser RN) Source Comments (unrecognize d section and content) In the event this informatio n is protected by the Federal Confidentiality of Alcohol and Drug Abuse Patient Records regulations: The Federal rules restrict any use of the information to criminally investigate or prosecute any alcohol or drug abuse patient.[facility] Hospital[facility] the event this information is protected by the Federal Confidentiality of Alcohol and Drug Abuse Patient Records regulations: The Federal rules restrict any use of the information to criminally investigate or prosecute any alcohol or drug abuse patient.[facility] Hospital[facility] the event this information is protected by the Federal Confidentiality of Alcohol and Drug Abuse Patient Records regulations: The Federal rules restrict any use of the information to criminally investigate or prosecute any alcohol or drug abuse patient.[facility] Care Teams (unrecognized sec tion and content) Team Status: Active Member Role/Relationship Status Dates No Primary Care Physician Primary care physician Activ e Team Status: Inactive Member Role/Relationship Status Dates Dr. James Wilburn DO Attending physician Active Start: June 28, 2025 End: June 28, 2025 Dr. James Wilburn DO Emergency Departmen t Physician Active Start: June 28, 2025 End: June 28, 2025 No Primary Care Physician Primary care physician Activ e Start: June 28, 2025 End: June 28, 2025 Goals (unrecognized section and content) Goals may be documented in a n alternate section FOR RECORDS PERTAINING TO PATIENTS WHO ARE OR HAVE BEEN ENROLLED IN A CHEMICAL DEPENDENCY/SUBSTANCEABUSE PROGRAM, SOME INFORMATION MAY BE OMITTED. This clinical summary was aggregated from multiple sources. Caution should be exercised in using it in the provision of clinical care. This summary normalizes information from multiple sources, and as a consequence, information in this document may materially change the coding, format and clinical context of patient data. In addition, data may be omitted in some cases. CLINICAL DECISIONS SHOULD BE BASED ON THE PRIMARY CLINICAL RECORDS. [facility] [employer] [facility]. provides no warranty or guarantee of the accuracy or completeness of information in this document.
[2025-09-05 05:20] LABS: Hematocrit 43.9 % (40-54); Hemoglobin 15.0 g/dL (13.0-16.5); Immature Granulocytes Count 0.060 X10^3/uL (0.0-0.0); Mean Corp Hgb Conc 34.2 g/dL (32-36); Mean Corpuscular Volume 93.8 fL (80-94); Mean Platelet Vol. 9.2 fl (6.2-12.0); NRBC Flagged by Analyzer 0 % (0-5); Platelet Count 245 K/mm3 (150-450); RBC Distribution Width CV 11.9 % (11.6-14.6); RBC Distribution Width SD 41.1 fl (35.1-43.9); Red Blood Count 4.68 M/mm3 (4.6-6.2); White Blood Count 15.5 K/mm3 (4.4-11.0)
[2025-09-05 05:40] LABS: AST(SGOT) 18 U/L (<=37); Alanine Aminotransfer ALT/SGPT 27 U/L (<=46); Albumin, Serum 4.2 g/dL (3.5-5.0); Alkaline Phosphatase 133 U/L (40-129); Anion Gap 9 (5-15); BUN 11 mg/dL (4-19); BUN/Creat Ratio 12.0 RATIO (10-20); Calcium,Total 9.5 mg/dL (7.6-11.0); Carbon Dioxide 26.1 mmol/L (21.0-32.0); Chloride 103 mmol/L (98-108); Estimated Creatinine Clearance 100.82 ml/min (50-250); Globulin 2.5 g/dL (2.2-4.2); Glucose 149 mg/dL (70-99); Lipase 13 U/L (13-75); Potassium 4.5 mmol/L (3.3-5.1)
[2025-09-05 06:27] VITALS: BP 133/84; PULSE 68; RESP 16; TEMP 36.6; O2SAT 100
== END 2025-09-05 06:32 | disposition home or self-care (01) ==
PROVIDERS: Emergency Provider Emergency Medicine; Visit Provider Emergency Medicine
DX: R10.13 Epigastric pain (principal); F17.210 Nicotine dependence, cigarettes, uncomplicated
CPT/HCPCS: 74177; 80053; 83690; 85025; 96374; 96375; 99285; Q9967; A4216; J2405